=== PATIENT | female | born 1945 | race Caucasian/White ===

== ENCOUNTER 2016-10-04 12:16 | Inpatient (IN) | payer OTHER ==
[2016-10-04] MEDS ORDERED: methylPREDNISolone NA SUCC 125 MG/2 ML VIAL ONE (12:54)
[2016-10-04] MEDS ORDERED: MAGNESIUM SULF 50% (8.12 MEQ/2 ML-1 GM VIAL) IVPB ONE (12:54)
[2016-10-04] MEDS ORDERED: methylPREDNISolone NA SUCC 125 MG/2 ML VIAL IVPB ONE (12:54)
[2016-10-04] MEDS ORDERED: ALBUTEROL SO4 2.5/IPRATROPIUM 0.5 INH SOL 3 ML VIAL.NEB. NEB ONE ×2 (12:54→16:57)
[2016-10-04] MEDS ORDERED: MAGNESIUM SULF 50% (8.12 MEQ/2 ML-1 GM VIAL) ONE (12:54)
[2016-10-04 12:55] VITALS: BMI 19.3
--- NOTE | 2016-10-04 12:55 | PDOC ---
History of Present Illness - General Chief Complaint: Shortness of Breath Stated Complaint: Shortness of Breath Time Seen by Provider: 10/04/16 12:38 - History of Present Illness Initial Comments: 10/04/16 13:45 Patient is a 71 year old female with a history of HTN, DM, COPD who presents with worsening SOB. The patient reports gradual worsening of SOB that began yesterday evening and has progressively worsened throughout this morning. They measured her O2% at home which demonstrated a saturation of 78% prompting them to present to the ED for evaluation. She states that she does use 2L of O2 at home which was not helping with her SOB. She states that over the past few days she noted some increased dry cough without production and denies any fevers. She reports that this SOB feels similar to her previous COPD exacerbations last of which required admission 2 years ago. She denies any recent long travel or increased leg swelling. She denies fevers, chills, chest pain, abdominal pain, nausea, vomiting or changes with bowel movements or urination. Past History - Past Medical History Allergies/Adverse Reactions: Allergies Allergy/AdvReac Type Severity Reaction Status Date / Time No Known Allergies Allergy Verified 10/04/16 12:29 Home Medications: Ambulatory Orders Arformoterol Tartrate [Brovana] 15 mcg IH BID 10/04/16 Aspirin [ASA -] 81 mg PO DAILY 10/04/16 Atorvastatin Ca [Lipitor] 40 mg PO HS 10/04/16 Bimatoprost [Lumigan] 1 drop IO DAILY 10/04/16 Brimonidine Tartrate [Alphagan P 0.1% -] 1 drop OU BID 10/04/16 Brinzolamide [Azopt] 15 ml OP BID 10/04/16 Digoxin [Lanoxin -] 0.125 mg PO DAILY 10/04/16 Diltiazem HCl [Cartia Xt] 120 mg PO DAILY 10/04/16 Ergocalciferol (Vitamin D2) [Vitamin D2] 2,000 unit PO DAILY 10/04/16 Furosemide [Lasix] 40 mg PO ASDIR 10/04/16 Insulin (Levemir) [Levemir Flexpen -] 20 units SQ DAILY 10/04/16 Insulin Lispro [Humalog] 100 unit SQ ASDIR 10/04/16 Levalbuterol HCl [Xopenex] 0.45 mg IH BID 10/04/16 Levothyroxine [Synthroid -] 75 mcg PO ASDIR 10/04/16 Montelukast Na [Singulair -] 10 mg PO HS 10/04/16 Prednisone [Deltasone -] 12.5 mg PO ASDIR 10/04/16 Sitagliptin Phosphate [Januvia] 100 mg PO DAILY 10/04/16 Tiotropium [place] [Spiriva] 18 mcg IH DAILY 10/04/16 Triamcinolone 0.025% Cream [Aristocort] 0 gm TP BID 10/04/16 COPD: Yes Diabetes: Yes Other medical history: glacoma - Psycho/Social/Smoking Cessation Hx Anxiety: No Suicidal Ideation: No Smoking History: Former smoker Have you smoked in the past 12 months: No Information on smoking cessation initiated: No Hx Alcohol Use: No Drug/Substance Use Hx: No Substance Use Type: None Review of Systems - Review of Systems Constitutional: No: Chills, Fever Respiratory: Yes: Cough, Shortness of Breath. No: Productive cough, Hemoptysis Cardiac (ROS): No: Chest Pain, Lightheadedness, Palpitations ABD/GI: No: Constipated, Diarrhea, Nausea, Vomiting : No: Burning, Dysuria Integumentary: No: Rash Neurological: No: Headache, Numbness, Tingling, Weakness *Physical Exam - Vital Signs Last Vital Signs Temp Pulse Resp BP Pulse Ox 98.8 F 137 H 34 H 125/42 94 L 10/04/16 12:29 10/04/16 12:29 10/04/16 12:29 10/04/16 12:29 10/04/16 12:37 - Physical Exam Comments: 10/04/16 13:56 General Appearance: Nourished, Mild Distress HEENT: No Pharyngeal Erythema, Tonsillar Exudate, Tonsillar Erythema Respiratory/Chest: Lungs Clear, Distant breath sounds noted on ascultation. No Crackles, Rales, Rhonchi, Wheezing Cardiovascular: Regular Rhythm, Regular Rate. No Murmur, Gallop/S3, Gallop/S4 Gastrointestinal/Abdominal: Normal Bowel Sounds, Soft. No Guarding, Rebound, Tenderness Extremity: Normal Capillary Refill Integumentary: Normal Color, Dry, Warm Neurologic: Fully Oriented, Alert, Normal Mood/Affect, Normal Response ED Treatment Course - LABORATORY CBC & Chemistry Diagram: 10/04/16 13:10 10/04/16 13:10 - RADIOLOGY Radiology Studies Ordered: Category Date Time Status CHEST PA & LAT [RAD] Stat Radiology 10/04/16 12:54 Ordered Medical Decision Making - Critical Care Time Total Critical Care Time (minutes): 60 Critical Care Statement: The care of this patient involved high complexity decision making to prevent further life threatening deterioration of the patient 's condition and/or to evaluate & treat vital organ system(s) failure or risk of failure. - Medical Decision Making 10/04/16 13:57 Patient is a 71 year old female with a history of HTN, DM, COPD who presents with worsening SOB. Differential includes but is not limited to: COPD exacerbation, ACS, PE, Pneumonia, Metabolic Disturbance. Given the patient's gradual worsening of SOB over the past 24 hours similar to her previous COPD exacerbations, it is likely her symptoms are due to another COPD exacerbation. PE and ACS is less likely given her lack of pain. We will obtain a cbc, cmp, troponin to evaluate as well as a set of blood cultures, chest radiograph and abg. We will treat with a duoneb, solumedrol, and mg. 10/04/16 14:43 CBC demonstrates an elevated WBC to 17. CMP is unremarkable. Troponin elevated to .13 likley due to demand ischemia. ABG demonstrates CO2 retention with a pCO2 of 72. 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 She will likely require admission given her significant CO2 retention. 10/04/16 16:09 Discussed the case with Dr. Barillas the patient's making line worker who agreed with our treatment thus far and recommended Bi-pap for the patient. He stated that he will come in to evaluate the patient as well. 10/04/16 16:[address] Scott and discussed the case for admission of the patient to ICU. Dr. Scott appreciated the call and informed us that she now admits to Dr. Traci Mccarty. We will contact Dr. Mccarty. 10/04/16 16:16 Discussed the case with Dr. Mccarty who agreed to accept the admission. She asked us to consult Dr. Pedro with cardiology for the patient. We will get in contact with Dr. Pedro. 08/28/17 16:54 Discussed the case with Dr. Kiran with the ICU team who was made aware of the case. 10/04/16 17:08 Discussed the case with Dr. Esquivel who is covering for Dr. Pedro and she requested serial troponins be done on the patient. She is aware of the case. *DC/Admit/Observation/Transfer Diagnosis at time of Disposition: COPD with acute exacerbation - Discharge Dispostion Condition at time of disposition: Critical Admit: Yes - Referrals
[2016-10-04] MEDS ORDERED: SODIUM CHLORIDE 1,000 ML IV STA ×2 (13:03→15:53)
[2016-10-04 13:22] LABS: ARTERIAL BLD GAS O2 SATURATION 93.5 % (90-98.9); ARTERIAL BLOOD GAS BASE EXCESS 9.1 meq/l (-2-2); ARTERIAL BLOOD GAS HCO3 37.6 meq/L (22-26); ARTERIAL BLOOD GAS PO2 73.9 mmHg (70-100); ARTERIAL BLOOD GAS pH 7.33 (7.35-7.45)
[2016-10-04 13:23] LABS: METHEMOGLOBIN 0.7 % (0.4-1.5)
[2016-10-04 13:24] LABS: ALLENS TEST POSITIVE; ART PUNCT SITE RIGHT RADIAL; LPM/O2% 4L; PT. ON O2? YES; TYPE OF O2 NASAL
[2016-10-04 13:37] LABS: MCH 31.6 pg (25.7-33.7); MCHC 32.7 g/dl (32.0-36.0); MEAN CELL VOLUME 96.6 fl (80-96); PLATELET COUNT 232 K/MM3 (134-434); RDW 14.6 % (11.6-15.6)
[2016-10-04 13:56] LABS: INR 1.15 (0.82-1.09); PROTHROMBIN TIME (PATIENT) 12.7 SEC (9.98-11.88)
[2016-10-04 14:07] LABS: ALBUMIN 3.4 g/dl (3.4-5.0); ALK PHOS 98 U/L (45-117); ANION GAP 16 (8-16); BILIRUBIN,TOTAL 0.7 mg/dL (0.2-1.0); CALCIUM 9.5 mg/dL (8.5-10.1); CO2 30 mmol/L (21-32); CPK 106 IU/L (26-192); CREATININE 0.8 mg/dL (0.55-1.02); GLUCOSE,RANDOM 198 mg/dL (74-106); SGOT/AST 24 U/L (15-37); SGPT/ALT 27 U/L (12-78); TOT PROT 6.1 g/dl (6.4-8.2)
[2016-10-04 14:09] LABS: TROPONIN I 0.13 ng/ml (0.00-0.05)
[2016-10-04] MEDS ORDERED: CEFTRIAXONE 1 GM in DEXTROSE 5%-WATER - 100 ML IVPB ONE (14:35)
[2016-10-04] MEDS ORDERED: AZITHROMYCIN IVPB 500 MG in DEXTROSE 5%-WATER - 250 ML IVPB ONE (14:35)
[2016-10-04] MEDS ORDERED: CEFTRIAXONE 50 ML ONE (14:51)
[2016-10-04] MEDS ORDERED: AZITHROMYCIN IVPB 250 ML IVPB ONE (14:51)
[2016-10-04] MEDS ORDERED: ASPIRIN 81 MG CHEWABLE TABLETS PO ONE (15:53)
[2016-10-04] MEDS ORDERED: ASPIRIN 81 MG CHEWABLE TABLETS ONE (16:54)
--- NOTE | 2016-10-04 17:41 | CON.PULM ---
Consult Reason for Consultation:: Respiratory Failure - History of Present Illness Chief Complaint: Shortness of Breath History of Present Illness: Pt. evaluated in the ED 71 year old lady with severe O2 and steroid dependent COPD. Pt uses Bipap at home at night and PRN during the day. She was doing relatively well until last night when she developed severe shortness of breath. She had had a "scratchy throat" for several days but no fever, chills, sputum production, hemoptysis chest pain or palpitations. - History Source History Provided By: Patient, Family Member (), Medical Record Limitations to Obtaining History: No Limitations - Past Medical History Cardio/Vascular: Yes: AFIB (Paroxysmal A. FIB. a number of years ago) Pulmonary: Yes: COPD, O2 Dependent, Pneumonia (about 6 years ago), Previously Intubated Endocrine: Yes: Diabetes Mellitus - Alcohol/Substance Use Hx Alcohol Use: No - Smoking History Smoking history: Former smoker Have you smoked in the past 12 months: No Home Medications - Allergies Allergies/Adverse Reactions: Allergies Allergy/AdvReac Type Severity Reaction Status Date / Time No Known Allergies Allergy Verified 10/04/16 12:29 - Home Medications Home Medications: Ambulatory Orders Arformoterol Tartrate [Brovana] 15 mcg IH BID 10/04/16 Aspirin [ASA -] 81 mg PO DAILY 10/04/16 Atorvastatin Ca [Lipitor] 40 mg PO HS 10/04/16 Bimatoprost [Lumigan] 1 drop IO DAILY 10/04/16 Brimonidine Tartrate [Alphagan P 0.1% -] 1 drop OU BID 10/04/16 Brinzolamide [Azopt] 15 ml OP BID 10/04/16 Digoxin [Lanoxin -] 0.125 mg PO DAILY 10/04/16 Diltiazem HCl [Cartia Xt] 120 mg PO DAILY 10/04/16 Ergocalciferol (Vitamin D2) [Vitamin D2] 2,000 unit PO DAILY 10/04/16 Furosemide [Lasix] 40 mg PO ASDIR 10/04/16 Insulin (Levemir) [Levemir Flexpen -] 20 units SQ DAILY 10/04/16 Insulin Lispro [Humalog] 100 unit SQ ASDIR 10/04/16 Levalbuterol HCl [Xopenex] 0.45 mg IH BID 10/04/16 Levothyroxine [Synthroid -] 75 mcg PO ASDIR 10/04/16 Montelukast Na [Singulair -] 10 mg PO HS 10/04/16 Prednisone [Deltasone -] 12.5 mg PO ASDIR 10/04/16 Sitagliptin Phosphate [Januvia] 100 mg PO DAILY 10/04/16 Tiotropium [place] [Spiriva] 18 mcg IH DAILY 10/04/16 Triamcinolone 0.025% Cream [Aristocort] 0 gm TP BID 10/04/16 Review of Systems - Review of Systems Constitutional: denies: Chills, Fever Cardiovascular: reports: Shortness of Breath. denies: Chest Pain, Edema, Palpitations Respiratory: reports: Cough, SOB. denies: Hemoptysis, Wheezing Gastrointestinal: denies: Abdominal Pain, Rectal Bleeding, Vomiting Blood Physical Exam Vital Sings: Vital Signs Temperature 98.8 F 10/04/16 12:29 Pulse Rate 128 H 10/04/16 17:23 Respiratory Rate 28 H 10/04/16 17:23 Blood Pressure 112/57 10/04/16 17:23 O2 Sat by Pulse Oximetry (%) 94 L 10/04/16 17:23 Constitutional: Yes: Moderate Distress (able to speak in full sentences) Eyes: No: Sclera Icterus HENT: Yes: Atraumatic, Normocephalic Neck: Yes: Supple, Trachea Midline Cardiovascular: Yes: Regular Rate and Rhythm. No: JVD Respiratory: Yes: Diminished (decreased intensity breath sounds bilateral) ...Percussion: Yes: Hyperresonance. No: Dullnes ...Clubbing: No Extremities: No: Calf Tenderness, Cyanosis Edema: No Neurological: Yes: Alert, Oriented Labs: ABG Results ABG pH 7.33 (7.35-7.45) L 10/04/16 13:20 ABG pCO2 at Pt Temp 72.9 mmHg (35-45) H* D 10/04/16 13:20 ABG pO2 at Pt Temp 73.9 mmHg (70-100) D 10/04/16 13:20 ABG HCO3 37.6 meq/L (22-26) H 10/04/16 13:20 ABG O2 Sat (Measured) 93.5 % (90-98.9) 10/04/16 13:20 ABG O2 Content 17.9 % vol (15-22) 10/04/16 13:20 ABG Base Excess 9.1 meq/l (-2-2) H 10/04/16 13:20 Lactic acid 3.2 Trop 0.13 Imaging - Results Chest X-ray: Pending (MARKINGS RIGHT BASE, LEFT BASILAR OPACITIES SUGGESTIVE POSSIBLE INFILTRATE), Report Reviewed, Image Reviewed (Portable cxr) Problem List - Problems (1) Acute and chronic respiratory failure with hypercapnia Code(s): J96.22 - ACUTE AND CHRONIC RESPIRATORY FAILURE WITH HYPERCAPNIA (2) Acute and chronic respiratory failure with hypoxia Code(s): J96.21 - ACUTE AND CHRONIC RESPIRATORY FAILURE WITH HYPOXIA (3) COPD with acute exacerbation Code(s): J44.1 - CHRONIC OBSTRUCTIVE PULMONARY DISEASE W (ACUTE) EXACERBATION (4) Pneumonia Code(s): J18.9 - PNEUMONIA, UNSPECIFIED ORGANISM Assessment/Plan Acute on chronic respiratory failure probably due to respiratory infection. Severe COPD that is steroid and O2 dependent. Pt uses BIPAP at night and PRN during the day at home. Past history of DM and PAF. Pt is still ambulatory at baseline and does pulmonary rehab. Trop. increased. Suggest: Transfer to ICU NIPPV IV steroids Antibiotics Inhaled bronchodilators O2 to maintain SaO2>90 Fluids PRN Monitor cardiac status Thank you for referring this patient for consultation.
--- NOTE | 2016-10-04 18:20 | CONSULT ---
Consultation: REQUESTING PROVIDER: CONSULT REQUEST: We have been asked to medically evaluate this patient for (ICU) . HISTORY OF PRESENT ILLNESS: Patient is a 71 year old female with a history of HTN, DM, COPD who came to ED with complain of increase in SOB. The patient reports gradual worsening of SOB that began yesterday evening and has progressively worsened throughout this morning. She measured her O2% at home which demonstrated a saturation of 78% so she came to ED. She states that she does use 2L of O2 at home which was not helping with her SOB, she also uses BIPAP in night and PRN in day. She states that over the past few days she noted some increased dry cough without production and denies any fevers. She reports that this SOB feels similar to her previous COPD exacerbations last of which required admission 2 years ago. She denies chest pain, palpitations, diziness, nausea, vomiting. Denies blood in stool, loss of weight, diarrhoea, constipation. Denies burning micturation. She denies any recent long travel or increased leg swelling. She states that she takes 40mg lasix BID for leg swelling but has never been diagnosed with CHF. She states her thread spooler is Dr connor. REVIEW OF SYSTEMS: CONSTITUTIONAL: Absent: fever, chills, diaphoresis, generalized weakness, malaise, loss of appetite, weight change HEENT: Absent: rhinorrhea, nasal congestion, throat pain, throat swelling, CARDIOVASCULAR: Absent: chest pain, syncope, palpitations, irregular heart rate, lightheadedness , peripheral edema RESPIRATORY: Absent: cough, shortness of breath, dyspnea with exertion, orthopnea, wheezing, stridor, hemoptysis GASTROINTESTINAL: Absent: abdominal pain, abdominal distension, nausea, vomiting, diarrhea, constipation, melena, hematochezia GENITOURINARY: Absent: dysuria, frequency, urgency, hesitancy, hematuria, flank pain, genital pain SKIN: Absent: rash, itching, pallor ENDOCRINE: Absent: unexplained weight gain, NEUROLOGIC: Absent: headache, focal weakness or paresthesias, dizziness, PSYCHIATRIC: Absent: anxiety, depression, PHYSICAL EXAMINATION Vital Signs - 24 hr 10/04/16 17:23 Pulse Rate [ 128 H Apical] Respiratory 28 H Rate Blood Pressure 112/57 [Left Arm] O2 Sat by Pulse 94 L Oximetry (%) GENERAL: Awake, alert, and fully oriented, in no acute distress. HEAD: Normal with no signs of trauma. EYES: extraocular movements intact, EARS, NOSE, THROAT: Ears normal, nares patent, oropharynx clear without exudates. Moist mucous membranes. NECK: Normal range of motion, supple without lymphadenopathy, JVD, or masses. LUNGS: Breath sounds equal, clear to auscultation bilaterally. No wheezes, and no crackles. No accessory muscle use. Decrease breath sound at bases HEART: Regular rate and rhythm, normal S1 and S2, tachycardia ABDOMEN: Soft, nontender, not distended, normoactive bowel sounds, no guarding, no rebound, no masses. UPPER EXTREMITIES: 2+ pulses, warm, well-perfused. No cyanosis. LOWER EXTREMITIES: warm, well-perfused. No calf tenderness.peripheral edema 1+ PSYCHIATRIC: Cooperative. Good eye contact. Appropriate mood and affect. SKIN: Warm, dry, Home Medications Medication Instructions Recorded Arformoterol Tartrate [Brovana] 15 mcg IH BID 10/04/16 Aspirin [ASA -] 81 mg PO DAILY 10/04/16 Atorvastatin Ca [Lipitor] 40 mg PO HS 10/04/16 Bimatoprost [Lumigan] 1 drop IO DAILY 10/04/16 Brimonidine Tartrate [Alphagan P 1 drop OU BID 10/04/16 0.1% -] Brinzolamide [Azopt] 15 ml OP BID 10/04/16 Digoxin [Lanoxin -] 0.125 mg PO DAILY 10/04/16 Diltiazem HCl [Cartia Xt] 120 mg PO DAILY 10/04/16 Ergocalciferol (Vitamin D2) 2,000 unit PO DAILY 10/04/16 [Vitamin D2] Furosemide [Lasix] 40 mg PO ASDIR 10/04/16 Insulin (Levemir) [Levemir Flexpen 20 units SQ DAILY 10/04/16 -] Insulin Lispro [Humalog] 100 unit SQ ASDIR 10/04/16 Levalbuterol HCl [Xopenex] 0.45 mg IH BID 10/04/16 Levothyroxine [Synthroid -] 75 mcg PO ASDIR 10/04/16 Montelukast Na [Singulair -] 10 mg PO HS 10/04/16 Prednisone [Deltasone -] 12.5 mg PO ASDIR 10/04/16 Sitagliptin Phosphate [Januvia] 100 mg PO DAILY 10/04/16 Tiotropium [place] [Spiriva] 18 mcg IH DAILY 10/04/16 Triamcinolone 0.025% Cream 0 gm TP BID 10/04/16 [Aristocort] Current Medications Generic Name Dose Route Start Last Admin Trade Name Freq PRN Reason Stop Dose Admin Albuterol/Ipratropium 1 amp 10/04/16 18:45 Duoneb - NEB Q6H [facility] Albuterol/Ipratropium 1 amp 10/04/16 18:35 Duoneb - NEB Q4H PRN SHORTNESS OF BREATH Arformoterol Tartrate amp 10/04/16 22:00 Brovana (Restricted To Pulmonology/Resp) - NEB BID [facility] Aspirin 81 mg 10/05/16 10:00 Asa - PO DAILY [facility] Atorvastatin Calcium 40 mg 10/04/16 22:00 Lipitor - PO HS [facility] Brimonidine Tartrate 1 drop 10/04/16 22:00 Alphagan P 0.1% - OU BID [facility] Digoxin 0.125 mg 10/05/16 10:00 Lanoxin - PO DAILY [facility] Diltiazem HCl 120 mg 10/05/16 10:00 Cardizem Cd - PO DAILY [facility] Furosemide 40 mg 10/05/16 06:00 Lasix - PO BID@0600,1400 [facility] Heparin Sodium (Porcine) 5,000 unit 10/04/16 22:00 Heparin - SQ BID [facility] Azithromycin 500 mg/ Dextrose 250 mls @ 250 mls/hr 10/05/16 10:00 IVPB DAILY [facility] Ceftriaxone Sodium 1 gm/ 50 mls @ 100 mls/hr 10/05/16 10:00 Dextrose IVPB DAILY [facility] Levothyroxine Sodium 75 mcg 10/04/16 18:30 Synthroid - PO ASDIR [facility] Methylprednisolone Sodium Succinate 40 mg 10/04/16 21:00 Solu-Medrol - IVPB Q6H-IV [facility] Montelukast Sodium 10 mg 10/04/16 22:00 Singulair - PO HS [facility] Non-Formulary Medication 1 drop 10/05/16 10:00 Bimatoprost [Lumigan] IO DAILY [facility] Non-Formulary Medication 15 ml 10/04/16 22:00 Brinzolamide [Azopt] OP BID [facility] Non-Formulary Medication 2,000 unit 10/05/16 10:00 Ergocalciferol (Vitamin D2) [Vitamin D2] PO DAILY [facility] Non-Formulary Medication 20 units 10/05/16 10:00 Insulin (Levemir) [Levemir Flexpen -] SQ DAILY [facility] Non-Formulary Medication 0.45 mg 10/04/16 22:00 Levalbuterol Hcl [Xopenex] IH BID [facility] ASSESSMENT/PLAN: Acute on chronic hypercapnic respiratory failure Continue with BIPAP Repeat ABG oxygen to keep po2 between 88 to 92 Duoneb nebulizer q6h candis albuterol q4h prn IV steroid solu 40mg q6h Monitor vitals. on montelucast In ED patinet sod 125mg solu, azithro, mg and was started on BIPAP Leucocytosis: could be due to susupected pneumonia or stress induced Patient got azithromycin and ceftriaxone in ED continue with ceftriaxone and azithro get wbc in morning HLD continue with statin Lactic acidosis: could be due to hypoxia Trend lactic acid. elevated Trop I could be due to demand ischemia got 324mg aspirin in ED Continue with aspirin 81mg daily Trend Trop i HTN monitor vitals continue with home meds. on cardiazem on lasix DM monitor blood sugar diabetic diet Novalog sliding scale. continue with levemir. h/o glaucoma on bimatoprost, brinzolamide,brimonidine Hypothyroidism Continue with levothyroxine Fluid: Electrolyte: repeat in am Nutrition; diabetic diet GI pro: protonix DVT pro sq heparin BID Dispo: We will continue to follow the patient. Thank you for this consultative opportunity. Visit type - Emergency Visit Emergency Visit: Yes ED Registration Date: 10/04/16 Care time: The patient presented to the Emergency Department on the above date and was hospitalized for further evaluation of their emergent condition. - New Patient This patient is new to me today: Yes Date on this admission: 10/04/16 - Critical Care Critical Care patient: Yes Total Critical Care Time (in minutes): 45 Critical Care Statement: The care of this patient involved high complexity decision making to prevent further life threatening deterioration of the patient 's condition and/or to evaluate & treat vital organ system(s) failure or risk of failure.
[2016-10-04 18:29] LABS: TROPONIN I 0.1 ng/ml (0.00-0.05)
[2016-10-04] MEDS ORDERED: FUROSEMIDE 40 MG TABLET (FP) PO SCH (18:30)
[2016-10-04] MEDS ORDERED: ALBUTEROL SO4 6.7 GM HFA INHALER IH PRN (18:35)
--- NOTE | 2016-10-04 18:53 | EKG ---
Test Reason : Blood Pressure : / mmHG Vent. Rate : 137 BPM Atrial Rate : 137 BPM P-R Int : 130 ms QRS Dur : 076 ms QT Int : 284 ms P-R-T Axes : 087 065 -81 degrees QTc Int : 428 ms UNDETERMINED RHYTHM POSSIBLE ATRIAL FLUTTER VS. ATRIAL TACHYCARDIA VS. SINUS TACHYCARDIA WITH BASELINE ARTIFACT MARKED ST ABNORMALITY, POSSIBLE INFERIOR SUBENDOCARDIAL INJURY ABNORMAL ECG WHEN COMPARED WITH ECG OF 21-JUL-2009 10:44, PREMATURE ATRIAL COMPLEXES ARE NO LONGER PRESENT VENT. RATE HAS INCREASED BY [address] NOW DEPRESSED IN INFERIOR LEADS Confirmed by JAREN ROMERO MD ([id number]) on 10/04/2016 6:52:59 PM Referred By: Confirmed By:JAREN ROMERO MD
[2016-10-04] MEDS ORDERED: ALBUTEROL SO4 0.083% IH SOL 2.5 MG/3 ML VIAL.NEB. NEB PRN (19:10)
[2016-10-04] MEDS: ALBUTEROL SO4 2.5/IPRATROPIUM 0.5 INH SOL 3 ML VIAL.NEB. NEB SCH (19:15)
[2016-10-04] MEDS ORDERED: ADENOSINE 6 MG/2 ML VIAL IVPUSH ONE (19:20)
[2016-10-04 19:59] LABS: ARTERIAL BLOOD GAS pH 7.38 (7.35-7.45)
[2016-10-04] MEDS ORDERED: ADENOSINE 6 MG/2 ML VIAL IVPUSH STA (19:59)
[2016-10-04 20:00] LABS: ALLENS TEST POSITIVE; ART PUNCT SITE LEFT RADIAL; ARTERIAL BLD GAS O2 SATURATION 98.6 % (90-98.9); ARTERIAL BLOOD GAS BASE EXCESS 7.5 meq/l (-2-2); ARTERIAL BLOOD GAS HCO3 34.1 meq/L (22-26); LPM/O2% 40%; PT. ON O2? YES; TYPE OF O2 BIPAP; VENT RATE 16
--- NOTE | 2016-10-04 20:19 | CONSULT ---
Consult Consult Specialty:: Pulm/CCM Reason for Consultation:: acute on chronic hypercapneic resp failure - History of Present Illness Chief Complaint: Shortness of breath History of Present Illness: Ms Jaime is a 71 year old woman with a history of HTN, DM, COPD on home NIV who presented to ED today with worsening SOB. Pt relates gradual worsening of her chronic SOB starting yesterday evening and cont to get worse this morning prompting ED visit. She has home Spo2 monitor which read 78%, despite being on her home o2 of 2Lpm. She c/o dry non productive cough but no sputum, no fever, no other URI symptoms, sick contacts, or other sick prodome. Relates previous hospitalizations for COPD exacerbation which were similiar. In ED pt was afebrile, normotensive, tachypneic to 30s, tachycardic 130s. She was in moderate distress, abg with mild acute on chronic hypercapnea 7.33/72. She was placed on NIV with some relief, and repeat abd improved. Labs were notable for WBC 17, lactate 3, trop 0.13. CXR without infiltrate, EKG showing sinus tach with infero-lateral ST depression. Started on Ceftriaxone/azithromycin and solu-medorol for COPD exacerbation. Transferred to ICU for care. Repeat labs in ICU showed downtrending Trop and lactic acid., pt relates feeling improved. - History Source History Provided By: Patient, Medical Record Limitations to Obtaining History: No Limitations - Past Medical History Cardio/Vascular: Yes: HTN Pulmonary: Yes: COPD, O2 Dependent Endocrine: Yes: Diabetes Mellitus - Alcohol/Substance Use Hx Alcohol Use: No - Smoking History Smoking history: Former smoker Have you smoked in the past 12 months: No Home Medications - Allergies Allergies/Adverse Reactions: Allergies Allergy/AdvReac Type Severity Reaction Status Date / Time No Known Allergies Allergy Verified 10/04/16 12:29 - Home Medications Home Medications: Ambulatory Orders Arformoterol Tartrate [Brovana] 15 mcg IH BID 10/04/16 Aspirin [ASA -] 81 mg PO DAILY 10/04/16 Atorvastatin Ca [Lipitor] 40 mg PO HS 10/04/16 Bimatoprost [Lumigan] 1 drop IO DAILY 10/04/16 Brimonidine Tartrate [Alphagan P 0.1% -] 1 drop OU BID 10/04/16 Brinzolamide [Azopt] 15 ml OP BID 10/04/16 Digoxin [Lanoxin -] 0.125 mg PO DAILY 10/04/16 Diltiazem HCl [Cartia Xt] 120 mg PO DAILY 10/04/16 Ergocalciferol (Vitamin D2) [Vitamin D2] 2,000 unit PO DAILY 10/04/16 Furosemide [Lasix] 40 mg PO ASDIR 10/04/16 Insulin (Levemir) [Levemir Flexpen -] 20 units SQ DAILY 10/04/16 Insulin Lispro [Humalog] 100 unit SQ ASDIR 10/04/16 Levalbuterol HCl [Xopenex] 0.45 mg IH BID 10/04/16 Levothyroxine [Synthroid -] 75 mcg PO ASDIR 10/04/16 Montelukast Na [Singulair -] 10 mg PO HS 10/04/16 Prednisone [Deltasone -] 12.5 mg PO ASDIR 10/04/16 Sitagliptin Phosphate [Januvia] 100 mg PO DAILY 10/04/16 Tiotropium [place] [Spiriva] 18 mcg IH DAILY 10/04/16 Triamcinolone 0.025% Cream [Aristocort] 0 gm TP BID 10/04/16 Family Disease History - Family Disease History Family History: Unremarkable Review of Systems - Review of Systems Constitutional: reports: No Symptoms. denies: Night Sweats, Unintentional Wgt. Loss Eyes: reports: No Symptoms HENT: denies: Throat Pain Neck: reports: No Symptoms Cardiovascular: reports: Shortness of Breath. denies: Chest Pain Respiratory: reports: Cough, SOB on Exertion Gastrointestinal: reports: No Symptoms. denies: Abdominal Pain, Vomiting Genitourinary: reports: No Symptoms Breasts: reports: No Symptoms Reported Musculoskeletal: reports: No Symptoms Integumentary: reports: No Symptoms Neurological: reports: No Symptoms Endocrine: reports: No Symptoms Hematology/Lymphatic: reports: No Symptoms Physical Exam Vital Signs: Vital Signs Temperature 97.7 F 10/04/16 18:33 Pulse Rate 132 H 10/04/16 18:33 Respiratory Rate 26 H 10/04/16 18:33 Blood Pressure 111/49 10/04/16 18:33 O2 Sat by Pulse Oximetry (%) 100 10/04/16 20:09 Constitutional: Yes: Well Nourished, No Distress Eyes: Yes: Conjunctiva Clear, EOM Intact, PERRL HENT: Yes: Atraumatic, Normocephalic. No: Rhinnorhea, Thrush Neck: Yes: Trachea Midline. No: Lymphadenopathy Cardiovascular: Yes: Tachycardia, S1, S2 Respiratory: Yes: CTA Bilaterally, Diminished, On BiPap. No: Accessory Muscle Use Gastrointestinal: Yes: Normal Bowel Sounds, Soft. No: Tenderness ...Rectal Exam: Yes: WNL Renal/: Yes: WNL Breast(s): Yes: WNL Musculoskeletal: Yes: WNL Extremities: Yes: WNL Edema: Yes Edema: LLE: 1+, RLE: 1+ Peripheral Pulses WNL: Yes Integumentary: Yes: WNL Neurological: Yes: Alert, Oriented, Cran Nerves II-XII Intact ...Motor Strength: WNL Psychiatric: Yes: WNL Labs: CBC, BMP 10/04/16 13:10 10/04/16 13:10 ABG Results ABG pH 7.38 (7.35-7.45) 10/04/16 19:40 ABG pCO2 at Pt Temp 58.5 mmHg (35-45) H 10/04/16 19:40 ABG pO2 at Pt Temp 114.0 mmHg (70-100) H D 10/04/16 19:40 ABG HCO3 34.1 meq/L (22-26) H 10/04/16 19:40 ABG O2 Sat (Measured) 98.6 % (90-98.9) 10/04/16 19:40 ABG O2 Content 18.1 % vol (15-22) 10/04/16 19:40 ABG Base Excess 7.5 meq/l (-2-2) H 10/04/16 19:40 Troponin, BNP 10/04/16 10/04/16 13:10 17:40 Troponin I 0.13 H 0.10 H Imaging - Results Chest X-ray: Report Reviewed, Image Reviewed EKG: Report Reviewed, Image Reviewed Problem List - Problems (1) Acute and chronic respiratory failure with hypercapnia Code(s): J96.22 - ACUTE AND CHRONIC RESPIRATORY FAILURE WITH HYPERCAPNIA (2) Acute and chronic respiratory failure with hypoxia Code(s): J96.21 - ACUTE AND CHRONIC RESPIRATORY FAILURE WITH HYPOXIA (3) COPD with acute exacerbation Code(s): J44.1 - CHRONIC OBSTRUCTIVE PULMONARY DISEASE W (ACUTE) EXACERBATION (4) Pneumonia Code(s): J18.9 - PNEUMONIA, UNSPECIFIED ORGANISM Assessment/Plan PULM/CCM seen and examined in ICU A/ 71 y/o woman with DM, HTN, COPD on home o2 and NIV now with exacerbation on same, improving on BiPap. P -cont ceftriaxone/azith for exacerbation -taper to solu-medrol 60 in am - NIV overnight -duo nebs - even fluid balance - f/u third trop - asa given in ED, ok for daily 81. - cardiology to follow - can restart home meds in am - if cont to improve, ok for floor in am Marc Hendrix ACNP 1464 35min CCT
[2016-10-04] MEDS: methylPREDNISolone NA SUCC 40 MG/1 ML VIAL IVPB SCH (21:56)
[2016-10-04] MEDS: HEPARIN NA (PORCINE) 5,000 UNITS/ML 1ML VIAL SQ SCH (21:57)
[2016-10-04] MEDS: BRIMONIDINE TARTRATE 0.1% OPHTHALMIC 5 ML BOTTLE OU SCH (21:57)
[2016-10-04] MEDS: LATANOPROST 0.005% OPHTH SOLN 2.5ML BOTTLE OU SCH (21:57)
[2016-10-04] MEDS: MUPIROCIN 2% TOPICAL OINTMENT FOR DECOLONIZATION NS SCH (21:57)
[2016-10-04] MEDS: CHLORHEXIDINE GLUCONATE 4% CLEANSER FOR DECOLONIZATION TP SCH (21:58)
[2016-10-04] MEDS: ATORVASTATIN CA 40 MG TABLET (FP) PO SCH (21:58)
[2016-10-04] MEDS: MONTELUKAST NA 10 MG TABLET PO SCH (21:58)
[2016-10-04] MEDS ORDERED: PATIENT'S OWN MEDICATION (NON-FORMULARY) (Brinzolamide [Azopt] 15 ML) OU SCH (22:00)
[2016-10-04] MEDS ORDERED: LEVALBUTEROL IH SCH (22:00)
[2016-10-04] MEDS: ARFORMOTEROL TARTRATE 15 MCG/2 ML VIAL NEB SCH (22:00)
--- NOTE | 2016-10-04 22:35 | HP ---
Admitting History and Physical - Primary Care Physician PCP: Nitin Mccarty - Admission Chief Complaint: SOB History of Present Illness: Pt with significant h/o COPD on BIPAP at home in her [facility] untill yesterday when started to develop a dry cough associated with scratchy throat and later felt SOB; pt's SOB got worse today and pt came to ER. History Source: Patient - Past Medical History Cardiovascular: Yes: HTN Pulmonary: Yes: COPD (on BIPAP at home- every night and PRN), O2 Dependent Endocrine: Yes: Diabetes Mellitus (on Insulin) - Smoking History Smoking history: Former smoker Have you smoked in the past 12 months: No - Alcohol/Substance Use Hx Alcohol Use: No Home Medications - Allergies Allergies/Adverse Reactions: Allergies Allergy/AdvReac Type Severity Reaction Status Date / Time No Known Allergies Allergy Verified 10/04/16 12:29 - Home Medications Home Medications: Ambulatory Orders Arformoterol Tartrate [Brovana] 15 mcg IH BID 10/04/16 Aspirin [ASA -] 81 mg PO DAILY 10/04/16 Atorvastatin Ca [Lipitor] 40 mg PO HS 10/04/16 Bimatoprost [Lumigan] 1 drop IO DAILY 10/04/16 Brimonidine Tartrate [Alphagan P 0.1% -] 1 drop OU BID 10/04/16 Brinzolamide [Azopt] 15 ml OP BID 10/04/16 Digoxin [Lanoxin -] 0.125 mg PO DAILY 10/04/16 Diltiazem HCl [Cartia Xt] 120 mg PO DAILY 10/04/16 Ergocalciferol (Vitamin D2) [Vitamin D2] 2,000 unit PO DAILY 10/04/16 Furosemide [Lasix] 40 mg PO ASDIR 10/04/16 Insulin (Levemir) [Levemir Flexpen -] 20 units SQ DAILY 10/04/16 Insulin Lispro [Humalog] 100 unit SQ ASDIR 10/04/16 Levalbuterol HCl [Xopenex] 0.45 mg IH BID 10/04/16 Levothyroxine [Synthroid -] 75 mcg PO ASDIR 10/04/16 Montelukast Na [Singulair -] 10 mg PO HS 10/04/16 Prednisone [Deltasone -] 12.5 mg PO ASDIR 10/04/16 Sitagliptin Phosphate [Januvia] 100 mg PO DAILY 10/04/16 Tiotropium [place] [Spiriva] 18 mcg IH DAILY 10/04/16 Triamcinolone 0.025% Cream [Aristocort] 0 gm TP BID 10/04/16 Review of Systems - Review of Systems Constitutional: denies: Chills, Fever HENT: denies: Ear Discharge, Ear Pain, Nasal Congestion Neck: denies: Pain on Movement, Stiffness Cardiovascular: denies: Chest Pain, Edema, Palpitations Respiratory: reports: Cough. denies: Wheezing Gastrointestinal: denies: Abdominal Pain, Diarrhea, Nausea, Vomiting Genitourinary: reports: Discharge, Dysuria. denies: Burning, Flank Pain Musculoskeletal: denies: Back Pain, Extremity Pain Neurological: denies: Change in LOC, Change in Speech, Confusion Endocrine: denies: Excessive Sweating, Intolerance to Cold Hematology/Lymphatic: denies: Easily Bruised, Excessive Bleeding Psychiatric: denies: Anxiety, Depression Physical Examination Vital Signs: Vital Signs Temperature 97.8 F 10/04/16 21:00 Pulse Rate 83 10/04/16 22:00 Respiratory Rate 18 10/04/16 22:00 Blood Pressure 102/46 10/04/16 22:00 O2 Sat by Pulse Oximetry (%) 100 10/04/16 21:00 Constitutional: Yes: No Distress, Calm Eyes: Yes: Conjunctiva Clear, EOM Intact HENT: Yes: Normocephalic. No: Rhinnorhea Neck: No: Trachea Midline, Lymphadenopathy Cardiovascular: Yes: Regular Rate and Rhythm, S1, S2 Respiratory: Yes: Regular, Diminished, Other (coarse BS) Gastrointestinal: Yes: Normal Bowel Sounds, Soft. No: Tenderness ...Rectal Exam: Yes: Deferred Breast(s): Yes: Other (deferred) Edema: No Integumentary: No: Erythema, Rash Neurological: Yes: Alert, Oriented, Other (motor eval is symmetric in UE/ LE/ face) Psychiatric: Yes: Alert, Oriented Labs: reviewed Imaging - Results Chest X-ray: Report Reviewed Problem List - Problems (1) Acute and chronic respiratory failure with hypercapnia Code(s): J96.22 - ACUTE AND CHRONIC RESPIRATORY FAILURE WITH HYPERCAPNIA (2) COPD with acute exacerbation Code(s): J44.1 - CHRONIC OBSTRUCTIVE PULMONARY DISEASE W (ACUTE) EXACERBATION (3) Pneumonia Code(s): J18.9 - PNEUMONIA, UNSPECIFIED ORGANISM (4) Diabetes mellitus Code(s): E11.9 - TYPE 2 DIABETES MELLITUS WITHOUT COMPLICATIONS (5) Hypertension Code(s): I10 - ESSENTIAL (PRIMARY) HYPERTENSION Assessment/Plan Admit to monitor bed IV solu-medrol IV abtx Pulmonary consult BIPAP AM labs DVT prophylasis Case was d/w pt's nurse Time spent for managing pt's care: over 80 minutes
[2016-10-05] MEDS: ALBUTEROL SO4 2.5/IPRATROPIUM 0.5 INH SOL 3 ML VIAL.NEB. NEB SCH ×2 (00:01→06:03)
[2016-10-05] MEDS: methylPREDNISolone NA SUCC 40 MG/1 ML VIAL IVPB SCH ×4 (03:41→21:38)
[2016-10-05] MEDS: INSULIN SLIDING SCALE (NOVOLOG) 1 VIAL SQ SCH ×4 (06:17→21:51)
[2016-10-05] MEDS: LEVOTHYROXINE NA 75 MCG TABLET (FP) PO SCH (06:18)
[2016-10-05] MEDS: FUROSEMIDE 40 MG TABLET (FP) PO SCH ×2 (06:18→14:47)
[2016-10-05 06:48] LABS: MCH 31.8 pg (25.7-33.7); MCHC 32.8 g/dl (32.0-36.0); MEAN PLT VOLUME 9.7 fl (7.5-11.1); PLATELET COUNT 224 K/MM3 (134-434); RDW 14.2 % (11.6-15.6)
[2016-10-05 07:08] LABS: INR 1.15 (0.82-1.09); PROTHROMBIN TIME (PATIENT) 12.7 SEC (9.98-11.88)
[2016-10-05 07:14] LABS: MAGNESIUM 2.3 mg/dL (1.8-2.4); PHOSPHOROUS 2.7 mg/dL (2.5-4.9)
[2016-10-05 07:17] LABS: TROPONIN I 0.04 ng/ml (0.00-0.05)
[2016-10-05 07:36] LABS: ALBUMIN 2.8 g/dl (3.4-5.0); ALK PHOS 87 U/L (45-117); ANION GAP 10 (8-16); BILIRUBIN,TOTAL 0.7 mg/dL (0.2-1.0); CALCIUM 8.9 mg/dL (8.5-10.1); CO2 33 mmol/L (21-32); CREATININE 0.6 mg/dL (0.55-1.02); GLUCOSE,RANDOM 210 mg/dL (74-106); SGOT/AST 22 U/L (15-37); SGPT/ALT 23 U/L (12-78); THYROID STIMULATING HORMONE 0.16 uIU/ml (0.358-3.74); TOT PROT 5.7 g/dl (6.4-8.2)
--- NOTE | 2016-10-05 08:27 | PN ---
Physical Exam: SUBJECTIVE: Patient seen and examined by me this AM - Pt respiratory status improved on Bipap, medrol, nebs. F/u ABG 7.38/58.5/114/ 34. Endorses improving SOB, dyspnea. Still with dry cough. - Lactate, Troponin downtrending - Afebrile, WBC downtrending (17-> 14) - Episode of sustained SVT overnight to 130s. Received adenosine 6mg with conversion to sinus rhythm. NSR for remainder of AM. - Seen by cardiology and pulmonology - CXR notable for bibasilar opacities, with LLL consolidation suggestive of possible PNA. - Blood cultures pending OBJECTIVE: Intake & Output 10/02/16 10/03/16 10/04/16 10/05/16 23:59 23:59 23:59 23:59 Intake Total 170 Output Total 200 200 Balance -200 -30 Weight 50.5 kg 51.573 kg Vital Signs Period Temp Pulse Resp BP Sys/Anthony Pulse Ox Last 24 Hr 97.5 F-97.8 F 78-133 16-28 102-131/46-65 93-100 GENERAL: The patient is awake, alert, and fully oriented. Elderly woman lying comfortably in bed on BiPap. HEAD: Normal with no signs of trauma. EYES: PERRL, extraocular movements intact, sclera anicteric, conjunctiva clear. No ptosis. ENT: oropharynx clear without exudates, moist mucous membranes. NECK: Trachea midline, full range of motion, supple. LUNGS: Breath sounds diminished with scattered rhonchi, no wheezes, no crackles HEART: Regular rate and rhythm, S1, S2 without murmur, rub or gallop. ABDOMEN: Soft, nontender, nondistended, normoactive bowel sounds, no guarding, no rebound EXTREMITIES: 2+ pulses, warm, well-perfused. 2+ LE BL edema NEUROLOGICAL: Cranial nerves II through XII grossly intact. Normal speech, gait not observed. PSYCH: Normal mood, normal affect. SKIN: Warm, dry, normal turgor. Laboratory Results - last 24 hr 10/04/16 10/04/16 10/04/16 17:40 17:40 19:40 WBC RBC Hgb Hct MCV MCH MCHC RDW Plt Count MPV INR Anticoagulation Therapy Y Puncture Site Left radial ABG pH 7.38 ABG pCO2 at Pt Temp 58.5 H ABG pO2 at Pt Temp 114.0 H D ABG HCO3 34.1 H ABG O2 Sat (Measured) 98.6 ABG O2 Content 18.1 ABG Base Excess 7.5 H [place] Test Positive O2 Delivery Device Bipap Oxygen Flow Rate 40% Vent Mode S/t Vent Rate 16 Mechanical Rate Y PEEP 0.0 Pressure Support Vent 12/5 Sodium Potassium Chloride Carbon Dioxide Anion Gap BUN Creatinine Creat Clearance w eGFR POC Glucometer Random Glucose Lactic Acid 0.9 Calcium Phosphorus Magnesium Total Bilirubin AST ALT Alkaline Phosphatase Creatine Kinase 108 Troponin I 0.10 H Total Protein Albumin TSH 10/04/16 10/05/16 10/05/16 21:40 05:30 05:30 WBC 14.0 H RBC 4.14 Hgb 13.1 Hct 40.1 MCV 97.0 H MCH 31.8 MCHC 32.8 RDW 14.2 Plt Count 224 MPV 9.7 INR Anticoagulation Therapy Puncture Site ABG pH ABG pCO2 at Pt Temp ABG pO2 at Pt Temp ABG HCO3 ABG O2 Sat (Measured) ABG O2 Content ABG Base Excess [place] Test O2 Delivery Device Oxygen Flow Rate Vent Mode Vent Rate Mechanical Rate PEEP Pressure Support Vent Sodium 144 Potassium 4.4 Chloride 101 Carbon Dioxide 33 H Anion Gap 10 BUN 25 H Creatinine 0.6 D Creat Clearance w eGFR > 60 POC Glucometer [phone] Random Glucose 210 H Lactic Acid Calcium 8.9 Phosphorus Magnesium Total Bilirubin 0.7 AST 22 ALT 23 Alkaline Phosphatase 87 Creatine Kinase Troponin I Total Protein 5.7 L Albumin 2.8 L TSH 0.16 L 10/05/16 10/05/16 10/05/16 05:30 05:30 06:11 WBC RBC Hgb Hct MCV MCH MCHC RDW Plt Count MPV INR 1.15 H Anticoagulation Therapy Puncture Site ABG pH ABG pCO2 at Pt Temp ABG pO2 at Pt Temp ABG HCO3 ABG O2 Sat (Measured) ABG O2 Content ABG Base Excess [place] Test O2 Delivery Device Oxygen Flow Rate Vent Mode Vent Rate Mechanical Rate PEEP Pressure Support Vent Sodium Potassium Chloride Carbon Dioxide Anion Gap BUN Creatinine Creat Clearance w eGFR POC Glucometer [phone] Random Glucose Lactic Acid Calcium Phosphorus 2.7 Magnesium 2.3 Total Bilirubin AST ALT Alkaline Phosphatase Creatine Kinase Troponin I 0.04 Total Protein Albumin TSH Active Medications Generic Name Dose Route Start Last Admin Trade Name Freq PRN Reason Stop Dose Admin Albuterol Sulfate 1 amp 10/04/16 19:10 Ventolin 0.083% Nebulizer Soln - NEB Q4H PRN SHORT OF BREATH/WHEEZING Albuterol/Ipratropium 1 amp 10/04/16 18:45 10/05/16 06:03 Duoneb - NEB 1 amp Q6H CANDIS Administration Arformoterol Tartrate 1 amp 10/04/16 22:00 10/04/16 22:00 Brovana (Restricted To Pulmonology/Resp) - NEB Not Given BID CANDIS Aspirin 81 mg 10/05/16 10:00 Asa - PO DAILY CANDIS Atorvastatin Calcium 40 mg 10/04/16 22:00 10/04/16 21:58 Lipitor - PO 40 mg HS CANDIS Administration Brimonidine Tartrate 1 drop 10/04/16 22:00 10/04/16 21:57 Alphagan P 0.1% - OU 1 drop BID CANDIS Administration Chlorhexidine Gluconate 1 applic 10/04/16 22:00 10/04/16 21:58 Hibiclens For Decolonization - TP 1 applic HS CANDIS Administration Cholecalciferol 2,000 unit 10/05/16 10:00 Vitamin D3 - PO DAILY CANDIS Digoxin 0.125 mg 10/05/16 10:00 Lanoxin - PO DAILY CANDIS Diltiazem HCl 120 mg 10/05/16 10:00 Cardizem Cd - PO DAILY CANDIS Furosemide 40 mg 10/05/16 06:00 10/05/16 06:18 Lasix - PO 40 mg BIDLASIX CANDIS Administration Heparin Sodium (Porcine) 5,000 unit 10/04/16 22:00 10/04/16 21:57 Heparin - SQ 5,000 unit BID CANDIS Administration Azithromycin 250 mls @ 250 mls/hr 10/05/16 10:00 Zithromax 500mg Ivpb (Pre-Docked) IVPB DAILY [facility] Ceftriaxone Sodium 50 mls @ 100 mls/hr 10/05/16 10:00 Rocephin 1gm Ivpb (Pre-Docked) IVPB DAILY [facility] Insulin Aspart 1 vial 10/05/16 07:00 10/05/16 06:17 Novolog Vial Sliding Scale - SQ 4 units ACHS CANDIS Administration Protocol Insulin Detemir 20 units 10/05/16 10:00 Levemir Vial SQ DAILY CANDIS Latanoprost 1 drop 10/04/16 22:00 10/04/16 21:57 Xalatan 0.005% Eye Drops - OU 1 drop HS CANDIS Administration Levothyroxine Sodium 75 mcg 10/05/16 07:00 10/05/16 06:18 Synthroid - PO 75 mcg DAILY@0700 CANDIS Administration Methylprednisolone Sodium Succinate 40 mg 10/04/16 21:00 10/05/16 03:41 Solu-Medrol - IVPB 40 mg Q6H-IV CANDIS Administration Montelukast Sodium 10 mg 10/04/16 22:00 10/04/16 21:58 Singulair - PO 10 mg HS CANDIS Administration Mupirocin 1 applic 10/04/16 22:00 10/04/16 21:57 Bactroban Ointment (For Decolonization) - NS 10/09/16 21:59 1 applic BID CANDIS Administration Non-Formulary Medication 15 ml 10/04/16 22:00 Brinzolamide [Azopt] OU BID CANDIS Pantoprazole Sodium 40 mg 10/05/16 10:00 Protonix - PO DAILY CANDIS EKG (10/04) - SVT with rate in 130s. F/u EKG with conversion to NSR. CXR (10/04) - Prominent emphysema. Bibasilar opacities with focal consolidation in LLL. 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 Pt much improved on Bipap overnight with medrol and nebs, with f/u ABG of 7.38/58.5/144/34 (initial ABG 7.33/72.9/73.9/37.6). CXR notable for bibasilar opacities with possible focal consolidation in LLL, possibly suggestive of PNA, given elevated WBC and suspected COPD exacerbation. Overnight events notable for episode of SVT to 130s with conversion to NSR after receiving 6mg adenosine. Patient currently being treated for acute on chronic COPD exacerbation and hypercapneic respiratory failure with significant improvement in clinical status, with no further episodes of SVT. Will remain overnight for monitoring with transfer to med-surg floor tomorrow. Cardiology and pulmonology following. Problem List: Acute on Chronic Hypoxic and Hypercapneic Respiratory Failure Pneumonia Acute COPD Exacerbation New Onset Atrial Flutter with RVR Pulmonary HTN DM Hypothyroidism #Cardiac - Rate control for SVT - Digoxin 0.125mg PO - cardiazem 120 PO daily - continue statin #Pulm Bipap overnight and PRN during day. Titrate to O2 of 88-95% to avoid further V/ Q mismatch. Duoneb nebulizer q6h candis Albuterol q4h prn continue IV steroid solu 40mg q6h. Plan to taper in AM Started on Spiriva Repeat CXR tomorrow AM Continue Montelukast #ID Ceftriaxone/azithromycin for CAP coverage f/u blood cultures Trend WBC, fever curve #Heme Continue Aspirin 81mg Start on AC per cardiology SubQ hep for DVT PPX #Renal Daily Lytes Lasix 40 mg #Endo Insulin SS Continue levemir Continue levothyroxine for hypothyroidism F/u blood glucose #GI Protonix 40mg for GI PPX #FEN Fluids: Hold fluids Electrolytes: Daily lytes Nutrition: Diabetic diet #Dispo: Monitor respiratory status in ICU overnight. Plan for transfer to med- surg tomorrow AM if clinically improved. Ervin Callejas, PGY1 Plan discussed with attending, Dr. Kiran. Dispo: We will continue to follow the patient. Thank you for this consultative opportunity. Visit type - Emergency Visit Emergency Visit: No - New Patient This patient is new to me today: Yes Date on this admission: 10/05/16 - Critical Care Critical Care patient: Yes Total Critical Care Time (in minutes): 35 Critical Care Statement: The care of this patient involved high complexity decision making to prevent further life threatening deterioration of the patient 's condition and/or to evaluate & treat vital organ system(s) failure or risk of failure.
[2016-10-05] MEDS: MUPIROCIN 2% TOPICAL OINTMENT FOR DECOLONIZATION NS SCH ×2 (09:11→21:39)
[2016-10-05] MEDS: HEPARIN NA (PORCINE) 5,000 UNITS/ML 1ML VIAL SQ SCH ×2 (09:11→21:38)
[2016-10-05] MEDS: INSULIN DETEMIR 100 UNITS/ML MDV SQ SCH (09:11)
[2016-10-05] MEDS: DIGOXIN 0.125 MG TABLET (FP) PO SCH (09:11)
[2016-10-05] MEDS: CEFTRIAXONE 50 ML IVPB SCH (09:12)
[2016-10-05] MEDS ORDERED: PT OWN MED DRAWER 7, Y5N ONE (09:24)
[2016-10-05] MEDS: PANTOPRAZOLE 40 MG TABLET (FP) PO SCH (09:28)
[2016-10-05] MEDS: CHOLECALCIFEROL (VITAMIN D3) 1,000 UNIT TABLET (FP) PO SCH (09:28)
[2016-10-05] MEDS: BRIMONIDINE TARTRATE 0.1% OPHTHALMIC 5 ML BOTTLE OU SCH ×2 (09:36→21:41)
[2016-10-05] MEDS: AZITHROMYCIN IVPB 250 ML IVPB SCH (09:36)
[2016-10-05] MEDS: ARFORMOTEROL TARTRATE 15 MCG/2 ML VIAL NEB SCH ×2 (09:59→22:00)
[2016-10-05] MEDS ORDERED: ASPIRIN 81 MG CHEWABLE TABLETS PO SCH (10:00)
[2016-10-05] MEDS ORDERED: TIOTROPIUM BROMIDE 18 MCG/INH (DEVICE W/ 5 CAPSULES) IH SCH (10:00)
--- NOTE | 2016-10-05 11:05 | PN ---
Progress Note, Physician History of Present Illness: Pt w/o SOB, CP, palp, dizziness, wheezing. Pt w/o abd pain, N, V. Pt is off BIPAP now, had breakfast w/o being SOB Pt was seen and examined in ICU; pt's step dg at bedside - Current Medication List Current Medications: Active Medications Albuterol Sulfate (Ventolin 0.083% Nebulizer Soln -) 1 amp NEB Q4H PRN PRN Reason: SHORT OF BREATH/WHEEZING Albuterol/Ipratropium (Duoneb -) 1 amp NEB Q6H [facility] Last Admin: 10/05/16 06:03 Dose: 1 amp Arformoterol Tartrate (Brovana (Restricted To Pulmonology/Resp) -) 1 amp NEB BID [facility] Last Admin: 10/05/16 09:59 Dose: 1 amp Aspirin (Asa -) 81 mg PO DAILY [facility] Last Admin: 10/05/16 09:11 Dose: 81 mg Atorvastatin Calcium (Lipitor -) 40 mg PO HS [facility] Last Admin: 10/04/16 21:58 Dose: 40 mg Brimonidine Tartrate (Alphagan P 0.1% -) 1 drop OU BID [facility] Last Admin: 10/05/16 09:36 Dose: 1 drop Chlorhexidine Gluconate (Hibiclens For Decolonization -) 1 applic TP HS [facility] Last Admin: 10/04/16 21:58 Dose: 1 applic Cholecalciferol (Vitamin D3 -) 2,000 unit PO DAILY [facility] Last Admin: 10/05/16 09:28 Dose: 2,000 unit Digoxin (Lanoxin -) 0.125 mg PO DAILY [facility] Last Admin: 10/05/16 09:11 Dose: 0.125 mg Diltiazem HCl (Cardizem Cd -) 120 mg PO DAILY [facility] Last Admin: 10/05/16 09:11 Dose: 120 mg Furosemide (Lasix -) 40 mg PO BIDLASIX [facility] Last Admin: 10/05/16 06:18 Dose: 40 mg Heparin Sodium (Porcine) (Heparin -) 5,000 unit SQ BID [facility] Last Admin: 10/05/16 09:11 Dose: 5,000 unit Azithromycin (Zithromax 500mg Ivpb (Pre-Docked)) 250 mls @ 250 mls/hr IVPB DAILY [facility] Last Admin: 10/05/16 09:36 Dose: 250 mls/hr Ceftriaxone Sodium (Rocephin 1gm Ivpb (Pre-Docked)) 50 mls @ 100 mls/hr IVPB DAILY [facility] Last Admin: 10/05/16 09:12 Dose: 100 mls/hr Insulin Aspart (Novolog Vial Sliding Scale -) 1 vial SQ ACHS [facility] PRN Reason: Protocol Last Admin: 10/05/16 06:17 Dose: 4 units Insulin Detemir (Levemir Vial) 20 units SQ DAILY [facility] Last Admin: 10/05/16 09:11 Dose: 20 units Latanoprost (Xalatan 0.005% Eye Drops -) 1 drop OU HS [facility] Last Admin: 10/04/16 21:57 Dose: 1 drop Levothyroxine Sodium (Synthroid -) 75 mcg PO DAILY@0700 [facility] Last Admin: 10/05/16 06:18 Dose: 75 mcg Methylprednisolone Sodium Succinate (Solu-Medrol -) 40 mg IVPB Q6H-IV [facility] Last Admin: 10/05/16 09:10 Dose: 40 mg Montelukast Sodium (Singulair -) 10 mg PO HS [facility] Last Admin: 10/04/16 21:58 Dose: 10 mg Mupirocin (Bactroban Ointment (For Decolonization) -) 1 applic NS BID [facility] Stop: 10/09/16 21:59 Last Admin: 10/05/16 09:11 Dose: 1 applic Non-Formulary Medication (Brinzolamide [Azopt]) 15 ml OU BID [place] Pantoprazole Sodium (Protonix -) 40 mg PO DAILY [facility] Last Admin: 10/05/16 09:28 Dose: 40 mg - Objective Vital Signs: Vital Signs Temperature 98.3 F 10/05/16 10:32 Pulse Rate 100 H 10/05/16 09:44 Respiratory Rate 16 10/05/16 10:32 Blood Pressure 118/55 10/05/16 10:32 O2 Sat by Pulse Oximetry (%) 100 10/05/16 09:44 Constitutional: Yes: No Distress, Calm Cardiovascular: Yes: Regular Rate and Rhythm, Tachycardia, S1, S2 Respiratory: Yes: Regular, Diminished, Rhonchi Gastrointestinal: Yes: Normal Bowel Sounds, Soft. No: Palpable Mass, Tenderness Edema: No Neurological: Yes: Alert, Oriented Labs: CBC, BMP 10/05/16 05:30 10/05/16 05:30 INR, PTT INR 1.15 (0.82-1.09) H 10/05/16 05:30 Problem List - Problems (1) Acute and chronic respiratory failure with hypercapnia Code(s): J96.22 - ACUTE AND CHRONIC RESPIRATORY FAILURE WITH HYPERCAPNIA (2) COPD with acute exacerbation Code(s): J44.1 - CHRONIC OBSTRUCTIVE PULMONARY DISEASE W (ACUTE) EXACERBATION (3) Pneumonia Code(s): J18.9 - PNEUMONIA, UNSPECIFIED ORGANISM (4) Diabetes mellitus Code(s): E11.9 - TYPE 2 DIABETES MELLITUS WITHOUT COMPLICATIONS (5) Hypertension Code(s): I10 - ESSENTIAL (PRIMARY) HYPERTENSION Assessment/Plan Admitted to monitor bed IV solu-medrol IV abtx Leukocytosis is improving. Low TSH likely in the settings of acute disease, needs to be repeated in 4-8 weeks after recovery. Pulmonary consult appreciated. ICU team attended pt in AM BIPAP PRN and at night AM labs DVT prophylasis Time spent for managing pt's care: over 35 minutes
--- NOTE | 2016-10-05 12:04 | PN ---
Teaching Attending Note Name of Resident: Ervin Callejas ATTENDING PHYSICIAN STATEMENT I saw and evaluated the patient. I reviewed the resident's note and discussed the case with the resident. I agree with the resident's findings and plan as documented. SUBJECTIVE: Pt seen and examined in the ICU. Breathing improved today, no significant cough or wheezing. Used BiPAP overnight. Had episode of A-tach overnight, given adenosine IVP. OBJECTIVE: Last Vital Signs Temp Pulse Resp BP Pulse Ox 98.3 F 100 H 16 118/55 100 10/05/16 10:32 10/05/16 09:44 10/05/16 10:32 10/05/16 10:32 10/05/16 09:44 Intake & Output 10/02/16 10/03/16 10/04/16 10/05/16 23:59 23:59 23:59 23:59 Intake Total 170 Output Total 200 200 Balance -200 -30 Weight 111 lb 5.335 oz 113 lb 11.2 oz Gen: tachypneic at rest with pursed lip breathing Heart: tachycardic, regular Lung: distant breath sounds, scattered rhonchi, wheezes Abd: soft, nontender Ext: no edema CBC, BMP 10/05/16 05:30 10/05/16 05:30 ABG Results ABG pH 7.38 (7.35-7.45) 10/04/16 19:40 ABG pCO2 at Pt Temp 58.5 mmHg (35-45) H 10/04/16 19:40 ABG pO2 at Pt Temp 114.0 mmHg (70-100) H D 10/04/16 19:40 ABG HCO3 34.1 meq/L (22-26) H 10/04/16 19:40 ABG O2 Sat (Measured) 98.6 % (90-98.9) 10/04/16 19:40 ABG O2 Content 18.1 % vol (15-22) 10/04/16 19:40 ABG Base Excess 7.5 meq/l (-2-2) H 10/04/16 19:40 Active Medications Albuterol Sulfate (Ventolin 0.083% Nebulizer Soln -) 1 amp NEB Q4H PRN PRN Reason: SHORT OF BREATH/WHEEZING Albuterol/Ipratropium (Duoneb -) 1 amp NEB Q6H [facility] Last Admin: 08/29/17 06:03 Dose: 1 amp Arformoterol Tartrate (Brovana (Restricted To Pulmonology/Resp) -) 1 amp NEB BID [facility] Last Admin: 10/05/16 09:59 Dose: 1 amp Aspirin (Asa -) 81 mg PO DAILY [facility] Last Admin: 10/05/16 09:11 Dose: 81 mg Atorvastatin Calcium (Lipitor -) 40 mg PO HS [facility] Last Admin: 10/04/16 21:58 Dose: 40 mg Brimonidine Tartrate (Alphagan P 0.1% -) 1 drop OU BID [facility] Last Admin: 10/05/16 09:36 Dose: 1 drop Chlorhexidine Gluconate (Hibiclens For Decolonization -) 1 applic TP HS [facility] Last Admin: 10/04/16 21:58 Dose: 1 applic Cholecalciferol (Vitamin D3 -) 2,000 unit PO DAILY [facility] Last Admin: 10/05/16 09:28 Dose: 2,000 unit Digoxin (Lanoxin -) 0.125 mg PO DAILY [facility] Last Admin: 10/05/16 09:11 Dose: 0.125 mg Diltiazem HCl (Cardizem Cd -) 120 mg PO DAILY [facility] Last Admin: 10/05/16 09:11 Dose: 120 mg Furosemide (Lasix -) 40 mg PO BIDLASIX [facility] Last Admin: 10/05/16 06:18 Dose: 40 mg Heparin Sodium (Porcine) (Heparin -) 5,000 unit SQ BID [facility] Last Admin: 10/05/16 09:11 Dose: 5,000 unit Azithromycin (Zithromax 500mg Ivpb (Pre-Docked)) 250 mls @ 250 mls/hr IVPB DAILY [facility] Last Admin: 10/05/16 09:36 Dose: 250 mls/hr Ceftriaxone Sodium (Rocephin 1gm Ivpb (Pre-Docked)) 50 mls @ 100 mls/hr IVPB DAILY [facility] Last Admin: 10/05/16 09:12 Dose: 100 mls/hr Insulin Aspart (Novolog Vial Sliding Scale -) 1 vial SQ ACHS [facility] PRN Reason: Protocol Last Admin: 10/05/16 11:32 Dose: 10 units Insulin Detemir (Levemir Vial) 20 units SQ DAILY [facility] Last Admin: 10/05/16 09:11 Dose: 20 units Latanoprost (Xalatan 0.005% Eye Drops -) 1 drop OU HS [facility] Last Admin: 10/04/16 21:57 Dose: 1 drop Levothyroxine Sodium (Synthroid -) 75 mcg PO DAILY@0700 [facility] Last Admin: 10/05/16 06:18 Dose: 75 mcg Methylprednisolone Sodium Succinate (Solu-Medrol -) 40 mg IVPB Q6H-IV [facility] Last Admin: 10/05/16 09:10 Dose: 40 mg Montelukast Sodium (Singulair -) 10 mg PO HS [facility] Last Admin: 10/04/16 21:58 Dose: 10 mg Mupirocin (Bactroban Ointment (For Decolonization) -) 1 applic NS BID [facility] Stop: 10/09/16 21:59 Last Admin: 10/05/16 09:11 Dose: 1 applic Non-Formulary Medication (Brinzolamide [Azopt]) 15 ml OU BID [facility] Pantoprazole Sodium (Protonix -) 40 mg PO DAILY [facility] Last Admin: 10/05/16 09:28 Dose: 40 mg ASSESSMENT AND PLAN: Acute on Chronic Hypoxic and Hypercapneic Respiratory Failure Pneumonia Acute COPD Exacerbation New Onset Atrial Flutter with RVR Pulmonary HTN DM Hypothyroidism - continue medrol at current dose, can taper in AM if continues to improve - inhaled bronchodilators standing and PRN - O2 to keep SpO2 88-95% to avoid worsening V/Q mismatch - continue antibiotics - f/u cultures - BiPAP at night and PRN during day - rate control - start anticoagulation per cardiology - continue ICU monitoring for tenuous respiratory status critical care time spent in reviewing chart, evaluating patient and formulating plan 35 min
--- NOTE | 2016-10-05 14:01 | CON.CARD ---
Cardiology Consult (text) - Consultation Consultation Note: CC: SVT 71 yo with h/o severe copd (oxygen dependent, on long standing bipap qhs and prn and on chronic prednisone/theophylline), mod-severe phtn, diastolic CHF, prior h/o amarousis fugax on ASA, HL, IDDM, hypothyroid who presents with respiratory distress. patient states she developed severe worsening of sob over the course of a day or two. Denies palps, or prior uri symptoms. cough, congestion, h/a, f/c/s. denies recent poor po intake, n/v/d. states copd has recently been stable. no cp, palps, orthopnea, pnd, le edema, presyncope. Came to the ED in respiratory distress requiring bipap with HR in the 130's. In ICU concern for SVT and was given adenosine. Adenosine slowed ventricular conduction and revealed flutter waves. Subsequent conversion to SR. pmhx/pshx: per hpi family hx: mother with chf social hx: former smoker. ros: per hpi Ambulatory Orders Arformoterol Tartrate [Brovana] 15 mcg IH BID 10/04/16 Aspirin [ASA -] 81 mg PO DAILY 10/04/16 Atorvastatin Ca [Lipitor] 40 mg PO HS 10/04/16 Bimatoprost [Lumigan] 1 drop IO DAILY 10/04/16 Brimonidine Tartrate [Alphagan P 0.1% -] 1 drop OU BID 10/04/16 Brinzolamide [Azopt] 15 ml OP BID 10/04/16 Digoxin [Lanoxin -] 0.125 mg PO DAILY 10/04/16 Diltiazem HCl [Cartia Xt] 120 mg PO DAILY 10/04/16 Ergocalciferol (Vitamin D2) [Vitamin D2] 2,000 unit PO DAILY 10/04/16 Furosemide [Lasix] 40 mg PO ASDIR 10/04/16 Insulin (Levemir) [Levemir Flexpen -] 20 units SQ DAILY 10/04/16 Insulin Lispro [Humalog] 100 unit SQ ASDIR 10/04/16 Levalbuterol HCl [Xopenex] 0.45 mg IH BID 10/04/16 Levothyroxine [Synthroid -] 75 mcg PO ASDIR 10/04/16 Montelukast Na [Singulair -] 10 mg PO HS 10/04/16 Prednisone [Deltasone -] 12.5 mg PO ASDIR 10/04/16 Sitagliptin Phosphate [Januvia] 100 mg PO DAILY 10/04/16 Tiotropium [place] [Spiriva] 18 mcg IH DAILY 10/04/16 Triamcinolone 0.025% Cream [Aristocort] 0 gm TP BID 10/04/16 Current Medications Albuterol Sulfate (Ventolin 0.083% Nebulizer Soln -) 1 amp NEB Q4H PRN PRN Reason: SHORT OF BREATH/WHEEZING Arformoterol Tartrate (Brovana (Restricted To Pulmonology/Resp) -) 1 amp NEB BID [facility] Last Admin: 10/05/16 09:59 Dose: 1 amp Aspirin (Asa -) 81 mg PO DAILY [facility] Last Admin: 10/05/16 09:11 Dose: 81 mg Atorvastatin Calcium (Lipitor -) 40 mg PO HS [facility] Last Admin: 10/04/16 21:58 Dose: 40 mg Brimonidine Tartrate (Alphagan P 0.1% -) 1 drop OU BID [facility] Last Admin: 10/05/16 09:36 Dose: 1 drop Chlorhexidine Gluconate (Hibiclens For Decolonization -) 1 applic TP HS [facility] Last Admin: 10/04/16 21:58 Dose: 1 applic Cholecalciferol (Vitamin D3 -) 2,000 unit PO DAILY [facility] Last Admin: 10/05/16 09:28 Dose: 2,000 unit Digoxin (Lanoxin -) 0.125 mg PO DAILY [facility] Last Admin: 10/05/16 09:11 Dose: 0.125 mg Diltiazem HCl (Cardizem Cd -) 120 mg PO DAILY [facility] Last Admin: 10/05/16 09:11 Dose: 120 mg Furosemide (Lasix -) 40 mg PO BIDLASIX [facility] Last Admin: 10/05/16 06:18 Dose: 40 mg Heparin Sodium (Porcine) (Heparin -) 5,000 unit SQ BID [facility] Last Admin: 10/05/16 09:11 Dose: 5,000 unit Azithromycin (Zithromax 500mg Ivpb (Pre-Docked)) 250 mls @ 250 mls/hr IVPB DAILY [facility] Last Admin: 10/05/16 09:36 Dose: 250 mls/hr Ceftriaxone Sodium (Rocephin 1gm Ivpb (Pre-Docked)) 50 mls @ 100 mls/hr IVPB DAILY [facility] Last Admin: 10/05/16 09:12 Dose: 100 mls/hr Insulin Aspart (Novolog Vial Sliding Scale -) 1 vial SQ ACHS [facility] PRN Reason: Protocol Last Admin: 10/05/16 11:32 Dose: 10 units Insulin Detemir (Levemir Vial) 20 units SQ DAILY [facility] Last Admin: 10/05/16 09:11 Dose: 20 units Latanoprost (Xalatan 0.005% Eye Drops -) 1 drop OU HS [facility] Last Admin: 10/04/16 21:57 Dose: 1 drop Levothyroxine Sodium (Synthroid -) 75 mcg PO DAILY@0700 [facility] Last Admin: 10/05/16 06:18 Dose: 75 mcg Methylprednisolone Sodium Succinate (Solu-Medrol -) 40 mg IVPB Q6H-IV [facility] Last Admin: 10/05/16 09:10 Dose: 40 mg Montelukast Sodium (Singulair -) 10 mg PO HS [facility] Last Admin: 10/04/16 21:58 Dose: 10 mg Mupirocin (Bactroban Ointment (For Decolonization) -) 1 applic NS BID [facility] Stop: 10/09/16 21:59 Last Admin: 10/05/16 09:11 Dose: 1 applic Non-Formulary Medication (Brinzolamide [Azopt]) 15 ml OU BID [facility] Pantoprazole Sodium (Protonix -) 40 mg PO DAILY [facility] Last Admin: 10/05/16 09:28 Dose: 40 mg Tiotropium [place] (Spiriva -) 1 puff IH DAILY [facility] Vital Signs - 24 hr 10/04/16 10/04/16 10/04/16 14:25 17:23 17:50 Temperature Pulse Rate 133 H Pulse Rate [ 127 H 128 H Apical] Respiratory 33 H 28 H 25 H Rate Blood Pressure 121/65 Blood Pressure 109/52 112/57 [Left Arm] O2 Sat by Pulse 94 L 94 L Oximetry (%) 10/04/16 10/04/16 10/04/16 18:23 18:24 18:27 Temperature Pulse Rate 133 H Pulse Rate [ Apical] Respiratory Rate Blood Pressure Blood Pressure [Left Arm] O2 Sat by Pulse 97 97 97 Oximetry (%) 10/04/16 10/04/16 10/04/16 18:33 20:00 20:09 Temperature 97.7 F 97.5 F L Pulse Rate 132 H 81 Pulse Rate [ Apical] Respiratory 26 H 19 Rate Blood Pressure 111/49 117/52 Blood Pressure [Left Arm] O2 Sat by Pulse 100 Oximetry (%) 10/04/16 10/04/16 10/05/16 21:00 22:00 00:00 Temperature 97.8 F Pulse Rate 83 83 78 Pulse Rate [ Apical] Respiratory 16 18 20 Rate Blood Pressure 114/62 102/46 105/47 Blood Pressure [Left Arm] O2 Sat by Pulse 100 Oximetry (%) 10/05/16 10/05/16 10/05/16 02:00 03:20 03:21 Temperature 97.8 F Pulse Rate 79 78 Pulse Rate [ Apical] Respiratory 18 Rate Blood Pressure 125/48 Blood Pressure [Left Arm] O2 Sat by Pulse 97 97 Oximetry (%) 10/05/16 10/05/16 10/05/16 04:00 06:00 07:31 Temperature 97.5 F L Pulse Rate 80 89 86 Pulse Rate [ Apical] Respiratory 21 20 20 Rate Blood Pressure 112/53 131/54 126/47 Blood Pressure [Left Arm] O2 Sat by Pulse Oximetry (%) 10/05/16 10/05/16 10/05/16 07:32 09:00 09:11 Temperature Pulse Rate 99 H 92 H Pulse Rate [ Apical] Respiratory 20 Rate Blood Pressure 114/62 Blood Pressure [Left Arm] O2 Sat by Pulse 93 L 93 L Oximetry (%) 10/05/16 10/05/16 10/05/16 09:44 10:32 12:00 Temperature 98.3 F Pulse Rate 100 H 104 H Pulse Rate [ Apical] Respiratory 16 22 Rate Blood Pressure 118/55 126/48 Blood Pressure [Left Arm] O2 Sat by Pulse 100 Oximetry (%) 10/05/16 13:56 Temperature 98.3 F Pulse Rate 82 Pulse Rate [ Apical] Respiratory 20 Rate Blood Pressure 109/83 Blood Pressure [Left Arm] O2 Sat by Pulse Oximetry (%) Intake & Output 10/03/16 10/04/16 10/05/16 10/06/16 07:59 07:59 07:59 07:59 Intake Total 170 Output Total 400 Balance -230 Weight 113 lb 11.2 oz dyspneic, calm jvd flat, neck supple dimished bs, dullness at right base rrr nl s1, s2 no mrg + bs soft nt nd ext without e/c/c + dp/pt aaox3 no jaundice diaphoresis CBC, BMP 10/05/16 05:30 10/05/16 05:30 Laboratory Tests 10/04/16 10/04/16 10/04/16 13:10 14:21 17:40 Lactic Acid 3.2 H* Magnesium Creatine Kinase 106 108 Troponin I 0.13 H 0.10 H TSH 10/05/16 10/05/16 05:30 05:30 Lactic Acid Magnesium 2.3 Creatine Kinase Troponin I TSH 0.16 L tele: additionally SVT. during adenosine adminsitration --> visualization of atrial flutter waves. subsequent conversion to SR. EKG: SVT, [address] depressions. Echo 10/2015: Nl lv/rv. suboptimal views, but at least mild AR. Mod MAC. 1+ MR. No MS. trivial effusion. RVSP not measured. 71 yo with h/o severe copd (oxygen dependent, on long standing bipap qhs and prn and on chronic prednisone/theophylline), mod-severe phtn, diastolic CHF, prior h/o amarousis fugax on ASA, HL, IDDM, hypothyroid who presents with respiratory distress. SVT/atrial flutter - had been followed by Dr. Power since 2009 who did not endorse a history of afib/flutter and did not have patient on AC. Patient also denied prior history of atrial arrhythmia. Had stated that she had been on long-standing digoxin and diltiazem in the past because of long standing tachycardia on theophylline. (Digoxin continued by me in the office for RV support). However, per Dr. Ziegler's note has a history of paroxysmal AF so likely had prior episodes. - Here with flutter, would start AC with eliquis. - S/p conversion to SR, con't home diltiazem, digoxin. Would check digoxin level - mgm't of thyroid abnormalities and infection per pmd - CE's neg x 3 (intermediate range, nl ck) - repeat echo diastolic chf - does not appear significantly volume overloaded on exam. on lasix 20 mg/day as outpatient. currently on 40 bid. Would decrease to 40 daily for now, may be to decrease further to 20 mg/day. - daily weights, bmp COPD exacerbation/possible PNA/mod-severe phtn - currently respiratory status tennuous but stable, off bipap. - onging mgm't per pmd prior h/o amarousis fugax - con't statin. Would stop ASA while on AC.
[2016-10-05] MEDS: TIOTROPIUM BROMIDE 18 MCG/INH (DEVICE W/ 5 CAPSULES) IH SCH (16:05)
--- NOTE | 2016-10-05 18:51 | EKG ---
Test Reason : Blood Pressure : / mmHG Vent. Rate : 088 BPM Atrial Rate : 088 BPM P-R Int : 142 ms QRS Dur : 078 ms QT Int : 328 ms P-R-T Axes : 085 068 -57 degrees QTc Int : 396 ms SINUS RHYTHM WITH OCCASIONAL PREMATURE VENTRICULAR COMPLEXES ABNORMAL QRS-T ANGLE, CONSIDER PRIMARY T WAVE ABNORMALITY ABNORMAL ECG WHEN COMPARED WITH ECG OF 04-OCT-2016 19:19, SINUS RHYTHM HAS REPLACED ATRIAL FLUTTER VENT. RATE HAS INCREASED BY 29 BPM NON-SPECIFIC CHANGE IN ST SEGMENT IN INFERIOR LEADS NONSPECIFIC T WAVE ABNORMALITY, IMPROVED IN LATERAL LEADS QT HAS LENGTHENED Confirmed by KARI HUGGINS MD ([id number]) on 10/05/2016 6:50:33 PM Referred By: Confirmed By:KARI HUGGINS MD
--- NOTE | 2016-10-05 18:54 | EKG ---
Test Reason : Blood Pressure : / mmHG Vent. Rate : 059 BPM Atrial Rate : 288 BPM P-R Int : 000 ms QRS Dur : 076 ms QT Int : 316 ms P-R-T Axes : 105 074 008 degrees QTc Int : 312 ms ATRIAL FLUTTER WITH VARIABLE A-V BLOCK AND PAUSE OF APPROXIMATELY 2.[address] AND T WAVE ABNORMALITY ABNORMAL ECG WHEN COMPARED WITH ECG OF 04-OCT-2016 19:12, ATRIAL FLUTTER HAS REPLACED SINUS RHYTHM VENT. RATE HAS DECREASED BY [address] NO LONGER DEPRESSED IN INFERIOR LEADS NON-SPECIFIC CHANGE IN ST SEGMENT IN ANTERIOR LEADS NONSPECIFIC T WAVE ABNORMALITY HAS REPLACED INVERTED T WAVES IN INFERIOR LEADS T WAVE INVERSION NO LONGER EVIDENT IN ANTERIOR LEADS BASELINE ARTIFACTS REPEAT INDICATED Confirmed by KARI HUGGINS MD ([id number]) on 10/05/2016 6:54:05 PM Referred By: Confirmed By:KARI HUGGINS MD
--- NOTE | 2016-10-05 19:02 | EKG ---
Test Reason : Blood Pressure : / mmHG Vent. Rate : 132 BPM Atrial Rate : 131 BPM P-R Int : 000 ms QRS Dur : 074 ms QT Int : 276 ms P-R-T Axes : 000 071 -85 degrees QTc Int : 408 ms ATRIAL RHYTHM IS UNCERTAIN,CANNOT EXCLUDE ATRIAL FLUTTER ANTERIOR INFARCT , AGE UNDETERMINED CANNOT BE RULED OUT ABNORMAL ECG WHEN COMPARED WITH ECG OF 04-OCT-2016 12:28, PREVIOUS ECG HAS UNDETERMINED RHYTHM, NEEDS REVIEW ST LESS DEPRESSED IN INFERIOR LEADS T WAVE INVERSION NOW EVIDENT IN ANTERIOR LEADS BASELINE ARTIFACTS Confirmed by KARI HUGGINS MD ([id number]) on 10/05/2016 7:02:03 PM Referred By: Confirmed By:KARI HUGGINS MD
[2016-10-05] MEDS: MONTELUKAST NA 10 MG TABLET PO SCH (21:38)
[2016-10-05] MEDS: ATORVASTATIN CA 40 MG TABLET (FP) PO SCH (21:38)
[2016-10-05] MEDS: CHLORHEXIDINE GLUCONATE 4% CLEANSER FOR DECOLONIZATION TP SCH (21:39)
[2016-10-05] MEDS: LATANOPROST 0.005% OPHTH SOLN 2.5ML BOTTLE OU SCH (21:41)
[2016-10-05] MEDS ORDERED: INSULIN (NOVOLOG) ASPART 100 UNITS/ML 10ML VIAL ONE (21:50)
[2016-10-06] MEDS: methylPREDNISolone NA SUCC 40 MG/1 ML VIAL IVPB SCH ×3 (02:14→22:10)
[2016-10-06] MEDS: INSULIN SLIDING SCALE (NOVOLOG) 1 VIAL SQ SCH ×4 (06:28→22:10)
[2016-10-06] MEDS: FUROSEMIDE 40 MG TABLET (FP) PO SCH (06:28)
[2016-10-06] MEDS: LEVOTHYROXINE NA 75 MCG TABLET (FP) PO SCH (06:28)
[2016-10-06] MEDS ORDERED: INSULIN (NOVOLOG) ASPART 100 UNITS/ML 10ML VIAL ONE ×2 (06:32→11:31)
[2016-10-06 06:39] LABS: BASOPHIL 0.3 % (0-2.0); MCH 32.3 pg (25.7-33.7); MCHC 33.6 g/dl (32.0-36.0); MEAN CELL VOLUME 96.1 fl (80-96); MEAN PLT VOLUME 9.6 fl (7.5-11.1); NEUTROPHILS 90.6 % (42.8-82.8); PLATELET COUNT 245 K/MM3 (134-434); RDW 14.4 % (11.6-15.6); WHITE BLOOD COUNT 14.7 K/mm3 (4.0-10.0)
[2016-10-06 06:55] LABS: ALBUMIN 2.7 g/dl (3.4-5.0); ANION GAP 6 (8-16); CALCIUM 8.9 mg/dL (8.5-10.1); CO2 38 mmol/L (21-32); GLUCOSE,RANDOM 170 mg/dL (74-106); MAGNESIUM 2.4 mg/dL (1.8-2.4)
[2016-10-06 07:00] LABS: ALK PHOS 85 U/L (45-117); BILIRUBIN,TOTAL 0.5 mg/dL (0.2-1.0); CREATININE 0.5 mg/dL (0.55-1.02); SGOT/AST 29 U/L (15-37); SGPT/ALT 33 U/L (12-78); TOT PROT 5.5 g/dl (6.4-8.2)
--- NOTE | 2016-10-06 08:18 | PN ---
Physical Exam: SUBJECTIVE: Patient seen and examined by me - No major overnight events. Pt complaining about BiPap machine, stating it is too loud and difficult to sleep with. - WBC still elevated from 14.0 -> 14.7 - Afebrile. SOB and dyspnea improving. Mild dry cough w/ no interval change. - Blood cultures pending - Plan to transfer to telemetry today, given clinical improvement OBJECTIVE: Intake & Output 10/03/16 10/04/16 10/05/16 10/06/16 23:59 23:59 23:59 23:59 Intake Total 870 340 Output Total 200 900 200 Balance -200 -30 140 Weight 50.5 kg 51.573 kg 51.392 kg Vital Signs Period Temp Pulse Resp BP Sys/Anthony Pulse Ox Last 24 Hr 97.2 F-98.3 F 81-104 16-25 97-131/40-83 93-100 GENERAL: The patient is awake, alert, and fully oriented. Elderly woman lying comfortably in bed on NC. HEAD: Normal with no signs of trauma. EYES: PERRL, extraocular movements intact, sclera anicteric, conjunctiva clear. No ptosis. ENT: oropharynx clear without exudates, moist mucous membranes. NECK: Trachea midline, full range of motion, supple. LUNGS: Breath sounds diminished with scattered rhonchi, no wheezes, no crackles HEART: Regular rate and rhythm, S1, S2 without murmur, rub or gallop. ABDOMEN: Soft, nontender, nondistended, normoactive bowel sounds, no guarding, no rebound EXTREMITIES: 2+ pulses, warm, well-perfused. 2+ LE BL edema NEUROLOGICAL: Cranial nerves II through XII grossly intact. Normal speech, gait not observed. PSYCH: Normal mood, normal affect. SKIN: Warm, dry, normal turgor. Laboratory Results - last 24 hr 10/05/16 10/05/16 10/05/16 11:29 15:57 21:26 WBC RBC Hgb Hct MCV MCH MCHC RDW Plt Count MPV Neutrophils % Lymphocytes % Monocytes % Eosinophils % Basophils % Sodium Potassium Chloride Carbon Dioxide Anion Gap BUN Creatinine Creat Clearance w eGFR POC Glucometer > [phone] [phone] Random Glucose Calcium Phosphorus Magnesium Total Bilirubin AST ALT Alkaline Phosphatase Total Protein Albumin 10/06/16 10/06/16 10/06/16 05:20 05:20 05:59 WBC 14.7 H RBC 4.13 Hgb 13.3 Hct 39.7 MCV 96.1 H MCH 32.3 MCHC 33.6 RDW 14.4 Plt Count 245 MPV 9.6 Neutrophils % 90.6 H Lymphocytes % 3.7 L Monocytes % 5.4 Eosinophils % 0.0 Basophils % 0.3 Sodium 146 H Potassium 4.1 Chloride 102 Carbon Dioxide 38 H Anion Gap 6 L BUN 32 H D Creatinine 0.5 L Creat Clearance w eGFR > 60 POC Glucometer [phone] Random Glucose 170 H Calcium 8.9 Phosphorus 3.0 Magnesium 2.4 Total Bilirubin 0.5 D AST 29 D ALT 33 D Alkaline Phosphatase 85 Total Protein 5.5 L Albumin 2.7 L Active Medications Generic Name Dose Route Start Last Admin Trade Name Freq PRN Reason Stop Dose Admin Albuterol Sulfate 1 amp 10/04/16 19:10 Ventolin 0.083% Nebulizer Soln - NEB Q4H PRN SHORT OF BREATH/WHEEZING Apixaban 5 mg 10/06/16 10:00 Eliquis - PO BID [facility] Arformoterol Tartrate 1 amp 10/04/16 22:00 10/05/16 22:00 Brovana (Restricted To Pulmonology/Resp) - NEB 1 amp BID [facility] Administration Atorvastatin Calcium 40 mg 10/04/16 22:00 10/05/16 21:38 Lipitor - PO 40 mg HS [facility] Administration Brimonidine Tartrate 1 drop 10/04/16 22:00 10/05/16 21:41 Alphagan P 0.1% - OU 1 drop BID [facility] Administration Chlorhexidine Gluconate 1 applic 10/04/16 22:00 10/05/16 21:39 Hibiclens For Decolonization - TP 1 applic HS [facility] Administration Cholecalciferol 2,000 unit 10/05/16 10:00 10/05/16 09:28 Vitamin D3 - PO 2,000 unit DAILY [facility] Administration Digoxin 0.125 mg 10/05/16 10:00 10/05/16 09:11 Lanoxin - PO 0.125 mg DAILY [facility] Administration Diltiazem HCl 120 mg 10/05/16 10:00 10/05/16 09:11 Cardizem Cd - PO 120 mg DAILY [facility] Administration Furosemide 40 mg 10/07/16 10:00 Lasix - PO DAILY [facility] Azithromycin 250 mls @ 250 mls/hr 10/05/16 10:00 10/05/16 09:36 Zithromax 500mg Ivpb (Pre-Docked) IVPB 250 mls/hr DAILY [facility] Administration Ceftriaxone Sodium 50 mls @ 100 mls/hr 10/05/16 10:00 10/05/16 09:12 Rocephin 1gm Ivpb (Pre-Docked) IVPB 100 mls/hr DAILY [facility] Administration Insulin Aspart 1 vial 10/05/16 07:00 10/06/16 06:28 Novolog Vial Sliding Scale - SQ 2 units ACHS [facility] Administration Protocol Insulin Detemir 20 units 10/05/16 10:00 10/05/16 09:11 Levemir Vial SQ 20 units DAILY [facility] Administration Latanoprost 1 drop 10/04/16 22:00 10/05/16 21:41 Xalatan 0.005% Eye Drops - OU 1 drop HS [facility] Administration Levothyroxine Sodium 75 mcg 10/05/16 07:00 10/06/16 06:28 Synthroid - PO 75 mcg DAILY@0700 [facility] Administration Methylprednisolone Sodium Succinate 40 mg 10/04/16 21:00 10/06/16 02:14 Solu-Medrol - IVPB 40 mg Q6H-IV [facility] Administration Montelukast Sodium 10 mg 10/04/16 22:00 10/05/16 21:38 Singulair - PO 10 mg HS [facility] Administration Mupirocin 1 applic 10/04/16 22:00 10/05/16 21:39 Bactroban Ointment (For Decolonization) - NS 10/09/16 21:59 1 applic BID [facility] Administration Non-Formulary Medication 15 ml 10/04/16 22:00 Brinzolamide [Azopt] OU BID [facility] Pantoprazole Sodium 40 mg 10/05/16 10:00 10/05/16 09:28 Protonix - PO 40 mg DAILY [facility] Administration Tiotropium [place] 1 puff 10/05/16 12:15 10/05/16 16:05 Spiriva - IH Not Given DAILY [facility] EKG (10/04) - SVT with rate in 130s. F/u EKG with conversion to NSR. CXR (10/06) - No major interval change. Prominent emphysema. Possible consolidation in LLL. Increased aeration in bilateral lung bases. Tele (10/06) - Occasional PVCs. NSR ASSESSMENT/PLAN: Patient is a 71 year old female with a history of HTN, DM, end-stage COPD on home O2 and steroids who came to ED with complaint of increase in SOB and cough. Pt much improved on Bipap overnight with medrol and nebs, with f/u ABG of 7.38/58.5/144/34 (initial ABG 7.33/72.9/73.9/37.6). No major overnight events. Pt improving clinically, with decreased SOB/dyspnea, still w/ persistent cough. CXR w/ decreased bibasilar opacity and no apparent LLL consolidation. Will continue current respiratory regimen with medrol taper and finish abx course. Plan for transfer to tele. Pulmonology and cardiology following. Problem List: Acute on Chronic Hypoxic and Hypercapneic Respiratory Failure Pneumonia Acute COPD Exacerbation New Onset Atrial Flutter with RVR Pulmonary HTN DM Hypothyroidism #Cardiac - Rate control for SVT - Digoxin 0.125mg PO - cardiazem 120 PO daily - continue statin - Check digoxin level - Repeat Echo today. #Pulm Pt to bring home BiPap mask as she prefers this to hospital version. Bipap overnight and PRN during day. Titrate to O2 of 88-95% to avoid further V/ Q mismatch. Duoneb nebulizer q6h [facility] Albuterol q4h prn Medrol decreased to 40mg IV BID Started on Spiriva Repeat CXR tomorrow AM Continue Montelukast #ID Continue Ceftriaxone/azithromycin for CAP coverage f/u blood cultures Trend WBC, fever curve - WBC today 14.7 #Heme Stop ASA per cards rec Eliquis 5mg PO daily for AC per cardiology SubQ hep for DVT PPX #Renal Elevated BUN likely steroid-induced Daily Lytes, trend BUN/Cr. Decreas Lasix to 40 mg daily #Endo Insulin SS Continue levemir Continue levothyroxine for hypothyroidism F/u blood glucose #GI Protonix 40mg for GI PPX #FEN Fluids: Hold fluids Electrolytes: Daily lytes Nutrition: Diabetic diet #Dispo: Plan to transfer to Telemetry for further monitoring. Ervin Callejas, PGY1 Plan discussed with attending, Dr. Kiran. Dispo: We will continue to follow the patient. Thank you for this consultative opportunity. Visit type - Emergency Visit Emergency Visit: No - New Patient This patient is new to me today: No - Critical Care Critical Care patient: Yes Total Critical Care Time (in minutes): 35 Critical Care Statement: The care of this patient involved high complexity decision making to prevent further life threatening deterioration of the patient 's condition and/or to evaluate & treat vital organ system(s) failure or risk of failure.
[2016-10-06] MEDS: BRIMONIDINE TARTRATE 0.1% OPHTHALMIC 5 ML BOTTLE OU SCH ×2 (09:10→22:09)
[2016-10-06] MEDS: MUPIROCIN 2% TOPICAL OINTMENT FOR DECOLONIZATION NS SCH ×2 (09:11→22:12)
[2016-10-06] MEDS: DIGOXIN 0.125 MG TABLET (FP) PO SCH (09:11)
[2016-10-06] MEDS: INSULIN DETEMIR 100 UNITS/ML MDV SQ SCH (09:11)
[2016-10-06] MEDS: AZITHROMYCIN IVPB 250 ML IVPB SCH (09:12)
[2016-10-06] MEDS: CHOLECALCIFEROL (VITAMIN D3) 1,000 UNIT TABLET (FP) PO SCH (09:12)
[2016-10-06] MEDS: PANTOPRAZOLE 40 MG TABLET (FP) PO SCH (09:12)
[2016-10-06] MEDS: CEFTRIAXONE 50 ML IVPB SCH (09:13)
[2016-10-06] MEDS: ARFORMOTEROL TARTRATE 15 MCG/2 ML VIAL NEB SCH ×2 (09:39→22:05)
[2016-10-06] MEDS ORDERED: APIXABAN 5 MG TABLET PO SCH (10:00)
[2016-10-06] MEDS: TIOTROPIUM BROMIDE 18 MCG/INH (DEVICE W/ 5 CAPSULES) IH SCH (10:16)
[2016-10-06] MEDS ORDERED: ALBUTEROL SO4 0.083% IH SOL 2.5 MG/3 ML VIAL.NEB. NEB PRN (10:56)
--- NOTE | 2016-10-06 11:15 | PN ---
Teaching Attending Note Name of Resident: Ervin Callejas ATTENDING PHYSICIAN STATEMENT I saw and evaluated the patient. I reviewed the resident's note and discussed the case with the resident. I agree with the resident's findings and plan as documented. SUBJECTIVE: Pt seen and examined in the ICU. Breathing better today. Used BiPAP overnight. Less cough and wheezing. No arrhythmias noted. OBJECTIVE: Last Vital Signs Temp Pulse Resp BP Pulse Ox 97.2 F L 97 H 25 H 97/80 94 L 10/06/16 06:00 10/06/16 09:18 10/06/16 08:07 10/06/16 06:00 10/06/16 09:18 Intake & Output 10/03/16 10/04/16 10/05/16 10/06/16 23:59 23:59 23:59 23:59 Intake Total 870 340 Output Total 200 900 200 Balance -200 -30 140 Weight 111 lb 5.335 oz 113 lb 11.2 oz 113 lb 4.8 oz Gen: less tachypneic Heart: RRR Lung: distant breath sounds, less wheezes/rhonchi Abd: soft, nontender Ext: no edema CBC, BMP 10/06/16 05:20 10/06/16 05:20 Active Medications Albuterol Sulfate (Ventolin 0.083% Nebulizer Soln -) 1 amp NEB Q4H PRN PRN Reason: SHORT OF BREATH/WHEEZING Apixaban (Eliquis -) 5 mg PO BID [facility] Arformoterol Tartrate (Brovana (Restricted To Pulmonology/Resp) -) 1 amp NEB BID [facility] Atorvastatin Calcium (Lipitor -) 40 mg PO HS [facility] Brimonidine Tartrate (Alphagan P 0.1% -) 1 drop OU BID [facility] Chlorhexidine Gluconate (Hibiclens For Decolonization -) 1 applic TP HS [facility] Cholecalciferol (Vitamin D3 -) 2,000 unit PO DAILY [facility] Digoxin (Lanoxin -) 0.125 mg PO DAILY [facility] Diltiazem HCl (Cardizem Cd -) 120 mg PO DAILY [facility] Furosemide (Lasix -) 40 mg PO DAILY [facility] Azithromycin (Zithromax 500mg Ivpb (Pre-Docked)) 250 mls @ 250 mls/hr IVPB DAILY [facility] Ceftriaxone Sodium (Rocephin 1gm Ivpb (Pre-Docked)) 50 mls @ 100 mls/hr IVPB DAILY [facility] Insulin Aspart (Novolog Vial Sliding Scale -) 1 vial SQ ACHS [facility] PRN Reason: Protocol Insulin Detemir (Levemir Vial) 20 units SQ DAILY [facility] Latanoprost (Xalatan 0.005% Eye Drops -) 1 drop OU HS [facility] Levothyroxine Sodium (Synthroid -) 75 mcg PO DAILY@0700 [facility] Methylprednisolone Sodium Succinate (Solu-Medrol -) 40 mg IVPB Q6H-IV [facility] Montelukast Sodium (Singulair -) 10 mg PO HS [facility] Mupirocin (Bactroban Ointment (For Decolonization) -) 1 applic NS BID [facility] Stop: 10/09/16 21:59 Non-Formulary Medication (Brinzolamide [Azopt]) 15 ml OU BID [facility] Pantoprazole Sodium (Protonix -) 40 mg PO DAILY [facility] Tiotropium [place] (Spiriva -) 1 puff IH DAILY [facility] ASSESSMENT AND PLAN: Acute on Chronic Hypoxic and Hypercapneic Respiratory Failure improving Pneumonia Acute COPD Exacerbation New Onset Atrial Flutter with RVR Pulmonary HTN DM Hypothyroidism - decrease medrol to q12h - inhaled bronchodilators standing and PRN - O2 to keep SpO2 88-95% to avoid worsening V/Q mismatch - continue antibiotics - f/u cultures - instructed pt to bring in home BiPAP for night and PRN during day - rate control - continue anticoagulation - can monitor on telemetry critical care time spent in reviewing chart, evaluating patient and formulating plan 35 min
--- NOTE | 2016-10-06 12:15 | PN ---
Progress Note, Physician History of Present Illness: Pt w/o SOB, CP, palp, dizziness, wheezing. Pt w/o abd pain, N, V. Yesterday event were noticed, were reviewed with pt and ; all questions were answered. Pt was seen and examined in ICU; pt's at bedside - Current Medication List Current Medications: Active Medications Albuterol Sulfate (Ventolin 0.083% Nebulizer Soln -) 1 amp NEB Q4H PRN PRN Reason: SHORT OF BREATH/WHEEZING Apixaban (Eliquis -) 5 mg PO BID [facility] Arformoterol Tartrate (Brovana (Restricted To Pulmonology/Resp) -) 1 amp NEB BID [facility] Atorvastatin Calcium (Lipitor -) 40 mg PO HS [facility] Brimonidine Tartrate (Alphagan P 0.1% -) 1 drop OU BID [facility] Chlorhexidine Gluconate (Hibiclens For Decolonization -) 1 applic TP HS [facility] Cholecalciferol (Vitamin D3 -) 2,000 unit PO DAILY [facility] Digoxin (Lanoxin -) 0.125 mg PO DAILY [facility] Diltiazem HCl (Cardizem Cd -) 120 mg PO DAILY [facility] Furosemide (Lasix -) 40 mg PO DAILY [facility] Azithromycin (Zithromax 500mg Ivpb (Pre-Docked)) 250 mls @ 250 mls/hr IVPB DAILY [facility] Ceftriaxone Sodium (Rocephin 1gm Ivpb (Pre-Docked)) 50 mls @ 100 mls/hr IVPB DAILY [facility] Insulin Aspart (Novolog Vial Sliding Scale -) 1 vial SQ ACHS [facility] PRN Reason: Protocol Insulin Detemir (Levemir Vial) 20 units SQ DAILY [facility] Latanoprost (Xalatan 0.005% Eye Drops -) 1 drop OU HS [facility] Levothyroxine Sodium (Synthroid -) 75 mcg PO DAILY@0700 [facility] Methylprednisolone Sodium Succinate (Solu-Medrol -) 40 mg IVPB Q6H-IV [facility] Montelukast Sodium (Singulair -) 10 mg PO HS [facility] Mupirocin (Bactroban Ointment (For Decolonization) -) 1 applic NS BID [facility] Stop: 10/09/16 21:59 Non-Formulary Medication (Brinzolamide [Azopt]) 15 ml OU BID [facility] Pantoprazole Sodium (Protonix -) 40 mg PO DAILY [facility] Tiotropium [place] (Spiriva -) 1 puff IH DAILY [facility] - Objective Vital Signs: Vital Signs Temperature 97.2 F L 10/06/16 06:00 Pulse Rate 88 10/06/16 12:00 Respiratory Rate 20 10/06/16 12:00 Blood Pressure 119/50 10/06/16 12:00 O2 Sat by Pulse Oximetry (%) 94 L 10/06/16 09:18 Constitutional: Yes: No Distress, Calm Cardiovascular: Yes: Regular Rate and Rhythm, S1, S2 Respiratory: Yes: Regular, CTA Bilaterally, Other (coarse BS). No: Wheezes Gastrointestinal: Yes: Normal Bowel Sounds, Soft. No: Palpable Mass, Tenderness Edema: No Neurological: Yes: Alert, Oriented Labs: CBC, BMP 10/06/16 05:20 10/06/16 05:20 INR, PTT INR 1.15 (0.82-1.09) H 10/05/16 05:30 Problem List - Problems (1) Acute and chronic respiratory failure with hypercapnia Code(s): J96.22 - ACUTE AND CHRONIC RESPIRATORY FAILURE WITH HYPERCAPNIA (2) COPD with acute exacerbation Code(s): J44.1 - CHRONIC OBSTRUCTIVE PULMONARY DISEASE W (ACUTE) EXACERBATION (3) Pneumonia Code(s): J18.9 - PNEUMONIA, UNSPECIFIED ORGANISM (4) Diabetes mellitus Code(s): E11.9 - TYPE 2 DIABETES MELLITUS WITHOUT COMPLICATIONS (5) Hypertension Code(s): I10 - ESSENTIAL (PRIMARY) HYPERTENSION (6) Atrial flutter Code(s): I48.92 - UNSPECIFIED ATRIAL FLUTTER (7) Paroxysmal atrial fibrillation Code(s): I48.0 - PAROXYSMAL ATRIAL FIBRILLATION Assessment/Plan Admitted to monitor bed IV solu-medrol;to be winifred IV abtx Leukocytosis (improved) in the settings of IV steroids Low TSH likely in the settings of acute disease, needs to be repeated in 4-8 weeks after recovery. Pulmonary consult appreciated. CCM consult appreciated Cardio consult appreciated; to start Eliquis, to DC ASA BIPAP PRN and at night AM labs DVT prophylasis Time spent for managing pt's care: over 35 minutes
[2016-10-06] MEDS ORDERED: methylPREDNISolone NA SUCC 40 MG/1 ML VIAL IVPB SCH (15:00)
[2016-10-06 17:19] LABS: ANION GAP 3 (8-16); CALCIUM 9.5 mg/dL (8.5-10.1); CO2 39 mmol/L (21-32); CREATININE 0.6 mg/dL (0.55-1.02); GLUCOSE,RANDOM 229 mg/dL (74-106)
--- NOTE | 2016-10-06 18:17 | PN ---
Progress Note, Physician History of Present Illness: Pt much improved with decreased dyspnea. Using BiPAP only at night (her baseline ). - Current Medication List Current Medications: Active Medications Albuterol Sulfate (Ventolin 0.083% Nebulizer Soln -) 1 amp NEB Q4H PRN PRN Reason: SHORT OF BREATH/WHEEZING Apixaban (Eliquis -) 5 mg PO BID [facility] Arformoterol Tartrate (Brovana (Restricted To Pulmonology/Resp) -) 1 amp NEB BID [facility] Atorvastatin Calcium (Lipitor -) 40 mg PO HS [facility] Brimonidine Tartrate (Alphagan P 0.1% -) 1 drop OU BID [facility] Chlorhexidine Gluconate (Hibiclens For Decolonization -) 1 applic TP HS [facility] Cholecalciferol (Vitamin D3 -) 2,000 unit PO DAILY [facility] Digoxin (Lanoxin -) 0.125 mg PO DAILY [facility] Diltiazem HCl (Cardizem Cd -) 120 mg PO DAILY [facility] Furosemide (Lasix -) 40 mg PO DAILY [facility] Azithromycin (Zithromax 500mg Ivpb (Pre-Docked)) 250 mls @ 250 mls/hr IVPB DAILY [facility] Ceftriaxone Sodium (Rocephin 1gm Ivpb (Pre-Docked)) 50 mls @ 100 mls/hr IVPB DAILY [facility] Insulin Aspart (Novolog Vial Sliding Scale -) 1 vial SQ ACHS [facility] PRN Reason: Protocol Last Admin: 10/06/16 16:59 Dose: 4 units Insulin Detemir (Levemir Vial) 20 units SQ DAILY [facility] Latanoprost (Xalatan 0.005% Eye Drops -) 1 drop OU HS [facility] Levothyroxine Sodium (Synthroid -) 75 mcg PO DAILY@0700 [facility] Methylprednisolone Sodium Succinate (Solu-Medrol -) 40 mg IVPB BID [facility] Montelukast Sodium (Singulair -) 10 mg PO HS [facility] Mupirocin (Bactroban Ointment (For Decolonization) -) 1 applic NS BID [facility] Stop: 10/09/16 21:59 Non-Formulary Medication (Brinzolamide [Azopt]) 0 ml OU BID [facility] Pantoprazole Sodium (Protonix -) 40 mg PO DAILY [facility] Tiotropium [place] (Spiriva -) 1 puff IH DAILY [facility] - Objective Vital Signs: Vital Signs Temperature 98.4 F 10/06/16 14:00 Pulse Rate 74 10/06/16 16:00 Respiratory Rate 20 10/06/16 16:00 Blood Pressure 120/56 10/06/16 16:00 O2 Sat by Pulse Oximetry (%) 94 L 10/06/16 09:18 Constitutional: Yes: No Distress Eyes: No: Sclera Icterus HENT: Yes: Atraumatic, Normocephalic Neck: Yes: Supple, Trachea Midline Cardiovascular: Yes: Regular Rate and Rhythm. No: JVD Respiratory: Yes: Diminished (bilateral-no adventitious sounds), Hyperresonant Gastrointestinal: Yes: Soft. No: Tenderness Extremities: No: Calf Tenderness Edema: No Neurological: Yes: Alert, Oriented Labs: CBC, BMP 10/06/16 05:20 10/06/16 16:55 INR, PTT INR 1.15 (0.82-1.09) H 10/05/16 05:30 - ....Imaging Chest X-ray: Report Reviewed, Image Reviewed (improved with residual increased markings right base) Problem List - Problems (1) Acute and chronic respiratory failure with hypercapnia Code(s): J96.22 - ACUTE AND CHRONIC RESPIRATORY FAILURE WITH HYPERCAPNIA (2) Acute and chronic respiratory failure with hypoxia Code(s): J96.21 - ACUTE AND CHRONIC RESPIRATORY FAILURE WITH HYPOXIA (3) COPD with acute exacerbation Code(s): J44.1 - CHRONIC OBSTRUCTIVE PULMONARY DISEASE W (ACUTE) EXACERBATION (4) Pneumonia Code(s): J18.9 - PNEUMONIA, UNSPECIFIED ORGANISM Assessment/Plan Acute on chronic respiratory failure probably due to respiratory infection: improved. Respiratory status is back close to baseline. Recent A. Flutter Cardiology evaluation appreciated: diuretic dosage adjusted and Eliquis started. Suggest: NIPPV at night and PRN Steroid taper in progress Antibiotics Inhaled bronchodilators O2 to maintain SaO2>90 Anticoagulation
--- NOTE | 2016-10-06 18:57 | PN ---
Progress Note (short form) - Note Progress Note: CC: aflutter S: started on eliquis. decreased lasix dose to 40 mg daily yesterday. sob significantly improved. states she doesn't remember seeing me yesterday. no cp , palps, dizziness. Current Medications Albuterol Sulfate (Ventolin 0.083% Nebulizer Soln -) 1 amp NEB Q4H PRN PRN Reason: SHORT OF BREATH/WHEEZING Apixaban (Eliquis -) 5 mg PO BID [facility] Arformoterol Tartrate (Brovana (Restricted To Pulmonology/Resp) -) 1 amp NEB BID [facility] Atorvastatin Calcium (Lipitor -) 40 mg PO HS [facility] Brimonidine Tartrate (Alphagan P 0.1% -) 1 drop OU BID [facility] Chlorhexidine Gluconate (Hibiclens For Decolonization -) 1 applic TP HS [facility] Cholecalciferol (Vitamin D3 -) 2,000 unit PO DAILY [facility] Digoxin (Lanoxin -) 0.125 mg PO DAILY [facility] Diltiazem HCl (Cardizem Cd -) 120 mg PO DAILY [facility] Furosemide (Lasix -) 40 mg PO DAILY [facility] Azithromycin (Zithromax 500mg Ivpb (Pre-Docked)) 250 mls @ 250 mls/hr IVPB DAILY [facility] Ceftriaxone Sodium (Rocephin 1gm Ivpb (Pre-Docked)) 50 mls @ 100 mls/hr IVPB DAILY [facility] Insulin Aspart (Novolog Vial Sliding Scale -) 1 vial SQ ACHS [facility] PRN Reason: Protocol Last Admin: 10/06/16 16:59 Dose: 4 units Insulin Detemir (Levemir Vial) 20 units SQ DAILY [facility] Latanoprost (Xalatan 0.005% Eye Drops -) 1 drop OU HS [facility] Levothyroxine Sodium (Synthroid -) 75 mcg PO DAILY@0700 [facility] Methylprednisolone Sodium Succinate (Solu-Medrol -) 40 mg IVPB BID [facility] Montelukast Sodium (Singulair -) 10 mg PO HS [facility] Mupirocin (Bactroban Ointment (For Decolonization) -) 1 applic NS BID [facility] Stop: 10/09/16 21:59 Non-Formulary Medication (Brinzolamide [Azopt]) 0 ml OU BID [facility] Pantoprazole Sodium (Protonix -) 40 mg PO DAILY [facility] Tiotropium [place] (Spiriva -) 1 puff IH DAILY [facility] Vital Signs - 24 hr 10/05/16 10/05/16 10/05/16 19:43 19:44 20:00 Temperature 97.5 F L Pulse Rate 102 H 95 H Respiratory 22 Rate Blood Pressure 128/54 O2 Sat by Pulse 96 96 Oximetry (%) 10/05/16 10/05/16 10/06/16 21:00 22:00 00:00 Temperature 97.6 F Pulse Rate 99 H 98 H Respiratory 22 24 19 Rate Blood Pressure 128/61 117/56 O2 Sat by Pulse 100 98 Oximetry (%) 10/06/16 10/06/16 10/06/16 00:05 02:00 04:00 Temperature 97.5 F L Pulse Rate 87 81 Respiratory 20 20 Rate Blood Pressure 113/59 122/72 O2 Sat by Pulse 97 Oximetry (%) 10/06/16 10/06/16 10/06/16 06:00 08:07 09:00 Temperature 97.2 F L Pulse Rate 88 Respiratory 25 H 25 H 20 Rate Blood Pressure 97/80 O2 Sat by Pulse 94 L Oximetry (%) 10/06/16 10/06/16 10/06/16 09:11 09:18 10:00 Temperature Pulse Rate 95 H 97 H Respiratory Rate Blood Pressure 101/42 O2 Sat by Pulse 94 L Oximetry (%) 10/06/16 10/06/16 10/06/16 12:00 14:00 16:00 Temperature 98.4 F Pulse Rate 88 88 74 Respiratory 20 20 20 Rate Blood Pressure 119/50 105/87 120/56 O2 Sat by Pulse Oximetry (%) 10/06/16 10/06/16 18:00 18:46 Temperature 98.5 F Pulse Rate Respiratory Rate Blood Pressure 157/64 O2 Sat by Pulse Oximetry (%) Intake & Output 10/04/16 10/05/16 10/06/16 10/07/16 07:59 07:59 07:59 07:59 Intake Total 170 1040 500 Output Total 400 900 Balance -230 140 500 Weight 113 lb 11.2 oz 113 lb 4.8 oz nad, calm jvd flat, neck supple dimished bs, dullness at right base rrr nl s1, s2 no mrg + bs soft nt nd ext without e/c/c + dp/pt aaox3 no jaundice diaphoresis CBC, BMP 10/06/16 05:20 10/06/16 16:55 Laboratory Tests 10/05/16 05:30 TSH 0.16 L tele: intermittent short runs of SVT. freq pac's, pvc's. 5 beat run of nsvt followed by triplet and couplet EKG: SVT, [address] depressions. Echo 10/2015: Nl lv/rv. suboptimal views, but at least mild AR. Mod MAC. 1+ MR. No MS. trivial effusion. RVSP not measured. 71 yo with h/o severe copd (oxygen dependent, on long standing bipap qhs and prn and on chronic prednisone/theophylline), mod-severe phtn, diastolic CHF, prior h/o amarousis fugax on ASA, HL, IDDM, hypothyroid who presents with respiratory distress. SVT/atrial flutter - had been followed by Dr. Power since 2009 who did not endorse a history of afib/flutter and did not have patient on AC. Patient also denied prior history of atrial arrhythmia. Had stated that she had been on long-standing digoxin and diltiazem in the past because of long standing tachycardia on theophylline. (Digoxin continued by me in the office for RV support). However, per Dr. Ziegler's note has a history of paroxysmal AF so likely had prior episodes. - Here with flutter, started AC with eliquis. - S/p conversion to SR, con't home diltiazem, digoxin. Would check digoxin level - mgm't of thyroid abnormalities and infection per pmd - CE's neg x 3 (intermediate range, nl ck) - repeat echo - 10/06: continues to have intermittent runs of svt as well as one 5 beat episode of nsvt. Would ideally uptitrate av rehan blockade but patient's bp on lower end. Will transition to short acting diltiazem in the morning for better ability to adjust regimen. diastolic chf - does not appear significantly volume overloaded on exam. on lasix 20 mg/day as outpatient. on 40 bid on admit. decreased to 40 daily 10/05, may be to decrease further to 20 mg/day. - 10/06 bicarb continues to rise. will decrease lasix to outpatient regimen of 20 mg daily - daily weights, bmp COPD exacerbation/possible PNA/mod-severe phtn - respiratory status improving. - onging mgm't per pmd prior h/o amarousis fugax - con't statin. Would stop ASA while on AC.
[2016-10-06] MEDS: dilTIAZem HCL 30 MG TABLET (FP) PO SCH (20:33)
[2016-10-06] MEDS: APIXABAN 5 MG TABLET PO SCH (22:06)
[2016-10-06] MEDS: MONTELUKAST NA 10 MG TABLET PO SCH (22:06)
[2016-10-06] MEDS: ATORVASTATIN CA 40 MG TABLET (FP) PO SCH (22:06)
[2016-10-06] MEDS: BRINZOLAMIDE OU SCH (22:08)
[2016-10-06] MEDS: LATANOPROST 0.005% OPHTH SOLN 2.5ML BOTTLE OU SCH (22:10)
[2016-10-06] MEDS: CHLORHEXIDINE GLUCONATE 4% CLEANSER FOR DECOLONIZATION TP SCH (22:12)
[2016-10-07] MEDS: INSULIN SLIDING SCALE (NOVOLOG) 1 VIAL SQ SCH ×4 (06:48→23:40)
[2016-10-07] MEDS: LEVOTHYROXINE NA 75 MCG TABLET (FP) PO SCH (06:49)
[2016-10-07 07:06] LABS: MCH 31.8 pg (25.7-33.7); MCHC 33.3 g/dl (32.0-36.0); MEAN CELL VOLUME 95.4 fl (80-96); MEAN PLT VOLUME 9.1 fl (7.5-11.1); PLATELET COUNT 261 K/MM3 (134-434); RDW 14.1 % (11.6-15.6); WHITE BLOOD COUNT 16.2 K/mm3 (4.0-10.0)
[2016-10-07 07:27] LABS: ANION GAP 4 (8-16); CALCIUM 9.5 mg/dL (8.5-10.1); CO2 39 mmol/L (21-32); CREATININE 0.4 mg/dL (0.55-1.02); GLUCOSE,RANDOM 138 mg/dL (74-106); MAGNESIUM 2.3 mg/dL (1.8-2.4)
[2016-10-07 07:41] LABS: DIGOXIN LEVEL 0.8723 ng/ml (0.8-2.0)
--- NOTE | 2016-10-07 08:12 | PN ---
Physical Exam: SUBJECTIVE: Patient seen and examined by me this AM - Pt doing well overnight. No acute events. Endorses much improved breathing and SOB - Pt w/ home Bipap machine. Denies fever, chills, N/V, palpitations, productive cough, dysuria, abdominal pain - Elevated WBC (16.7) in setting of steroids. Currently on medrol taper. - Pending transfer to [facility] today - Started on Eliquis per cardiology recs for P-afib - Lasix decreased to home dose 40mg daily OBJECTIVE: Intake & Output 10/04/16 10/05/16 10/06/16 10/07/16 23:59 23:59 23:59 23:59 Intake Total 870 2270 150 Output Total 200 900 700 Balance -200 -30 1570 150 Weight 50.5 kg 51.573 kg 51.392 kg Vital Signs Period Temp Pulse Resp BP Sys/Anthony Pulse Ox Last 24 Hr 97.4 F-98.5 F 70-97 20-24 101-157/42-87 94-94 GENERAL: The patient is awake, alert, and fully oriented. Elderly woman lying comfortably in bed on OR. HEAD: Normal with no signs of trauma. EYES: PERRL, extraocular movements intact, sclera anicteric, conjunctiva clear. No ptosis. ENT: oropharynx clear without exudates, moist mucous membranes. NECK: Trachea midline, full range of motion, supple. LUNGS: Breath sounds diminished with scattered rhonchi, no wheezes, no crackles HEART: Regular rate and rhythm, S1, S2 without murmur, rub or gallop. ABDOMEN: Soft, nontender, nondistended, normoactive bowel sounds, no guarding, no rebound EXTREMITIES: 2+ pulses, warm, well-perfused. 2+ LE BL edema NEUROLOGICAL: Cranial nerves II through XII grossly intact. Normal speech, gait not observed. PSYCH: Normal mood, normal affect. SKIN: Warm, dry, normal turgor. Laboratory Results - last 24 hr CBC, BMP 10/07/16 06:00 10/07/16 05:20 10/06/16 10/06/16 10/06/16 11:22 16:55 16:58 WBC RBC Hgb Hct MCV MCH MCHC RDW Plt Count MPV Sodium 144 Potassium 4.0 Chloride 102 Carbon Dioxide 39 H Anion Gap 3 L BUN 37 H Creatinine 0.6 POC Glucometer [phone] Random Glucose 229 H D Calcium 9.5 Magnesium Digoxin 10/06/16 10/07/16 10/07/16 21:56 05:20 06:00 WBC 16.2 H RBC 4.27 Hgb 13.6 Hct 40.8 MCV 95.4 MCH 31.8 MCHC 33.3 RDW 14.1 Plt Count 261 MPV 9.1 Sodium 145 Potassium 4.1 Chloride 102 Carbon Dioxide 39 H Anion Gap 4 L BUN 41 H Creatinine 0.4 L D POC Glucometer 130.64193 Random Glucose 138 H D Calcium 9.5 Magnesium 2.3 Digoxin 0.8723 10/07/16 06:07 WBC RBC Hgb Hct MCV MCH MCHC RDW Plt Count MPV Sodium Potassium Chloride Carbon Dioxide Anion Gap BUN Creatinine POC Glucometer [phone] Random Glucose Calcium Magnesium Digoxin Active Medications Generic Name Dose Route Start Last Admin Trade Name Freq PRN Reason Stop Dose Admin Albuterol Sulfate 1 amp 10/06/16 10:56 Ventolin 0.083% Nebulizer Soln - NEB Q4H PRN SHORT OF BREATH/WHEEZING Apixaban 5 mg 10/06/16 22:00 10/06/16 22:06 Eliquis - PO 5 mg BID [facility] Administration Arformoterol Tartrate 1 amp 10/06/16 22:00 10/06/16 22:05 Brovana (Restricted To Pulmonology/Resp) - NEB 1 amp BID [facility] Administration Atorvastatin Calcium 40 mg 10/06/16 22:00 10/06/16 22:06 Lipitor - PO 40 mg HS [facility] Administration Brimonidine Tartrate 1 drop 10/06/16 22:00 10/06/16 22:09 Alphagan P 0.1% - OU 1 drop BID [facility] Administration Chlorhexidine Gluconate 1 applic 10/06/16 22:00 10/06/16 22:12 Hibiclens For Decolonization - TP Not Given HS [facility] Cholecalciferol 2,000 unit 10/07/16 10:00 Vitamin D3 - PO DAILY [facility] Digoxin 0.125 mg 10/07/16 10:00 Lanoxin - PO DAILY [facility] Diltiazem HCl 30 mg 10/06/16 19:15 10/06/16 20:33 Cardizem - PO 30 mg QID [facility] Administration Furosemide 20 mg 10/07/16 10:00 Lasix - PO DAILY [facility] Azithromycin 250 mls @ 250 mls/hr 10/07/16 10:00 Zithromax 500mg Ivpb (Pre-Docked) IVPB DAILY [facility] Ceftriaxone Sodium 50 mls @ 100 mls/hr 10/07/16 10:00 Rocephin 1gm Ivpb (Pre-Docked) IVPB DAILY [facility] Insulin Aspart 1 vial 10/06/16 11:00 10/07/16 06:48 Novolog Vial Sliding Scale - SQ Not Given ACHS [facility] Protocol Insulin Detemir 20 units 10/07/16 10:00 Levemir Vial SQ DAILY [facility] Latanoprost 1 drop 10/06/16 22:00 10/06/16 22:10 Xalatan 0.005% Eye Drops - OU 1 drop HS [facility] Administration Levothyroxine Sodium 75 mcg 10/07/16 07:00 10/07/16 06:49 Synthroid - PO 75 mcg DAILY@0700 [facility] Administration Methylprednisolone Sodium Succinate 40 mg 10/06/16 22:00 10/06/16 22:10 Solu-Medrol - IVPB 40 mg BID [facility] Administration Montelukast Sodium 10 mg 10/06/16 22:00 10/06/16 22:06 Singulair - PO 10 mg HS [facility] Administration Mupirocin 1 applic 10/06/16 22:00 10/06/16 22:12 Bactroban Ointment (For Decolonization) - NS 10/09/16 21:59 Not Given BID [facility] Non-Formulary Medication 0 ml 10/06/16 22:00 10/06/16 22:08 Brinzolamide [Azopt] OU 1 ml BID [facility] Administration Pantoprazole Sodium 40 mg 10/07/16 10:00 Protonix - PO DAILY [facility] Tiotropium [place] 1 puff 10/07/16 10:00 Spiriva - IH DAILY [facility] EKG (10/04) - SVT with rate in 130s. F/u EKG with conversion to NSR. CXR (10/06) - No major interval change. Prominent emphysema. Possible consolidation in LLL. Increased aeration in bilateral lung bases. Tele (10/06) - Occasional PVCs. NSR ECHO (10/06) - Normal LV size and function. Severe TR. Moderate MR. RA enlarged. Small pericardial effusion. Elevated RV pressures. 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 Pt continues to improve clinically with current respiratory regimen. Started on eliquis for AC given Hx of paroxysmal aFIB. Echo w/ severe TR and elevated RV pressures, likely surggesting of pulmonary HTN. Pt transferred to telemetry today. Problem List: Acute on Chronic Hypoxic and Hypercapneic Respiratory Failure Pneumonia Acute COPD Exacerbation New Onset Atrial Flutter with RVR Pulmonary HTN DM Hypothyroidism #Cardiac - Rate control for SVT - Digoxin 0.125mg PO - cardiazem 30 mg QID - continue statin - Dig level therapeutic 0.87 - F/u echo results. Suggestive of pulmonary HTN and severe TR, with trace pericardial effusion. - recommend f/u NATASHA #Pulm Pt brought BiPap mask as she prefers this to hospital version. Bipap overnight and PRN during day. Titrate to O2 of 88-95% to avoid further V/ Q mismatch. Duoneb nebulizer q6h candis Albuterol q4h prn Medrol 40mg IV BID. Consider taper tomorrow AM Continue Montelukast, spiriva #ID Continue Ceftriaxone/azithromycin for CAP coverage f/u blood cultures Trend WBC, fever curve - WBC today 16.2 w/ steroids #Heme Stop ASA per cards rec Eliquis 5mg PO daily for AC per cardiology SubQ hep for DVT PPX #Renal Elevated BUN likely steroid-induced Daily Lytes, trend BUN/Cr. Decrease Lasix to 20 mg daily #Endo Insulin SS Continue levemir Continue levothyroxine for hypothyroidism F/u blood glucose #GI Protonix 40mg for GI PPX #FEN Fluids: Hold fluids Electrolytes: Daily lytes Nutrition: Diabetic diet #Dispo: Patient for monitoring on telemetry today. Ervin Callejas, PGY1 Plan discussed with attending, Dr. Kiran. Dispo: We will continue to follow the patient. Thank you for this consultative opportunity. Visit type - Emergency Visit Emergency Visit: No - New Patient This patient is new to me today: No - Critical Care Critical Care patient: Yes Total Critical Care Time (in minutes): 35 Critical Care Statement: The care of this patient involved high complexity decision making to prevent further life threatening deterioration of the patient 's condition and/or to evaluate & treat vital organ system(s) failure or risk of failure.
[2016-10-07] MEDS ORDERED: FUROSEMIDE 40 MG TABLET (FP) PO SCH ×2 (10:00)
[2016-10-07] MEDS: AZITHROMYCIN IVPB 250 ML IVPB SCH (10:17)
[2016-10-07] MEDS: methylPREDNISolone NA SUCC 40 MG/1 ML VIAL IVPB SCH ×2 (10:17→21:52)
[2016-10-07] MEDS: CHOLECALCIFEROL (VITAMIN D3) 1,000 UNIT TABLET (FP) PO SCH (10:18)
[2016-10-07] MEDS: DIGOXIN 0.125 MG TABLET (FP) PO SCH (10:18)
[2016-10-07] MEDS: dilTIAZem HCL 30 MG TABLET (FP) PO SCH ×3 (10:18→18:11)
[2016-10-07] MEDS: FUROSEMIDE 20 MG TABLET (FP) PO SCH (10:18)
[2016-10-07] MEDS: PANTOPRAZOLE 40 MG TABLET (FP) PO SCH (10:18)
[2016-10-07] MEDS: CEFTRIAXONE 50 ML IVPB SCH (10:18)
[2016-10-07] MEDS: MUPIROCIN 2% TOPICAL OINTMENT FOR DECOLONIZATION NS SCH ×2 (10:19→21:49)
[2016-10-07] MEDS: BRIMONIDINE TARTRATE 0.1% OPHTHALMIC 5 ML BOTTLE OU SCH ×2 (10:19→21:48)
[2016-10-07] MEDS: BRINZOLAMIDE OU SCH ×2 (10:20→21:50)
[2016-10-07] MEDS: APIXABAN 5 MG TABLET PO SCH ×2 (10:21→21:51)
[2016-10-07] MEDS: INSULIN DETEMIR 100 UNITS/ML MDV SQ SCH (10:21)
[2016-10-07] MEDS: ARFORMOTEROL TARTRATE 15 MCG/2 ML VIAL NEB SCH ×2 (10:49→22:14)
--- NOTE | 2016-10-07 11:54 | PN ---
Teaching Attending Note Name of Resident: Ervin Callejas ATTENDING PHYSICIAN STATEMENT I saw and evaluated the patient. I reviewed the resident's note and discussed the case with the resident. I agree with the resident's findings and plan as documented. SUBJECTIVE: Pt seen and examined in the ICU. Breathing continues to improve. Denies cough or wheezing. No fevers or chills. OBJECTIVE: Last Vital Signs Temp Pulse Resp BP Pulse Ox 98.2 F 92 H 26 H 134/66 90 L 10/07/16 10:00 10/07/16 10:49 10/07/16 10:00 10/07/16 10:00 10/07/16 10:49 Intake & Output 10/04/16 10/05/16 10/06/16 10/07/16 23:59 23:59 23:59 23:59 Intake Total 870 2270 150 Output Total 200 900 700 Balance -200 -30 1570 150 Weight 111 lb 5.335 oz 113 lb 11.2 oz 113 lb 4.8 oz Gen: less tachypneic Heart: RRR Lung: distant breath sounds, no wheezes appreciated Abd: soft, nontender Ext: no edema CBC, BMP 10/07/16 06:00 10/07/16 05:20 Active Medications Albuterol Sulfate (Ventolin 0.083% Nebulizer Soln -) 1 amp NEB Q4H PRN PRN Reason: SHORT OF BREATH/WHEEZING Apixaban (Eliquis -) 5 mg PO BID [facility] Last Admin: 10/07/16 10:21 Dose: 5 mg Arformoterol Tartrate (Brovana (Restricted To Pulmonology/Resp) -) 1 amp NEB BID [facility] Last Admin: 10/07/16 10:49 Dose: 1 amp Atorvastatin Calcium (Lipitor -) 40 mg PO HS [facility] Last Admin: 10/06/16 22:06 Dose: 40 mg Brimonidine Tartrate (Alphagan P 0.1% -) 1 drop OU BID [facility] Last Admin: 10/07/16 10:19 Dose: 1 drop Chlorhexidine Gluconate (Hibiclens For Decolonization -) 1 applic TP [facility] Last Admin: 10/06/16 22:12 Dose: Not Given Cholecalciferol (Vitamin D3 -) 2,000 unit PO DAILY [facility] Last Admin: 10/07/16 10:18 Dose: 2,000 unit Digoxin (Lanoxin -) 0.125 mg PO DAILY [facility] Last Admin: 10/07/16 10:18 Dose: 0.125 mg Diltiazem HCl (Cardizem -) 30 mg PO QID [facility] Last Admin: 10/07/16 10:18 Dose: 30 mg Furosemide (Lasix -) 20 mg PO DAILY [facility] Last Admin: 10/07/16 10:18 Dose: 20 mg Azithromycin (Zithromax 500mg Ivpb (Pre-Docked)) 250 mls @ 250 mls/hr IVPB DAILY [facility] Last Admin: 10/07/16 10:17 Dose: 250 mls/hr Ceftriaxone Sodium (Rocephin 1gm Ivpb (Pre-Docked)) 50 mls @ 100 mls/hr IVPB DAILY [facility] Last Admin: 10/07/16 10:18 Dose: 100 mls/hr Insulin Aspart (Novolog Vial Sliding Scale -) [address] [facility] PRN Reason: Protocol Last Admin: 10/07/16 06:48 Dose: Not Given Insulin Detemir (Levemir Vial) 20 units SQ DAILY [facility] Last Admin: 10/07/16 10:21 Dose: 20 units Latanoprost (Xalatan 0.005% Eye Drops -) 1 drop OU [facility] Last Admin: 10/06/16 22:10 Dose: 1 drop Levothyroxine Sodium (Synthroid -) 75 mcg PO DAILY@0700 [facility] Last Admin: 10/07/16 06:49 Dose: 75 mcg Methylprednisolone Sodium Succinate (Solu-Medrol -) 40 mg IVPB BID [facility] Last Admin: 10/07/16 10:17 Dose: 40 mg Montelukast Sodium (Singulair -) 10 mg PO HS [facility] Last Admin: 10/06/16 22:06 Dose: 10 mg Mupirocin (Bactroban Ointment (For Decolonization) -) 1 applic NS BID [facility] Stop: 10/09/16 21:59 Last Admin: 10/07/16 10:19 Dose: Not Given Non-Formulary Medication (Brinzolamide [Azopt]) 0 ml OU BID [facility] Last Admin: 10/07/16 10:20 Dose: 1 ml Pantoprazole Sodium (Protonix -) 40 mg PO DAILY [facility] Last Admin: 10/07/16 10:18 Dose: 40 mg Tiotropium [place] (Spiriva -) 1 puff IH DAILY [facility] ASSESSMENT AND PLAN: Acute on Chronic Hypoxic and Hypercapneic Respiratory Failure improving Pneumonia Acute COPD Exacerbation New Onset Atrial Flutter with RVR Pulmonary HTN DM Hypothyroidism - continue medrol at q12h, can taper in AM if continues to improve - inhaled bronchodilators standing and PRN - O2 to keep SpO2 88-95% to avoid worsening V/Q mismatch - continue antibiotics - continue BiPAP for night and PRN during day - rate control - continue anticoagulation - can monitor on telemetry
[2016-10-07] MEDS: TIOTROPIUM BROMIDE 18 MCG/INH (DEVICE W/ 5 CAPSULES) IH SCH (12:22)
--- NOTE | 2016-10-07 17:15 | PN ---
Progress Note, Physician History of Present Illness: Pt improved with decreased dyspnea. OOB in chair - Current Medication List Current Medications: Active Medications Albuterol Sulfate (Ventolin 0.083% Nebulizer Soln -) 1 amp NEB Q4H PRN PRN Reason: SHORT OF BREATH/WHEEZING Apixaban (Eliquis -) 5 mg PO BID [facility] Last Admin: 10/07/16 10:21 Dose: 5 mg Arformoterol Tartrate (Brovana (Restricted To Pulmonology/Resp) -) 1 amp NEB BID [facility] Last Admin: 10/07/16 10:49 Dose: 1 amp Atorvastatin Calcium (Lipitor -) 40 mg PO HS [facility] Last Admin: 10/06/16 22:06 Dose: 40 mg Brimonidine Tartrate (Alphagan P 0.1% -) 1 drop OU BID [facility] Last Admin: 10/07/16 10:19 Dose: 1 drop Chlorhexidine Gluconate (Hibiclens For Decolonization -) 1 applic TP [facility] Last Admin: 10/06/16 22:12 Dose: Not Given Cholecalciferol (Vitamin D3 -) 2,000 unit PO DAILY [facility] Last Admin: 10/07/16 10:18 Dose: 2,000 unit Digoxin (Lanoxin -) 0.125 mg PO DAILY [facility] Last Admin: 10/07/16 10:18 Dose: 0.125 mg Diltiazem HCl (Cardizem -) 30 mg PO QID [facility] Last Admin: 10/07/16 14:30 Dose: 30 mg Furosemide (Lasix -) 20 mg PO DAILY [facility] Last Admin: 10/07/16 10:18 Dose: 20 mg Azithromycin (Zithromax 500mg Ivpb (Pre-Docked)) 250 mls @ 250 mls/hr IVPB DAILY [facility] Last Admin: 10/07/16 10:17 Dose: 250 mls/hr Ceftriaxone Sodium (Rocephin 1gm Ivpb (Pre-Docked)) 50 mls @ 100 mls/hr IVPB DAILY [facility] Last Admin: 10/07/16 10:18 Dose: 100 mls/hr Insulin Aspart (Novolog Vial Sliding Scale -) 1 vial SQ ACHS [facility] PRN Reason: Protocol Last Admin: 10/07/16 16:45 Dose: Not Given Insulin Detemir (Levemir Vial) 20 units SQ DAILY [facility] Last Admin: 10/07/16 10:21 Dose: 20 units Latanoprost (Xalatan 0.005% Eye Drops -) 1 drop OU HS [facility] Last Admin: 10/06/16 22:10 Dose: 1 drop Levothyroxine Sodium (Synthroid -) 75 mcg PO DAILY@0700 [facility] Last Admin: 10/07/16 06:49 Dose: 75 mcg Methylprednisolone Sodium Succinate (Solu-Medrol -) 40 mg IVPB BID [facility] Last Admin: 10/07/16 10:17 Dose: 40 mg Montelukast Sodium (Singulair -) 10 mg PO HS [facility] Last Admin: 10/06/16 22:06 Dose: 10 mg Mupirocin (Bactroban Ointment (For Decolonization) -) 1 applic NS BID [facility] Stop: 10/09/16 21:59 Last Admin: 10/07/16 10:19 Dose: Not Given Non-Formulary Medication (Brinzolamide [Azopt]) 0 ml OU BID [facility] Last Admin: 10/07/16 10:20 Dose: 1 ml Pantoprazole Sodium (Protonix -) 40 mg PO DAILY [facility] Last Admin: 10/07/16 10:18 Dose: 40 mg Tiotropium [place] (Spiriva -) 1 puff IH DAILY [facility] Last Admin: 10/07/16 12:22 Dose: 1 puff - Objective Vital Signs: Vital Signs Temperature 98.3 F 10/07/16 14:00 Pulse Rate 83 10/07/16 14:00 Respiratory Rate 20 10/07/16 14:00 Blood Pressure 128/45 10/07/16 14:00 O2 Sat by Pulse Oximetry (%) 90 L 10/07/16 10:49 Constitutional: Yes: No Distress Eyes: No: Sclera Icterus HENT: Yes: Atraumatic, Normocephalic Neck: Yes: Supple, Trachea Midline Cardiovascular: Yes: Regular Rate and Rhythm. No: JVD Respiratory: Yes: Diminished Gastrointestinal: Yes: Soft. No: Tenderness Extremities: No: Calf Tenderness Edema: No Neurological: Yes: Alert, Oriented Labs: CBC, BMP 10/07/16 06:00 10/07/16 05:20 INR, PTT INR 1.15 (0.82-1.09) H 10/05/16 05:30 Problem List - Problems (1) Acute and chronic respiratory failure with hypercapnia Code(s): J96.22 - ACUTE AND CHRONIC RESPIRATORY FAILURE WITH HYPERCAPNIA (2) Acute and chronic respiratory failure with hypoxia Code(s): J96.21 - ACUTE AND CHRONIC RESPIRATORY FAILURE WITH HYPOXIA (3) COPD with acute exacerbation Code(s): J44.1 - CHRONIC OBSTRUCTIVE PULMONARY DISEASE W (ACUTE) EXACERBATION (4) Pneumonia Code(s): J18.9 - PNEUMONIA, UNSPECIFIED ORGANISM Assessment/Plan Acute on chronic respiratory failure: improved. Respiratory status is back close to baseline. Recent: A. Flutter now on Eliquis. Suggest: NIPPV at night and PRN Steroid taper in progress Antibiotics Inhaled bronchodilators O2 to maintain SaO2>90 Anticoagulation
[2016-10-07] MEDS ORDERED: DOCUSATE SODIUM 100 MG CAPSULE (FP) PO ONE (18:00)
--- NOTE | 2016-10-07 18:00 | PN ---
Progress Note, Physician History of Present Illness: Pt w/o SOB, CP, palp, dizziness, wheezing. Pt w/o abd pain, N, V. Pt c/o constipation. Pt states that is feeling better. Pt is tolerating well [place] Pt was seen and examined in ICU; pt's at bedside - Current Medication List Current Medications: Active Medications Albuterol Sulfate (Ventolin 0.083% Nebulizer Soln -) 1 amp NEB Q4H PRN PRN Reason: SHORT OF BREATH/WHEEZING Last Admin: 10/07/16 17:52 Dose: 1 amp Apixaban (Eliquis -) 5 mg PO BID [facility] Last Admin: 10/07/16 10:21 Dose: 5 mg Arformoterol Tartrate (Brovana (Restricted To Pulmonology/Resp) -) 1 amp NEB BID [facility] Last Admin: 10/07/16 10:49 Dose: 1 amp Atorvastatin Calcium (Lipitor -) 40 mg PO HS [facility] Last Admin: 10/06/16 22:06 Dose: 40 mg Brimonidine Tartrate (Alphagan P 0.1% -) 1 drop OU BID [facility] Last Admin: 10/07/16 10:19 Dose: 1 drop Chlorhexidine Gluconate (Hibiclens For Decolonization -) 1 applic TP HS [facility] Last Admin: 10/06/16 22:12 Dose: Not Given Cholecalciferol (Vitamin D3 -) 2,000 unit PO DAILY [facility] Last Admin: 10/07/16 10:18 Dose: 2,000 unit Digoxin (Lanoxin -) 0.125 mg PO DAILY [facility] Last Admin: 10/07/16 10:18 Dose: 0.125 mg Diltiazem HCl (Cardizem -) 30 mg PO QID [facility] Last Admin: 10/07/16 14:30 Dose: 30 mg Furosemide (Lasix -) 20 mg PO DAILY [facility] Last Admin: 10/07/16 10:18 Dose: 20 mg Azithromycin (Zithromax 500mg Ivpb (Pre-Docked)) 250 mls @ 250 mls/hr IVPB DAILY [facility] Last Admin: 10/07/16 10:17 Dose: 250 mls/hr Ceftriaxone Sodium (Rocephin 1gm Ivpb (Pre-Docked)) 50 mls @ 100 mls/hr IVPB DAILY [facility] Last Admin: 10/07/16 10:18 Dose: 100 mls/hr Insulin Aspart (Novolog Vial Sliding Scale -) 1 vial SQ [facility] PRN Reason: Protocol Last Admin: 10/07/16 16:45 Dose: Not Given Insulin Detemir (Levemir Vial) 20 units SQ DAILY [facility] Last Admin: 10/07/16 10:21 Dose: 20 units Latanoprost (Xalatan 0.005% Eye Drops -) 1 drop OU HS [facility] Last Admin: 10/06/16 22:10 Dose: 1 drop Levothyroxine Sodium (Synthroid -) 75 mcg PO DAILY@0700 [facility] Last Admin: 10/07/16 06:49 Dose: 75 mcg Methylprednisolone Sodium Succinate (Solu-Medrol -) 40 mg IVPB BID [facility] Last Admin: 10/07/16 10:17 Dose: 40 mg Montelukast Sodium (Singulair -) 10 mg PO HS [facility] Last Admin: 10/06/16 22:06 Dose: 10 mg Mupirocin (Bactroban Ointment (For Decolonization) -) 1 applic NS BID [facility] Stop: 10/09/16 21:59 Last Admin: 10/07/16 10:19 Dose: Not Given Non-Formulary Medication (Brinzolamide [Azopt]) 0 ml OU BID [facility] Last Admin: 10/07/16 10:20 Dose: 1 ml Pantoprazole Sodium (Protonix -) 40 mg PO DAILY [facility] Last Admin: 10/07/16 10:18 Dose: 40 mg Tiotropium [place] (Spiriva -) 1 puff IH DAILY [facility] Last Admin: 10/07/16 12:22 Dose: 1 puff - Objective Vital Signs: Vital Signs Temperature 98.3 F 10/07/16 14:00 Pulse Rate 83 10/07/16 14:00 Respiratory Rate 20 10/07/16 14:00 Blood Pressure 128/45 10/07/16 14:00 O2 Sat by Pulse Oximetry (%) 90 L 10/07/16 10:49 Constitutional: Yes: No Distress, Calm Cardiovascular: Yes: Regular Rate and Rhythm, S1, S2 Respiratory: Yes: Regular, Diminished, Other (coarse) Gastrointestinal: Yes: Normal Bowel Sounds, Soft, Tenderness Edema: No Neurological: Yes: Alert, Oriented Labs: CBC, BMP 10/07/16 06:00 10/07/16 05:20 INR, PTT INR 1.15 (0.82-1.09) H 10/05/16 05:30 Problem List - Problems (1) Acute and chronic respiratory failure with hypercapnia Code(s): J96.22 - ACUTE AND CHRONIC RESPIRATORY FAILURE WITH HYPERCAPNIA (2) COPD with acute exacerbation Code(s): J44.1 - CHRONIC OBSTRUCTIVE PULMONARY DISEASE W (ACUTE) EXACERBATION (3) Pneumonia Code(s): J18.9 - PNEUMONIA, UNSPECIFIED ORGANISM (4) Diabetes mellitus Code(s): E11.9 - TYPE 2 DIABETES MELLITUS WITHOUT COMPLICATIONS (5) Hypertension Code(s): I10 - ESSENTIAL (PRIMARY) HYPERTENSION (6) Atrial flutter Code(s): I48.92 - UNSPECIFIED ATRIAL FLUTTER (7) Paroxysmal atrial fibrillation Code(s): I48.0 - PAROXYSMAL ATRIAL FIBRILLATION Assessment/Plan Admitted to monitor bed IV solu-medrol;to be winifred IV abtx Leukocytosis (improved) in the settings of IV steroids Low TSH likely in the settings of acute disease, needs to be repeated in 4-8 weeks after recovery. Pulmonary consult appreciated. CCM consult appreciated Started on Eliquis. BIPAP PRN and at night AM labs PT for OOBTC DVT prophylasis Time spent for managing pt's care: over 40 minutes
--- NOTE | 2016-10-07 19:13 | PN ---
Progress Note (short form) - Note Progress Note: CC: aflutter S: sob significantly improved. no cp, palps, dizziness. Current Medications Albuterol Sulfate (Ventolin 0.083% Nebulizer Soln -) 1 amp NEB Q4H PRN PRN Reason: SHORT OF BREATH/WHEEZING Last Admin: 10/07/16 17:52 Dose: 1 amp Apixaban (Eliquis -) 5 mg PO BID [facility] Last Admin: 10/07/16 10:21 Dose: 5 mg Arformoterol Tartrate (Brovana (Restricted To Pulmonology/Resp) -) 1 amp NEB BID [facility] Last Admin: 10/07/16 10:49 Dose: 1 amp Atorvastatin Calcium (Lipitor -) 40 mg PO HS [facility] Last Admin: 10/06/16 22:06 Dose: 40 mg Brimonidine Tartrate (Alphagan P 0.1% -) 1 drop OU BID [facility] Last Admin: 10/07/16 10:19 Dose: 1 drop Chlorhexidine Gluconate (Hibiclens For Decolonization -) 1 applic TP [facility] Last Admin: 10/06/16 22:12 Dose: Not Given Cholecalciferol (Vitamin D3 -) 2,000 unit PO DAILY [facility] Last Admin: 10/07/16 10:18 Dose: 2,000 unit Digoxin (Lanoxin -) 0.125 mg PO DAILY [facility] Last Admin: 10/07/16 10:18 Dose: 0.125 mg Diltiazem HCl (Cardizem -) 30 mg PO QID [facility] Last Admin: 10/07/16 18:11 Dose: 30 mg Furosemide (Lasix -) 20 mg PO DAILY [facility] Last Admin: 10/07/16 10:18 Dose: 20 mg Azithromycin (Zithromax 500mg Ivpb (Pre-Docked)) 250 mls @ 250 mls/hr IVPB DAILY [facility] Last Admin: 10/07/16 10:17 Dose: 250 mls/hr Ceftriaxone Sodium (Rocephin 1gm Ivpb (Pre-Docked)) 50 mls @ 100 mls/hr IVPB DAILY [facility] Last Admin: 10/07/16 10:18 Dose: 100 mls/hr Insulin Aspart (Novolog Vial Sliding Scale -) 1 vial SQ ACHS [facility] PRN Reason: Protocol Last Admin: 10/07/16 16:45 Dose: Not Given Insulin Detemir (Levemir Vial) 20 units SQ DAILY [facility] Last Admin: 10/07/16 10:21 Dose: 20 units Latanoprost (Xalatan 0.005% Eye Drops -) 1 drop OU HS [facility] Last Admin: 10/06/16 22:10 Dose: 1 drop Levothyroxine Sodium (Synthroid -) 75 mcg PO DAILY@0700 [facility] Last Admin: 10/07/16 06:49 Dose: 75 mcg Methylprednisolone Sodium Succinate (Solu-Medrol -) 40 mg IVPB BID [facility] Last Admin: 10/07/16 10:17 Dose: 40 mg Montelukast Sodium (Singulair -) 10 mg PO HS [facility] Last Admin: 10/06/16 22:06 Dose: 10 mg Mupirocin (Bactroban Ointment (For Decolonization) -) 1 applic NS BID [facility] Stop: 10/09/16 21:59 Last Admin: 10/07/16 10:19 Dose: Not Given Non-Formulary Medication (Brinzolamide [Azopt]) 0 ml OU BID [facility] Last Admin: 10/07/16 10:20 Dose: 1 ml Pantoprazole Sodium (Protonix -) 40 mg PO DAILY [facility] Last Admin: 10/07/16 10:18 Dose: 40 mg Tiotropium [place] (Spiriva -) 1 puff IH DAILY [facility] Last Admin: 10/07/16 12:22 Dose: 1 puff Vital Signs - 24 hr 10/06/16 10/06/16 10/07/16 21:00 22:00 00:00 Temperature 98.2 F Pulse Rate 78 73 Respiratory 24 24 24 Rate Blood Pressure 150/63 128/64 O2 Sat by Pulse 94 L 94 L Oximetry (%) 10/07/16 10/07/16 10/07/16 02:00 04:00 06:00 Temperature 97.4 F L 98.1 F Pulse Rate 77 80 70 Respiratory 21 21 20 Rate Blood Pressure 130/55 125/58 136/66 O2 Sat by Pulse Oximetry (%) 10/07/16 10/07/16 10/07/16 09:00 10:00 10:18 Temperature 98.2 F Pulse Rate 94 H 94 H Respiratory 26 H Rate Blood Pressure 134/66 O2 Sat by Pulse 92 L Oximetry (%) 10/07/16 10/07/16 10/07/16 10:49 12:00 14:00 Temperature 98.3 F Pulse Rate 92 H 62 83 Respiratory 20 20 Rate Blood Pressure 120/45 128/45 O2 Sat by Pulse 90 L Oximetry (%) 10/07/16 16:00 Temperature Pulse Rate 92 H Respiratory 24 Rate Blood Pressure 132/64 O2 Sat by Pulse Oximetry (%) Intake & Output 10/05/16 10/06/16 10/07/16 10/08/16 07:59 07:59 07:59 07:59 Intake Total 170 1040 2080 350 Output Total 400 900 500 Balance -199 673 1211 350 Weight 113 lb 11.2 oz 113 lb 4.8 oz nad, calm jvd flat, neck supple dimished bs, dullness at right base rrr nl s1, s2 no mrg + bs soft nt nd ext without e/c/c + dp/pt aaox3 no jaundice diaphoresis CBC, BMP 10/07/16 06:00 10/07/16 05:20 Laboratory Tests 10/07/16 05:20 Magnesium 2.3 Digoxin 0.8723 tele: rare episodes of SVT. freq pac's, pvc's. 10 beat run of nsvt EKG: SVT, [address] depressions. Echo 10/2015: Nl lv/rv. suboptimal views, but at least mild AR. Mod MAC. 1+ MR. No MS. trivial effusion. RVSP not measured. 71 yo with h/o severe copd (oxygen dependent, on long standing bipap qhs and prn and on chronic prednisone/theophylline), mod-severe phtn, diastolic CHF, prior h/o amarousis fugax on ASA, HL, IDDM, hypothyroid who presents with respiratory distress. SVT/atrial flutter - had been followed by Dr. Power since 2009 who did not endorse a history of afib/flutter and did not have patient on AC. Patient also denied prior history of atrial arrhythmia. Had stated that she had been on long-standing digoxin and diltiazem in the past because of long standing tachycardia on theophylline. (Digoxin continued by me in the office for RV support). However, per Dr. Ziegler's note has a history of paroxysmal AF so likely had prior episodes. - Here with flutter, started AC with eliquis. - S/p conversion to SR, con't home diltiazem, digoxin. Would check digoxin level - mgm't of thyroid abnormalities and infection per pmd - CE's neg x 3 (intermediate range, nl ck) - repeat echo - 10/06: continues to have intermittent runs of svt as well as one 5 beat episode of nsvt. Would ideally uptitrate av rehan blockade but patient's bp on lower end. Will transition to short acting diltiazem in the morning for better ability to adjust regimen. - 10/07: bp stable. still having runs of svt and nsvt. lytes repleted. slow uptitration of diltiazem to 60 tid. digoxin level wnl. diastolic chf - does not appear significantly volume overloaded on exam. on 40 bid on admit. decreased to 40 daily 10/05, may be to decrease further to 20 mg/day. - 10/06 bicarb continues to rise. will decrease lasix to outpatient regimen of 20 mg daily - 10/07, con't same - daily weights, bmp COPD exacerbation/possible PNA/mod-severe phtn - respiratory status improving. - onging mgm't per pmd prior h/o amarousis fugax - con't statin. off ASA while on AC.
[2016-10-07] MEDS ORDERED: MENTHOL/PHENOL 1 EACH UD MM PRN (21:05)
[2016-10-07] MEDS ORDERED: PT OWN MED DRAWER 7, Y5N ONE (21:36)
[2016-10-07] MEDS: dilTIAZem HCL 60 MG TABLET (FP) PO SCH (21:51)
[2016-10-07] MEDS: CHLORHEXIDINE GLUCONATE 4% CLEANSER FOR DECOLONIZATION TP SCH (21:51)
[2016-10-07] MEDS: ATORVASTATIN CA 40 MG TABLET (FP) PO SCH (21:52)
[2016-10-07] MEDS: MONTELUKAST NA 10 MG TABLET PO SCH (21:52)
[2016-10-07] MEDS: LATANOPROST 0.005% OPHTH SOLN 2.5ML BOTTLE OU SCH (21:52)
[2016-10-08] MEDS: INSULIN SLIDING SCALE (NOVOLOG) 1 VIAL SQ SCH ×4 (06:45→22:11)
[2016-10-08] MEDS: dilTIAZem HCL 60 MG TABLET (FP) PO SCH ×3 (06:45→21:11)
[2016-10-08] MEDS: LEVOTHYROXINE NA 75 MCG TABLET (FP) PO SCH (06:45)
[2016-10-08] MEDS ORDERED: PT OWN MED DRAWER 7, Y5N ONE ×2 (08:46→21:09)
[2016-10-08] MEDS: CEFTRIAXONE 50 ML IVPB SCH (09:00)
[2016-10-08] MEDS: DIGOXIN 0.125 MG TABLET (FP) PO SCH (09:00)
[2016-10-08] MEDS: INSULIN DETEMIR 100 UNITS/ML MDV SQ SCH (09:01)
[2016-10-08] MEDS: FUROSEMIDE 20 MG TABLET (FP) PO SCH (09:01)
[2016-10-08] MEDS: CHOLECALCIFEROL (VITAMIN D3) 1,000 UNIT TABLET (FP) PO SCH (09:01)
[2016-10-08] MEDS: methylPREDNISolone NA SUCC 40 MG/1 ML VIAL IVPB SCH ×2 (09:01→21:11)
[2016-10-08] MEDS: PANTOPRAZOLE 40 MG TABLET (FP) PO SCH (09:01)
[2016-10-08] MEDS: APIXABAN 5 MG TABLET PO SCH ×2 (09:01→21:12)
[2016-10-08] MEDS: BRINZOLAMIDE OU SCH ×2 (09:04→21:14)
[2016-10-08] MEDS: BRIMONIDINE TARTRATE 0.1% OPHTHALMIC 5 ML BOTTLE OU SCH ×2 (09:05→21:15)
[2016-10-08] MEDS: TIOTROPIUM BROMIDE 18 MCG/INH (DEVICE W/ 5 CAPSULES) IH SCH (09:10)
[2016-10-08] MEDS: MUPIROCIN 2% TOPICAL OINTMENT FOR DECOLONIZATION NS SCH ×2 (09:11→21:12)
[2016-10-08] MEDS: AZITHROMYCIN IVPB 250 ML IVPB SCH (10:09)
--- NOTE | 2016-10-08 10:15 | PN ---
Progress Note, Physician History of Present Illness: Pt w/o SOB, CP, palp, dizziness, wheezing. Pt w/o abd pain, N, V. Pt had BM Pt was OOBTC, states that needs assistance( at home is using walker) Pt states that is feeling better. - Current Medication List Current Medications: Active Medications Albuterol Sulfate (Ventolin 0.083% Nebulizer Soln -) 1 amp NEB Q4H PRN PRN Reason: SHORT OF BREATH/WHEEZING Last Admin: 10/07/16 17:52 Dose: 1 amp Apixaban (Eliquis -) 5 mg PO BID [facility] Last Admin: 10/08/16 09:01 Dose: 5 mg Arformoterol Tartrate (Brovana (Restricted To Pulmonology/Resp) -) 1 amp NEB BID [facility] Last Admin: 10/07/16 22:14 Dose: 1 amp Atorvastatin Calcium (Lipitor -) 40 mg PO HS [facility] Last Admin: 10/07/16 21:52 Dose: 40 mg Brimonidine Tartrate (Alphagan P 0.1% -) 1 drop OU BID [facility] Last Admin: 10/08/16 09:05 Dose: 1 drop Chlorhexidine Gluconate (Hibiclens For Decolonization -) 1 applic TP HS [facility] Last Admin: 10/07/16 21:51 Dose: 1 applic Cholecalciferol (Vitamin D3 -) 2,000 unit PO DAILY [facility] Last Admin: 10/08/16 09:01 Dose: 2,000 unit Digoxin (Lanoxin -) 0.125 mg PO DAILY [facility] Last Admin: 10/08/16 09:00 Dose: 0.125 mg Diltiazem HCl (Cardizem -) 60 mg PO TID [facility] Last Admin: 10/08/16 06:45 Dose: 60 mg Eucalyptus/Menthol/Phenol/Sorbitol (Cepastat Lozenge -) 1 each MM Q4H PRN PRN Reason: SORE THROAT Furosemide (Lasix -) 20 mg PO DAILY [facility] Last Admin: 10/08/16 09:01 Dose: 20 mg Azithromycin (Zithromax 500mg Ivpb (Pre-Docked)) 250 mls @ 250 mls/hr IVPB DAILY [facility] Last Admin: 10/08/16 10:09 Dose: 250 mls/hr Ceftriaxone Sodium (Rocephin 1gm Ivpb (Pre-Docked)) 50 mls @ 100 mls/hr IVPB DAILY [facility] Last Admin: 10/08/16 09:00 Dose: 100 mls/hr Insulin Aspart (Novolog Vial Sliding Scale -) 1 vial SQ ACHS [facility] PRN Reason: Protocol Last Admin: 10/08/16 06:45 Dose: 2 units Insulin Detemir (Levemir Vial) 20 units SQ DAILY [facility] Last Admin: 10/08/16 09:01 Dose: 20 units Latanoprost (Xalatan 0.005% Eye Drops -) 1 drop OU HS [facility] Last Admin: 10/07/16 21:52 Dose: 1 drop Levothyroxine Sodium (Synthroid -) 75 mcg PO DAILY@0700 [facility] Last Admin: 10/08/16 06:45 Dose: 75 mcg Methylprednisolone Sodium Succinate (Solu-Medrol -) 40 mg IVPB BID [facility] Last Admin: 10/08/16 09:01 Dose: 40 mg Montelukast Sodium (Singulair -) 10 mg PO [facility] Last Admin: 10/07/16 21:52 Dose: 10 mg Mupirocin (Bactroban Ointment (For Decolonization) -) 1 applic NS BID [facility] Stop: 10/09/16 21:59 Last Admin: 10/08/16 09:11 Dose: Not Given Non-Formulary Medication (Brinzolamide [Azopt]) 0 ml OU BID [facility] Last Admin: 10/08/16 09:04 Dose: 1 ml Pantoprazole Sodium (Protonix -) 40 mg PO DAILY [facility] Last Admin: 10/08/16 09:01 Dose: 40 mg Tiotropium [place] (Spiriva -) 1 puff IH DAILY [facility] Last Admin: 10/08/16 09:10 Dose: Not Given - Objective Vital Signs: Vital Signs Temperature 98.4 F 10/08/16 06:00 Pulse Rate 85 10/08/16 09:00 Respiratory Rate 20 10/08/16 06:00 Blood Pressure 138/62 10/08/16 06:00 O2 Sat by Pulse Oximetry (%) 98 10/08/16 06:35 Constitutional: Yes: No Distress, Calm Cardiovascular: Yes: Regular Rate and Rhythm, S1, S2 Respiratory: Yes: Regular, CTA Bilaterally Gastrointestinal: Yes: Normal Bowel Sounds, Soft. No: Tenderness Edema: No Neurological: Yes: Alert, Oriented Labs: CBC, BMP 10/07/16 06:00 10/07/16 22:30 INR, PTT INR 1.15 (0.82-1.09) H 10/05/16 05:30 Problem List - Problems (1) Acute and chronic respiratory failure with hypercapnia Code(s): J96.22 - ACUTE AND CHRONIC RESPIRATORY FAILURE WITH HYPERCAPNIA (2) COPD with acute exacerbation Code(s): J44.1 - CHRONIC OBSTRUCTIVE PULMONARY DISEASE W (ACUTE) EXACERBATION (3) Pneumonia Code(s): J18.9 - PNEUMONIA, UNSPECIFIED ORGANISM (4) Diabetes mellitus Code(s): E11.9 - TYPE 2 DIABETES MELLITUS WITHOUT COMPLICATIONS (5) Hypertension Code(s): I10 - ESSENTIAL (PRIMARY) HYPERTENSION (6) Atrial flutter Code(s): I48.92 - UNSPECIFIED ATRIAL FLUTTER (7) Paroxysmal atrial fibrillation Code(s): I48.0 - PAROXYSMAL ATRIAL FIBRILLATION Assessment/Plan Admitted to monitor bed IV solu-medrol;to be winifred IV abtx Leukocytosis (improved) in the settings of IV steroids Low TSH likely in the settings of acute disease, needs to be repeated in 4-8 weeks after recovery. Pulmonary consult appreciated. CCM consult appreciated Started on Eliquis. BIPAP PRN and at night AM labsToday labs are pending OOBTC with assistance only DVT prophylasis Case was d/w pt's nurse (Zac)
--- NOTE | 2016-10-08 10:18 | PN ---
Progress Note (short form) - Note Progress Note: CC: aflutter S: sob significantly improved. no cp, palps, dizziness. Current Medications Generic Name Dose Route Start Last Admin Trade Name Freq PRN Reason Stop Dose Admin Albuterol Sulfate 1 amp 10/06/16 10:56 10/07/16 17:52 Ventolin 0.083% Nebulizer Soln - NEB 1 amp Q4H PRN Administration SHORT OF BREATH/WHEEZING Apixaban 5 mg 10/06/16 22:00 10/08/16 09:01 Eliquis - PO 5 mg BID [facility] Administration Arformoterol Tartrate 1 amp 10/06/16 22:00 10/07/16 22:14 Brovana (Restricted To Pulmonology/Resp) - NEB 1 amp BID [facility] Administration Atorvastatin Calcium 40 mg 10/06/16 22:00 10/07/16 21:52 Lipitor - PO 40 mg HS [facility] Administration Brimonidine Tartrate 1 drop 10/06/16 22:00 10/08/16 09:05 Alphagan P 0.1% - OU 1 drop BID [facility] Administration Chlorhexidine Gluconate 1 applic 10/06/16 22:00 10/07/16 21:51 Hibiclens For Decolonization - TP 1 applic HS [facility] Administration Cholecalciferol 2,000 unit 10/07/16 10:00 10/08/16 09:01 Vitamin D3 - PO 2,000 unit DAILY [facility] Administration Digoxin 0.125 mg 10/07/16 10:00 10/08/16 09:00 Lanoxin - PO 0.125 mg DAILY [facility] Administration Diltiazem HCl 60 mg 10/07/16 22:00 10/08/16 06:45 Cardizem - PO 60 mg TID [facility] Administration Eucalyptus/Menthol/Phenol/Sorbitol 1 each 10/07/16 21:05 Cepastat Lozenge - MM Q4H PRN SORE THROAT Furosemide 20 mg 10/07/16 10:00 10/08/16 09:01 Lasix - PO 20 mg DAILY [facility] Administration Azithromycin 250 mls @ 250 mls/hr 10/07/16 10:00 10/08/16 10:09 Zithromax 500mg Ivpb (Pre-Docked) IVPB 250 mls/hr DAILY [facility] Administration Ceftriaxone Sodium 50 mls @ 100 mls/hr 10/07/16 10:00 10/08/16 09:00 Rocephin 1gm Ivpb (Pre-Docked) IVPB 100 mls/hr DAILY [facility] Administration Insulin Aspart 1 vial 10/06/16 11:00 10/08/16 06:45 Novolog Vial Sliding Scale - SQ 2 units ACHS [facility] Administration Protocol Insulin Detemir 20 units 10/07/16 10:00 10/08/16 09:01 Levemir Vial SQ 20 units DAILY [facility] Administration Latanoprost 1 drop 10/06/16 22:00 10/07/16 21:52 Xalatan 0.005% Eye Drops - OU 1 drop HS [facility] Administration Levothyroxine Sodium 75 mcg 10/07/16 07:00 10/08/16 06:45 Synthroid - PO 75 mcg DAILY@0700 [facility] Administration Methylprednisolone Sodium Succinate 40 mg 10/06/16 22:00 10/08/16 09:01 Solu-Medrol - IVPB 40 mg BID [facility] Administration Montelukast Sodium 10 mg 10/06/16 22:00 10/07/16 21:52 Singulair - PO 10 mg HS [facility] Administration Mupirocin 1 applic 10/06/16 22:00 10/08/16 09:11 Bactroban Ointment (For Decolonization) - NS 10/09/16 21:59 Not Given BID [facility] Non-Formulary Medication 0 ml 10/06/16 22:00 10/08/16 09:04 Brinzolamide [Azopt] OU 1 ml BID [facility] Administration Pantoprazole Sodium 40 mg 10/07/16 10:00 10/08/16 09:01 Protonix - PO 40 mg DAILY [facility] Administration Tiotropium [place] 1 puff 10/07/16 10:00 10/08/16 09:10 Spiriva - IH Not Given DAILY [facility] Vital Signs Period Temp Pulse Resp BP Sys/Anthony Pulse Ox Last 24 Hr 98 F-98.7 F 62-94 20-24 117-151/45-64 90-98 nad, calm jvd flat, neck supple cta bl nl eff rrr nl s1, s2 no mrg + bs soft nt nd ext without e/c/c aaox3 no jaundice diaphoresis CBC, BMP 10/07/16 06:00 10/07/16 22:30 tele: sr EKG: SVT, [address] depressions. Echo 10/2015: Nl lv/rv. suboptimal views, but at least mild AR. Mod MAC. 1+ MR. No MS. trivial effusion. RVSP not measured. a/p 71 yo with h/o severe copd (oxygen dependent, on long standing bipap qhs and prn and on chronic prednisone/theophylline), mod-severe phtn, diastolic CHF , prior h/o amarousis fugax on ASA, HL, IDDM, hypothyroid who presents with respiratory distress. SVT/atrial flutter - had been followed by Dr. Power since 2009 who did not endorse a history of afib/flutter and did not have patient on AC. Patient also denied prior history of atrial arrhythmia. Had stated that she had been on long-standing digoxin and diltiazem in the past because of long standing tachycardia on theophylline. (Digoxin continued by me in the office for RV support). However, per Dr. Ziegler's note has a history of paroxysmal AF so likely had prior episodes. - Here with flutter, started AC with eliquis. - S/p conversion to SR, con't home diltiazem, digoxin. Would check digoxin level - mgm't of thyroid abnormalities and infection per pmd - CE's neg x 3 (intermediate range, nl ck) - repeat echo - 10/06: continues to have intermittent runs of svt as well as one 5 beat episode of nsvt. Would ideally uptitrate av rehan blockade but patient's bp on lower end. Will transition to short acting diltiazem in the morning for better ability to adjust regimen. - 10/07: bp stable. still having runs of svt and nsvt. lytes repleted. slow uptitration of diltiazem to 60 tid. digoxin level wnl. -10/08: in sr. cont dig, dilt. diastolic chf - does not appear significantly volume overloaded on exam. on 40 bid on admit. decreased to 40 daily 10/05, may be to decrease further to 20 mg/day. - 10/06 bicarb continues to rise. will decrease lasix to outpatient regimen of 20 mg daily - 10/07-10/08: con't same COPD exacerbation/possible PNA/mod-severe phtn - respiratory status improving. - onging mgm't per pmd prior h/o amarousis fugax - con't statin. off ASA while on AC.
[2016-10-08] MEDS: ARFORMOTEROL TARTRATE 15 MCG/2 ML VIAL NEB SCH ×2 (10:22→22:44)
[2016-10-08 10:53] LABS: MCH 31.1 pg (25.7-33.7); MCHC 32.4 g/dl (32.0-36.0); MEAN CELL VOLUME 95.9 fl (80-96); MEAN PLT VOLUME 8.6 fl (7.5-11.1); PLATELET COUNT 274 K/MM3 (134-434); RDW 14.2 % (11.6-15.6); WHITE BLOOD COUNT 18.7 K/mm3 (4.0-10.0)
[2016-10-08 11:37] LABS: ALBUMIN 2.6 g/dl (3.4-5.0); ANION GAP 2 (8-16); BILIRUBIN,TOTAL 0.3 mg/dL (0.2-1.0); CALCIUM 9.7 mg/dL (8.5-10.1); CO2 44 mmol/L (21-32); CREATININE 0.6 mg/dL (0.55-1.02); GLUCOSE,RANDOM 170 mg/dL (74-106); SGOT/AST 27 U/L (15-37); SGPT/ALT 48 U/L (12-78); TOT PROT 5.3 g/dl (6.4-8.2)
[2016-10-08 11:38] LABS: ALK PHOS 104 U/L (45-117)
[2016-10-08] MEDS ORDERED: SODIUM POLYSTYRENE SULFONATE 15 GM/60 ML BOTTLE PO ONE (12:30)
[2016-10-08] MEDS: MONTELUKAST NA 10 MG TABLET PO SCH (21:11)
[2016-10-08] MEDS: ATORVASTATIN CA 40 MG TABLET (FP) PO SCH (21:11)
[2016-10-08] MEDS: CHLORHEXIDINE GLUCONATE 4% CLEANSER FOR DECOLONIZATION TP SCH (21:13)
[2016-10-08] MEDS: LATANOPROST 0.005% OPHTH SOLN 2.5ML BOTTLE OU SCH (21:16)
[2016-10-09] MEDS: LEVOTHYROXINE NA 75 MCG TABLET (FP) PO SCH (06:02)
[2016-10-09] MEDS: dilTIAZem HCL 60 MG TABLET (FP) PO SCH ×3 (06:03→22:43)
[2016-10-09] MEDS: INSULIN SLIDING SCALE (NOVOLOG) 1 VIAL SQ SCH ×4 (06:08→22:43)
[2016-10-09] MEDS ORDERED: PT OWN MED DRAWER 7, Y5N ONE ×4 (06:25→22:57)
[2016-10-09] MEDS ORDERED: HEMOQUE TEST 1 EACH EACH ONE (06:25)
[2016-10-09 06:51] LABS: MCH 31.5 pg (25.7-33.7); MEAN CELL VOLUME 95.6 fl (80-96); MEAN PLT VOLUME 9.4 fl (7.5-11.1); PLATELET COUNT 264 K/MM3 (134-434); RDW 14.3 % (11.6-15.6); WHITE BLOOD COUNT 19.3 K/mm3 (4.0-10.0)
[2016-10-09 07:11] LABS: ANION GAP 3 (8-16); CALCIUM 9.5 mg/dL (8.5-10.1); CO2 43 mmol/L (21-32); CREATININE 0.5 mg/dL (0.55-1.02); GLUCOSE,RANDOM 85 mg/dL (74-106)
--- NOTE | 2016-10-09 09:03 | PN ---
Progress Note (short form) - Note Progress Note: CC: aflutter S: sob improved. no cp, palps, dizziness. Current Medications Generic Name Dose Route Start Last Admin Trade Name Freq PRN Reason Stop Dose Admin Albuterol Sulfate 1 amp 10/06/16 10:56 10/07/16 17:52 Ventolin 0.083% Nebulizer Soln - NEB 1 amp Q4H PRN Administration SHORT OF BREATH/WHEEZING Apixaban 5 mg 10/06/16 22:00 10/08/16 21:12 Eliquis - PO 5 mg BID [facility] Administration Arformoterol Tartrate 1 amp 10/06/16 22:00 10/08/16 22:44 Brovana (Restricted To Pulmonology/Resp) - NEB 1 amp BID [facility] Administration Atorvastatin Calcium 40 mg 10/06/16 22:00 10/08/16 21:11 Lipitor - PO 40 mg HS [facility] Administration Brimonidine Tartrate 1 drop 10/06/16 22:00 10/08/16 21:15 Alphagan P 0.1% - OU 1 drop BID [facility] Administration Chlorhexidine Gluconate 1 applic 10/06/16 22:00 10/08/16 21:13 Hibiclens For Decolonization - TP 1 applic HS [facility] Administration Cholecalciferol 2,000 unit 10/07/16 10:00 10/08/16 09:01 Vitamin D3 - PO 2,000 unit DAILY [facility] Administration Digoxin 0.125 mg 10/07/16 10:00 10/08/16 09:00 Lanoxin - PO 0.125 mg DAILY [facility] Administration Diltiazem HCl 60 mg 10/07/16 22:00 10/09/16 06:03 Cardizem - PO 60 mg TID [facility] Administration Eucalyptus/Menthol/Phenol/Sorbitol 1 each 10/07/16 21:05 Cepastat Lozenge - MM Q4H PRN SORE THROAT Furosemide 20 mg 10/07/16 10:00 10/08/16 09:01 Lasix - PO 20 mg DAILY [facility] Administration Ceftriaxone Sodium 50 mls @ 100 mls/hr 10/07/16 10:00 10/08/16 09:00 Rocephin 1gm Ivpb (Pre-Docked) IVPB 100 mls/hr DAILY [facility] Administration Azithromycin 500 mg/ Sodium 250 mls @ 250 mls/hr 10/09/16 10:00 Chloride IVPB DAILY [facility] Insulin Aspart 1 vial 10/06/16 11:00 10/09/16 06:08 Novolog Vial Sliding Scale - SQ Not Given ACHS [facility] Protocol Insulin Detemir 20 units 10/07/16 10:00 10/08/16 09:01 Levemir Vial SQ 20 units DAILY [facility] Administration Latanoprost 1 drop 10/06/16 22:00 10/08/16 21:16 Xalatan 0.005% Eye Drops - OU 1 drop HS [facility] Administration Levothyroxine Sodium 75 mcg 10/07/16 07:00 10/09/16 06:02 Synthroid - PO 75 mcg DAILY@0700 [facility] Administration Methylprednisolone Sodium Succinate 40 mg 10/06/16 22:00 10/08/16 21:11 Solu-Medrol - IVPB 40 mg BID [facility] Administration Montelukast Sodium 10 mg 10/06/16 22:00 10/08/16 21:11 Singulair - PO 10 mg HS [facility] Administration Mupirocin 1 applic 10/06/16 22:00 10/08/16 21:12 Bactroban Ointment (For Decolonization) - NS 10/09/16 21:59 Not Given BID [facility] Non-Formulary Medication 0 ml 10/06/16 22:00 10/08/16 21:14 Brinzolamide [Azopt] OU Not Given BID [facility] Pantoprazole Sodium 40 mg 10/07/16 10:00 10/08/16 09:01 Protonix - PO 40 mg DAILY [facility] Administration Tiotropium [place] 1 puff 10/07/16 10:00 10/08/16 09:10 Spiriva - IH Not Given DAILY [facility] Vital Signs Period Temp Pulse Resp BP Sys/Anthony Pulse Ox Last 24 Hr 98.2 F-98.7 F 69-80 16-22 126-143/53-62 93-99 nad, calm jvd flat, neck supple cta bl nl eff rrr nl s1, s2 no mrg + bs soft nt nd ext without e/c/c aaox3 no jaundice diaphoresis CBC, BMP 10/09/16 05:38 10/09/16 05:38 tele: sr, brief atrial run EKG: SVT, [address] depressions. Echo 10/2015: Nl lv/rv. suboptimal views, but at least mild AR. Mod MAC. 1+ MR. No MS. trivial effusion. RVSP not measured. echo 09/2016: tds; nl lv/rv, mv calcified, mac, mild-mod mr, sev tr, small peric eff-->MV calcification is chronic finding for her and not indicative of vegetation a/p 71 yo with h/o severe copd (oxygen dependent, on long standing bipap qhs and prn and on chronic prednisone/theophylline), mod-severe phtn, diastolic CHF , prior h/o amarousis fugax on ASA, HL, IDDM, hypothyroid who presents with respiratory distress. SVT/atrial flutter - had been followed by Dr. Power since 2009 who did not endorse a history of afib/flutter and did not have patient on AC. Patient also denied prior history of atrial arrhythmia. Had stated that she had been on long-standing digoxin and diltiazem in the past because of long standing tachycardia on theophylline. (Digoxin continued by me in the office for RV support). However, per Dr. Ziegler's note has a history of paroxysmal AF so likely had prior episodes. - Here with flutter, started AC with eliquis. - S/p conversion to SR, con't home diltiazem, digoxin. Would check digoxin level - mgm't of thyroid abnormalities and infection per pmd - CE's neg x 3 (intermediate range, nl ck) - repeat echo - 10/06: continues to have intermittent runs of svt as well as one 5 beat episode of nsvt. Would ideally uptitrate av rehan blockade but patient's bp on lower end. Will transition to short acting diltiazem in the morning for better ability to adjust regimen. - 10/07: bp stable. still having runs of svt and nsvt. lytes repleted. slow uptitration of diltiazem to 60 tid. digoxin level wnl. -10/08-2: in sr. cont dig, dilt. diastolic chf - does not appear significantly volume overloaded on exam. on 40 bid on admit. decreased to 40 daily 10/05, may be to decrease further to 20 mg/day. - 10/06 bicarb continues to rise. will decrease lasix to outpatient regimen of 20 mg daily - 10/07-10/09: stabl, con't same lasix COPD exacerbation/possible PNA/mod-severe phtn - respiratory status improving. - onging mgm't per pmd/pulm prior h/o amarousis fugax - con't statin. off ASA while on AC. cardiac zheng remains stable
--- NOTE | 2016-10-09 09:38 | PN ---
Progress Note, Physician Chief Complaint: in bed awake alert NAD afebrile no new c/o - Current Medication List Current Medications: Active Medications Albuterol Sulfate (Ventolin 0.083% Nebulizer Soln -) 1 amp NEB Q4H PRN PRN Reason: SHORT OF BREATH/WHEEZING Last Admin: 10/07/16 17:52 Dose: 1 amp Apixaban (Eliquis -) 5 mg PO BID [facility] Last Admin: 10/08/16 21:12 Dose: 5 mg Arformoterol Tartrate (Brovana (Restricted To Pulmonology/Resp) -) 1 amp NEB BID [facility] Last Admin: 10/08/16 22:44 Dose: 1 amp Atorvastatin Calcium (Lipitor -) 40 mg PO HS [facility] Last Admin: 10/08/16 21:11 Dose: 40 mg Brimonidine Tartrate (Alphagan P 0.1% -) 1 drop OU BID [facility] Last Admin: 10/08/16 21:15 Dose: 1 drop Chlorhexidine Gluconate (Hibiclens For Decolonization -) 1 applic TP [facility] Last Admin: 10/08/16 21:13 Dose: 1 applic Cholecalciferol (Vitamin D3 -) 2,000 unit PO DAILY [facility] Last Admin: 10/08/16 09:01 Dose: 2,000 unit Digoxin (Lanoxin -) 0.125 mg PO DAILY [facility] Last Admin: 10/08/16 09:00 Dose: 0.125 mg Diltiazem HCl (Cardizem -) 60 mg PO TID [facility] Last Admin: 10/09/16 06:03 Dose: 60 mg Eucalyptus/Menthol/Phenol/Sorbitol (Cepastat Lozenge -) 1 each MM Q4H PRN PRN Reason: SORE THROAT Furosemide (Lasix -) 20 mg PO DAILY [facility] Last Admin: 10/08/16 09:01 Dose: 20 mg Ceftriaxone Sodium (Rocephin 1gm Ivpb (Pre-Docked)) 50 mls @ 100 mls/hr IVPB DAILY [facility] Last Admin: 10/08/16 09:00 Dose: 100 mls/hr Azithromycin 500 mg/ Sodium (Chloride) 250 mls @ 250 mls/hr IVPB DAILY [facility] Insulin Aspart (Novolog Vial Sliding Scale -) 1 vial SQ ACHS [facility] PRN Reason: Protocol Last Admin: 10/09/16 06:08 Dose: Not Given Insulin Detemir (Levemir Vial) 20 units SQ DAILY [facility] Last Admin: 10/08/16 09:01 Dose: 20 units Latanoprost (Xalatan 0.005% Eye Drops -) 1 drop OU HS [facility] Last Admin: 10/08/16 21:16 Dose: 1 drop Levothyroxine Sodium (Synthroid -) 75 mcg PO DAILY@0700 [facility] Last Admin: 10/09/16 06:02 Dose: 75 mcg Methylprednisolone Sodium Succinate (Solu-Medrol -) 40 mg IVPB BID [facility] Last Admin: 10/08/16 21:11 Dose: 40 mg Montelukast Sodium (Singulair -) 10 mg PO HS [facility] Last Admin: 10/08/16 21:11 Dose: 10 mg Mupirocin (Bactroban Ointment (For Decolonization) -) 1 applic NS BID [facility] Stop: 10/09/16 21:59 Last Admin: 10/08/16 21:12 Dose: Not Given Non-Formulary Medication (Brinzolamide [Azopt]) 0 ml OU BID [facility] Last Admin: 10/08/16 21:14 Dose: Not Given Pantoprazole Sodium (Protonix -) 40 mg PO DAILY [facility] Last Admin: 10/08/16 09:01 Dose: 40 mg Tiotropium [place] (Spiriva -) 1 puff IH DAILY [facility] Last Admin: 10/08/16 09:10 Dose: Not Given - Objective Vital Signs: Vital Signs Temperature 98.2 F 10/09/16 03:31 Pulse Rate 69 10/09/16 02:00 Respiratory Rate 16 10/09/16 02:00 Blood Pressure 131/59 10/09/16 02:00 O2 Sat by Pulse Oximetry (%) 95 10/09/16 03:23 Constitutional: Yes: No Distress Eyes: Yes: Conjunctiva Clear HENT: Yes: Atraumatic Neck: Yes: Supple Cardiovascular: No: Regular Rate and Rhythm Respiratory: Yes: Diminished Gastrointestinal: Yes: Soft. No: Tenderness Genitourinary: No: CVA Tenderness - Left, CVA Tenderness - Right Musculoskeletal: No: Joint Stiffness, Joint Swelling Extremities: No: Calf Tenderness, Cold, Cool Edema: No Integumentary: No: Rash, Venous Stasis Changes Neurological: Yes: WNL, Alert, Oriented ...Motor Strength: WNL Psychiatric: Yes: WNL, Alert, Oriented. No: Agitated, Suicidal Ideation Labs: CBC, BMP 10/09/16 05:38 10/09/16 05:38 INR, PTT INR 1.15 (0.82-1.09) H 10/05/16 05:30 - ....Imaging Other: Report Reviewed Assessment/Plan Acute on Chronic Hypoxic and Hypercapneic Respiratory Failure improving Pneumonia Acute COPD Exacerbation New Onset Atrial Flutter with RVR Pulmonary HTN DM Hypothyroidism - can change steroids to PO prednisone 40mg daily in AM per pulmonary - inhaled bronchodilators standing and PRN - O2 to keep SpO2 88-95%; incentive spirometry - continue antibiotics - continue BiPAP for night and PRN during day - rate control - continue anticoagulation
[2016-10-09] MEDS: ARFORMOTEROL TARTRATE 15 MCG/2 ML VIAL NEB SCH ×2 (10:03→22:50)
--- NOTE | 2016-10-09 10:26 | PN ---
Progress Note (short form) - Note Progress Note: PULMONARY States breathing is much improved. No cough or wheezing. No fevers or chills. Last Vital Signs Temp Pulse Resp BP Pulse Ox 98.2 F 69 16 131/59 95 10/09/16 03:31 10/09/16 02:00 10/09/16 02:00 10/09/16 02:00 10/09/16 03:23 Intake & Output 10/06/16 10/07/16 10/08/16 10/09/16 23:59 23:59 23:59 23:59 Intake Total 2270 1100 250 120 Output Total 700 Balance 1570 1100 250 120 Weight 113 lb 4.8 oz 114 lb 6.4 oz 115 lb 1.6 oz Gen: NAD at rest Heart: RRR Lung: distant breath sounds, no wheezes Abd: soft, nontender Ext: no edema CBC, BMP 10/09/16 05:38 10/09/16 05:38 Active Medications Albuterol Sulfate (Ventolin 0.083% Nebulizer Soln -) 1 amp NEB Q4H PRN PRN Reason: SHORT OF BREATH/WHEEZING Last Admin: 10/07/16 17:52 Dose: 1 amp Apixaban (Eliquis -) 5 mg PO BID [facility] Last Admin: 10/08/16 21:12 Dose: 5 mg Arformoterol Tartrate (Brovana (Restricted To Pulmonology/Resp) -) 1 amp NEB BID [facility] Last Admin: 10/09/16 10:03 Dose: 1 amp Atorvastatin Calcium (Lipitor -) [address] [facility] Last Admin: 10/08/16 21:11 Dose: 40 mg Brimonidine Tartrate (Alphagan P 0.1% -) 1 drop OU BID [facility] Last Admin: 10/08/16 21:15 Dose: 1 drop Chlorhexidine Gluconate (Hibiclens For Decolonization -) 1 applic TP HS [facility] Last Admin: 10/08/16 21:13 Dose: 1 applic Cholecalciferol (Vitamin D3 -) 2,000 unit PO DAILY [facility] Last Admin: 10/08/16 09:01 Dose: 2,000 unit Digoxin (Lanoxin -) 0.125 mg PO DAILY [facility] Last Admin: 10/08/16 09:00 Dose: 0.125 mg Diltiazem HCl (Cardizem -) 60 mg PO TID [facility] Last Admin: 10/09/16 06:03 Dose: 60 mg Eucalyptus/Menthol/Phenol/Sorbitol (Cepastat Lozenge -) 1 each MM Q4H PRN PRN Reason: SORE THROAT Furosemide (Lasix -) 20 mg PO DAILY [facility] Last Admin: 10/08/16 09:01 Dose: 20 mg Ceftriaxone Sodium (Rocephin 1gm Ivpb (Pre-Docked)) 50 mls @ 100 mls/hr IVPB DAILY [facility] Last Admin: 10/08/16 09:00 Dose: 100 mls/hr Azithromycin 500 mg/ Sodium (Chloride) 250 mls @ 250 mls/hr IVPB DAILY [facility] Insulin Aspart (Novolog Vial Sliding Scale -) 1 vial SQ ACHS [facility] PRN Reason: Protocol Last Admin: 10/09/16 06:08 Dose: Not Given Insulin Detemir (Levemir Vial) 20 units SQ DAILY [facility] Last Admin: 10/08/16 09:01 Dose: 20 units Latanoprost (Xalatan 0.005% Eye Drops -) 1 drop OU HS [facility] Last Admin: 10/08/16 21:16 Dose: 1 drop Levothyroxine Sodium (Synthroid -) 75 mcg PO DAILY@0700 [facility] Last Admin: 10/09/16 06:02 Dose: 75 mcg Methylprednisolone Sodium Succinate (Solu-Medrol -) 40 mg IVPB BID [facility] Last Admin: 10/08/16 21:11 Dose: 40 mg Montelukast Sodium (Singulair -) 10 mg PO HS [facility] Last Admin: 10/08/16 21:11 Dose: 10 mg Mupirocin (Bactroban Ointment (For Decolonization) -) 1 applic NS BID [facility] Stop: 10/09/16 21:59 Last Admin: 10/08/16 21:12 Dose: Not Given Non-Formulary Medication (Brinzolamide [Azopt]) 0 ml OU BID [facility] Last Admin: 10/08/16 21:14 Dose: Not Given Pantoprazole Sodium (Protonix -) 40 mg PO DAILY [facility] Last Admin: 10/08/16 09:01 Dose: 40 mg Tiotropium [place] (Spiriva -) 1 puff IH DAILY [facility] Last Admin: 10/08/16 09:10 Dose: Not Given A/P Acute on Chronic Hypoxic and Hypercapneic Respiratory Failure improving Pneumonia Acute COPD Exacerbation New Onset Atrial Flutter with RVR Pulmonary HTN DM Hypothyroidism - can change steroids to PO prednisone 40mg daily in AM - inhaled bronchodilators standing and PRN - O2 to keep SpO2 88-95% to avoid worsening V/Q mismatch - continue antibiotics - continue BiPAP for night and PRN during day - rate control - continue anticoagulation
[2016-10-09] MEDS: BRINZOLAMIDE OU SCH ×2 (10:37→22:43)
[2016-10-09] MEDS: BRIMONIDINE TARTRATE 0.1% OPHTHALMIC 5 ML BOTTLE OU SCH ×2 (10:38→22:43)
[2016-10-09] MEDS: MUPIROCIN 2% TOPICAL OINTMENT FOR DECOLONIZATION NS SCH (10:39)
[2016-10-09] MEDS: CHOLECALCIFEROL (VITAMIN D3) 1,000 UNIT TABLET (FP) PO SCH (10:40)
[2016-10-09] MEDS: FUROSEMIDE 20 MG TABLET (FP) PO SCH (10:41)
[2016-10-09] MEDS: APIXABAN 5 MG TABLET PO SCH ×2 (10:41→22:43)
[2016-10-09] MEDS: PANTOPRAZOLE 40 MG TABLET (FP) PO SCH (10:41)
[2016-10-09] MEDS: DIGOXIN 0.125 MG TABLET (FP) PO SCH (10:42)
[2016-10-09] MEDS: INSULIN DETEMIR 100 UNITS/ML MDV SQ SCH (10:43)
[2016-10-09] MEDS: methylPREDNISolone NA SUCC 40 MG/1 ML VIAL IVPB SCH ×2 (10:44→22:42)
[2016-10-09] MEDS: CEFTRIAXONE 50 ML IVPB SCH (10:44)
[2016-10-09] MEDS: AZITHROMYCIN IVPB 500 MG in SODIUM CHLORIDE 250 ML IVPB SCH (11:42)
[2016-10-09] MEDS: TIOTROPIUM BROMIDE 18 MCG/INH (DEVICE W/ 5 CAPSULES) IH SCH (14:07)
[2016-10-09] MEDS: CHLORHEXIDINE GLUCONATE 4% CLEANSER FOR DECOLONIZATION TP SCH (22:36)
[2016-10-09] MEDS: ATORVASTATIN CA 40 MG TABLET (FP) PO SCH (22:42)
[2016-10-09] MEDS: MONTELUKAST NA 10 MG TABLET PO SCH (22:43)
[2016-10-09] MEDS: LATANOPROST 0.005% OPHTH SOLN 2.5ML BOTTLE OU SCH ×2 (22:44→22:53)
[2016-10-10] MEDS: LEVOTHYROXINE NA 75 MCG TABLET (FP) PO SCH (06:09)
[2016-10-10] MEDS: dilTIAZem HCL 60 MG TABLET (FP) PO SCH ×3 (06:09→21:51)
[2016-10-10] MEDS: INSULIN SLIDING SCALE (NOVOLOG) 1 VIAL SQ SCH ×4 (06:10→22:02)
[2016-10-10 08:30] LABS: MCHC 32.8 g/dl (32.0-36.0); MEAN CELL VOLUME 94.6 fl (80-96); PLATELET COUNT 274 K/MM3 (134-434); RDW 14.2 % (11.6-15.6); WHITE BLOOD COUNT 23.7 K/mm3 (4.0-10.0)
[2016-10-10] MEDS: PANTOPRAZOLE 40 MG TABLET (FP) PO SCH ×2 (08:51→09:49)
[2016-10-10] MEDS: FUROSEMIDE 20 MG TABLET (FP) PO SCH ×2 (08:51→09:49)
[2016-10-10] MEDS: APIXABAN 5 MG TABLET PO SCH ×3 (08:51→21:51)
[2016-10-10] MEDS: CHOLECALCIFEROL (VITAMIN D3) 1,000 UNIT TABLET (FP) PO SCH ×2 (08:51→09:49)
[2016-10-10] MEDS: DIGOXIN 0.125 MG TABLET (FP) PO SCH ×2 (08:51→09:48)
[2016-10-10] MEDS: INSULIN DETEMIR 100 UNITS/ML MDV SQ SCH ×2 (08:52→09:49)
[2016-10-10] MEDS: methylPREDNISolone NA SUCC 40 MG/1 ML VIAL IVPB SCH ×3 (08:52→21:51)
[2016-10-10] MEDS: AZITHROMYCIN IVPB 500 MG in SODIUM CHLORIDE 250 ML IVPB SCH ×2 (08:52→09:50)
[2016-10-10 08:56] LABS: ANION GAP 6 (8-16); CALCIUM 9.4 mg/dL (8.5-10.1); CO2 40 mmol/L (21-32); CREATININE 0.4 mg/dL (0.55-1.02); GLUCOSE,RANDOM 158 mg/dL (74-106)
--- NOTE | 2016-10-10 09:19 | PN ---
Progress Note (short form) - Note Progress Note: CC: aflutter S: sob improved, back to baseline. no cp, palps, dizziness. Current Medications Generic Name Dose Route Start Last Admin Trade Name Freq PRN Reason Stop Dose Admin Albuterol Sulfate 1 amp 10/06/16 10:56 10/07/16 17:52 Ventolin 0.083% Nebulizer Soln - NEB 1 amp Q4H PRN Administration SHORT OF BREATH/WHEEZING Apixaban 5 mg 10/06/16 22:00 10/10/16 08:51 Eliquis - PO 5 mg BID CLAY Administration Arformoterol Tartrate 1 amp 10/06/16 22:00 10/09/16 22:50 Brovana (Restricted To Pulmonology/Resp) - NEB 1 amp BID CLAY Administration Atorvastatin Calcium 40 mg 10/06/16 22:00 10/09/16 22:42 Lipitor - PO 40 mg HS CLAY Administration Brimonidine Tartrate 1 drop 10/06/16 22:00 10/09/16 22:43 Alphagan P 0.1% - OU 1 drop BID CLAY Administration Chlorhexidine Gluconate 1 applic 10/06/16 22:00 10/09/16 22:36 Hibiclens For Decolonization - TP Not Given HS CLAY Cholecalciferol 2,000 unit 10/07/16 10:00 10/10/16 08:51 Vitamin D3 - PO 2,000 unit DAILY CLAY Administration Digoxin 0.125 mg 10/07/16 10:00 10/10/16 08:51 Lanoxin - PO 0.125 mg DAILY [facility] Administration Diltiazem HCl 60 mg 10/07/16 22:00 10/10/16 06:09 Cardizem - PO 60 mg TID CLAY Administration Eucalyptus/Menthol/Phenol/Sorbitol 1 each 10/07/16 21:05 Cepastat Lozenge - MM Q4H PRN SORE THROAT Furosemide 20 mg 10/07/16 10:00 10/10/16 08:51 Lasix - PO 20 mg DAILY [facility] Administration Ceftriaxone Sodium 50 mls @ 100 mls/hr 10/07/16 10:00 10/09/16 10:44 Rocephin 1gm Ivpb (Pre-Docked) IVPB 100 mls/hr DAILY [facility] Administration Azithromycin 500 mg/ Sodium 250 mls @ 250 mls/hr 10/09/16 10:00 10/10/16 08:52 Chloride IVPB 250 mls/hr DAILY [facility] Administration Insulin Aspart 1 vial 10/06/16 11:00 10/10/16 06:10 Novolog Vial Sliding Scale - SQ 2 units ACHS CLAY Administration Protocol Insulin Detemir 20 units 10/07/16 10:00 10/10/16 08:52 Levemir Vial SQ 20 units DAILY [facility] Administration Latanoprost 1 drop 10/06/16 22:00 10/09/16 22:53 Xalatan 0.005% Eye Drops - OU Not Given HS CLAY Levothyroxine Sodium 75 mcg 10/07/16 07:00 10/10/16 06:09 Synthroid - PO 75 mcg DAILY@0700 [facility] Administration Methylprednisolone Sodium Succinate 40 mg 10/06/16 22:00 10/10/16 08:52 Solu-Medrol - IVPB 40 mg BID [facility] Administration Montelukast Sodium 10 mg 10/06/16 22:00 10/09/16 22:43 Singulair - PO 10 mg HS CLAY Administration Non-Formulary Medication 0 ml 10/06/16 22:00 10/09/16 22:43 Brinzolamide [Azopt] OU 1 ml BID [facility] Administration Pantoprazole Sodium 40 mg 10/07/16 10:00 10/10/16 08:51 Protonix - PO 40 mg DAILY [facility] Administration Tiotropium [place] 1 puff 10/07/16 10:00 10/09/16 14:07 Spiriva - IH Not Given DAILY [facility] Vital Signs Period Temp Pulse Resp BP Sys/Anthony Pulse Ox Last 24 Hr 97.5 F-98.9 F 63-97 20-24 115-150/43-67 94-98 nad, calm jvd flat, neck supple cta bl nl eff rrr nl s1, s2 no mrg + bs soft nt nd ext without e/c/c aaox3 no jaundice diaphoresis CBC, BMP 10/10/16 05:40 10/10/16 05:40 tele: sr EKG: SVT, [address] depressions. Echo 10/2015: Nl lv/rv. suboptimal views, but at least mild AR. Mod MAC. 1+ MR. No MS. trivial effusion. RVSP not measured. echo 09/2016: tds; nl lv/rv, mv calcified, mac, mild-mod mr, sev tr, small peric eff-->MV calcification is chronic finding for her and not indicative of vegetation a/p 71 yo with h/o severe copd (oxygen dependent, on long standing bipap qhs and prn and on chronic prednisone/theophylline), mod-severe phtn, diastolic CHF , prior h/o amarousis fugax on ASA, HL, IDDM, hypothyroid who presents with respiratory distress. SVT/atrial flutter - had been followed by Dr. Power since 2009 who did not endorse a history of afib/flutter and did not have patient on AC. Patient also denied prior history of atrial arrhythmia. Had stated that she had been on long-standing digoxin and diltiazem in the past because of long standing tachycardia on theophylline. (Digoxin continued by me in the office for RV support). However, per Dr. Ziegler's note has a history of paroxysmal AF so likely had prior episodes. - Here with flutter, started AC with eliquis. - S/p conversion to SR, con't home diltiazem, digoxin. Would check digoxin level - mgm't of thyroid abnormalities and infection per pmd - CE's neg x 3 (intermediate range, nl ck) - repeat echo - 10/06: continues to have intermittent runs of svt as well as one 5 beat episode of nsvt. Would ideally uptitrate av rehan blockade but patient's bp on lower end. Will transition to short acting diltiazem in the morning for better ability to adjust regimen. - 10/07: bp stable. still having runs of svt and nsvt. lytes repleted. slow uptitration of diltiazem to 60 tid. digoxin level wnl. -10/08-3: in sr. cont dig, dilt. diastolic chf - does not appear significantly volume overloaded on exam. on 40 bid on admit. decreased to 40 daily 10/05, may be to decrease further to 20 mg/day. - 10/06 bicarb continues to rise. will decrease lasix to outpatient regimen of 20 mg daily - 10/07-10/10: stable, con't same lasix COPD exacerbation/possible PNA/mod-severe phtn - respiratory status improving. - onging mgm't per pmd/pulm prior h/o amarousis fugax - con't statin. off ASA while on AC. cardiac zheng remains stable
[2016-10-10] MEDS: ARFORMOTEROL TARTRATE 15 MCG/2 ML VIAL NEB SCH ×2 (10:00→22:21)
[2016-10-10 11:11] LABS: PLATELET COMMENT2 NO CLOTTING DETECTED; PLATELET ESTIMATE ADEQUATE (NORMAL)
[2016-10-10 11:12] LABS: METAMYELOCYTE 1 % (0-2); TOTAL CELLS COUNTED 100
--- NOTE | 2016-10-10 12:27 | PN ---
Progress Note (short form) - Note Progress Note: PULMONARY States breathing continues to improve, feels almost at baseline. No cough or wheezing. No fevers or chills. Last Vital Signs Temp Pulse Resp BP Pulse Ox 97.5 F L 80 20 141/67 93 L 10/10/16 06:00 10/10/16 11:42 10/10/16 06:00 10/10/16 06:00 10/10/16 11:42 Gen: NAD at rest Heart: RRR Lung: distant breath sounds, no wheezes Abd: soft, nontender Ext: no edema CBC, BMP 10/10/16 05:40 10/10/16 05:40 Active Medications Albuterol Sulfate (Ventolin 0.083% Nebulizer Soln -) 1 amp NEB Q4H PRN PRN Reason: SHORT OF BREATH/WHEEZING Last Admin: 10/07/16 17:52 Dose: 1 amp Apixaban (Eliquis -) 5 mg PO BID [facility] Last Admin: 10/10/16 09:48 Dose: Not Given Arformoterol Tartrate (Brovana (Restricted To Pulmonology/Resp) -) 1 amp NEB BID [facility] Last Admin: 10/10/16 10:00 Dose: 1 amp Atorvastatin Calcium (Lipitor -) 40 mg PO HS [facility] Last Admin: 10/09/16 22:42 Dose: 40 mg Brimonidine Tartrate (Alphagan P 0.1% -) 1 drop OU BID [facility] Last Admin: 10/09/16 22:43 Dose: 1 drop Chlorhexidine Gluconate (Hibiclens For Decolonization -) 1 applic TP HS [facility] Last Admin: 10/09/16 22:36 Dose: Not Given Cholecalciferol (Vitamin D3 -) 2,000 unit PO DAILY [facility] Last Admin: 10/10/16 09:49 Dose: Not Given Digoxin (Lanoxin -) 0.125 mg PO DAILY [facility] Last Admin: 10/10/16 09:48 Dose: Not Given Diltiazem HCl (Cardizem -) 60 mg PO TID [facility] Last Admin: 10/10/16 06:09 Dose: 60 mg Eucalyptus/Menthol/Phenol/Sorbitol (Cepastat Lozenge -) 1 each MM Q4H PRN PRN Reason: SORE THROAT Furosemide (Lasix -) 20 mg PO DAILY [facility] Last Admin: 10/10/16 09:49 Dose: Not Given Ceftriaxone Sodium (Rocephin 1gm Ivpb (Pre-Docked)) 50 mls @ 100 mls/hr IVPB DAILY [facility] Last Admin: 10/09/16 10:44 Dose: 100 mls/hr Azithromycin 500 mg/ Sodium (Chloride) 250 mls @ 250 mls/hr IVPB DAILY [facility] Last Admin: 10/10/16 09:50 Dose: Not Given Insulin Aspart (Novolog Vial Sliding Scale -) 1 vial SQ ACHS [facility] PRN Reason: Protocol Last Admin: 10/10/16 06:10 Dose: 2 units Insulin Detemir (Levemir Vial) 20 units SQ DAILY [facility] Last Admin: 10/10/16 09:49 Dose: Not Given Latanoprost (Xalatan 0.005% Eye Drops -) 1 drop OU HS [facility] Last Admin: 10/09/16 22:53 Dose: Not Given Levothyroxine Sodium (Synthroid -) 75 mcg PO DAILY@0700 [facility] Last Admin: 10/10/16 06:09 Dose: 75 mcg Methylprednisolone Sodium Succinate (Solu-Medrol -) 40 mg IVPB BID [facility] Last Admin: 10/10/16 09:49 Dose: Not Given Montelukast Sodium (Singulair -) 10 mg PO HS [facility] Last Admin: 10/09/16 22:43 Dose: 10 mg Non-Formulary Medication (Brinzolamide [Azopt]) 0 ml OU BID [facility] Last Admin: 10/09/16 22:43 Dose: 1 ml Pantoprazole Sodium (Protonix -) 40 mg PO DAILY [facility] Last Admin: 10/10/16 09:49 Dose: Not Given Tiotropium [place] (Spiriva -) 1 puff IH DAILY [facility] Last Admin: 10/09/16 14:07 Dose: Not Given A/P Acute on Chronic Hypoxic and Hypercapneic Respiratory Failure improving Pneumonia Acute COPD Exacerbation New Onset Atrial Flutter with RVR Pulmonary HTN DM Hypothyroidism - received medrol this AM, can change steroids to PO prednisone 40mg daily in AM and taper as outpt to her chronic dose of alternating 15mg with 12.5mg - inhaled bronchodilators standing and PRN - O2 to keep SpO2 88-95% to avoid worsening V/Q mismatch - continue antibiotics - continue BiPAP for night and PRN during day - rate control - continue anticoagulation
[2016-10-10] MEDS: CEFTRIAXONE 50 ML IVPB SCH (12:33)
--- NOTE | 2016-10-10 12:34 | PN ---
Progress Note, Physician History of Present Illness: Pt w/o SOB, CP, palp, dizziness, wheezing. Pt w/o abd pain, N, V. - Current Medication List Current Medications: Active Medications Albuterol Sulfate (Ventolin 0.083% Nebulizer Soln -) 1 amp NEB Q4H PRN PRN Reason: SHORT OF BREATH/WHEEZING Last Admin: 10/07/16 17:52 Dose: 1 amp Apixaban (Eliquis -) 5 mg PO BID [facility] Last Admin: 10/10/16 09:48 Dose: Not Given Arformoterol Tartrate (Brovana (Restricted To Pulmonology/Resp) -) 1 amp NEB BID [facility] Last Admin: 10/10/16 10:00 Dose: 1 amp Atorvastatin Calcium (Lipitor -) 40 mg PO HS [facility] Last Admin: 10/09/16 22:42 Dose: 40 mg Brimonidine Tartrate (Alphagan P 0.1% -) 1 drop OU BID [facility] Last Admin: 10/09/16 22:43 Dose: 1 drop Chlorhexidine Gluconate (Hibiclens For Decolonization -) 1 applic TP [facility] Last Admin: 10/09/16 22:36 Dose: Not Given Cholecalciferol (Vitamin D3 -) 2,000 unit PO DAILY [facility] Last Admin: 10/10/16 09:49 Dose: Not Given Digoxin (Lanoxin -) 0.125 mg PO DAILY [facility] Last Admin: 10/10/16 09:48 Dose: Not Given Diltiazem HCl (Cardizem -) 60 mg PO TID [facility] Last Admin: 10/10/16 06:09 Dose: 60 mg Eucalyptus/Menthol/Phenol/Sorbitol (Cepastat Lozenge -) 1 each MM Q4H PRN PRN Reason: SORE THROAT Furosemide (Lasix -) 20 mg PO DAILY [facility] Last Admin: 10/10/16 09:49 Dose: Not Given Ceftriaxone Sodium (Rocephin 1gm Ivpb (Pre-Docked)) 50 mls @ 100 mls/hr IVPB DAILY [facility] Last Admin: 10/09/16 10:44 Dose: 100 mls/hr Azithromycin 500 mg/ Sodium (Chloride) 250 mls @ 250 mls/hr IVPB DAILY [facility] Last Admin: 10/10/16 09:50 Dose: Not Given Insulin Aspart (Novolog Vial Sliding Scale -) [address] [facility] PRN Reason: Protocol Last Admin: 10/10/16 06:10 Dose: 2 units Insulin Detemir (Levemir Vial) 20 units SQ DAILY [facility] Last Admin: 10/10/16 09:49 Dose: Not Given Latanoprost (Xalatan 0.005% Eye Drops -) 1 drop OU HS [facility] Last Admin: 10/09/16 22:53 Dose: Not Given Levothyroxine Sodium (Synthroid -) 75 mcg PO DAILY@0700 [facility] Last Admin: 10/10/16 06:09 Dose: 75 mcg Methylprednisolone Sodium Succinate (Solu-Medrol -) 40 mg IVPB BID [facility] Last Admin: 10/10/16 09:49 Dose: Not Given Montelukast Sodium (Singulair -) 10 mg PO HS [facility] Last Admin: 10/09/16 22:43 Dose: 10 mg Non-Formulary Medication (Brinzolamide [Azopt]) 0 ml OU BID [facility] Last Admin: 10/09/16 22:43 Dose: 1 ml Pantoprazole Sodium (Protonix -) 40 mg PO DAILY [facility] Last Admin: 10/10/16 09:49 Dose: Not Given Tiotropium [place] (Spiriva -) 1 puff IH DAILY [facility] Last Admin: 10/09/16 14:07 Dose: Not Given - Objective Vital Signs: Vital Signs Temperature 97.5 F L 10/10/16 06:00 Pulse Rate 80 10/10/16 11:42 Respiratory Rate 20 10/10/16 06:00 Blood Pressure 141/67 10/10/16 06:00 O2 Sat by Pulse Oximetry (%) 93 L 10/10/16 11:42 Constitutional: Yes: No Distress, Calm Cardiovascular: Yes: Regular Rate and Rhythm, S1, S2 Respiratory: Yes: Regular, Wheezes (minimal with forced expiratory effort) Gastrointestinal: Yes: Normal Bowel Sounds, Soft. No: Tenderness Edema: No Neurological: Yes: Alert, Oriented Labs: CBC, BMP 10/10/16 05:40 10/10/16 05:40 INR, PTT INR 1.15 (0.82-1.09) H 10/05/16 05:30 Problem List - Problems (1) Acute and chronic respiratory failure with hypercapnia Code(s): J96.22 - ACUTE AND CHRONIC RESPIRATORY FAILURE WITH HYPERCAPNIA (2) COPD with acute exacerbation Code(s): J44.1 - CHRONIC OBSTRUCTIVE PULMONARY DISEASE W (ACUTE) EXACERBATION (3) Pneumonia Code(s): J18.9 - PNEUMONIA, UNSPECIFIED ORGANISM (4) Diabetes mellitus Code(s): E11.9 - TYPE 2 DIABETES MELLITUS WITHOUT COMPLICATIONS (5) Hypertension Code(s): I10 - ESSENTIAL (PRIMARY) HYPERTENSION (6) Atrial flutter Code(s): I48.92 - UNSPECIFIED ATRIAL FLUTTER (7) Paroxysmal atrial fibrillation Code(s): I48.0 - PAROXYSMAL ATRIAL FIBRILLATION Assessment/Plan Admit to monitor bed IV solu-medrol- was tappered; to be swiched to PO IV abtx; consider changing it to PO Pulmonary consult appreciated; case was d/w Dr. Kiran BIPAP PRN and at night AM labs DVT prophylasis Case was d/w pt's nurse Pt's at bed side; case was d/w pt and her ; DC planning
[2016-10-10] MEDS: TIOTROPIUM BROMIDE 18 MCG/INH (DEVICE W/ 5 CAPSULES) IH SCH (14:05)
[2016-10-10] MEDS: BRIMONIDINE TARTRATE 0.1% OPHTHALMIC 5 ML BOTTLE OU SCH ×2 (14:05→21:53)
[2016-10-10] MEDS: BRINZOLAMIDE OU SCH ×2 (14:05→21:58)
[2016-10-10] MEDS: AZITHROMYCIN 250 MG TABLET PO SCH (15:00)
[2016-10-10] MEDS: CEPHALEXIN MONOHYDRATE 500 MG CAPSULE (UD) PO SCH ×2 (15:00→21:51)
[2016-10-10] MEDS: ATORVASTATIN CA 40 MG TABLET (FP) PO SCH (21:51)
[2016-10-10] MEDS: MONTELUKAST NA 10 MG TABLET PO SCH (21:51)
[2016-10-10] MEDS: CHLORHEXIDINE GLUCONATE 4% CLEANSER FOR DECOLONIZATION TP SCH (22:02)
[2016-10-10] MEDS: LATANOPROST 0.005% OPHTH SOLN 2.5ML BOTTLE OU SCH (22:02)
[2016-10-11] MEDS: INSULIN SLIDING SCALE (NOVOLOG) 1 VIAL SQ SCH ×2 (06:37→11:26)
[2016-10-11] MEDS: dilTIAZem HCL 60 MG TABLET (FP) PO SCH (06:38)
[2016-10-11] MEDS: LEVOTHYROXINE NA 75 MCG TABLET (FP) PO SCH (06:38)
[2016-10-11] MEDS: CHOLECALCIFEROL (VITAMIN D3) 1,000 UNIT TABLET (FP) PO SCH (09:14)
[2016-10-11] MEDS: DIGOXIN 0.125 MG TABLET (FP) PO SCH (09:15)
[2016-10-11] MEDS: AZITHROMYCIN 250 MG TABLET PO SCH (09:15)
[2016-10-11] MEDS: PANTOPRAZOLE 40 MG TABLET (FP) PO SCH (09:16)
[2016-10-11] MEDS: APIXABAN 5 MG TABLET PO SCH (09:16)
[2016-10-11] MEDS: FUROSEMIDE 20 MG TABLET (FP) PO SCH (09:16)
[2016-10-11] MEDS: CEPHALEXIN MONOHYDRATE 500 MG CAPSULE (UD) PO SCH (09:16)
[2016-10-11] MEDS: BRIMONIDINE TARTRATE 0.1% OPHTHALMIC 5 ML BOTTLE OU SCH (09:17)
[2016-10-11] MEDS: BRINZOLAMIDE OU SCH (09:17)
[2016-10-11] MEDS: TIOTROPIUM BROMIDE 18 MCG/INH (DEVICE W/ 5 CAPSULES) IH SCH (09:18)
--- NOTE | 2016-10-11 09:19 | PN ---
Progress Note (short form) - Note Progress Note: CC: aflutter S: sob improved, back to baseline. no cp, palps, dizziness. Current Medications Generic Name Dose Route Start Last Admin Trade Name Freq PRN Reason Stop Dose Admin Albuterol Sulfate 1 amp 10/06/16 10:56 10/07/16 17:52 Ventolin 0.083% Nebulizer Soln - NEB 1 amp Q4H PRN Administration SHORT OF BREATH/WHEEZING Apixaban 5 mg 10/06/16 22:00 10/11/16 09:16 Eliquis - PO 5 mg BID [facility] Administration Arformoterol Tartrate 1 amp 10/06/16 22:00 10/10/16 22:21 Brovana (Restricted To Pulmonology/Resp) - NEB 1 amp BID [facility] Administration Atorvastatin Calcium 40 mg 10/06/16 22:00 10/10/16 21:51 Lipitor - PO 40 mg HS [facility] Administration Azithromycin 500 mg 10/10/16 12:45 10/11/16 09:15 Zithromax - PO 500 mg DAILY [facility] Administration Brimonidine Tartrate 1 drop 10/06/16 22:00 10/11/16 09:17 Alphagan P 0.1% - OU 1 drop BID [facility] Administration Cephalexin HCl 500 mg 10/10/16 12:45 10/11/16 09:16 Keflex - PO 500 mg BID [facility] Administration Chlorhexidine Gluconate 1 applic 10/06/16 22:00 10/10/16 22:02 Hibiclens For Decolonization - TP Not Given HS [facility] Cholecalciferol 2,000 unit 10/07/16 10:00 10/11/16 09:14 Vitamin D3 - PO 2,000 unit DAILY [facility] Administration Digoxin 0.125 mg 10/07/16 10:00 10/11/16 09:15 Lanoxin - PO 0.125 mg DAILY [facility] Administration Diltiazem HCl 60 mg 10/07/16 22:00 10/11/16 06:38 Cardizem - PO 60 mg TID [facility] Administration Eucalyptus/Menthol/Phenol/Sorbitol 1 each 10/07/16 21:05 Cepastat Lozenge - MM Q4H PRN SORE THROAT Furosemide 20 mg 10/07/16 10:00 10/11/16 09:16 Lasix - PO 20 mg DAILY [facility] Administration Insulin Aspart 1 vial 10/06/16 11:00 10/11/16 06:37 Novolog Vial Sliding Scale - SQ Not Given ACHS [facility] Protocol Insulin Detemir 20 units 10/07/16 10:00 10/10/16 09:49 Levemir Vial SQ Not Given DAILY [facility] Latanoprost 1 drop 10/06/16 22:00 10/10/16 22:02 Xalatan 0.005% Eye Drops - OU 1 drop HS [facility] Administration Levothyroxine Sodium 75 mcg 10/07/16 07:00 10/11/16 06:38 Synthroid - PO 75 mcg DAILY@0700 [facility] Administration Methylprednisolone Sodium Succinate 40 mg 10/06/16 22:00 10/10/16 21:51 Solu-Medrol - IVPB Not Given BID [facility] Montelukast Sodium 10 mg 10/06/16 22:00 10/10/16 21:51 Singulair - PO 10 mg HS [facility] Administration Non-Formulary Medication 0 ml 10/06/16 22:00 10/11/16 09:17 Brinzolamide [Azopt] OU 1 ml BID [facility] Administration Pantoprazole Sodium 40 mg 10/07/16 10:00 10/11/16 09:16 Protonix - PO 40 mg DAILY [facility] Administration Tiotropium [place] 1 puff 10/07/16 10:00 10/11/16 09:18 Spiriva - IH 1 puff DAILY [facility] Administration CBC, [facility] 10/10/16 05:40 10/10/16 05:40 nad, calm jvd flat, neck supple cta bl nl eff rrr nl s1, s2 no mrg + bs soft nt nd ext without e/c/c aaox3 no jaundice diaphoresis CBC, BMP 10/10/16 05:40 10/10/16 05:40 tele: sr EKG: SVT, [address] depressions. Echo 10/2015: Nl lv/rv. suboptimal views, but at least mild AR. Mod MAC. 1+ MR. No MS. trivial effusion. RVSP not measured. echo 09/2016: tds; nl lv/rv, mv calcified, mac, mild-mod mr, sev tr, small peric eff-->MV calcification is chronic finding for her and not indicative of vegetation a/p 71 yo with h/o severe copd (oxygen dependent, on long standing bipap qhs and prn and on chronic prednisone/theophylline), mod-severe phtn, diastolic CHF , prior h/o amarousis fugax on ASA, HL, IDDM, hypothyroid who presents with respiratory distress. SVT/atrial flutter - had been followed by Dr. Power since 2009 who did not endorse a history of afib/flutter and did not have patient on AC. Patient also denied prior history of atrial arrhythmia. Had stated that she had been on long-standing digoxin and diltiazem in the past because of long standing tachycardia on theophylline. (Digoxin continued by me in the office for RV support). However, per Dr. Ziegler's note has a history of paroxysmal AF so likely had prior episodes. - Here with flutter, started AC with eliquis. - S/p conversion to SR, con't home diltiazem, digoxin. Would check digoxin level - mgm't of thyroid abnormalities and infection per pmd - CE's neg x 3 (intermediate range, nl ck) - repeat echo - 10/06: continues to have intermittent runs of svt as well as one 5 beat episode of nsvt. Would ideally uptitrate av rehan blockade but patient's bp on lower end. Will transition to short acting diltiazem in the morning for better ability to adjust regimen. - 10/07: bp stable. still having runs of svt and nsvt. lytes repleted. slow uptitration of diltiazem to 60 tid. digoxin level wnl. -10/08-4: in sr. cont dig, dilt. diastolic chf - does not appear significantly volume overloaded on exam. on 40 bid on admit. decreased to 40 daily 10/05, may be to decrease further to 20 mg/day. - 10/06 bicarb continues to rise. will decrease lasix to outpatient regimen of 20 mg daily - 10/07-10/11: stable, con't same po lasix COPD exacerbation/possible PNA/mod-severe phtn - respiratory status improving. - onging mgm't per pmd/pulm prior h/o amarousis fugax - con't statin. off ASA while on AC. cardiac zheng remains stable, can dc tele
[2016-10-11] MEDS: methylPREDNISolone NA SUCC 40 MG/1 ML VIAL IVPB SCH (09:28)
[2016-10-11] MEDS: INSULIN DETEMIR 100 UNITS/ML MDV SQ SCH (09:28)
[2016-10-11] MEDS: ARFORMOTEROL TARTRATE 15 MCG/2 ML VIAL NEB SCH (10:13)
[2016-10-11 11:24] VITALS: PULSE 67
[2016-10-11] MEDS ORDERED: predniSONE 20 MG TABLET (UD) PO SCH ×2 (11:45→11:54)
--- NOTE | 2016-10-11 12:03 | DS ---
Physical Examination Vital Signs: Vital Signs Temperature 97.1 F L 10/11/16 02:00 Pulse Rate 67 10/11/16 10:13 Respiratory Rate 20 10/11/16 06:00 Blood Pressure 131/60 10/11/16 06:00 O2 Sat by Pulse Oximetry (%) 96 10/11/16 10:13 Findings/Remarks: Pt w/o SOB, CP, palp, abd pain , N, V. Pt walked with PT today (pt's condition was reviewed with PT). Pt's at bed side; pt wants to go home; DC planning was reviewed with both, all questions were answered. ( Pt's care and DC was reviewed with pt's nurse Time spent to manage pt's DC: over 45 minutes.) Constitutional: Yes: No Distress, Calm Cardiovascular: Yes: Regular Rate and Rhythm, S1, S2 Respiratory: Yes: Regular, Wheezes (minimal with forced expiratory effort), Other (coarse) Gastrointestinal: Yes: Normal Bowel Sounds, Soft Edema: No Neurological: Yes: Alert, Oriented Labs: CBC, BMP 10/10/16 05:40 10/10/16 05:40 Discharge Summary Reason For Visit: COPD WITH ACUTE EXACERBATION Current Active Problems Acute and chronic respiratory failure with hypercapnia (Acute) Acute and chronic respiratory failure with hypoxia (Acute) Atrial flutter (Acute) COPD with acute exacerbation (Acute) Diabetes mellitus (Acute) Hypertension (Acute) Paroxysmal atrial fibrillation (Acute) Pneumonia (Acute) Procedures: Principal: CXR. ECHO Hospital Course: Pt came to ER c/o dry cough, SOB,. She was found to be in Acute Hypercapnic Respiratory Failure, placed on BIPAP (she is using it at home at night) and started on IV steroids, admitted to ICU. Pt was considered to have PNA and strted on IV abtxs. Pt noticed to have SVT, slowed down with adenosine, noted to have A Flutter; pt was started on Eliquis. Pt's condition improved. She would be DC'ed home today with outpatient follow-up with PCP, Pulmonary, Cardio. Condition: Improved - Instructions Diet, Activity, Other Instructions: Diet: Diabetic, Low salt, Low Cholesterol. Referrals: Candelaria Scott MD [Primary Care Provider] - (this week) Jez Ziegler MD [Staff Physician] - (in 1-2 weeks) Ssuan Esquivel MD [Staff Physician] - (in 1-2 weeks) Disposition: HOME - Home Medications Comprehensive Discharge Medication List: Ambulatory Orders Arformoterol Tartrate [Brovana] 15 mcg IH BID 10/04/16 Aspirin [ASA -] 81 mg PO DAILY 10/04/16 Atorvastatin Ca [Lipitor] 40 mg PO HS 10/04/16 Bimatoprost [Lumigan] 1 drop IO DAILY 10/04/16 Brimonidine Tartrate [Alphagan P 0.1% -] 1 drop OU BID 10/04/16 Brinzolamide [Azopt] 15 ml OP BID 10/04/16 Digoxin [Lanoxin -] 0.125 mg PO DAILY 10/04/16 Diltiazem HCl [Cartia Xt] 120 mg PO DAILY 10/04/16 Ergocalciferol (Vitamin D2) [Vitamin D2] 2,000 unit PO DAILY 10/04/16 Furosemide [Lasix] 40 mg PO ASDIR 10/04/16 Insulin (Levemir) [Levemir Flexpen -] 20 units SQ DAILY 10/04/16 Insulin Lispro [Humalog] 100 unit SQ ASDIR 10/04/16 Levalbuterol HCl [Xopenex] 0.45 mg IH BID 10/04/16 Levothyroxine [Synthroid -] 75 mcg PO ASDIR 10/04/16 Montelukast Na [Singulair -] 10 mg PO HS 10/04/16 Prednisone [Deltasone -] 12.5 mg PO ASDIR 10/04/16 Sitagliptin Phosphate [Januvia] 100 mg PO DAILY 10/04/16 Tiotropium [place] [Spiriva] 18 mcg IH DAILY 10/04/16 Triamcinolone 0.025% Cream [Aristocort] 0 gm TP BID 10/04/16
[2016-10-11 12:13] VITALS: BP 136/62; TEMP 98.6
[2016-10-11] MEDS ORDERED: predniSONE 10 MG TABLET (UD) PO SCH (12:30)
[2016-10-14] MEDS ORDERED: predniSONE 10 MG TABLET (UD) PO SCH (10:00)
[2016-10-17] MEDS ORDERED: predniSONE 10 MG TABLET (UD) PO SCH (10:00)
[2016-10-20] MEDS ORDERED: predniSONE 10 MG TABLET (UD) PO ONE (10:00)
[2016-10-21] MEDS ORDERED: predniSONE 5 MG TABLET (UD) PO ONE (10:00)
== END 2016-10-11 12:49 | disposition home or self-care (01) | DRG 189 ==
LOC: JER 12:16 → SUPCPDRO 12:16 → JERBED 16:28 → JICU 18:10 → J2W 10-07 20:22 → J4W 10-09 20:26
PROVIDERS: ADMIT Internal Medicine; ATTEND Internal Medicine
PROC: 5A09557 Assistance with Respiratory Ventilation, Greater than 96 Consecutive Hours, Continuous Positive Airway Pressure (ICD-10-PCS; principal; 2016-10-04)
DX: J96.21 Acute and chronic respiratory failure with hypoxia (principal); J18.9 Pneumonia, unspecified organism; J44.1 Chronic obstructive pulmonary disease with (acute) exacerbation; E87.2 Acidosis; I47.1 Supraventricular tachycardia; I48.92 Unspecified atrial flutter; I50.30 Unspecified diastolic (congestive) heart failure; Z68.1 Body mass index [BMI] 19.9 or less, adult; E11.9 Type 2 diabetes mellitus without complications; H40.89 Other specified glaucoma; I48.0 Paroxysmal atrial fibrillation; J96.22 Acute and chronic respiratory failure with hypercapnia; I10 Essential (primary) hypertension; E03.9 Hypothyroidism, unspecified; I27.2 Other secondary pulmonary hypertension; I11.0 Hypertensive heart disease with heart failure; R74.8 Abnormal levels of other serum enzymes; E78.00 Pure hypercholesterolemia, unspecified; Z79.52 Long term (current) use of systemic steroids; Z99.81 Dependence on supplemental oxygen; Z87.891 Personal history of nicotine dependence; Z79.4 Long term (current) use of insulin
CPT/HCPCS: 36415; 36600; 71010-TC; 80048; 80053; 80162; 82375; 82803; 82947; 83050; 83605; 83735; 84100; 84443; 84484; 85025; 85027; 85610; 87040; 93005; 93010; 93306-TC; 94640; 94660; 97116-GP; 97162-GP; 99284-25; J1644

== ENCOUNTER 2017-12-12 14:10 | Inpatient (IN) | payer OTHER ==
--- NOTE | 2017-12-12 15:46 | PDOC ---
Attending Attestation - HPI HPI: 12/12/17 15:50 The patient is a 72 year old female with a past medical history of severe COPD ( o2 dependent) who presents to the emergency department for worsening shortness of breath. Patient was sent in by her PCP (Dr. Scott) for shortness of breath , dyspnea on exertion, and to rule out hypercapnic respiratory failure. - Medical Decision Making The patient is a 72 year old female with a past medical history of severe COPD ( o2 dependent) who presents to the emergency department for worsening shortness of breath. Plan: Chest PA and LAT EKG Labs <Ashok Dinh - Last Filed: 12/12/17 15:50> - Resident Resident Name: Elmer Alba - ED Attending Attestation I have performed the following: I have examined & evaluated the patient, The case was reviewed & discussed with the resident, I agree w/resident's findings & plan, Exceptions are as noted - Physicial Exam PE: 12/15/17 16:23 Agree with Residents PE - Medical Decision Making 72 years old with past medical history significant for severe COPD on 3 L home O2 presents with several weeks to month history of worsening shortness of breath and dyspnea on exertion sent to ED to rule out hypercapnic respiratory failure Patient given DuoNeb steroids 3 unsuccessful attempts at ABG by respiratory and ICU in the emergency department We'll check chest x-ray labs reassess respiratory status and dispel Dr. Hoskins to follow up results and dispo <Vasyl Trevino - Last Filed: 12/15/17 16:23> Heart Score/ECG Review - ECG Impressions Comment:: 12/12/17 16:31 EKG performed at 1549 demonstrates normal sinus rhythm [address] depressions unchanged from previous EKG Interpreted by me. <Vasyl Trevino - Last Filed: 12/15/17 16:23> Attestations - Attestations Documentation prepared by Ashok Dinh, acting as clinical medical assistant for Vasyl Trevino MD. <Ashok Dinh - Last Filed: 12/12/17 15:50>
[2017-12-12 15:48] LABS: HEMATOCRIT 44.9 % (32.4-45.2); HEMOGLOBIN 15.2 GM/dL (10.7-15.3); MCH 32.6 pg (25.7-33.7); MCHC 33.9 g/dl (32.0-36.0); MEAN CELL VOLUME 96.2 fl (80-96); MEAN PLT VOLUME 8.9 fl (7.5-11.1); PLATELET COUNT 241 K/MM3 (134-434); RBC 4.66 M/mm3 (3.60-5.2); RDW 14.2 % (11.6-15.6); WHITE BLOOD COUNT 18.1 K/mm3 (4.0-10.0)
[2017-12-12 15:49] LABS: VENOUS PC02 89.6 mmHg (38-52); VENOUS PH 7.29 (7.32-7.42); VENOUS PO2 14.7 mmHg (28-48)
[2017-12-12] MEDS ORDERED: methylPREDNISolone NA SUCC 125 MG/2 ML VIAL IVPB ONE (15:56)
[2017-12-12] MEDS ORDERED: ALBUTEROL SO4 2.5/IPRATROPIUM 0.5 INH SOL 3 ML VIAL.NEB. NEB ONE ×2 (15:56→16:07)
[2017-12-12] MEDS ORDERED: methylPREDNISolone NA SUCC 125 MG/2 ML VIAL ONE (16:07)
[2017-12-12 16:32] LABS: ALBUMIN 3.6 g/dl (3.4-5.0); ALK PHOS 92 U/L (45-117); ANION GAP 6 MMOL/L (8-16); BILIRUBIN,TOTAL 0.4 mg/dL (0.2-1); BLOOD UREA NITROGEN 29 mg/dL (7-18); CALCIUM 10.3 mg/dL (8.5-10.1); CHLORIDE 97 mmol/L (98-107); CO2 42 mmol/L (21-32); CREATININE 1.1 mg/dL (0.55-1.3); PHOSPHOROUS 3.2 mg/dL (2.5-4.9); POTASSIUM 3.9 mmol/L (3.5-5.1); SGOT/AST 47 U/L (15-37); SGPT/ALT 56 U/L (13-61); SODIUM 144 mmol/L (136-145); TOT PROT 6.5 g/dl (6.4-8.2)
[2017-12-12 16:44] LABS: GLUCOSE,RANDOM 26 mg/dL (74-106)
[2017-12-12] MEDS ORDERED: ASPIRIN 81 MG CHEWABLE TABLETS PO ONE (16:50)
[2017-12-12] MEDS ORDERED: DEXTROSE 50%-WATER - 25 GM/50 ML VIAL IVPUSH ONE (16:52)
[2017-12-12] MEDS ORDERED: DEXTROSE 50%-WATER 25 GM/50 ML DISP.SYRIN ONE (17:04)
[2017-12-12] MEDS ORDERED: ASPIRIN 81 MG CHEWABLE TABLETS ONE (17:04)
--- NOTE | 2017-12-12 17:10 | PDOC ---
History of Present Illness - General Chief Complaint: Respiratory Stated Complaint: RESPIRATORY Time Seen by Provider: 12/12/17 14:41 History Source: Patient Exam Limitations: No Limitations - History of Present Illness Initial Comments: 12/12/17 16:57 Ms. Jaime is a 72 yo F with a hx of COPD, pulmonary HTN, diastolic CHF, IDDM, and hypothyroidism presents to the ED after referral from her PMD (Dr. Scott ) to assess possible respiratory failure. Per the patient, she states she has had unchanged work of breathing. Per the sister who has been living with the patient, she states she has been having increased SOB. At baseline, the patient states she uses 3 L of [place] O2 and uses BIPAP at night. She becomes SOB with exertion. Patient denies recent sick contacts and denies URI symptoms. Denies the following: fever, chills, nausea, vomiting, visual changes, chest pain, abdominal pain, dysuria, hematuria, diarrhea, hematochezia, and melena. Pmhx: Refer to above Shx: None Meds: Prednisone, januvia, furosemide, digoxin, diltiazem, levothyroxine, eliquis, montelukast, atorvastatin, spirvia, brovana, azopt, lumigan, alphagan, levemir, humalog Allergies: NKDA Social hx: Denies current tobacco use (hx of tobacco use), alcohol use, and substance abuse. 12/12/17 17:24 Past History - Past Medical History Allergies/Adverse Reactions: Allergies Allergy/AdvReac Type Severity Reaction Status Date / Time No Known Allergies Allergy Verified 12/12/17 14:32 Home Medications: Ambulatory Orders Arformoterol Tartrate [Brovana] 15 mcg IH BID 10/04/16 Atorvastatin Ca [Lipitor] 40 mg PO HS 10/04/16 Bimatoprost [Lumigan] 1 drop OU DAILY 10/04/16 Brimonidine Tartrate [Alphagan P 0.1% -] 1 drop OU BID 10/04/16 Brinzolamide [Azopt] 1 drop OU BID 10/04/16 Digoxin [Lanoxin -] 0.125 mg PO DAILY 10/04/16 Ergocalciferol (Vitamin D2) [Vitamin D2] 2,000 unit PO DAILY 10/04/16 Insulin (Levemir) [Levemir Flexpen -] 30 units SQ DAILY 10/04/16 Insulin Lispro [Humalog] 6 unit SQ ASDIR 10/04/16 Levalbuterol HCl [Xopenex] 0.45 mg IH BID 10/04/16 Levothyroxine [Synthroid -] 75 mcg PO ASDIR 10/04/16 Montelukast Na [Singulair -] 10 mg PO HS 10/04/16 Sitagliptin Phosphate [Januvia] 100 mg PO DAILY 10/04/16 Tiotropium [place] [Spiriva] 18 mcg IH DAILY 10/04/16 Albuterol 0.083% Nebulizer Page [Ventolin 0.083% Nebulizer Soln -] 1 amp NEB Q4H PRN #0 amp 10/11/16 Apixaban [Eliquis -] 5 mg PO BID #60 tablet 10/11/16 Diltiazem [Cardizem -] 120 mg PO ASDIR 12/12/17 Furosemide [Lasix -] 40 mg PO DAILY 12/12/17 predniSONE [Deltasone -] 10 mg PO ASDIR 12/12/17 COPD: Yes (oxygen dependent) Diabetes: Yes - Suicide/Smoking/Psychosocial Hx Smoking History: Former smoker Have you smoked in the past 12 months: No Information on smoking cessation initiated: No Hx Alcohol Use: No Drug/Substance Use Hx: No Substance Use Type: None Review of Systems - Review of Systems Able to Perform ROS?: Yes Is the patient limited Algerian proficient: No Constitutional: No: Chills, Diaphoresis, Fever HEENTM: No: Recent change in vision, Nose Pain, Throat Pain Respiratory: Yes: Shortness of Breath, SOB with Exertion. No: Cough, SOB at Rest, Wheezing, Hemoptysis Cardiac (ROS): No: Chest Pain, Palpitations, Syncope ABD/GI: No: Constipated, Diarrhea, Nausea, Rectal Bleeding, Vomiting, Tarry Stools : No: Burning, Dysuria, Hematuria Musculoskeletal: No: Back Pain Integumentary: No: Rash Neurological: No: Headache, Numbness Psychiatric: No: Stressors Endocrine: No: Unexplained Weight Gain Hematologic/Lymphatic: No: Anemia *Physical Exam - Vital Signs Last Vital Signs Temp Pulse Resp BP Pulse Ox 98.3 F 95 H 30 H 110/30 L 95 12/12/17 14:20 12/12/17 14:20 12/12/17 14:20 12/12/17 14:20 12/12/17 14:20 - Physical Exam General Appearance: Yes: Nourished, Appropriately Dressed, Thin HEENT: positive: EOMI, GELY Neck: negative: Tender, Lymphadenopathy (R), Lymphadenopathy (L) Respiratory/Chest: positive: Lungs Clear, Decreased Breath Sounds, Other (on 3 L of nasal cannula ). negative: Chest Tender, Respiratory Distress, Accessory Muscle Use, Rhonchi, Stridor, Wheezing Cardiovascular: positive: Regular Rhythm, Regular Rate, S1, S2. negative: Systolic Murmur Gastrointestinal/Abdominal: positive: Normal Bowel Sounds, Flat, Soft. negative : Tender, Pulsatile Mass Lymphatic: negative: Adenopathy Musculoskeletal: positive: Normal Inspection. negative: CVA Tenderness Extremity: positive: Normal Capillary Refill, Normal Inspection, Normal Range of Motion. negative: Tender Integumentary: positive: Normal Color, Dry, Warm Neurologic: positive: Fully Oriented, Alert, Normal Mood/Affect Heart Score/ECG Review - ECG Intrepretation Comment:: ventricular rate 69 bpm, TN 152 ms, QRS 82 ms, QTC is [address] depressions in II, III, and aVF that were there 1 year prior. No acute changes noted. ED Treatment Course - LABORATORY CBC & Chemistry Diagram: 12/13/17 06:35 12/13/17 06:35 - ADDITIONAL ORDERS Additional order review: Laboratory Results 12/12/17 12/12/17 15:37 15:37 VBG pH 7.29 L POC VBG pCO2 89.6 H* POC VBG pO2 14.7 L* Mixed VBG HCO3 42.3 H* Sodium 144 Potassium 3.9 Chloride 97 L Carbon Dioxide 42 H Anion Gap 6 L BUN 29 H Creatinine 1.1 Creat Clearance w eGFR 48.96 Random Glucose 26 L* Calcium 10.3 H Phosphorus 3.2 Magnesium 3.0 H Total Bilirubin 0.4 AST 47 H ALT 56 Alkaline Phosphatase 92 Creatine Kinase 129 Troponin I 0.07 H Total Protein 6.5 Albumin 3.6 12/12/17 15:37 RBC 4.66 MCV 96.2 H MCHC 33.9 RDW 14.2 MPV 8.9 - RADIOLOGY Radiology Studies Ordered: Category Date Time Status CHEST PA & LAT [RAD] Stat Radiology 12/12/17 15:08 Ordered - Medications Given in the ED: ED Medications Discontinued Medications Generic Name Dose Route Start Last Admin Trade Name Erik PRN Reason Stop Dose Admin Albuterol/Ipratropium 3 amp 12/12/17 15:56 12/12/17 16:28 Duoneb - NEB 12/12/17 15:57 3 amp ONCE ONE Administration Methylprednisolone Sodium Succinate 125 mg 12/12/17 15:56 12/12/17 16:29 Solu-Medrol - IVPB 12/12/17 15:57 125 mg ONCE ONE Administration Medical Decision Making - Medical Decision Making Ms. Jaime is a 72 yo F with a hx of COPD, pulmonary HTN, diastolic CHF, IDDM, and hypothyroidism presents to the ED after referral from her PMD (Dr. Scott ) to assess possible respiratory failure. Initial vitals: Initial Vital Signs Temp Pulse Resp BP Pulse Ox 98.3 F 95 H 30 H 110/30 L 95 12/12/17 14:20 12/12/17 14:20 12/12/17 14:20 12/12/17 14:20 12/12/17 14:20 Work up: Laboratory Results - last 24 hr 12/12/17 12/12/17 12/12/17 15:37 15:37 15:37 WBC 18.1 H RBC 4.66 Hgb 15.2 Hct 44.9 MCV 96.2 H MCH 32.6 MCHC 33.9 RDW 14.2 Plt Count 241 MPV 8.9 VBG pH 7.29 L POC VBG pCO2 89.6 H* POC VBG pO2 14.7 L* Mixed VBG HCO3 42.3 H* Sodium 144 Potassium 3.9 Chloride 97 L Carbon Dioxide 42 H Anion Gap 6 L BUN 29 H Creatinine 1.1 Creat Clearance w eGFR 48.96 POC Glucometer Random Glucose 26 L* Calcium 10.3 H Phosphorus 3.2 Magnesium 3.0 H Total Bilirubin 0.4 AST 47 H ALT 56 Alkaline Phosphatase 92 Creatine Kinase 129 Troponin I 0.07 H Total Protein 6.5 Albumin 3.6 12/12/17 12/12/17 22:00 22:00 WBC RBC Hgb Hct MCV MCH MCHC RDW Plt Count MPV VBG pH POC VBG pCO2 POC VBG pO2 Mixed VBG HCO3 Sodium Potassium Chloride Carbon Dioxide Anion Gap BUN Creatinine Creat Clearance w eGFR POC Glucometer [phone] Random Glucose Calcium Phosphorus Magnesium Total Bilirubin AST ALT Alkaline Phosphatase Creatine Kinase 116 Troponin I 0.06 H Total Protein Albumin Her labs show leukocytosis of 18.1 which is consistent with previous values as to elucidating if this is setting of infection vs prednisone use. Her troponin was elevated at 0.07 which prompted giving her aspirin 325 mg in setting of without chest pain but increased work of breathing. Her CXR did not show acute pathologies. She was given 3 amps of duoneb along with 125 mg of steroids. In addition, her glucose was found to be 26 and she was given 1 amp of D50 and food in the department. Unfortunately, we attempted ABG 3x along with respiratory therapy and were unable to acquire it. Given her increased troponin in setting of increased work of breathing, she will be admitted. At time of admission, she was reassessed and stated she had no pain and was comfortable at rest on 3 L of nasal cannula. Dispo: Admitted. *DC/Admit/Observation/Transfer Diagnosis at time of Disposition: COPD with acute exacerbation, Elevated troponin I level - Discharge Dispostion Decision to Admit order: Yes Decision to Admit order Date/Time: Decision to Admit Order Category Date Time Status Decision to Admit to Hospital Routine Admission 12/12/17 16:55 Ordered - Referrals - Patient Instructions - Post Discharge Activity
--- NOTE | 2017-12-12 18:13 | HP ---
Admitting History and Physical - Primary Care Physician PCP: Nitin Mccarty - Admission Chief Complaint: SOB History of Present Illness: Patient with significant Hx/o of advanced COPD, on home O2 and chronic Prednisone, c/o progressive SOB for a week, got worse since yesterday, today patient came to ER; in ER pt was found to be in in respiratory failure. History Source: Patient Limitations to Obtaining History: No Limitations - Past Medical History Cardiovascular: Yes: CHF, HTN, Pulmonary Hypertension Pulmonary: Yes: COPD (on BIPAP at home- every night and PRN), O2 Dependent Endocrine: Yes: Diabetes Mellitus (on Insulin), Hypothyroidism - Smoking History Smoking history: Former smoker Have you smoked in the past 12 months: No - Alcohol/Substance Use Hx Alcohol Use: No Home Medications - Allergies Allergies/Adverse Reactions: Allergies Allergy/AdvReac Type Severity Reaction Status Date / Time No Known Allergies Allergy Verified 12/12/17 14:32 - Home Medications Home Medications: Ambulatory Orders Arformoterol Tartrate [Brovana] 15 mcg IH BID 10/04/16 Atorvastatin Ca [Lipitor] 40 mg PO HS 10/04/16 Bimatoprost [Lumigan] 1 drop OU DAILY 10/04/16 Brimonidine Tartrate [Alphagan P 0.1% -] 1 drop OU BID 10/04/16 Brinzolamide [Azopt] 1 drop OU BID 10/04/16 Digoxin [Lanoxin -] 0.125 mg PO DAILY 10/04/16 Ergocalciferol (Vitamin D2) [Vitamin D2] 2,000 unit PO DAILY 10/04/16 Insulin (Levemir) [Levemir Flexpen -] 30 units SQ DAILY 10/04/16 Insulin Lispro [Humalog] 6 unit SQ ASDIR 10/04/16 Levalbuterol HCl [Xopenex] 0.45 mg IH BID 10/04/16 Levothyroxine [Synthroid -] 75 mcg PO ASDIR 10/04/16 Montelukast Na [Singulair -] 10 mg PO HS 10/04/16 Sitagliptin Phosphate [Januvia] 100 mg PO DAILY 10/04/16 Tiotropium [place] [Spiriva] 18 mcg IH DAILY 10/04/16 Albuterol 0.083% Nebulizer Page [Ventolin 0.083% Nebulizer Soln -] 1 amp NEB Q4H PRN #0 amp 10/11/16 Apixaban [Eliquis -] 5 mg PO BID #60 tablet 10/11/16 Diltiazem [Cardizem -] 120 mg PO ASDIR 12/12/17 Furosemide [Lasix -] 40 mg PO DAILY 12/12/17 predniSONE [Deltasone -] 10 mg PO ASDIR 12/12/17 Review of Systems - Review of Systems Constitutional: denies: Chills, Fever, Night Sweats Eyes: denies: Blurred Vision, Double Vision HENT: denies: Difficult Swallowing, Ear Discharge, Ear Pain, Nasal Congestion, Throat Pain Neck: denies: Pain on Movement, Stiffness Cardiovascular: denies: Chest Pain, Edema, Palpitations Respiratory: reports: SOB. denies: Cough, Wheezing Gastrointestinal: denies: Abdominal Pain, Diarrhea, Nausea, Vomiting Genitourinary: denies: Burning, Discharge, Dysuria Musculoskeletal: denies: Back Pain, Joint Swelling, Muscle Pain Integumentary: denies: Bruising, Erythema Neurological: denies: Change in LOC, Change in Speech, Dizziness, Numbness Endocrine: denies: Excessive Sweating, Intolerance to Cold Hematology/Lymphatic: denies: Easily Bruised, Excessive Bleeding Psychiatric: denies: Anxiety, Depression Physical Examination Vital Signs: Vital Signs Temperature 98.3 F 12/12/17 14:20 Pulse Rate 95 H 12/12/17 14:20 Respiratory Rate 30 H 12/12/17 14:20 Blood Pressure 110/30 L 12/12/17 14:20 O2 Sat by Pulse Oximetry (%) 95 12/12/17 14:20 Constitutional: Yes: No Distress, Calm Eyes: Yes: Conjunctiva Clear, EOM Intact, PERRL HENT: Yes: Normocephalic. No: Rhinnorhea, Thrush Neck: Yes: Trachea Midline. No: Lymphadenopathy Cardiovascular: Yes: Regular Rate and Rhythm, S1, S2 Respiratory: Yes: Regular, Accessory Muscle Use, Rhonchi, Wheezes Gastrointestinal: Yes: Normal Bowel Sounds, Soft. No: Tenderness ...Rectal Exam: Yes: Deferred Renal/: Yes: Other (deferred). No: CVA Tenderness - Left, CVA Tenderness - Right Musculoskeletal: No: Back Pain, Joint Swelling Edema: Yes Edema: LLE: Trace, RLE: Trace Neurological: Yes: Alert, Oriented, Other (symmetric motro and sensory examination in UE/ LE/ face) Labs: CBC, BMP 12/12/17 15:37 12/12/17 15:37 Imaging - Results Chest X-ray: Image Reviewed Problem List - Problems (1) Acute and chronic respiratory failure with hypercapnia Code(s): J96.22 - ACUTE AND CHRONIC RESPIRATORY FAILURE WITH HYPERCAPNIA (2) COPD with acute exacerbation Code(s): J44.1 - CHRONIC OBSTRUCTIVE PULMONARY DISEASE W (ACUTE) EXACERBATION (3) Diabetes mellitus Code(s): E11.9 - TYPE 2 DIABETES MELLITUS WITHOUT COMPLICATIONS (4) Hypertension Code(s): I10 - ESSENTIAL (PRIMARY) HYPERTENSION (5) Paroxysmal atrial fibrillation Code(s): I48.0 - PAROXYSMAL ATRIAL FIBRILLATION (6) Elevated troponin I level Code(s): R74.8 - ABNORMAL LEVELS OF OTHER SERUM ENZYMES Assessment/Plan IV Solu-Medrol Admit to monitor bed Pulmonary consult Cardio consult Serial CE to trend Trop I; pt is on AC AM labs
[2017-12-12] MEDS ORDERED: PATIENT'S OWN MEDICATION (NON-FORMULARY) (Brinzolamide [Azopt] 1 DROP) OU SCH (22:00)
[2017-12-12] MEDS ORDERED: LEVALBUTEROL HCL 0.31 MG/3 ML VIAL.NEB IH SCH (22:00)
[2017-12-12] MEDS ORDERED: MONTELUKAST NA 10 MG TABLET ONE (22:52)
[2017-12-12] MEDS ORDERED: INSULIN (NOVOLOG) ASPART 100 UNITS/ML 10ML VIAL ONE (22:53)
[2017-12-12] MEDS: INSULIN SLIDING SCALE (NOVOLOG) 1 VIAL SQ SCH (23:11)
[2017-12-12] MEDS: BRIMONIDINE TARTRATE 0.1% OPHTHALMIC 5 ML BOTTLE OU SCH (23:11)
[2017-12-12] MEDS: ARFORMOTEROL TARTRATE 15 MCG/2 ML VIAL NEB SCH (23:11)
[2017-12-12] MEDS: APIXABAN 5 MG TABLET PO SCH (23:11)
[2017-12-12] MEDS: ATORVASTATIN CA 40 MG TABLET (FP) PO SCH (23:11)
[2017-12-12] MEDS: MONTELUKAST NA 10 MG TABLET PO SCH (23:12)
[2017-12-13] MEDS ORDERED: methylPREDNISolone NA SUCC 40 MG/1 ML VIAL ONE (00:34)
[2017-12-13] MEDS: methylPREDNISolone NA SUCC 40 MG/1 ML VIAL IVPB SCH ×4 (00:35→21:31)
[2017-12-13 03:26] VITALS: BMI 21.9
[2017-12-13] MEDS: LEVOTHYROXINE NA 75 MCG TABLET (FP) PO SCH (06:08)
[2017-12-13] MEDS: sitaGLIPtin PHOSPHATE 100 MG TABLET (FP) PO SCH (06:08)
[2017-12-13] MEDS: INSULIN SLIDING SCALE (NOVOLOG) 1 VIAL SQ SCH ×4 (06:11→21:46)
[2017-12-13] MEDS ORDERED: INSULIN (LEVEMIR) 100 UNITS/ML UNITS SQ SCH (07:00)
[2017-12-13 07:34] LABS: HEMATOCRIT 38.6 % (32.4-45.2); HEMOGLOBIN 12.6 GM/dL (10.7-15.3); MCH 31.5 pg (25.7-33.7); MCHC 32.7 g/dl (32.0-36.0); MEAN CELL VOLUME 96.4 fl (80-96); MEAN PLT VOLUME 9.3 fl (7.5-11.1); PLATELET COUNT 176 K/MM3 (134-434); RDW 13.9 % (11.6-15.6)
[2017-12-13] MEDS: ARFORMOTEROL TARTRATE 15 MCG/2 ML VIAL NEB SCH ×2 (07:50→21:19)
[2017-12-13 08:50] LABS: ALBUMIN 2.9 g/dl (3.4-5.0); ALK PHOS 88 U/L (45-117); ANION GAP 8 MMOL/L (8-16); BILIRUBIN,TOTAL 0.4 mg/dL (0.2-1); BLOOD UREA NITROGEN 34 mg/dL (7-18); CALCIUM 9.4 mg/dL (8.5-10.1); CHLORIDE 96 mmol/L (98-107); CO2 37 mmol/L (21-32); CREATININE 0.9 mg/dL (0.55-1.3); POTASSIUM 3.6 mmol/L (3.5-5.1); SGOT/AST 24 U/L (15-37); SGPT/ALT 43 U/L (13-61); SODIUM 140 mmol/L (136-145); TOT PROT 5.3 g/dl (6.4-8.2)
--- NOTE | 2017-12-13 09:38 | CON.CARD ---
Consult Consult Specialty:: Cardiology Referred by:: Bibiana Reason for Consultation:: elevated troponin - History of Present Illness Chief Complaint: shortness of breath History of Present Illness: 72F h/o advanced COPD on home O2 and chronic prednisone, chronic diastolic CHF, HTN, pulm HTN, DM p/w dyspnea for one week. Has chronic dyspnea but felt acutely worse. No chest pain, palps, dizzy, lightheadedness, edema. - Past Medical History Cardio/Vascular: Yes: CHF, HTN, Pulmonary Hypertension Pulmonary: Yes: COPD (on BIPAP at home- every night and PRN), O2 Dependent Endocrine: Yes: Diabetes Mellitus (on Insulin), Hypothyroidism - Alcohol/Substance Use Hx Alcohol Use: No - Smoking History Smoking history: Former smoker Have you smoked in the past 12 months: No Aproximately how many cigarettes per day: 0 Home Medications - Allergies Allergies/Adverse Reactions: Allergies Allergy/AdvReac Type Severity Reaction Status Date / Time No Known Allergies Allergy Verified 12/12/17 14:32 - Home Medications Home Medications: Ambulatory Orders Arformoterol Tartrate [Brovana] 15 mcg IH BID 10/04/16 Atorvastatin Ca [Lipitor] 40 mg PO HS 10/04/16 Bimatoprost [Lumigan] 1 drop OU DAILY 10/04/16 Brimonidine Tartrate [Alphagan P 0.1% -] 1 drop OU BID 10/04/16 Brinzolamide [Azopt] 1 drop OU BID 10/04/16 Digoxin [Lanoxin -] 0.125 mg PO DAILY 10/04/16 Ergocalciferol (Vitamin D2) [Vitamin D2] 2,000 unit PO DAILY 10/04/16 Insulin (Levemir) [Levemir Flexpen -] 30 units SQ DAILY 10/04/16 Insulin Lispro [Humalog] 6 unit SQ ASDIR 10/04/16 Levalbuterol HCl [Xopenex] 0.45 mg IH BID 10/04/16 Levothyroxine [Synthroid -] 75 mcg PO ASDIR 10/04/16 Montelukast Na [Singulair -] 10 mg PO HS 10/04/16 Sitagliptin Phosphate [Januvia] 100 mg PO DAILY 10/04/16 Tiotropium [place] [Spiriva] 18 mcg IH DAILY 10/04/16 Albuterol 0.083% Nebulizer Page [Ventolin 0.083% Nebulizer Soln -] 1 amp NEB Q4H PRN #0 amp 10/11/16 Apixaban [Eliquis -] 5 mg PO BID #60 tablet 10/11/16 Diltiazem [Cardizem -] 120 mg PO ASDIR 12/12/17 Furosemide [Lasix -] 40 mg PO DAILY 12/12/17 predniSONE [Deltasone -] 10 mg PO ASDIR 12/12/17 Family Disease History - Family Disease History Family History: Unremarkable Review of Systems - Review of Systems Constitutional: reports: No Symptoms Eyes: reports: No Symptoms HENT: reports: No Symptoms Neck: reports: No Symptoms Cardiovascular: reports: Shortness of Breath Respiratory: reports: No Symptoms Gastrointestinal: reports: No Symptoms Genitourinary: reports: No Symptoms Musculoskeletal: reports: No Symptoms Integumentary: reports: No Symptoms Neurological: reports: No Symptoms Endocrine: reports: No Symptoms Hematology/Lymphatic: reports: No Symptoms Psychiatric: reports: No Symptoms Vital Signs: Vital Signs Temperature 97.4 F L 12/13/17 01:27 Pulse Rate 80 12/13/17 01:27 Respiratory Rate 20 12/13/17 01:27 Blood Pressure 114/55 L 12/13/17 01:27 O2 Sat by Pulse Oximetry (%) 97 12/13/17 02:00 Constitutional: Yes: No Distress, Calm Eyes: Yes: Conjunctiva Clear, EOM Intact HENT: Yes: Atraumatic, Normocephalic Neck: Yes: Supple, Trachea Midline Respiratory: Yes: Regular, CTA Bilaterally (rales bases bilaterally, mild expiratory wheezes), On Nasal O2 Gastrointestinal: Yes: Normal Bowel Sounds, Soft Renal/: Yes: WNL Cardiovascular: Yes: Regular Rate and Rhythm JVD: No Carotid Bruit: No PMI: Non-Displaced Heart Sounds: Yes: S1, S2 Musculoskeletal: No: Back Pain Extremities: No: Cyanosis Edema: No Edema: LLE: 2+, RLE: 2+ Peripheral Pulses WNL: No Peripheral Pulses: 2+ Left Doralis Pedis, 2+ Right Dorsalis Pedis Integumentary: Yes: WNL Neurological: Yes: Alert, Oriented Psychiatric: Yes: Alert, Oriented - Other Data Labs, Other Data: CBC, BMP 11/06/18 06:35 12/13/17 06:35 Troponin, BNP 12/12/17 12/12/17 15:37 22:00 Troponin I 0.07 H 0.06 H Troponin, BNP 12/12/17 12/12/17 15:37 22:00 Troponin I 0.07 H 0.06 H Assessment/Plan Echo 10/2015: Nl lv/rv. suboptimal views, but at least mild AR. Mod MAC. 1+ MR. No MS. trivial effusion. RVSP not measured. echo 09/2016: tds; nl lv/rv, mv calcified, mac, mild-mod mr, sev tr, small peric eff-->MV calcification is chronic finding for her and not indicative of vegetation CXR: hyperaerated lung, no effusion EKG: sinus, nonspecific ST segment changes tele:sinus, PVCs Elevated trop - 0.07->0.06 - mild elevation with flat trend, EKG stable with history less consistent with ACS - management of COPD exacerbation as below Shortness of breath, COPD - O2 dependent, on BiPap, chronic prednisone - IV solumedrol, symptoms improving, on nasal canula - manage per pulm, PMD Chronic diastolic CHF - continue lasix PO pAFib - sinus - continue eliquis, digoxin, diltiazem HLD - continue statin
[2017-12-13 09:41] LABS: GLUCOSE,RANDOM 367 mg/dL (74-106)
[2017-12-13] MEDS ORDERED: LEVALBUTEROL HCL 0.31 MG/3 ML VIAL.NEB IH SCH ×2 (10:00)
--- NOTE | 2017-12-13 10:03 | PN ---
Progress Note, Physician History of Present Illness: Pt's breathing is better. Pt w/o CP, palpitations, SOB, abd pain - Current Medication List Current Medications: Active Medications Albuterol Sulfate (Ventolin 0.083% Nebulizer Soln -) 1 amp NEB Q6H PRN PRN Reason: SHORT OF BREATH/WHEEZING Apixaban (Eliquis -) 5 mg PO BID [facility] Last Admin: 12/12/17 23:11 Dose: 5 mg Arformoterol Tartrate (Brovana (Restricted To Pulmonology/Resp) -) 1 amp NEB BID [facility] Last Admin: 12/13/17 07:50 Dose: 1 amp Atorvastatin Calcium (Lipitor -) 40 mg PO HS [facility] Last Admin: 12/12/17 23:11 Dose: 40 mg Brimonidine Tartrate (Alphagan P 0.1% -) 1 drop OU BID [facility] Last Admin: 12/12/17 23:11 Dose: 1 drop Digoxin (Lanoxin -) 0.125 mg PO DAILY [facility] Diltiazem HCl (Cardizem Cd -) 120 mg PO DAILY [facility] Furosemide (Lasix -) 40 mg PO DAILY [facility] Insulin Aspart (Novolog Vial Sliding Scale -) 1 vial SQ ACHS [facility]; Protocol Last Admin: 12/13/17 06:11 Dose: 6 units Insulin Detemir (Levemir Vial) 30 units SQ AM [facility] Last Admin: 12/13/17 06:10 Dose: 30 units Latanoprost (Xalatan 0.005% Eye Drops -) 1 drop OU DAILY [facility] Levalbuterol HCl (Xopenex) 0.45 mg IH BID [facility] Levothyroxine Sodium (Synthroid -) 75 mcg PO AM [facility] Last Admin: 12/13/17 06:08 Dose: 75 mcg Methylprednisolone Sodium Succinate (Solu-Medrol -) 40 mg IVPB Q6H-IV [facility] Last Admin: 12/13/17 00:35 Dose: 40 mg Montelukast Sodium (Singulair -) 10 mg PO HS [facility] Last Admin: 12/12/17 23:12 Dose: 10 mg Non-Formulary Medication (Brinzolamide [Azopt]) 1 drop OU BID [facility] Sitagliptin Phosphate (Januvia -) 100 mg PO AM [facility] Last Admin: 12/13/17 06:08 Dose: 100 mg Tiotropium [place] (Spiriva Respimat) 2 puff IH DAILY [facility] - Objective Vital Signs: Vital Signs Temperature 97.4 F L 12/13/17 01:27 Pulse Rate 80 12/13/17 01:27 Respiratory Rate 20 12/13/17 01:27 Blood Pressure 114/55 L 12/13/17 01:27 O2 Sat by Pulse Oximetry (%) 98 12/13/17 07:55 Constitutional: Yes: No Distress, Calm Cardiovascular: Yes: Regular Rate and Rhythm, S1, S2 Respiratory: Yes: Regular, CTA Bilaterally, Poor Air Entry Gastrointestinal: Yes: Normal Bowel Sounds, Soft. No: Tenderness Edema: No Neurological: Yes: Alert, Oriented Labs: CBC, BMP 12/13/17 06:35 12/13/17 06:35 Problem List - Problems (1) Acute and chronic respiratory failure with hypercapnia Code(s): J96.22 - ACUTE AND CHRONIC RESPIRATORY FAILURE WITH HYPERCAPNIA (2) COPD with acute exacerbation Code(s): J44.1 - CHRONIC OBSTRUCTIVE PULMONARY DISEASE W (ACUTE) EXACERBATION (3) Diabetes mellitus Code(s): E11.9 - TYPE 2 DIABETES MELLITUS WITHOUT COMPLICATIONS (4) Hypertension Code(s): I10 - ESSENTIAL (PRIMARY) HYPERTENSION (5) Paroxysmal atrial fibrillation Code(s): I48.0 - PAROXYSMAL ATRIAL FIBRILLATION (6) Elevated troponin I level Code(s): R74.8 - ABNORMAL LEVELS OF OTHER SERUM ENZYMES (7) Leukocytosis Assessment/Plan: improving Code(s): D72.829 - ELEVATED WHITE BLOOD CELL COUNT, UNSPECIFIED Assessment/Plan IV Solu-Medrol Admitted to Telemetry Pulmonary consult appreciated Cardio consult Trop I is trending down; pt is on AC AM labs case was d/w pt's nurse.
[2017-12-13] MEDS ORDERED: PT OWN MED DRAWER 7, Y5N ONE ×6 (10:17→22:45)
[2017-12-13] MEDS: FUROSEMIDE 40 MG TABLET (FP) PO SCH (10:19)
[2017-12-13] MEDS: APIXABAN 5 MG TABLET PO SCH ×2 (10:19→21:31)
[2017-12-13] MEDS: DIGOXIN 0.125 MG TABLET (FP) PO SCH (10:19)
[2017-12-13] MEDS: BRIMONIDINE TARTRATE 0.1% OPHTHALMIC 5 ML BOTTLE OU SCH ×2 (10:20→21:49)
[2017-12-13] MEDS: LATANOPROST 0.005% OPHTH SOLN 2.5ML BOTTLE OU SCH (10:21)
--- NOTE | 2017-12-13 12:09 | EKG ---
Test Reason : Blood Pressure : / mmHG Vent. Rate : 069 BPM Atrial Rate : 069 BPM P-R Int : 152 ms QRS Dur : 082 ms QT Int : 330 ms P-R-T Axes : 092 076 -74 degrees QTc Int : 353 ms NORMAL SINUS RHYTHM ABNORMAL ECG Confirmed by MD RAMON, EMILY ([id number]) on 12/13/2017 12:09:03 PM Referred By: Confirmed By:EMILY NAVARRO MD
--- NOTE | 2017-12-13 12:29 | PN ---
Progress Note (short form) - Note Progress Note: PULMONARY CONSULTATION DICTATED 12/13/17 IMP ACUTE ON CHRONIC HYPOXEMIC/HYPERCAPNEIC RESPIRATORY FAILURE COPD EXACERBATION PULMONARY HTN PAF IDDM DIASTOLIC HF HYPOTHYROIDISM PLAN IV STEROIDS INHALED BRONCHODILATORS O2 BIPAP AT NIGHT AND PRN DALIRESP ABG PULMONARY REHAB POST DISCHARGE DR SOLOMON Problem List - Problems (1) Acute on chronic respiratory failure with hypoxia and hypercapnia Code(s): J96.21 - ACUTE AND CHRONIC RESPIRATORY FAILURE WITH HYPOXIA; J96.22 - ACUTE AND CHRONIC RESPIRATORY FAILURE WITH HYPERCAPNIA (2) COPD with acute exacerbation Code(s): J44.1 - CHRONIC OBSTRUCTIVE PULMONARY DISEASE W (ACUTE) EXACERBATION (3) Diabetes mellitus Code(s): E11.9 - TYPE 2 DIABETES MELLITUS WITHOUT COMPLICATIONS (4) Paroxysmal atrial fibrillation Code(s): I48.0 - PAROXYSMAL ATRIAL FIBRILLATION (5) Pulmonary HTN Code(s): I27.20 - PULMONARY HYPERTENSION, UNSPECIFIED (6) Diastolic HF (heart failure) Code(s): I50.30 - UNSPECIFIED DIASTOLIC (CONGESTIVE) HEART FAILURE (7) Hypothyroid Code(s): E03.9 - HYPOTHYROIDISM, UNSPECIFIED
--- NOTE | 2017-12-13 13:20 | CONS ---
DATE OF CONSULTATION: 12/13/2017 REFERRING PHYSICIAN: Nitin Mccarty MD The patient is a 72-year-old white female with a past medical history of advanced COPD on home O2 at 3 L, steroid dependent; pulmonary hypertension; diastolic congestive heart failure; insulin-dependent diabetes mellitus; hypothyroidism; admitted to [facility] with increasing respiratory distress and dyspnea on exertion. For the past 1-1/2 weeks or so, the patient had been developing significant worsening of shortness of breath. She said she only ambulated a couple of feet when she developed severe dyspnea. She called her PMD, Dr. Scott. At which time, she was advised to go to the emergency room. In the ER, she had a venous blood gas which revealed evidence of worsening hypercapnia with a pCO2 of 89. She was transferred to the telemetry unit for therapy and placed on BiPAP. Patient denies any fevers, chills, nausea, vomiting, or diaphoresis. Denies any chest pains or palpitations. Denies any cough or hemoptysis. She has a history of smoking , quit 10-15 years ago. She denies any history of occupational exposure to chemicals or fumes. There is no history of DVT or PE in the past. There is no history of recent travel. PAST MEDICAL HISTORY: Again includes end-stage COPD, O2 dependent, on chronic steroids; pulmonary hypertension; hypothyroidism; diastolic heart failure; insulin-dependent diabetes mellitus. REVIEW OF SYSTEMS: Positive for orthopnea. Positive dyspnea. No cough. No chest pain. No palpitations. No wheezing. No abdominal pain. No lower extremity edema. CURRENT MEDICATIONS: Include Solu-Medrol 40 q.6, brinzolamide, Alphagan eye drops, Eliquis, Spiriva, albuterol, Brovana, Xopenex, Cardizem, Lanoxin, Januvia, Lipitor, NovoLog, Singulair, Lasix, and Synthroid. PHYSICAL EXAMINATION: General: The patient is a well-developed, well-nourished white female, awake, alert, currently in no acute distress. Vital Signs: She is afebrile. Blood pressure is 112/70, respiratory rate is 20 , O2 saturation is 98% on 3 L. HEENT: Normocephalic, atraumatic. Neck: Supple. Heart: Regular. S1, S2. Chest: Diminished breath sounds bilaterally. Abdomen: Soft. Bowel sounds positive. Extremities: No cyanosis or edema. LABORATORY DATA: Venous blood gas 7.29, pCO2 of 89, a pO2 of 14, and bicarbonate of 42. WBC 12, hemoglobin 12.6, hematocrit 38.6 with a platelet count of 176,000. BUN is 34, creatinine 0.8. Troponin 0.06. Chest x-ray: Hyperinflation but no infiltrates. No effusions. IMPRESSION: 1. [id number], hypoxemic, hypercapnic respiratory failure secondary to decompensated chronic obstructive pulmonary disease. 2. Pulmonary hypertension. 3. Diastolic heart failure. 4. Paroxysmal atrial fibrillation. 5. Insulin-dependent diabetes mellitus. 6. Hypothyroidism. PLAN: IV steroids, inhaled bronchodilators, supplemental O2, BiPAP at night as well as p.r.n. Check arterial blood gas. Consider starting Daliresp. Consider pulmonary rehab post discharge. Elvis NAVARRO/[id number] MTDD
[2017-12-13 13:23] LABS: ARTERIAL BLD GAS O2 SATURATION 98.5 % (90-98.9); ARTERIAL BLOOD GAS BASE EXCESS 12.4 meq/l (-2-2); ARTERIAL BLOOD GAS PCO2 54.4 mmHg (35-45); ARTERIAL BLOOD GAS pH 7.46 (7.35-7.45)
[2017-12-13 13:29] LABS: ALLENS TEST POSITIVE
[2017-12-13] MEDS: ROFLUMILAST 500 MCG TABLET PO SCH (14:11)
[2017-12-13] MEDS: TIOTROPIUM BROMIDE 2.5 MCG (SPIRIVA) RESPIMAT INHALER IH SCH (14:11)
[2017-12-13] MEDS ORDERED: BISACODYL 10 MG SUPP.RECT RC ONE (18:30)
[2017-12-13] MEDS: LEVALBUTEROL HCL 0.63 MG/3 ML VIAL.NEB. IH SCH (20:19)
[2017-12-13] MEDS: ATORVASTATIN CA 40 MG TABLET (FP) PO SCH (21:31)
[2017-12-13] MEDS: MONTELUKAST NA 10 MG TABLET PO SCH (21:31)
[2017-12-14] MEDS: methylPREDNISolone NA SUCC 40 MG/1 ML VIAL IVPB SCH ×2 (03:30→11:07)
[2017-12-14 06:27] LABS: HEMATOCRIT 38.9 % (32.4-45.2); HEMOGLOBIN 13.6 GM/dL (10.7-15.3); MCH 33.5 pg (25.7-33.7); MCHC 35.1 g/dl (32.0-36.0); MEAN CELL VOLUME 95.3 fl (80-96); MEAN PLT VOLUME 9.3 fl (7.5-11.1); PLATELET COUNT 212 K/MM3 (134-434); RBC 4.08 M/mm3 (3.60-5.2); WHITE BLOOD COUNT 17.3 K/mm3 (4.0-10.0)
[2017-12-14] MEDS: INSULIN SLIDING SCALE (NOVOLOG) 1 VIAL SQ SCH ×4 (06:44→21:38)
[2017-12-14] MEDS: sitaGLIPtin PHOSPHATE 100 MG TABLET (FP) PO SCH (06:44)
[2017-12-14] MEDS: LEVOTHYROXINE NA 75 MCG TABLET (FP) PO SCH (06:44)
[2017-12-14] MEDS: INSULIN (LEVEMIR) 100 UNITS/ML UNITS SQ SCH ×3 (06:44→21:37)
[2017-12-14 07:13] LABS: ANION GAP 6 MMOL/L (8-16); BLOOD UREA NITROGEN 45 mg/dL (7-18); CALCIUM 9.4 mg/dL (8.5-10.1); CHLORIDE 98 mmol/L (98-107); CO2 39 mmol/L (21-32); CREATININE 0.9 mg/dL (0.55-1.3); GLUCOSE,RANDOM 180 mg/dL (74-106); MAGNESIUM 2.7 mg/dL (1.8-2.4); POTASSIUM 3.4 mmol/L (3.5-5.1); SODIUM 143 mmol/L (136-145)
[2017-12-14] MEDS: LEVALBUTEROL HCL 0.63 MG/3 ML VIAL.NEB. IH SCH ×2 (08:30→21:31)
[2017-12-14] MEDS: ARFORMOTEROL TARTRATE 15 MCG/2 ML VIAL NEB SCH (09:11)
--- NOTE | 2017-12-14 09:48 | PN ---
Progress Note (short form) - Note Progress Note: Chief Complaint: shortness of breath s: Current Medications Albuterol Sulfate (Ventolin 0.083% Nebulizer Soln -) 1 amp NEB Q6H PRN PRN Reason: SHORT OF BREATH/WHEEZING Apixaban (Eliquis -) 5 mg PO BID [facility] Last Admin: 12/13/17 21:31 Dose: 5 mg Arformoterol Tartrate (Brovana (Restricted To Pulmonology/Resp) -) 1 amp NEB BID [facility] Last Admin: 12/14/17 09:11 Dose: 1 amp Atorvastatin Calcium (Lipitor -) 40 mg PO HS [facility] Last Admin: 12/13/17 21:31 Dose: 40 mg Brimonidine Tartrate (Alphagan P 0.1% -) 1 drop OU BID [facility] Last Admin: 12/13/17 21:49 Dose: 1 drop Digoxin (Lanoxin -) 0.125 mg PO DAILY [facility] Last Admin: 12/13/17 10:19 Dose: 0.125 mg Diltiazem HCl (Cardizem Cd -) 120 mg PO DAILY [facility] Last Admin: 12/13/17 10:19 Dose: 120 mg Furosemide (Lasix -) 40 mg PO DAILY [facility] Last Admin: 12/13/17 10:19 Dose: 40 mg Insulin Aspart (Novolog Vial Sliding Scale -) 1 vial SQ ACHS [facility]; Protocol Last Admin: 12/14/17 06:44 Dose: Not Given Insulin Detemir (Levemir Vial) 34 units SQ AM [facility] Last Admin: 12/14/17 06:44 Dose: Not Given Latanoprost (Xalatan 0.005% Eye Drops -) 1 drop OU DAILY [facility] Last Admin: 12/13/17 10:21 Dose: 1 drop Levalbuterol HCl (Xopenex) 0.63 mg IH RBID [facility] Last Admin: 12/13/17 20:19 Dose: 0.63 mg Levothyroxine Sodium (Synthroid -) 75 mcg PO AM [facility] Last Admin: 12/14/17 06:44 Dose: 75 mcg Methylprednisolone Sodium Succinate (Solu-Medrol -) 40 mg IVPB Q6H-IV [facility] Last Admin: 12/14/17 03:30 Dose: 40 mg Montelukast Sodium (Singulair -) 10 mg PO HS [facility] Last Admin: 12/13/17 21:31 Dose: 10 mg Non-Formulary Medication (Brinzolamide [Azopt]) 1 drop OU BID [facility] Roflumilast (Daliresp -) 500 mcg PO DAILY [facility] Last Admin: 12/13/17 14:11 Dose: 500 mcg Sitagliptin Phosphate (Januvia -) 100 mg PO AM [facility] Last Admin: 12/14/17 06:44 Dose: 100 mg Tiotropium [place] (Spiriva Respimat) 2 puff IH DAILY [facility] Last Admin: 12/13/17 14:11 Dose: 2 puff Vital Signs Period Temp Pulse Resp BP Sys/Anthony Pulse Ox Last 24 Hr 98 F-98.5 F 74-91 20-20 112-137/47-73 95-97 Constitutional: Yes: No Distress, Calm Eyes: Yes: Conjunctiva Clear, EOM Intact HENT: Yes: Atraumatic, Normocephalic Neck: Yes: Supple, Trachea Midline Respiratory: Yes: Regular, CTA Bilaterally (rales bases bilaterally, mild expiratory wheezes), On Nasal O2 Gastrointestinal: Yes: Normal Bowel Sounds, Soft Renal/: Yes: WNL Cardiovascular: Yes: Regular Rate and Rhythm JVD: No Carotid Bruit: No PMI: Non-Displaced Heart Sounds: Yes: S1, S2 Musculoskeletal: No: Back Pain Extremities: No: Cyanosis Edema: No Edema: LLE: 2+, RLE: 2+ Peripheral Pulses WNL: No Peripheral Pulses: 2+ Left Doralis Pedis, 2+ Right Dorsalis Pedis Integumentary: Yes: WNL Neurological: Yes: Alert, Oriented Psychiatric: Yes: Alert, Oriented Assessment/Plan Echo 10/2015: Nl lv/rv. suboptimal views, but at least mild AR. Mod MAC. 1+ MR. No MS. trivial effusion. RVSP not measured. echo 09/2016: tds; nl lv/rv, mv calcified, mac, mild-mod mr, sev tr, small peric eff-->MV calcification is chronic finding for her and not indicative of vegetation CXR: hyperaerated lung, no effusion EKG: sinus, nonspecific ST segment changes tele:sinus, PVCs Elevated trop - 0.07->0.06 - mild elevation with flat trend, EKG stable with history less consistent with ACS - management of COPD exacerbation as below Shortness of breath, COPD - O2 dependent, on BiPap, chronic prednisone - IV solumedrol, less dyspnea, on nasal canula - manage per pulm, PMD Chronic diastolic CHF - continue lasix PO - stable volume status pAFib - sinus - continue eliquis, digoxin, diltiazem HLD - continue statin
[2017-12-14] MEDS ORDERED: PT OWN MED DRAWER 7, Y5N ONE (11:04)
[2017-12-14] MEDS: APIXABAN 5 MG TABLET PO SCH ×2 (11:06→21:31)
[2017-12-14] MEDS: FUROSEMIDE 40 MG TABLET (FP) PO SCH (11:06)
[2017-12-14] MEDS: DIGOXIN 0.125 MG TABLET (FP) PO SCH (11:06)
[2017-12-14] MEDS: BRIMONIDINE TARTRATE 0.1% OPHTHALMIC 5 ML BOTTLE OU SCH ×2 (11:07→21:37)
[2017-12-14] MEDS: ROFLUMILAST 500 MCG TABLET PO SCH (11:07)
[2017-12-14] MEDS: TIOTROPIUM BROMIDE 2.5 MCG (SPIRIVA) RESPIMAT INHALER IH SCH (11:08)
[2017-12-14] MEDS: LATANOPROST 0.005% OPHTH SOLN 2.5ML BOTTLE OU SCH (11:08)
--- NOTE | 2017-12-14 11:14 | PN ---
Progress Note, Physician History of Present Illness: PULMONARY ALERT,LESS DYSPNEIC,SLEPT WELL ON BIPAP - Current Medication List Current Medications: Active Medications Albuterol Sulfate (Ventolin 0.083% Nebulizer Soln -) 1 amp NEB Q6H PRN PRN Reason: SHORT OF BREATH/WHEEZING Apixaban (Eliquis -) 5 mg PO BID [facility] Last Admin: 12/14/17 11:06 Dose: 5 mg Arformoterol Tartrate (Brovana (Restricted To Pulmonology/Resp) -) 1 amp NEB BID [facility] Last Admin: 12/14/17 09:11 Dose: 1 amp Atorvastatin Calcium (Lipitor -) 40 mg PO HS [facility] Last Admin: 12/13/17 21:31 Dose: 40 mg Brimonidine Tartrate (Alphagan P 0.1% -) 1 drop OU BID [facility] Last Admin: 12/14/17 11:07 Dose: 1 drop Digoxin (Lanoxin -) 0.125 mg PO DAILY [facility] Last Admin: 12/14/17 11:06 Dose: 0.125 mg Diltiazem HCl (Cardizem Cd -) 120 mg PO DAILY [facility] Last Admin: 12/14/17 11:05 Dose: 120 mg Furosemide (Lasix -) 40 mg PO DAILY [facility] Last Admin: 12/14/17 11:06 Dose: 40 mg Insulin Aspart (Novolog Vial Sliding Scale -) 1 vial SQ ACHS [facility]; Protocol Last Admin: 12/14/17 06:44 Dose: Not Given Insulin Detemir (Levemir Vial) 34 units SQ AM [facility] Last Admin: 12/14/17 06:44 Dose: Not Given Latanoprost (Xalatan 0.005% Eye Drops -) 1 drop OU DAILY [facility] Last Admin: 12/14/17 11:08 Dose: 1 drop Levalbuterol HCl (Xopenex) 0.63 mg IH RBID [facility] Last Admin: 12/13/17 20:19 Dose: 0.63 mg Levothyroxine Sodium (Synthroid -) 75 mcg PO AM [facility] Last Admin: 12/14/17 06:44 Dose: 75 mcg Methylprednisolone Sodium Succinate (Solu-Medrol -) 40 mg IVPB Q6H-IV [facility] Last Admin: 12/14/17 11:07 Dose: 40 mg Montelukast Sodium (Singulair -) 10 mg PO HS [facility] Last Admin: 12/13/17 21:31 Dose: 10 mg Non-Formulary Medication (Brinzolamide [Azopt]) 1 drop OU BID [facility] Roflumilast (Daliresp -) 500 mcg PO DAILY [facility] Last Admin: 12/14/17 11:07 Dose: 500 mcg Sitagliptin Phosphate (Januvia -) 100 mg PO AM [facility] Last Admin: 12/14/17 06:44 Dose: 100 mg Tiotropium [place] (Spiriva Respimat) 2 puff IH DAILY [facility] Last Admin: 12/14/17 11:08 Dose: 2 puff - Objective Vital Signs: Vital Signs Temperature 98 F 12/14/17 10:00 Pulse Rate 90 12/14/17 11:06 Respiratory Rate 20 12/14/17 10:00 Blood Pressure 135/60 12/14/17 10:00 O2 Sat by Pulse Oximetry (%) 95 12/14/17 08:33 Constitutional: Yes: Calm, Thin Eyes: Yes: WNL HENT: Yes: WNL Neck: Yes: WNL Cardiovascular: Yes: Regular Rate and Rhythm, S1, S2 Respiratory: Yes: Diminished Gastrointestinal: Yes: Normal Bowel Sounds, Soft Extremities: Yes: WNL Edema: No Labs: CBC, BMP 12/14/17 05:30 12/14/17 05:30 Laboratory Tests 12/13/17 13:12 ABG pH 7.46 H ABG pCO2 at Pt Temp 54.4 H ABG pO2 at Pt Temp 107.0 H ABG HCO3 38.2 H ABG O2 Sat (Measured) 98.5 Problem List - Problems (1) Acute on chronic respiratory failure with hypoxia and hypercapnia Code(s): J96.21 - ACUTE AND CHRONIC RESPIRATORY FAILURE WITH HYPOXIA; J96.22 - ACUTE AND CHRONIC RESPIRATORY FAILURE WITH HYPERCAPNIA (2) COPD with acute exacerbation Code(s): J44.1 - CHRONIC OBSTRUCTIVE PULMONARY DISEASE W (ACUTE) EXACERBATION (3) Diabetes mellitus Code(s): E11.9 - TYPE 2 DIABETES MELLITUS WITHOUT COMPLICATIONS (4) Paroxysmal atrial fibrillation Code(s): I48.0 - PAROXYSMAL ATRIAL FIBRILLATION (5) Pulmonary HTN Code(s): I27.20 - PULMONARY HYPERTENSION, UNSPECIFIED (6) Diastolic HF (heart failure) Code(s): I50.30 - UNSPECIFIED DIASTOLIC (CONGESTIVE) HEART FAILURE (7) Hypothyroid Code(s): E03.9 - HYPOTHYROIDISM, UNSPECIFIED Assessment/Plan IMP ACUTE ON CHRONIC HYPOXEMIC/HYPERCAPNEIC RESPIRATORY FAILURE COPD EXACERBATION IMPROVING PULMONARY HTN PAF IDDM DIASTOLIC HF HYPOTHYROIDISM PLAN STEROID TAPER INHALED BRONCHODILATORS O2 BIPAP AT NIGHT AND PRN DALIRESP PULMONARY REHAB POST DISCHARGE DR SOLOMON Problem List - Problems (1) Acute on chronic respiratory failure with hypoxia and hypercapnia Code(s): J96.21 - ACUTE AND CHRONIC RESPIRATORY FAILURE WITH HYPOXIA; J96.22 - ACUTE AND CHRONIC RESPIRATORY FAILURE WITH HYPERCAPNIA (2) COPD with acute exacerbation Code(s): J44.1 - CHRONIC OBSTRUCTIVE PULMONARY DISEASE W (ACUTE) EXACERBATION (3) Diabetes mellitus Code(s): E11.9 - TYPE 2 DIABETES MELLITUS WITHOUT COMPLICATIONS (4) Paroxysmal atrial fibrillation Code(s): I48.0 - PAROXYSMAL ATRIAL FIBRILLATION (5) Pulmonary HTN Code(s): I27.20 - PULMONARY HYPERTENSION, UNSPECIFIED (6) Diastolic HF (heart failure) Code(s): I50.30 - UNSPECIFIED DIASTOLIC (CONGESTIVE) HEART FAILURE (7) Hypothyroid Code(s): E03.9 - HYPOTHYROIDISM, UNSPECIFIED
--- NOTE | 2017-12-14 12:08 | PN ---
Progress Note, Physician Chief Complaint: in bed SOB with minimal exertion does not want to get OOB meds consults tests noted and d/w pt - Current Medication List Current Medications: Active Medications Albuterol Sulfate (Ventolin 0.083% Nebulizer Soln -) 1 amp NEB Q6H PRN PRN Reason: SHORT OF BREATH/WHEEZING Apixaban (Eliquis -) 5 mg PO BID [facility] Last Admin: 12/14/17 11:06 Dose: 5 mg Arformoterol Tartrate (Brovana (Restricted To Pulmonology/Resp) -) 1 amp NEB BID [facility] Last Admin: 12/14/17 09:11 Dose: 1 amp Atorvastatin Calcium (Lipitor -) 40 mg PO HS [facility] Last Admin: 12/13/17 21:31 Dose: 40 mg Brimonidine Tartrate (Alphagan P 0.1% -) 1 drop OU BID [facility] Last Admin: 12/14/17 11:07 Dose: 1 drop Digoxin (Lanoxin -) 0.125 mg PO DAILY [facility] Last Admin: 12/14/17 11:06 Dose: 0.125 mg Diltiazem HCl (Cardizem Cd -) 120 mg PO DAILY [facility] Last Admin: 12/14/17 11:05 Dose: 120 mg Furosemide (Lasix -) 40 mg PO DAILY [facility] Last Admin: 12/14/17 11:06 Dose: 40 mg Insulin Aspart (Novolog Vial Sliding Scale -) 1 vial SQ ACHS [facility]; Protocol Last Admin: 12/14/17 06:44 Dose: Not Given Insulin Detemir (Levemir Vial) 34 units SQ AM [facility] Last Admin: 12/14/17 06:44 Dose: Not Given Latanoprost (Xalatan 0.005% Eye Drops -) 1 drop OU DAILY [facility] Last Admin: 12/14/17 11:08 Dose: 1 drop Levalbuterol HCl (Xopenex) 0.63 mg IH RBID [facility] Last Admin: 12/13/17 20:19 Dose: 0.63 mg Levothyroxine Sodium (Synthroid -) 75 mcg PO AM [facility] Last Admin: 12/14/17 06:44 Dose: 75 mcg Methylprednisolone Sodium Succinate (Solu-Medrol -) 40 mg IVPB Q8H [facility] Montelukast Sodium (Singulair -) 10 mg PO HS [facility] Last Admin: 12/13/17 21:31 Dose: 10 mg Non-Formulary Medication (Brinzolamide [Azopt]) 1 drop OU BID [facility] Potassium Chloride (K-Dur -) 10 meq PO DAILY [facility] Roflumilast (Daliresp -) 500 mcg PO DAILY [facility] Last Admin: 12/14/17 11:07 Dose: 500 mcg Sitagliptin Phosphate (Januvia -) 100 mg PO AM [facility] Last Admin: 12/14/17 06:44 Dose: 100 mg Tiotropium [place] (Spiriva Respimat) 2 puff IH DAILY [facility] Last Admin: 12/14/17 11:08 Dose: 2 puff - Objective Vital Signs: Vital Signs Temperature 98 F 12/14/17 10:00 Pulse Rate 90 12/14/17 11:06 Respiratory Rate 20 12/14/17 10:00 Blood Pressure 135/60 12/14/17 10:00 O2 Sat by Pulse Oximetry (%) 98 12/14/17 09:00 Constitutional: Yes: No Distress, Calm Eyes: Yes: Conjunctiva Clear HENT: Yes: Atraumatic Neck: Yes: Supple Cardiovascular: Yes: Regular Rate and Rhythm Respiratory: Yes: Rales Gastrointestinal: Yes: Soft. No: Distention Genitourinary: No: CVA Tenderness - Left, CVA Tenderness - Right Musculoskeletal: No: Joint Stiffness, Joint Swelling Extremities: No: Cold, Cool, Cyanosis Edema: No Integumentary: No: Rash Neurological: Yes: WNL, Alert ...Motor Strength: WNL Psychiatric: Yes: WNL, Alert. No: Agitated Labs: CBC, BMP 12/14/17 05:30 12/14/17 05:30 - ....Imaging Other: Report Reviewed Assessment/Plan Ms. Jaime is a 72 yo F with a hx of COPD, pulmonary HTN, diastolic CHF, IDDM, and hypothyroidism admitted with respiratory failure COPD exac acute COPD on chronic COPD iv steroids; O2 NCX, nebs pulmonary f/u gastric PFX / on steroids BGM control sq insulin f/u labs falls DVT decubs PFX d/w pt and staff
[2017-12-14] MEDS: methylPREDNISolone NA SUCC 40 MG/1 ML VIAL IVPUSH SCH ×2 (12:35→18:14)
[2017-12-14] MEDS: POTASSIUM CHLORIDE TABS 10 MEQ TABLET.ER (FP) PO SCH (12:47)
[2017-12-14] MEDS: ATORVASTATIN CA 40 MG TABLET (FP) PO SCH (21:31)
[2017-12-14] MEDS: MONTELUKAST NA 10 MG TABLET PO SCH (21:31)
[2017-12-14] MEDS: ALBUTEROL SO4 0.083% IH SOL 2.5 MG/3 ML VIAL.NEB. NEB PRN (21:31)
[2017-12-14] MEDS ORDERED: INSULIN (LEVEMIR) 100 UNITS/ML UNITS SQ ONE (21:34)
[2017-12-15] MEDS: methylPREDNISolone NA SUCC 40 MG/1 ML VIAL IVPUSH SCH ×3 (01:15→17:11)
[2017-12-15] MEDS: sitaGLIPtin PHOSPHATE 100 MG TABLET (FP) PO SCH (06:28)
[2017-12-15] MEDS: LEVOTHYROXINE NA 75 MCG TABLET (FP) PO SCH (06:28)
[2017-12-15] MEDS: INSULIN SLIDING SCALE (NOVOLOG) 1 VIAL SQ SCH ×4 (06:28→21:24)
[2017-12-15 06:35] LABS: BASO % 0.1 % (0-2.0); HEMATOCRIT 38.6 % (32.4-45.2); HEMOGLOBIN 12.8 GM/dL (10.7-15.3); MCH 31.7 pg (25.7-33.7); MCHC 33.1 g/dl (32.0-36.0); MEAN CELL VOLUME 95.7 fl (80-96); MEAN PLT VOLUME 9.1 fl (7.5-11.1); NEUT % 92.9 % (42.8-82.8); PLATELET COUNT 197 K/MM3 (134-434); RBC 4.03 M/mm3 (3.60-5.2); WHITE BLOOD COUNT 16.4 K/mm3 (4.0-10.0)
[2017-12-15 06:54] LABS: ALK PHOS 85 U/L (45-117); ANION GAP 6 MMOL/L (8-16); BILIRUBIN,TOTAL 0.4 mg/dL (0.2-1); BLOOD UREA NITROGEN 55 mg/dL (7-18); CALCIUM 9.4 mg/dL (8.5-10.1); CHLORIDE 98 mmol/L (98-107); CO2 40 mmol/L (21-32); CREATININE 0.9 mg/dL (0.55-1.3); GLUCOSE,RANDOM 152 mg/dL (74-106); POTASSIUM 3.8 mmol/L (3.5-5.1); SGOT/AST 30 U/L (15-37); SGPT/ALT 45 U/L (13-61); SODIUM 144 mmol/L (136-145); TOT PROT 5.5 g/dl (6.4-8.2)
[2017-12-15] MEDS: LEVALBUTEROL HCL 0.63 MG/3 ML VIAL.NEB. IH SCH ×2 (08:09→20:22)
[2017-12-15] MEDS: INSULIN (LEVEMIR) 100 UNITS/ML UNITS SQ SCH ×2 (08:37→21:23)
--- NOTE | 2017-12-15 09:41 | PN ---
Progress Note, Physician Chief Complaint: in bed awake NAD no new c/o - Current Medication List Current Medications: Active Medications Albuterol Sulfate (Ventolin 0.083% Nebulizer Soln -) 1 amp NEB Q6H PRN PRN Reason: SHORT OF BREATH/WHEEZING Last Admin: 12/14/17 21:31 Dose: 1 amp Apixaban (Eliquis -) 5 mg PO BID [facility] Last Admin: 12/14/17 21:31 Dose: 5 mg Atorvastatin Calcium (Lipitor -) 40 mg PO HS [facility] Last Admin: 12/14/17 21:31 Dose: 40 mg Brimonidine Tartrate (Alphagan P 0.1% -) 1 drop OU BID [facility] Last Admin: 12/14/17 21:37 Dose: 1 drop Digoxin (Lanoxin -) 0.125 mg PO DAILY [facility] Last Admin: 12/14/17 11:06 Dose: 0.125 mg Diltiazem HCl (Cardizem Cd -) 120 mg PO DAILY [facility] Last Admin: 12/14/17 11:05 Dose: 120 mg Furosemide (Lasix -) 40 mg PO DAILY [facility] Last Admin: 12/14/17 11:06 Dose: 40 mg Insulin Aspart (Novolog Vial Sliding Scale -) 1 vial SQ [facility]; Protocol Last Admin: 12/15/17 06:28 Dose: Not Given Insulin Detemir (Levemir Vial) 34 units SQ AM [facility] Last Admin: 12/15/17 08:37 Dose: 34 units Insulin Detemir (Levemir Vial) 12 units SQ HS [facility] Last Admin: 12/14/17 21:37 Dose: 12 units Latanoprost (Xalatan 0.005% Eye Drops -) 1 drop OU DAILY [facility] Last Admin: 12/14/17 11:08 Dose: 1 drop Levalbuterol HCl (Xopenex) 0.63 mg IH RBID [facility] Last Admin: 12/15/17 08:09 Dose: 0.63 mg Levothyroxine Sodium (Synthroid -) 75 mcg PO AM [facility] Last Admin: 12/15/17 06:28 Dose: 75 mcg Methylprednisolone Sodium Succinate (Solu-Medrol -) 40 mg IVPUSH Q8H-IV [facility] Last Admin: 12/15/17 01:15 Dose: 40 mg Montelukast Sodium (Singulair -) 10 mg PO HS [facility] Last Admin: 12/14/17 21:31 Dose: 10 mg Non-Formulary Medication (Brinzolamide [Azopt]) 1 drop OU BID [facility] Potassium Chloride (K-Dur -) 10 meq PO DAILY [facility] Last Admin: 12/14/17 12:47 Dose: 10 meq Roflumilast (Daliresp -) 500 mcg PO DAILY [facility] Last Admin: 12/14/17 11:07 Dose: 500 mcg Sitagliptin Phosphate (Januvia -) 100 mg PO AM [facility] Last Admin: 12/15/17 06:28 Dose: 100 mg Tiotropium [place] (Spiriva Respimat) 2 puff IH DAILY [facility] Last Admin: 12/14/17 11:08 Dose: 2 puff - Objective Vital Signs: Vital Signs Temperature 98.2 F 12/15/17 02:15 Pulse Rate 68 12/15/17 02:15 Respiratory Rate 20 12/15/17 02:15 Blood Pressure 115/76 12/15/17 02:15 O2 Sat by Pulse Oximetry (%) 98 12/15/17 08:08 Constitutional: Yes: No Distress, Calm Eyes: Yes: Conjunctiva Clear HENT: Yes: Atraumatic Neck: Yes: Supple Cardiovascular: Yes: Regular Rate and Rhythm Respiratory: Yes: Rales Gastrointestinal: Yes: Soft. No: Distention Genitourinary: No: Hematuria Musculoskeletal: No: Joint Stiffness, Joint Swelling Extremities: No: Cold, Cool, Cyanosis Edema: No Integumentary: No: Rash Neurological: Yes: WNL, Alert, Oriented ...Motor Strength: WNL Psychiatric: Yes: WNL, Alert, Oriented. No: Agitated Labs: CBC, BMP 12/15/17 05:30 12/15/17 05:30 - ....Imaging Other: Report Reviewed Assessment/Plan Ms. Jaime is a 72 yo F with a hx of COPD, pulmonary HTN, diastolic CHF, IDDM, and hypothyroidism admitted with respiratory failure COPD exac acute COPD on chronic COPD iv steroids; O2 NCX, nebs pulmonary f/u gastric PFX / on steroids BGM control sq insulin f/u labs falls DVT decubs PFX d/w pt and staff
[2017-12-15] MEDS ORDERED: PT OWN MED DRAWER 7, Y5N ONE ×3 (10:00→17:19)
[2017-12-15] MEDS: ROFLUMILAST 500 MCG TABLET PO SCH (10:06)
[2017-12-15] MEDS: DIGOXIN 0.125 MG TABLET (FP) PO SCH (10:06)
[2017-12-15] MEDS: APIXABAN 5 MG TABLET PO SCH ×2 (10:06→21:19)
[2017-12-15] MEDS: FUROSEMIDE 40 MG TABLET (FP) PO SCH (10:06)
[2017-12-15] MEDS: POTASSIUM CHLORIDE TABS 10 MEQ TABLET.ER (FP) PO SCH (10:07)
[2017-12-15] MEDS: BRIMONIDINE TARTRATE 0.1% OPHTHALMIC 5 ML BOTTLE OU SCH ×2 (10:07→21:20)
[2017-12-15] MEDS: TIOTROPIUM BROMIDE 2.5 MCG (SPIRIVA) RESPIMAT INHALER IH SCH (10:10)
--- NOTE | 2017-12-15 10:25 | PN ---
Progress Note (short form) - Note Progress Note: Chief Complaint: shortness of breath s: sob improving, no cp palps dizzy Current Medications Generic Name Dose Route Start Last Admin Trade Name Erik PRN Reason Stop Dose Admin Albuterol Sulfate 1 amp 12/12/17 19:28 12/14/17 21:31 Ventolin 0.083% Nebulizer Soln - NEB 1 amp Q6H PRN Administration SHORT OF BREATH/WHEEZING Apixaban 5 mg 12/12/17 22:00 12/15/17 10:06 Eliquis - PO 5 mg BID [facility] Administration Atorvastatin Calcium 40 mg 12/12/17 22:00 12/14/17 21:31 Lipitor - PO 40 mg HS [facility] Administration Brimonidine Tartrate 1 drop 12/12/17 22:00 12/15/17 10:07 Alphagan P 0.1% - OU 1 drop BID [facility] Administration Digoxin 0.125 mg 12/13/17 10:00 12/15/17 10:06 Lanoxin - PO 0.125 mg DAILY [facility] Administration Diltiazem HCl 120 mg 12/13/17 10:00 12/15/17 10:06 Cardizem Cd - PO 120 mg DAILY [facility] Administration Furosemide 40 mg 12/13/17 10:00 12/15/17 10:06 Lasix - PO 40 mg DAILY [facility] Administration Insulin Aspart 1 vial 12/12/17 22:00 12/15/17 06:28 Novolog Vial Sliding Scale - SQ Not Given ACHS [facility] Protocol Insulin Detemir 34 units 12/14/17 07:00 12/15/17 08:37 Levemir Vial SQ 34 units AM [facility] Administration Insulin Detemir 12 units 12/14/17 22:00 12/14/17 21:37 Levemir Vial SQ 12 units HS [facility] Administration Latanoprost 1 drop 12/13/17 10:00 12/14/17 11:08 Xalatan 0.005% Eye Drops - OU 1 drop DAILY [facility] Administration Levalbuterol HCl 0.63 mg 12/13/17 20:00 12/15/17 08:09 Xopenex IH 0.63 mg RBID [facility] Administration Levothyroxine Sodium 75 mcg 12/13/17 07:00 12/15/17 06:28 Synthroid - PO 75 mcg AM [facility] Administration Methylprednisolone Sodium Succinate 40 mg 12/14/17 12:15 12/15/17 10:06 Solu-Medrol - IVPUSH 40 mg Q8H-IV [facility] Administration Montelukast Sodium 10 mg 12/12/17 22:00 12/14/17 21:31 Singulair - PO 10 mg HS [facility] Administration Non-Formulary Medication 1 drop 12/12/17 22:00 Brinzolamide [Azopt] OU BID [facility] Potassium Chloride 10 meq 12/14/17 12:15 12/15/17 10:07 K-Dur - PO 10 meq DAILY [facility] Administration Roflumilast 500 mcg 12/13/17 12:45 12/15/17 10:06 Daliresp - PO 500 mcg DAILY [facility] Administration Sitagliptin Phosphate 100 mg 12/13/17 07:00 12/15/17 06:28 Januvia - PO 100 mg AM [facility] Administration Tiotropium [place] 2 puff 12/13/17 10:00 12/15/17 10:10 Spiriva Respimat IH 2 puff DAILY [facility] Administration Vital Signs Period Temp Pulse Resp BP Sys/Anthony Pulse Ox Last 24 Hr 97.7 F-98.2 F 68-90 20-21 115-139/54-76 98-98 Constitutional: Yes: No Distress, Calm Eyes: Yes: Conjunctiva Clear Respiratory: Yes: Regular, mild expiratory wheezes, nl eff, On Nasal O2 Gastrointestinal: Yes: Normal Bowel Sounds, Soft Cardiovascular: Yes: Regular Rate and Rhythm JVD: No Heart Sounds: Yes: S1, S2 Edema: No Peripheral Pulses: 2+ Left Doralis Pedis, 2+ Right Dorsalis Pedis Integumentary: Yes: no jaunidce diaphoresis Neurological: Yes: Alert, Oriented Echo 10/2015: Nl lv/rv. suboptimal views, but at least mild AR. Mod MAC. 1+ MR. No MS. trivial effusion. RVSP not measured. echo 09/2016: tds; nl lv/rv, mv calcified, mac, mild-mod mr, sev tr, small peric eff-->MV calcification is chronic finding for her and not indicative of vegetation CXR: hyperaerated lung, no effusion EKG: sinus, nonspecific ST segment changes tele:sinus Assessment/Plan Elevated trop - 0.07->0.06 - mild elevation with flat trend, EKG stable, not consistent with ACS - management of COPD exacerbation as below Shortness of breath, COPD - O2 dependent, on BiPap, chronic prednisone - IV solumedrol, less dyspnea, on nasal canula - manage per pulm, PMD Chronic diastolic CHF - continue lasix PO - stable volume status pAFib - in sinus now - continue eliquis, digoxin, diltiazem HLD - continue statin dc tele
[2017-12-15 10:53] LABS: ANISOCYTOSIS 1+; MACROCYTOSIS 1+
--- NOTE | 2017-12-15 13:15 | PN ---
Progress Note (short form) - Note Progress Note: PULMONARY Still with shortness of breath, cough and chest tightness. Vital Signs Period Temp Pulse Resp BP Sys/Anthony Pulse Ox Last 24 Hr 97.7 F-98.4 F 68-88 20-21 115-139/54-76 98-98 Gen: mildly tachypneic at rest Heart: RRR Lung: distant breath sounds Abd: soft, nontender Ext: no edema CBC, BMP 12/15/17 05:30 12/15/17 05:30 Active Medications Albuterol Sulfate (Ventolin 0.083% Nebulizer Soln -) 1 amp NEB Q6H PRN PRN Reason: SHORT OF BREATH/WHEEZING Last Admin: 12/14/17 21:31 Dose: 1 amp Apixaban (Eliquis -) 5 mg PO BID [facility] Last Admin: 12/15/17 10:06 Dose: 5 mg Atorvastatin Calcium (Lipitor -) 40 mg PO HS [facility] Last Admin: 12/14/17 21:31 Dose: 40 mg Brimonidine Tartrate (Alphagan P 0.1% -) 1 drop OU BID [facility] Last Admin: 12/15/17 10:07 Dose: 1 drop Digoxin (Lanoxin -) 0.125 mg PO DAILY [facility] Last Admin: 12/15/17 10:06 Dose: 0.125 mg Diltiazem HCl (Cardizem Cd -) 120 mg PO DAILY [facility] Last Admin: 12/15/17 10:06 Dose: 120 mg Furosemide (Lasix -) 40 mg PO DAILY [facility] Last Admin: 12/15/17 10:06 Dose: 40 mg Insulin Aspart (Novolog Vial Sliding Scale -) 1 vial SQ ACHS [facility]; Protocol Last Admin: 12/15/17 12:19 Dose: 6 units Insulin Detemir (Levemir Vial) 34 units SQ AM [facility] Last Admin: 12/15/17 08:37 Dose: 34 units Insulin Detemir (Levemir Vial) 12 units SQ HS [facility] Last Admin: 12/14/17 21:37 Dose: 12 units Latanoprost (Xalatan 0.005% Eye Drops -) 1 drop OU DAILY [facility] Last Admin: 12/14/17 11:08 Dose: 1 drop Levalbuterol HCl (Xopenex) 0.63 mg IH RBID [facility] Last Admin: 12/15/17 08:09 Dose: 0.63 mg Levothyroxine Sodium (Synthroid -) 75 mcg PO AM [facility] Last Admin: 12/15/17 06:28 Dose: 75 mcg Methylprednisolone Sodium Succinate (Solu-Medrol -) 40 mg IVPUSH Q8H-IV [facility] Last Admin: 12/15/17 10:06 Dose: 40 mg Montelukast Sodium (Singulair -) 10 mg PO HS [facility] Last Admin: 12/14/17 21:31 Dose: 10 mg Non-Formulary Medication (Brinzolamide [Azopt]) 1 drop OU BID [facility] Potassium Chloride (K-Dur -) 10 meq PO DAILY [facility] Last Admin: 12/15/17 10:07 Dose: 10 meq Roflumilast (Daliresp -) 500 mcg PO DAILY [facility] Last Admin: 12/15/17 10:06 Dose: 500 mcg Sitagliptin Phosphate (Januvia -) 100 mg PO AM [facility] Last Admin: 12/15/17 06:28 Dose: 100 mg Tiotropium [place] (Spiriva Respimat) 2 puff IH DAILY [facility] Last Admin: 12/15/17 10:10 Dose: 2 puff A/P Acute on Chronic Hypoxic and Hypercapneic Respiratory Failure Acute COPD Exacerbation Pulmonary HTN LV Diastolic Dysfunction Paroxysmal Atrial Fibrillation DM Hypothyroidism - continue medrol at current dose - inhaled bronchodilators - O2 to keep Spo2 >90% - BiPAP as needed to assist in work of breathing - daliresp - rate control - continue anticoagulation
[2017-12-15] MEDS: LATANOPROST 0.005% OPHTH SOLN 2.5ML BOTTLE OU SCH (17:11)
[2017-12-15] MEDS: ATORVASTATIN CA 40 MG TABLET (FP) PO SCH (21:19)
[2017-12-15] MEDS: MONTELUKAST NA 10 MG TABLET PO SCH (21:19)
[2017-12-16] MEDS: methylPREDNISolone NA SUCC 40 MG/1 ML VIAL IVPUSH SCH ×3 (01:07→17:51)
[2017-12-16] MEDS: LEVOTHYROXINE NA 75 MCG TABLET (FP) PO SCH (06:26)
[2017-12-16] MEDS: INSULIN SLIDING SCALE (NOVOLOG) 1 VIAL SQ SCH ×5 (06:27→23:07)
[2017-12-16 07:30] LABS: BASO % 0.1 % (0-2.0); HEMATOCRIT 37.4 % (32.4-45.2); HEMOGLOBIN 12.5 GM/dL (10.7-15.3); LYMPH % 3.8 % (8-40); MCH 32.4 pg (25.7-33.7); MCHC 33.5 g/dl (32.0-36.0); MEAN CELL VOLUME 96.6 fl (80-96); MEAN PLT VOLUME 9.1 fl (7.5-11.1); MONO % 4.3 % (3.8-10.2); NEUT % 91.8 % (42.8-82.8); PLATELET COUNT 184 K/MM3 (134-434); RBC 3.87 M/mm3 (3.60-5.2); RDW 13.9 % (11.6-15.6); WHITE BLOOD COUNT 16.1 K/mm3 (4.0-10.0)
[2017-12-16] MEDS: LEVALBUTEROL HCL 0.63 MG/3 ML VIAL.NEB. IH SCH ×2 (07:42→20:18)
[2017-12-16 08:12] LABS: ALBUMIN 2.9 g/dl (3.4-5.0); ALK PHOS 75 U/L (45-117); ANION GAP 6 MMOL/L (8-16); BILIRUBIN,TOTAL 0.4 mg/dL (0.2-1); BLOOD UREA NITROGEN 57 mg/dL (7-18); CALCIUM 9.4 mg/dL (8.5-10.1); CHLORIDE 99 mmol/L (98-107); CO2 39 mmol/L (21-32); CREATININE 0.7 mg/dL (0.55-1.3); GLUCOSE,RANDOM 63 mg/dL (74-106); POTASSIUM 3.7 mmol/L (3.5-5.1); SGOT/AST 31 U/L (15-37); SGPT/ALT 46 U/L (13-61); SODIUM 144 mmol/L (136-145); TOT PROT 5.4 g/dl (6.4-8.2)
--- NOTE | 2017-12-16 10:29 | PN ---
Progress Note (short form) - Note Progress Note: Chief Complaint: shortness of breath s: sob improving, no cp palps dizzy Current Medications Generic Name Dose Route Start Last Admin Trade Name Erik PRN Reason Stop Dose Admin Albuterol Sulfate 1 amp 12/12/17 19:28 12/14/17 21:31 Ventolin 0.083% Nebulizer Soln - NEB 1 amp Q6H PRN Administration SHORT OF BREATH/WHEEZING Apixaban 5 mg 12/12/17 22:00 12/15/17 21:19 Eliquis - PO 5 mg BID [facility] Administration Atorvastatin Calcium 40 mg 12/12/17 22:00 12/15/17 21:19 Lipitor - PO 40 mg HS [facility] Administration Brimonidine Tartrate 1 drop 12/12/17 22:00 12/15/17 21:20 Alphagan P 0.1% - OU 1 drop BID [facility] Administration Digoxin 0.125 mg 12/13/17 10:00 12/15/17 10:06 Lanoxin - PO 0.125 mg DAILY [facility] Administration Diltiazem HCl 120 mg 12/13/17 10:00 12/15/17 10:06 Cardizem Cd - PO 120 mg DAILY [facility] Administration Furosemide 40 mg 12/13/17 10:00 12/15/17 10:06 Lasix - PO 40 mg DAILY [facility] Administration Insulin Aspart 1 vial 12/12/17 22:00 12/16/17 06:27 Novolog Vial Sliding Scale - SQ Not Given ACHS [facility] Protocol Insulin Detemir 34 units 12/14/17 07:00 12/15/17 08:37 Levemir Vial SQ 34 units AM [facility] Administration Insulin Detemir 12 units 12/14/17 22:00 12/15/17 21:23 Levemir Vial SQ Not Given HS [facility] Latanoprost 1 drop 12/13/17 10:00 12/15/17 17:11 Xalatan 0.005% Eye Drops - OU 1 drop DAILY [facility] Administration Levalbuterol HCl 0.63 mg 12/13/17 20:00 12/16/17 07:42 Xopenex IH 0.63 mg RBID [facility] Administration Levothyroxine Sodium 75 mcg 12/13/17 07:00 12/16/17 06:26 Synthroid - PO 75 mcg AM [facility] Administration Methylprednisolone Sodium Succinate 40 mg 12/14/17 12:15 12/16/17 01:07 Solu-Medrol - IVPUSH 40 mg Q8H-IV [facility] Administration Montelukast Sodium 10 mg 12/12/17 22:00 12/15/17 21:19 Singulair - PO 10 mg HS [facility] Administration Non-Formulary Medication 1 drop 12/12/17 22:00 Brinzolamide [Azopt] OU BID [facility] Potassium Chloride 10 meq 12/14/17 12:15 12/15/17 10:07 K-Dur - PO 10 meq DAILY [facility] Administration Roflumilast 500 mcg 12/13/17 12:45 12/15/17 10:06 Daliresp - PO 500 mcg DAILY [facility] Administration Sitagliptin Phosphate 100 mg 12/13/17 07:00 12/15/17 06:28 Januvia - PO 100 mg AM [facility] Administration Tiotropium [place] 2 puff 12/13/17 10:00 12/15/17 10:10 Spiriva Respimat IH 2 puff DAILY [facility] Administration Vital Signs Period Temp Pulse Resp BP Sys/Anthony Pulse Ox Last 24 Hr 97.4 F-97.9 F 67-81 18-20 127-151/48-66 94-98 Constitutional: Yes: No Distress, Calm Eyes: Yes: Conjunctiva Clear Respiratory: Yes: Regular, mild expiratory wheezes, nl eff, On Nasal O2 Gastrointestinal: Yes: Normal Bowel Sounds, Soft Cardiovascular: Yes: Regular Rate and Rhythm JVD: No Heart Sounds: Yes: S1, S2 Edema: No Peripheral Pulses: 2+ Left Doralis Pedis, 2+ Right Dorsalis Pedis Integumentary: Yes: no jaunidce diaphoresis Neurological: Yes: Alert, Oriented Echo 10/2015: Nl lv/rv. suboptimal views, but at least mild AR. Mod MAC. 1+ MR. No MS. trivial effusion. RVSP not measured. echo 09/2016: tds; nl lv/rv, mv calcified, mac, mild-mod mr, sev tr, small peric eff-->MV calcification is chronic finding for her and not indicative of vegetation CXR: hyperaerated lung, no effusion EKG: sinus, nonspecific ST segment changes tele:sinus Assessment/Plan Elevated trop - 0.07->0.06 - mild elevation with flat trend, EKG stable, not consistent with ACS - management of COPD exacerbation as below Shortness of breath, COPD - O2 dependent, on BiPap, chronic prednisone - IV solumedrol, less dyspnea, on nasal canula - manage per pulm, PMD Chronic diastolic CHF - continue lasix PO - stable volume status pAFib - in sinus now - continue eliquis, digoxin, diltiazem HLD - continue statin dc tele
--- NOTE | 2017-12-16 10:44 | PN ---
Progress Note, Physician History of Present Illness: Pt is BIPAP this AM, breathing better. Pt w/o CP, palpitations, abd pain, N, V, costipation, diarrhea. - Current Medication List Current Medications: Active Medications Albuterol Sulfate (Ventolin 0.083% Nebulizer Soln -) 1 amp NEB Q6H PRN PRN Reason: SHORT OF BREATH/WHEEZING Last Admin: 12/14/17 21:31 Dose: 1 amp Apixaban (Eliquis -) 5 mg PO BID [facility] Last Admin: 12/15/17 21:19 Dose: 5 mg Atorvastatin Calcium (Lipitor -) 40 mg PO HS [facility] Last Admin: 12/15/17 21:19 Dose: 40 mg Brimonidine Tartrate (Alphagan P 0.1% -) 1 drop OU BID [facility] Last Admin: 12/15/17 21:20 Dose: 1 drop Digoxin (Lanoxin -) 0.125 mg PO DAILY [facility] Last Admin: 12/15/17 10:06 Dose: 0.125 mg Diltiazem HCl (Cardizem Cd -) 120 mg PO DAILY [facility] Last Admin: 12/15/17 10:06 Dose: 120 mg Furosemide (Lasix -) 40 mg PO DAILY [facility] Last Admin: 12/15/17 10:06 Dose: 40 mg Insulin Aspart (Novolog Vial Sliding Scale -) [facility]; Protocol Last Admin: 12/16/17 06:27 Dose: Not Given Insulin Detemir (Levemir Vial) 34 units SQ AM [facility] Last Admin: 12/15/17 08:37 Dose: 34 units Insulin Detemir (Levemir Vial) 12 units SQ HS [facility] Last Admin: 12/15/17 21:23 Dose: Not Given Latanoprost (Xalatan 0.005% Eye Drops -) 1 drop OU DAILY [facility] Last Admin: 12/15/17 17:11 Dose: 1 drop Levalbuterol HCl (Xopenex) 0.63 mg IH RBID [facility] Last Admin: 12/16/17 07:42 Dose: 0.63 mg Levothyroxine Sodium (Synthroid -) 75 mcg PO AM [facility] Last Admin: 12/16/17 06:26 Dose: 75 mcg Methylprednisolone Sodium Succinate (Solu-Medrol -) 40 mg IVPUSH Q8H-IV [facility] Last Admin: 12/16/17 01:07 Dose: 40 mg Montelukast Sodium (Singulair -) 10 mg PO HS [facility] Last Admin: 12/15/17 21:19 Dose: 10 mg Non-Formulary Medication (Brinzolamide [Azopt]) 1 drop OU BID [facility] Potassium Chloride (K-Dur -) 10 meq PO DAILY [facility] Last Admin: 12/15/17 10:07 Dose: 10 meq Roflumilast (Daliresp -) 500 mcg PO DAILY [facility] Last Admin: 12/15/17 10:06 Dose: 500 mcg Sitagliptin Phosphate (Januvia -) 100 mg PO AM [facility] Last Admin: 12/15/17 06:28 Dose: 100 mg Tiotropium [place] (Spiriva Respimat) 2 puff IH DAILY [facility] Last Admin: 12/15/17 10:10 Dose: 2 puff - Objective Vital Signs: Vital Signs Temperature 97.6 F 12/16/17 05:51 Pulse Rate 69 12/16/17 08:21 Respiratory Rate 18 12/16/17 08:21 Blood Pressure 127/48 L 12/16/17 08:21 O2 Sat by Pulse Oximetry (%) 95 12/16/17 10:16 Constitutional: Yes: No Distress, Calm Cardiovascular: Yes: Regular Rate and Rhythm, S1, S2 Respiratory: Yes: Regular, Diminished, Other (coarse at bases) Gastrointestinal: Yes: Normal Bowel Sounds, Soft. No: Tenderness Edema: No Neurological: Yes: Alert, Oriented Labs: CBC, BMP 12/16/17 06:15 12/16/17 06:15 Problem List - Problems (1) Acute and chronic respiratory failure with hypercapnia Code(s): J96.22 - ACUTE AND CHRONIC RESPIRATORY FAILURE WITH HYPERCAPNIA (2) COPD with acute exacerbation Code(s): J44.1 - CHRONIC OBSTRUCTIVE PULMONARY DISEASE W (ACUTE) EXACERBATION (3) Diabetes mellitus Code(s): E11.9 - TYPE 2 DIABETES MELLITUS WITHOUT COMPLICATIONS (4) Hypertension Code(s): I10 - ESSENTIAL (PRIMARY) HYPERTENSION (5) Paroxysmal atrial fibrillation Code(s): I48.0 - PAROXYSMAL ATRIAL FIBRILLATION (6) Elevated troponin I level Code(s): R74.8 - ABNORMAL LEVELS OF OTHER SERUM ENZYMES (7) Leukocytosis Code(s): D72.829 - ELEVATED WHITE BLOOD CELL COUNT, UNSPECIFIED Assessment/Plan IV Solu-Medrol Admitted to Telemetry Pulmonary and Cardio consults and f/u are appreciated Case was d/w Dr. Reid. AM labs case was d/w pt's nurse.
--- NOTE | 2017-12-16 11:39 | PN ---
Progress Note, Physician History of Present Illness: PULMONARY C/O SOB PLACED ON BIPAP ,FEELING BETTER LESS DYSPNEIC - Current Medication List Current Medications: Active Medications Albuterol Sulfate (Ventolin 0.083% Nebulizer Soln -) 1 amp NEB Q6H PRN PRN Reason: SHORT OF BREATH/WHEEZING Last Admin: 12/14/17 21:31 Dose: 1 amp Apixaban (Eliquis -) 5 mg PO BID [facility] Last Admin: 12/15/17 21:19 Dose: 5 mg Atorvastatin Calcium (Lipitor -) 40 mg PO HS [facility] Last Admin: 12/15/17 21:19 Dose: 40 mg Brimonidine Tartrate (Alphagan P 0.1% -) 1 drop OU BID [facility] Last Admin: 12/15/17 21:20 Dose: 1 drop Digoxin (Lanoxin -) 0.125 mg PO DAILY [facility] Last Admin: 12/15/17 10:06 Dose: 0.125 mg Diltiazem HCl (Cardizem Cd -) 120 mg PO DAILY [facility] Last Admin: 12/15/17 10:06 Dose: 120 mg Furosemide (Lasix -) 40 mg PO DAILY [facility] Last Admin: 12/15/17 10:06 Dose: 40 mg Insulin Aspart (Novolog Vial Sliding Scale -) 1 vial SQ ACHS [facility]; Protocol Last Admin: 12/16/17 06:27 Dose: Not Given Insulin Detemir (Levemir Vial) 34 units SQ AM [facility] Last Admin: 12/15/17 08:37 Dose: 34 units Insulin Detemir (Levemir Vial) 12 units SQ HS [facility] Last Admin: 12/15/17 21:23 Dose: Not Given Latanoprost (Xalatan 0.005% Eye Drops -) 1 drop OU DAILY [facility] Last Admin: 12/15/17 17:11 Dose: 1 drop Levalbuterol HCl (Xopenex) 0.63 mg IH RBID [facility] Last Admin: 12/16/17 07:42 Dose: 0.63 mg Levothyroxine Sodium (Synthroid -) 75 mcg PO AM [facility] Last Admin: 12/16/17 06:26 Dose: 75 mcg Methylprednisolone Sodium Succinate (Solu-Medrol -) 40 mg IVPUSH Q8H-IV [facility] Last Admin: 12/16/17 01:07 Dose: 40 mg Montelukast Sodium (Singulair -) 10 mg PO HS [facility] Last Admin: 12/15/17 21:19 Dose: 10 mg Non-Formulary Medication (Brinzolamide [Azopt]) 1 drop OU BID [facility] Potassium Chloride (K-Dur -) 10 meq PO DAILY [facility] Last Admin: 12/15/17 10:07 Dose: 10 meq Roflumilast (Daliresp -) 500 mcg PO DAILY [facility] Last Admin: 12/15/17 10:06 Dose: 500 mcg Sitagliptin Phosphate (Januvia -) 100 mg PO AM [facility] Last Admin: 12/15/17 06:28 Dose: 100 mg Tiotropium [place] (Spiriva Respimat) 2 puff IH DAILY [facility] Last Admin: 12/15/17 10:10 Dose: 2 puff - Objective Vital Signs: Vital Signs Temperature 97.6 F 12/16/17 05:51 Pulse Rate 69 12/16/17 08:21 Respiratory Rate 18 12/16/17 08:21 Blood Pressure 127/48 L 12/16/17 08:21 O2 Sat by Pulse Oximetry (%) 95 12/16/17 10:16 Constitutional: Yes: Calm, Thin Eyes: Yes: WNL HENT: Yes: WNL Neck: Yes: WNL Cardiovascular: Yes: Regular Rate and Rhythm, S1, S2 Respiratory: Yes: Diminished Gastrointestinal: Yes: Normal Bowel Sounds, Soft Extremities: Yes: WNL Edema: No Labs: CBC, BMP 12/16/17 06:15 12/16/17 06:15 Problem List - Problems (1) Acute on chronic respiratory failure with hypoxia and hypercapnia Code(s): J96.21 - ACUTE AND CHRONIC RESPIRATORY FAILURE WITH HYPOXIA; J96.22 - ACUTE AND CHRONIC RESPIRATORY FAILURE WITH HYPERCAPNIA (2) COPD with acute exacerbation Code(s): J44.1 - CHRONIC OBSTRUCTIVE PULMONARY DISEASE W (ACUTE) EXACERBATION (3) Diabetes mellitus Code(s): E11.9 - TYPE 2 DIABETES MELLITUS WITHOUT COMPLICATIONS (4) Paroxysmal atrial fibrillation Code(s): I48.0 - PAROXYSMAL ATRIAL FIBRILLATION (5) Pulmonary HTN Code(s): I27.20 - PULMONARY HYPERTENSION, UNSPECIFIED (6) Diastolic HF (heart failure) Code(s): I50.30 - UNSPECIFIED DIASTOLIC (CONGESTIVE) HEART FAILURE (7) Hypothyroid Code(s): E03.9 - HYPOTHYROIDISM, UNSPECIFIED Assessment/Plan IMP ACUTE ON CHRONIC HYPOXEMIC/HYPERCAPNEIC RESPIRATORY FAILURE COPD EXACERBATION IMPROVING PULMONARY HTN PAF IDDM DIASTOLIC HF HYPOTHYROIDISM PLAN STEROIDS INHALED BRONCHODILATORS O2 BIPAP AT NIGHT AND PRN DALIRESP PULMONARY REHAB POST DISCHARGE DR SOLOMON Problem List - Problems (1) Acute on chronic respiratory failure with hypoxia and hypercapnia Code(s): J96.21 - ACUTE AND CHRONIC RESPIRATORY FAILURE WITH HYPOXIA; J96.22 - ACUTE AND CHRONIC RESPIRATORY FAILURE WITH HYPERCAPNIA (2) COPD with acute exacerbation Code(s): J44.1 - CHRONIC OBSTRUCTIVE PULMONARY DISEASE W (ACUTE) EXACERBATION (3) Diabetes mellitus Code(s): E11.9 - TYPE 2 DIABETES MELLITUS WITHOUT COMPLICATIONS (4) Paroxysmal atrial fibrillation Code(s): I48.0 - PAROXYSMAL ATRIAL FIBRILLATION (5) Pulmonary HTN Code(s): I27.20 - PULMONARY HYPERTENSION, UNSPECIFIED (6) Diastolic HF (heart failure) Code(s): I50.30 - UNSPECIFIED DIASTOLIC (CONGESTIVE) HEART FAILURE (7) Hypothyroid Code(s): E03.9 - HYPOTHYROIDISM, UNSPECIFIED
[2017-12-16] MEDS: sitaGLIPtin PHOSPHATE 100 MG TABLET (FP) PO SCH ×2 (11:46→11:47)
[2017-12-16] MEDS: INSULIN (LEVEMIR) 100 UNITS/ML UNITS SQ SCH ×2 (11:46→23:07)
[2017-12-16] MEDS: FUROSEMIDE 40 MG TABLET (FP) PO SCH (11:47)
[2017-12-16] MEDS: BRIMONIDINE TARTRATE 0.1% OPHTHALMIC 5 ML BOTTLE OU SCH ×3 (11:47→21:41)
[2017-12-16] MEDS: DIGOXIN 0.125 MG TABLET (FP) PO SCH (11:47)
[2017-12-16] MEDS: APIXABAN 5 MG TABLET PO SCH ×2 (11:48→21:41)
[2017-12-16] MEDS: POTASSIUM CHLORIDE TABS 10 MEQ TABLET.ER (FP) PO SCH (11:48)
[2017-12-16] MEDS ORDERED: PT OWN MED DRAWER 7, Y5N ONE ×3 (11:50→22:21)
[2017-12-16 11:54] LABS: ACANTHOCYTES 0; ANISOCYTOSIS 0; HELMET CELLS 0; HOWELL-JOLLY BODIES 0; MACROCYTOSIS 0; OVALOCYTE 0; PLATELET ESTIMATE NORMAL; ROULEAU 0; SICKELED CELLS 0; TARGET CELLS 0; TEAR DROP CELLS 0; TOXIC GRANULATION 0
[2017-12-16] MEDS: ROFLUMILAST 500 MCG TABLET PO SCH (12:03)
[2017-12-16] MEDS: LATANOPROST 0.005% OPHTH SOLN 2.5ML BOTTLE OU SCH (12:17)
[2017-12-16] MEDS: TIOTROPIUM BROMIDE 2.5 MCG (SPIRIVA) RESPIMAT INHALER IH SCH (12:18)
[2017-12-16] MEDS: MONTELUKAST NA 10 MG TABLET PO SCH (21:41)
[2017-12-16] MEDS: ATORVASTATIN CA 40 MG TABLET (FP) PO SCH (21:41)
[2017-12-17] MEDS: methylPREDNISolone NA SUCC 40 MG/1 ML VIAL IVPUSH SCH ×3 (01:53→17:43)
[2017-12-17] MEDS: LEVOTHYROXINE NA 75 MCG TABLET (FP) PO SCH (06:43)
[2017-12-17] MEDS: INSULIN SLIDING SCALE (NOVOLOG) 1 VIAL SQ SCH ×4 (06:43→22:40)
[2017-12-17] MEDS: INSULIN (LEVEMIR) 100 UNITS/ML UNITS SQ SCH ×2 (06:44→22:41)
[2017-12-17] MEDS: sitaGLIPtin PHOSPHATE 100 MG TABLET (FP) PO SCH (06:49)
[2017-12-17] MEDS ORDERED: PT OWN MED DRAWER 7, Y5N ONE ×2 (07:22→10:34)
[2017-12-17] MEDS: LEVALBUTEROL HCL 0.63 MG/3 ML VIAL.NEB. IH SCH ×2 (07:36→20:30)
[2017-12-17 07:43] LABS: HEMATOCRIT 38.5 % (32.4-45.2); HEMOGLOBIN 12.7 GM/dL (10.7-15.3); MCH 31.2 pg (25.7-33.7); MCHC 32.9 g/dl (32.0-36.0); MEAN PLT VOLUME 9.3 fl (7.5-11.1); PLATELET COUNT 185 K/MM3 (134-434); RBC 4.06 M/mm3 (3.60-5.2); RDW 14.3 % (11.6-15.6); WHITE BLOOD COUNT 19.3 K/mm3 (4.0-10.0)
[2017-12-17 08:43] LABS: ANION GAP 9 MMOL/L (8-16); BLOOD UREA NITROGEN 62 mg/dL (7-18); CALCIUM 9.3 mg/dL (8.5-10.1); CHLORIDE 98 mmol/L (98-107); CO2 37 mmol/L (21-32); CREATININE 0.7 mg/dL (0.55-1.3); GLUCOSE,RANDOM 114 mg/dL (74-106); SODIUM 143 mmol/L (136-145)
[2017-12-17] MEDS: BRIMONIDINE TARTRATE 0.1% OPHTHALMIC 5 ML BOTTLE OU SCH ×2 (11:08→22:41)
[2017-12-17] MEDS: APIXABAN 5 MG TABLET PO SCH ×2 (11:09→22:40)
[2017-12-17] MEDS: DIGOXIN 0.125 MG TABLET (FP) PO SCH (11:09)
[2017-12-17] MEDS: FUROSEMIDE 40 MG TABLET (FP) PO SCH (11:09)
[2017-12-17] MEDS: LATANOPROST 0.005% OPHTH SOLN 2.5ML BOTTLE OU SCH (11:10)
[2017-12-17] MEDS: TIOTROPIUM BROMIDE 2.5 MCG (SPIRIVA) RESPIMAT INHALER IH SCH (11:10)
[2017-12-17] MEDS: POTASSIUM CHLORIDE TABS 10 MEQ TABLET.ER (FP) PO SCH (11:10)
--- NOTE | 2017-12-17 11:32 | CON.PSY ---
Psychiatry Consult Chief Complaint: 72 year old female with a history of severe COPD seen for capacity to make medical decisions . No history of Psych illness. Staff report that she becomes a bit confused in the after noon. She is also on BI Pap. Symptoms: reports: Irritability - Previous Psychiatric Treatment Outpatient: None Inpatient: None - Previous Substance Abuse Treatment Outpatient: None Inpatient: None - Current Medications Current Medications: Active Medications Albuterol Sulfate (Ventolin 0.083% Nebulizer Soln -) 1 amp NEB Q6H PRN PRN Reason: SHORT OF BREATH/WHEEZING Last Admin: 12/14/17 21:31 Dose: 1 amp Apixaban (Eliquis -) 5 mg PO BID [facility] Last Admin: 12/17/17 11:09 Dose: 5 mg Atorvastatin Calcium (Lipitor -) 40 mg PO HS [facility] Last Admin: 12/16/17 21:41 Dose: 40 mg Brimonidine Tartrate (Alphagan P 0.1% -) 1 drop OU BID [facility] Last Admin: 12/17/17 11:08 Dose: 1 drop Digoxin (Lanoxin -) 0.125 mg PO DAILY [facility] Last Admin: 12/17/17 11:09 Dose: 0.125 mg Diltiazem HCl (Cardizem Cd -) 120 mg PO DAILY [facility] Last Admin: 12/17/17 11:10 Dose: 120 mg Furosemide (Lasix -) 40 mg PO DAILY [facility] Last Admin: 12/17/17 11:09 Dose: 40 mg Insulin Aspart (Novolog Vial Sliding Scale -) 1 vial SQ ACHS [facility]; Protocol Last Admin: 12/17/17 11:10 Dose: 4 units Insulin Detemir (Levemir Vial) 34 units SQ AM [facility] Last Admin: 12/17/17 06:44 Dose: 34 units Insulin Detemir (Levemir Vial) 12 units SQ HS [facility] Last Admin: 12/16/17 23:07 Dose: 12 units Latanoprost (Xalatan 0.005% Eye Drops -) 1 drop OU DAILY [facility] Last Admin: 12/17/17 11:10 Dose: 1 drop Levalbuterol HCl (Xopenex) 0.63 mg IH RBID [facility] Last Admin: 12/17/17 07:36 Dose: 0.63 mg Levothyroxine Sodium (Synthroid -) 75 mcg PO AM [facility] Last Admin: 12/17/17 06:43 Dose: 75 mcg Methylprednisolone Sodium Succinate (Solu-Medrol -) 40 mg IVPUSH Q8H-IV [facility] Last Admin: 12/17/17 11:09 Dose: 40 mg Montelukast Sodium (Singulair -) 10 mg PO HS [facility] Last Admin: 12/16/17 21:41 Dose: 10 mg Non-Formulary Medication (Brinzolamide [Azopt]) 1 drop OU BID [facility] Potassium Chloride (K-Dur -) 10 meq PO DAILY [facility] Last Admin: 12/17/17 11:10 Dose: 10 meq Roflumilast (Daliresp -) 500 mcg PO DAILY [facility] Last Admin: 12/16/17 12:03 Dose: 500 mcg Sitagliptin Phosphate (Januvia -) 100 mg PO AM [facility] Last Admin: 12/17/17 06:49 Dose: 100 mg Tiotropium [place] (Spiriva Respimat) 2 puff IH DAILY [facility] Last Admin: 12/17/17 11:10 Dose: 2 puff - Allergies Allergies: Allergies Allergy/AdvReac Type Severity Reaction Status Date / Time No Known Allergies Allergy Verified 12/12/17 14:32 - Current Living Status Usual Living Arrangement: With Spouse - Current Mental Status Evaluation Appearance: Disheveled Attitude: Cooperative - Affect Affect: Constrictive Appropriateness: Appropriate to Content - Mood Mood: Irritable - Speech/Language Expressive: Coherent Receptive: Age Appropriate Comprehension of Spoken Words - Psychomotor Activity Psychomotor Activity: Slowed - Thought Process Thought Process: Intact - Thought Content Hallucinations: Absent Delusions: Absent - Self Perception Self Perception: No Impairment - Cognition Attention: Alert Orientation: Time Memory, Immediate Recall: Intact Memory, Short Term: 2/3 Memory, Remote with Promptin/3 - Concentration Serial Sevens Intact: No Simple Calculations Intact: Yes - Abstraction Proverb Interpretation: Intact Judgement: Intact - Insight Insight: Intact - Impulse Control Impulse Control: Good Control - Suicidal Ideation Suicidal Ideation: No - Homicidal Ideation Homicidal Ideation: No Assessment/Plan 1) Patient is more alert and engaging in the morning and able to comprehened and able to coperatr in making medical decisions at this time. 2) patient has the functional capacity to make decisions at this time.
--- NOTE | 2017-12-17 11:42 | PN ---
Progress Note (short form) - Note Progress Note: Chief Complaint: shortness of breath s: sob improving, no cp palps dizzy Current Medications Generic Name Dose Route Start Last Admin Trade Name Erik PRN Reason Stop Dose Admin Albuterol Sulfate 1 amp 12/12/17 19:28 12/14/17 21:31 Ventolin 0.083% Nebulizer Soln - NEB 1 amp Q6H PRN Administration SHORT OF BREATH/WHEEZING Apixaban 5 mg 12/12/17 22:00 12/17/17 11:09 Eliquis - PO 5 mg BID [facility] Administration Atorvastatin Calcium 40 mg 12/12/17 22:00 12/16/17 21:41 Lipitor - PO 40 mg HS [facility] Administration Brimonidine Tartrate 1 drop 12/12/17 22:00 12/17/17 11:08 Alphagan P 0.1% - OU 1 drop BID [facility] Administration Digoxin 0.125 mg 12/13/17 10:00 12/17/17 11:09 Lanoxin - PO 0.125 mg DAILY [facility] Administration Diltiazem HCl 120 mg 12/13/17 10:00 12/17/17 11:10 Cardizem Cd - PO 120 mg DAILY [facility] Administration Furosemide 40 mg 12/13/17 10:00 12/17/17 11:09 Lasix - PO 40 mg DAILY [facility] Administration Insulin Aspart 1 vial 12/12/17 22:00 12/17/17 11:10 Novolog Vial Sliding Scale - SQ 4 units ACHS [facility] Administration Protocol Insulin Detemir 34 units 12/14/17 07:00 12/17/17 06:44 Levemir Vial SQ 34 units AM [facility] Administration Insulin Detemir 12 units 12/14/17 22:00 12/16/17 23:07 Levemir Vial SQ 12 units HS [facility] Administration Latanoprost 1 drop 12/13/17 10:00 12/17/17 11:10 Xalatan 0.005% Eye Drops - OU 1 drop DAILY [facility] Administration Levalbuterol HCl 0.63 mg 12/13/17 20:00 12/17/17 07:36 Xopenex IH 0.63 mg RBID [facility] Administration Levothyroxine Sodium 75 mcg 12/13/17 07:00 12/17/17 06:43 Synthroid - PO 75 mcg AM [facility] Administration Methylprednisolone Sodium Succinate 40 mg 12/14/17 12:15 12/17/17 11:09 Solu-Medrol - IVPUSH 40 mg Q8H-IV [facility] Administration Montelukast Sodium 10 mg 12/12/17 22:00 12/16/17 21:41 Singulair - PO 10 mg HS [facility] Administration Non-Formulary Medication 1 drop 12/12/17 22:00 Brinzolamide [Azopt] OU BID [facility] Potassium Chloride 10 meq 12/14/17 12:15 12/17/17 11:10 K-Dur - PO 10 meq DAILY [facility] Administration Roflumilast 500 mcg 12/13/17 12:45 12/16/17 12:03 Daliresp - PO 500 mcg DAILY [facility] Administration Sitagliptin Phosphate 100 mg 12/13/17 07:00 12/17/17 06:49 Januvia - PO 100 mg AM [facility] Administration Tiotropium [place] 2 puff 12/13/17 10:00 12/17/17 11:10 Spiriva Respimat IH 2 puff DAILY [facility] Administration CBC, BMP 12/17/17 05:30 12/17/17 05:30 Constitutional: Yes: No Distress, Calm Eyes: Yes: Conjunctiva Clear Respiratory: Yes: Regular, no wheeze, dec bs, nl eff, On Nasal O2 Gastrointestinal: Yes: Normal Bowel Sounds, Soft Cardiovascular: Yes: Regular Rate and Rhythm JVD: No Heart Sounds: Yes: S1, S2 Edema: No Peripheral Pulses: 2+ Left Doralis Pedis, 2+ Right Dorsalis Pedis Integumentary: Yes: no jaunidce diaphoresis Neurological: Yes: Alert, Oriented Echo 10/2015: Nl lv/rv. suboptimal views, but at least mild AR. Mod MAC. 1+ MR. No MS. trivial effusion. RVSP not measured. echo 09/2016: tds; nl lv/rv, mv calcified, mac, mild-mod mr, sev tr, small peric eff-->MV calcification is chronic finding for her and not indicative of vegetation CXR: hyperaerated lung, no effusion EKG: sinus, nonspecific ST segment changes tele:sinus, occ pvcs Assessment/Plan Elevated trop - 0.07->0.06 - mild elevation with flat trend, EKG stable, not consistent with ACS - management of COPD exacerbation as below Shortness of breath, COPD - O2 dependent, on BiPap, chronic prednisone - IV solumedrol, less dyspnea, on nasal canula - manage per pulm, PMD Chronic diastolic CHF - continue lasix PO - stable volume status pAFib - in sinus now - continue eliquis, digoxin, diltiazem HLD - continue statin dc tele
--- NOTE | 2017-12-17 14:53 | PN ---
Progress Note (short form) - Note Progress Note: OOB to chair. Mild to moderate tachypnea at rest on NC O2. NIPPV overnight. No CP. Intake & Output 12/14/17 12/15/1718 12/17/17 23:59 23:59 23:59 23:59 Intake Total 180 330 180 340 Output Total 200 250 Balance -20 330 -70 340 Last Vital Signs Temp Pulse Resp BP Pulse Ox 97.5 F L 84 22 H 119/55 L 96 12/17/17 06:00 12/17/17 11:09 12/17/17 08:49 12/17/17 08:49 12/17/17 08:50 Active Medications Albuterol Sulfate (Ventolin 0.083% Nebulizer Soln -) 1 amp NEB Q6H PRN PRN Reason: SHORT OF BREATH/WHEEZING Last Admin: 12/14/17 21:31 Dose: 1 amp Apixaban (Eliquis -) 5 mg PO BID [facility] Last Admin: 12/17/17 11:09 Dose: 5 mg Atorvastatin Calcium (Lipitor -) 40 mg PO HS [facility] Last Admin: 12/16/17 21:41 Dose: 40 mg Brimonidine Tartrate (Alphagan P 0.1% -) 1 drop OU BID [facility] Last Admin: 12/17/17 11:08 Dose: 1 drop Digoxin (Lanoxin -) 0.125 mg PO DAILY [facility] Last Admin: 12/17/17 11:09 Dose: 0.125 mg Diltiazem HCl (Cardizem Cd -) 120 mg PO DAILY [facility] Last Admin: 12/17/17 11:10 Dose: 120 mg Furosemide (Lasix -) 40 mg PO DAILY [facility] Last Admin: 12/17/17 11:09 Dose: 40 mg Insulin Aspart (Novolog Vial Sliding Scale -) 1 vial SQ ACHS [facility]; Protocol Last Admin: 12/17/17 11:10 Dose: 4 units Insulin Detemir (Levemir Vial) 34 units SQ AM [facility] Last Admin: 12/17/17 06:44 Dose: 34 units Insulin Detemir (Levemir Vial) 12 units SQ HS [facility] Last Admin: 12/16/17 23:07 Dose: 12 units Latanoprost (Xalatan 0.005% Eye Drops -) 1 drop OU DAILY [facility] Last Admin: 12/17/17 11:10 Dose: 1 drop Levalbuterol HCl (Xopenex) 0.63 mg IH RBID [facility] Last Admin: 12/17/17 07:36 Dose: 0.63 mg Levothyroxine Sodium (Synthroid -) 75 mcg PO AM [facility] Last Admin: 12/17/17 06:43 Dose: 75 mcg Methylprednisolone Sodium Succinate (Solu-Medrol -) 40 mg IVPUSH Q8H-IV [facility] Last Admin: 12/17/17 11:09 Dose: 40 mg Montelukast Sodium (Singulair -) 10 mg PO HS [facility] Last Admin: 12/16/17 21:41 Dose: 10 mg Non-Formulary Medication (Brinzolamide [Azopt]) 1 drop OU BID [facility] Potassium Chloride (K-Dur -) 10 meq PO DAILY [facility] Last Admin: 12/17/17 11:10 Dose: 10 meq Roflumilast (Daliresp -) 500 mcg PO DAILY [facility] Last Admin: 12/16/17 12:03 Dose: 500 mcg Sitagliptin Phosphate (Januvia -) 100 mg PO AM [facility] Last Admin: 12/17/17 06:49 Dose: 100 mg Tiotropium [place] (Spiriva Respimat) 2 puff IH DAILY [facility] Last Admin: 12/17/17 11:10 Dose: 2 puff Constitutional: Yes: Mild to moderate tachypnea, NAD Eyes: Yes: WNL HENT: Yes: WNL Neck: Yes: WNL Cardiovascular: Yes: Regular Rate and Rhythm, S1, S2 Respiratory: Yes: Diminished Gastrointestinal: Yes: Normal Bowel Sounds, Soft Extremities: Yes: WNL Edema: No Labs: Laboratory Results - last 24 hr 12/16/17 12/16/17 12/16/17 17:45 18:10 19:13 WBC RBC Hgb Hct MCV MCH MCHC RDW Plt Count MPV Sodium Potassium Chloride Carbon Dioxide Anion Gap BUN Creatinine Creat Clearance w eGFR POC Glucometer 567 565 Random Glucose 561 H* Calcium 12/16/17 12/17/17 12/17/17 22:00 04:59 05:30 WBC 19.3 H RBC 4.06 Hgb 12.7 Hct 38.5 MCV 95.0 MCH 31.2 MCHC 32.9 RDW 14.3 Plt Count 185 MPV 9.3 Sodium Potassium Chloride Carbon Dioxide Anion Gap BUN Creatinine Creat Clearance w eGFR POC Glucometer 131 Random Glucose 364 H* Calcium 12/17/17 12/17/17 12/17/17 05:30 06:42 11:06 WBC RBC Hgb Hct MCV MCH MCHC RDW Plt Count MPV Sodium 143 Potassium 4.0 Chloride 98 Carbon Dioxide 37 H Anion Gap 9 BUN 62 H Creatinine 0.7 Creat Clearance w eGFR > 60 POC Glucometer 126 272 Random Glucose 114 H Calcium 9.3 Problem List - Problems (1) Acute on chronic respiratory failure with hypoxia and hypercapnia Code(s): J96.21 - ACUTE AND CHRONIC RESPIRATORY FAILURE WITH HYPOXIA; J96.22 - ACUTE AND CHRONIC RESPIRATORY FAILURE WITH HYPERCAPNIA (2) COPD with acute exacerbation Code(s): J44.1 - CHRONIC OBSTRUCTIVE PULMONARY DISEASE W (ACUTE) EXACERBATION (3) Diabetes mellitus Code(s): E11.9 - TYPE 2 DIABETES MELLITUS WITHOUT COMPLICATIONS (4) Paroxysmal atrial fibrillation Code(s): I48.0 - PAROXYSMAL ATRIAL FIBRILLATION (5) Pulmonary HTN Code(s): I27.20 - PULMONARY HYPERTENSION, UNSPECIFIED (6) Diastolic HF (heart failure) Code(s): I50.30 - UNSPECIFIED DIASTOLIC (CONGESTIVE) HEART FAILURE (7) Hypothyroid Code(s): E03.9 - HYPOTHYROIDISM, UNSPECIFIED Assessment/Plan IMP ACUTE ON CHRONIC HYPOXEMIC/HYPERCAPNEIC RESPIRATORY FAILURE COPD EXACERBATION IMPROVING PULMONARY HTN PAF IDDM DIASTOLIC HF HYPOTHYROIDISM PLAN STEROIDS SAME DOSE INHALED BRONCHODILATORS O2 NIPPV AT NIGHT AND PRN DALIRESP PULMONARY REHAB POST DISCHARGE BD TX DR FRYE
--- NOTE | 2017-12-17 15:16 | PN ---
Progress Note, Physician History of Present Illness: Pt is breathing is up and down, needs BIPAP PRN during the day. Pt w/o CP, palpitations, abd pain, N, V, constipation, diarrhea. - Current Medication List Current Medications: Active Medications Albuterol Sulfate (Ventolin 0.083% Nebulizer Soln -) 1 amp NEB Q6H PRN PRN Reason: SHORT OF BREATH/WHEEZING Last Admin: 12/14/17 21:31 Dose: 1 amp Apixaban (Eliquis -) 5 mg PO BID [facility] Last Admin: 12/17/17 11:09 Dose: 5 mg Atorvastatin Calcium (Lipitor -) 40 mg PO HS [facility] Last Admin: 12/16/17 21:41 Dose: 40 mg Brimonidine Tartrate (Alphagan P 0.1% -) 1 drop OU BID [facility] Last Admin: 12/17/17 11:08 Dose: 1 drop Digoxin (Lanoxin -) 0.125 mg PO DAILY [facility] Last Admin: 12/17/17 11:09 Dose: 0.125 mg Diltiazem HCl (Cardizem Cd -) 120 mg PO DAILY [facility] Last Admin: 12/17/17 11:10 Dose: 120 mg Furosemide (Lasix -) 40 mg PO DAILY [facility] Last Admin: 12/17/17 11:09 Dose: 40 mg Insulin Aspart (Novolog Vial Sliding Scale -) 1 vial SQ ACHS [facility]; Protocol Last Admin: 12/17/17 11:10 Dose: 4 units Insulin Detemir (Levemir Vial) 34 units SQ AM [facility] Last Admin: 12/17/17 06:44 Dose: 34 units Insulin Detemir (Levemir Vial) 12 units SQ HS [facility] Last Admin: 12/16/17 23:07 Dose: 12 units Latanoprost (Xalatan 0.005% Eye Drops -) 1 drop OU DAILY [facility] Last Admin: 12/17/17 11:10 Dose: 1 drop Levalbuterol HCl (Xopenex) 0.63 mg IH RBID [facility] Last Admin: 12/17/17 07:36 Dose: 0.63 mg Levothyroxine Sodium (Synthroid -) 75 mcg PO AM [facility] Last Admin: 12/17/17 06:43 Dose: 75 mcg Methylprednisolone Sodium Succinate (Solu-Medrol -) 40 mg IVPUSH Q8H-IV [facility] Last Admin: 12/17/17 11:09 Dose: 40 mg Montelukast Sodium (Singulair -) 10 mg PO HS [facility] Last Admin: 12/16/17 21:41 Dose: 10 mg Non-Formulary Medication (Brinzolamide [Azopt]) 1 drop OU BID [facility] Potassium Chloride (K-Dur -) 10 meq PO DAILY [facility] Last Admin: 12/17/17 11:10 Dose: 10 meq Roflumilast (Daliresp -) 500 mcg PO DAILY [facility] Last Admin: 12/16/17 12:03 Dose: 500 mcg Sitagliptin Phosphate (Januvia -) 100 mg PO AM [facility] Last Admin: 12/17/17 06:49 Dose: 100 mg Tiotropium [place] (Spiriva Respimat) 2 puff IH DAILY [facility] Last Admin: 12/17/17 11:10 Dose: 2 puff - Objective Vital Signs: Vital Signs Temperature 97.5 F L 12/17/17 06:00 Pulse Rate 84 12/17/17 11:09 Respiratory Rate 22 H 12/17/17 08:49 Blood Pressure 119/55 L 12/17/17 08:49 O2 Sat by Pulse Oximetry (%) 96 12/17/17 08:50 Constitutional: Yes: No Distress, Calm Cardiovascular: Yes: Regular Rate and Rhythm, S1, S2 Respiratory: Yes: Regular, Diminished, Rales Gastrointestinal: Yes: Normal Bowel Sounds, Soft. No: Tenderness Edema: No Neurological: Yes: Alert, Oriented Labs: CBC, BMP 12/17/17 05:30 12/17/17 05:30 Problem List - Problems (1) Acute and chronic respiratory failure with hypercapnia Code(s): J96.22 - ACUTE AND CHRONIC RESPIRATORY FAILURE WITH HYPERCAPNIA (2) COPD with acute exacerbation Code(s): J44.1 - CHRONIC OBSTRUCTIVE PULMONARY DISEASE W (ACUTE) EXACERBATION (3) Diabetes mellitus Code(s): E11.9 - TYPE 2 DIABETES MELLITUS WITHOUT COMPLICATIONS (4) Hypertension Code(s): I10 - ESSENTIAL (PRIMARY) HYPERTENSION (5) Paroxysmal atrial fibrillation Code(s): I48.0 - PAROXYSMAL ATRIAL FIBRILLATION (6) Elevated troponin I level Code(s): R74.8 - ABNORMAL LEVELS OF OTHER SERUM ENZYMES Assessment/Plan IV Solu-Medrol; cont same dose per Pulmonary Admit to monitor bed Pulmonary, Cardio consults and f/u are appreciated. Pt refused Levemir yesterday and BGM were high; today she agreed with Levemir. Phychiatry consult is appreciated; pt was found to have full capacity to make decisions. AM labs
[2017-12-17] MEDS: ROFLUMILAST 500 MCG TABLET PO SCH (17:43)
[2017-12-17] MEDS: ATORVASTATIN CA 40 MG TABLET (FP) PO SCH (22:40)
[2017-12-17] MEDS: MONTELUKAST NA 10 MG TABLET PO SCH (22:40)
[2017-12-18] MEDS: methylPREDNISolone NA SUCC 40 MG/1 ML VIAL IVPUSH SCH ×3 (03:00→17:07)
[2017-12-18] MEDS: INSULIN SLIDING SCALE (NOVOLOG) 1 VIAL SQ SCH ×4 (06:41→22:30)
[2017-12-18] MEDS: LEVOTHYROXINE NA 75 MCG TABLET (FP) PO SCH (06:42)
[2017-12-18 06:48] LABS: HEMATOCRIT 38.8 % (32.4-45.2); HEMOGLOBIN 12.9 GM/dL (10.7-15.3); MCH 31.6 pg (25.7-33.7); MCHC 33.3 g/dl (32.0-36.0); MEAN CELL VOLUME 94.9 fl (80-96); MEAN PLT VOLUME 9.6 fl (7.5-11.1); PLATELET COUNT 152 K/MM3 (134-434); RBC 4.09 M/mm3 (3.60-5.2); RDW 13.8 % (11.6-15.6); WHITE BLOOD COUNT 15.2 K/mm3 (4.0-10.0)
[2017-12-18 07:43] LABS: ANION GAP 8 MMOL/L (8-16); BLOOD UREA NITROGEN 63 mg/dL (7-18); CALCIUM 9.3 mg/dL (8.5-10.1); CHLORIDE 98 mmol/L (98-107); CO2 36 mmol/L (21-32); CREATININE 0.6 mg/dL (0.55-1.3); GLUCOSE,RANDOM 99 mg/dL (74-106); POTASSIUM 3.8 mmol/L (3.5-5.1); SODIUM 142 mmol/L (136-145)
[2017-12-18] MEDS: LEVALBUTEROL HCL 0.63 MG/3 ML VIAL.NEB. IH SCH ×2 (08:03→20:25)
[2017-12-18] MEDS ORDERED: PT OWN MED DRAWER 7, Y5N ONE (09:49)
[2017-12-18] MEDS: BRIMONIDINE TARTRATE 0.1% OPHTHALMIC 5 ML BOTTLE OU SCH ×2 (10:00→22:32)
[2017-12-18] MEDS: TIOTROPIUM BROMIDE 2.5 MCG (SPIRIVA) RESPIMAT INHALER IH SCH (10:00)
[2017-12-18] MEDS: LATANOPROST 0.005% OPHTH SOLN 2.5ML BOTTLE OU SCH (10:52)
[2017-12-18] MEDS: DIGOXIN 0.125 MG TABLET (FP) PO SCH (10:52)
[2017-12-18] MEDS: APIXABAN 5 MG TABLET PO SCH ×2 (10:52→22:30)
[2017-12-18] MEDS: FUROSEMIDE 40 MG TABLET (FP) PO SCH (10:52)
[2017-12-18] MEDS: ROFLUMILAST 500 MCG TABLET PO SCH (10:52)
[2017-12-18] MEDS: sitaGLIPtin PHOSPHATE 100 MG TABLET (FP) PO SCH (10:53)
[2017-12-18] MEDS: POTASSIUM CHLORIDE TABS 10 MEQ TABLET.ER (FP) PO SCH (10:53)
[2017-12-18] MEDS: INSULIN (LEVEMIR) 100 UNITS/ML UNITS SQ SCH ×2 (10:53→22:32)
--- NOTE | 2017-12-18 11:02 | PN ---
Progress Note, Physician History of Present Illness: Pt w/o SOB, CP, palpitations, abd pain. - Current Medication List Current Medications: Active Medications Albuterol Sulfate (Ventolin 0.083% Nebulizer Soln -) 1 amp NEB Q6H PRN PRN Reason: SHORT OF BREATH/WHEEZING Last Admin: 12/14/17 21:31 Dose: 1 amp Apixaban (Eliquis -) 5 mg PO BID [facility] Last Admin: 12/18/17 10:52 Dose: 5 mg Atorvastatin Calcium (Lipitor -) 40 mg PO HS [facility] Last Admin: 12/17/17 22:40 Dose: 40 mg Brimonidine Tartrate (Alphagan P 0.1% -) 1 drop OU BID [facility] Last Admin: 12/17/17 22:41 Dose: 1 drop Digoxin (Lanoxin -) 0.125 mg PO DAILY [facility] Last Admin: 12/18/17 10:52 Dose: 0.125 mg Diltiazem HCl (Cardizem Cd -) 120 mg PO DAILY [facility] Last Admin: 12/18/17 10:52 Dose: 120 mg Furosemide (Lasix -) 40 mg PO DAILY [facility] Last Admin: 12/18/17 10:52 Dose: 40 mg Insulin Aspart (Novolog Vial Sliding Scale -) 1 vial SQ ACHS [facility]; Protocol Last Admin: 12/18/17 06:41 Dose: Not Given Insulin Detemir (Levemir Vial) 34 units SQ AM [facility] Last Admin: 12/18/17 10:53 Dose: Not Given Insulin Detemir (Levemir Vial) 12 units SQ HS [facility] Last Admin: 12/17/17 22:41 Dose: 12 units Latanoprost (Xalatan 0.005% Eye Drops -) 1 drop OU DAILY [facility] Last Admin: 12/18/17 10:52 Dose: 1 drop Levalbuterol HCl (Xopenex) 0.63 mg IH RBID [facility] Last Admin: 12/18/17 08:03 Dose: 0.63 mg Levothyroxine Sodium (Synthroid -) 75 mcg PO AM [facility] Last Admin: 12/18/17 06:42 Dose: 75 mcg Methylprednisolone Sodium Succinate (Solu-Medrol -) 40 mg IVPUSH Q8H-IV [facility] Last Admin: 12/18/17 10:52 Dose: 40 mg Montelukast Sodium (Singulair -) 10 mg PO HS [facility] Last Admin: 12/17/17 22:40 Dose: 10 mg Potassium Chloride (K-Dur -) 10 meq PO DAILY [facility] Last Admin: 12/18/17 10:53 Dose: 10 meq Roflumilast (Daliresp -) 500 mcg PO DAILY [facility] Last Admin: 12/18/17 10:52 Dose: 500 mcg Sitagliptin Phosphate (Januvia -) 100 mg PO AM [facility] Last Admin: 12/18/17 10:53 Dose: Not Given Tiotropium [place] (Spiriva Respimat) 2 puff IH DAILY [facility] Last Admin: 12/17/17 11:10 Dose: 2 puff - Objective Vital Signs: Vital Signs Temperature 97.2 F L 12/18/17 02:00 Pulse Rate 88 12/18/17 10:52 Respiratory Rate 20 12/18/17 02:00 Blood Pressure 143/68 12/18/17 02:00 O2 Sat by Pulse Oximetry (%) 96 12/18/17 04:00 Constitutional: Yes: No Distress, Calm Cardiovascular: Yes: Regular Rate and Rhythm, S1, S2 Respiratory: Yes: Regular, CTA Bilaterally, Diminished Gastrointestinal: Yes: Normal Bowel Sounds, Soft. No: Tenderness Edema: No Neurological: Yes: Alert, Oriented Labs: CBC, BMP 12/18/17 05:20 12/18/17 05:20 Problem List - Problems (1) Acute and chronic respiratory failure with hypercapnia Code(s): J96.22 - ACUTE AND CHRONIC RESPIRATORY FAILURE WITH HYPERCAPNIA (2) COPD with acute exacerbation Code(s): J44.1 - CHRONIC OBSTRUCTIVE PULMONARY DISEASE W (ACUTE) EXACERBATION (3) Diabetes mellitus Code(s): E11.9 - TYPE 2 DIABETES MELLITUS WITHOUT COMPLICATIONS (4) Hypertension Code(s): I10 - ESSENTIAL (PRIMARY) HYPERTENSION (5) Paroxysmal atrial fibrillation Code(s): I48.0 - PAROXYSMAL ATRIAL FIBRILLATION (6) Elevated troponin I level Code(s): R74.8 - ABNORMAL LEVELS OF OTHER SERUM ENZYMES Assessment/Plan IV Solu-Medrol; to be adjusted per Pulmonary Admitted to monitor bed. Pulmonary, Cardio consults and f/u are appreciated. Phychiatry consult is appreciated; pt was found to have full capacity to make decisions. AM labs. Case was d/w pt's nurse.
--- NOTE | 2017-12-18 12:16 | PN ---
Progress Note (short form) - Note Progress Note: Chief Complaint: shortness of breath s: sob improving, no cp palps dizzy Current Medications Generic Name Dose Route Start Last Admin Trade Name Erik PRN Reason Stop Dose Admin Albuterol Sulfate 1 amp 12/12/17 19:28 12/14/17 21:31 Ventolin 0.083% Nebulizer Soln - NEB 1 amp Q6H PRN Administration SHORT OF BREATH/WHEEZING Apixaban 5 mg 12/12/17 22:00 12/18/17 10:52 Eliquis - PO 5 mg BID [facility] Administration Atorvastatin Calcium 40 mg 12/12/17 22:00 12/17/17 22:40 Lipitor - PO 40 mg HS [facility] Administration Brimonidine Tartrate 1 drop 12/12/17 22:00 12/17/17 22:41 Alphagan P 0.1% - OU 1 drop BID [facility] Administration Digoxin 0.125 mg 12/13/17 10:00 12/18/17 10:52 Lanoxin - PO 0.125 mg DAILY [facility] Administration Diltiazem HCl 120 mg 12/13/17 10:00 12/18/17 10:52 Cardizem Cd - PO 120 mg DAILY [facility] Administration Furosemide 40 mg 12/13/17 10:00 12/18/17 10:52 Lasix - PO 40 mg DAILY [facility] Administration Insulin Aspart 1 vial 12/12/17 22:00 12/18/17 06:41 Novolog Vial Sliding Scale - SQ Not Given ACHS [facility] Protocol Insulin Detemir 34 units 12/14/17 07:00 12/18/17 10:53 Levemir Vial SQ Not Given AM [facility] Insulin Detemir 12 units 12/14/17 22:00 12/17/17 22:41 Levemir Vial SQ 12 units HS [facility] Administration Latanoprost 1 drop 12/13/17 10:00 12/18/17 10:52 Xalatan 0.005% Eye Drops - OU 1 drop DAILY [facility] Administration Levalbuterol HCl 0.63 mg 12/13/17 20:00 12/18/17 08:03 Xopenex IH 0.63 mg RBID [facility] Administration Levothyroxine Sodium 75 mcg 12/13/17 07:00 12/18/17 06:42 Synthroid - PO 75 mcg AM [facility] Administration Methylprednisolone Sodium Succinate 40 mg 12/14/17 12:15 12/18/17 10:52 Solu-Medrol - IVPUSH 40 mg Q8H-IV [facility] Administration Montelukast Sodium 10 mg 12/12/17 22:00 12/17/17 22:40 Singulair - PO 10 mg HS [facility] Administration Potassium Chloride 10 meq 12/14/17 12:15 12/18/17 10:53 K-Dur - PO 10 meq DAILY [facility] Administration Roflumilast 500 mcg 12/13/17 12:45 12/18/17 10:52 Daliresp - PO 500 mcg DAILY [facility] Administration Sitagliptin Phosphate 100 mg 12/13/17 07:00 12/18/17 10:53 Januvia - PO Not Given AM [facility] Tiotropium [place] 2 puff 12/13/17 10:00 12/17/17 11:10 Spiriva Respimat IH 2 puff DAILY [facility] Administration CBC, BMP 12/18/17 05:20 12/18/17 05:20 Constitutional: Yes: No Distress, Calm Eyes: Yes: Conjunctiva Clear Respiratory: Yes: Regular, no wheeze, dec bs, nl eff, On Nasal O2 Gastrointestinal: Yes: Normal Bowel Sounds, Soft Cardiovascular: Yes: Regular Rate and Rhythm JVD: No Heart Sounds: Yes: S1, S2 Edema: No Peripheral Pulses: 2+ Left Doralis Pedis, 2+ Right Dorsalis Pedis Integumentary: Yes: no jaunidce diaphoresis Neurological: Yes: Alert, Oriented Echo 10/2015: Nl lv/rv. suboptimal views, but at least mild AR. Mod MAC. 1+ MR. No MS. trivial effusion. RVSP not measured. echo 09/2016: tds; nl lv/rv, mv calcified, mac, mild-mod mr, sev tr, small peric eff-->MV calcification is chronic finding for her and not indicative of vegetation CXR: hyperaerated lung, no effusion EKG: sinus, nonspecific ST segment changes tele:sinus, occ pvcs, artifact Assessment/Plan Elevated trop - 0.07->0.06 - mild elevation with flat trend, EKG stable, not consistent with ACS - management of COPD exacerbation as below Shortness of breath, COPD - O2 dependent, on BiPap, chronic prednisone - IV solumedrol, less dyspnea, on nasal canula - manage per pulm, PMD Chronic diastolic CHF - continue lasix PO - stable volume status pAFib - in sinus now - continue eliquis, digoxin, diltiazem HLD - continue statin dc tele
--- NOTE | 2017-12-18 13:39 | PN ---
Progress Note (short form) - Note Progress Note: OOB to chair. Mild tachypnea at rest on NC O2. NIPPV overnight. No CP. Intake & Output 12/15/17 12/16/17 12/17/17 12/18/17 23:59 23:59 23:59 23:59 Intake Total 330 180 740 240 Output Total 250 600 Balance 330 -70 140 240 Last Vital Signs Temp Pulse Resp BP Pulse Ox 97.2 F L 88 22 H 144/68 96 12/18/17 02:00 12/18/17 10:52 12/18/17 10:00 12/18/17 10:00 12/18/17 09:00 Active Medications Albuterol Sulfate (Ventolin 0.083% Nebulizer Soln -) 1 amp NEB Q6H PRN PRN Reason: SHORT OF BREATH/WHEEZING Last Admin: 12/14/17 21:31 Dose: 1 amp Apixaban (Eliquis -) 5 mg PO BID [facility] Last Admin: 12/18/17 10:52 Dose: 5 mg Atorvastatin Calcium (Lipitor -) 40 mg PO HS [facility] Last Admin: 12/17/17 22:40 Dose: 40 mg Brimonidine Tartrate (Alphagan P 0.1% -) 1 drop OU BID [facility] Last Admin: 12/17/17 22:41 Dose: 1 drop Digoxin (Lanoxin -) 0.125 mg PO DAILY [facility] Last Admin: 12/18/17 10:52 Dose: 0.125 mg Diltiazem HCl (Cardizem Cd -) 120 mg PO DAILY [facility] Last Admin: 12/18/17 10:52 Dose: 120 mg Furosemide (Lasix -) 40 mg PO DAILY [facility] Last Admin: 12/18/17 10:52 Dose: 40 mg Insulin Aspart (Novolog Vial Sliding Scale -) 1 vial SQ ACHS [facility]; Protocol Last Admin: 12/18/17 06:41 Dose: Not Given Insulin Detemir (Levemir Vial) 34 units SQ AM [facility] Last Admin: 12/18/17 10:53 Dose: Not Given Insulin Detemir (Levemir Vial) 12 units SQ HS [facility] Last Admin: 12/17/17 22:41 Dose: 12 units Latanoprost (Xalatan 0.005% Eye Drops -) 1 drop OU DAILY [facility] Last Admin: 12/18/17 10:52 Dose: 1 drop Levalbuterol HCl (Xopenex) 0.63 mg IH RBID [facility] Last Admin: 12/18/17 08:03 Dose: 0.63 mg Levothyroxine Sodium (Synthroid -) 75 mcg PO AM [facility] Last Admin: 12/18/17 06:42 Dose: 75 mcg Methylprednisolone Sodium Succinate (Solu-Medrol -) 40 mg IVPUSH Q8H-IV [facility] Last Admin: 12/18/17 10:52 Dose: 40 mg Montelukast Sodium (Singulair -) 10 mg PO HS [facility] Last Admin: 12/17/17 22:40 Dose: 10 mg Potassium Chloride (K-Dur -) 10 meq PO DAILY [facility] Last Admin: 12/18/17 10:53 Dose: 10 meq Roflumilast (Daliresp -) 500 mcg PO DAILY [facility] Last Admin: 12/18/17 10:52 Dose: 500 mcg Sitagliptin Phosphate (Januvia -) 100 mg PO AM [facility] Last Admin: 12/18/17 10:53 Dose: Not Given Tiotropium [place] (Spiriva Respimat) 2 puff IH DAILY [facility] Last Admin: 12/17/17 11:10 Dose: 2 puff Constitutional: Yes: Mild to moderate tachypnea, NAD Eyes: Yes: WNL HENT: Yes: WNL Neck: Yes: WNL Cardiovascular: Yes: Regular Rate and Rhythm, S1, S2 Respiratory: Yes: Diminished Gastrointestinal: Yes: Normal Bowel Sounds, Soft Extremities: Yes: WNL Edema: No Labs: Laboratory Results - last 24 hr 12/17/17 12/17/17 12/18/17 17:41 22:38 05:20 WBC 15.2 H RBC 4.09 Hgb 12.9 Hct 38.8 MCV 94.9 MCH 31.6 MCHC 33.3 RDW 13.8 Plt Count 152 MPV 9.6 Sodium Potassium Chloride Carbon Dioxide Anion Gap BUN Creatinine Creat Clearance w eGFR POC Glucometer 182 313 Random Glucose Calcium 12/18/17 12/18/17 12/18/17 05:20 06:40 10:51 WBC RBC Hgb Hct MCV MCH MCHC RDW Plt Count MPV Sodium 142 Potassium 3.8 Chloride 98 Carbon Dioxide 36 H Anion Gap 8 BUN 63 H Creatinine 0.6 Creat Clearance w eGFR > 60 POC Glucometer 83 163 Random Glucose 99 Calcium 9.3 Problem List - Problems (1) Acute on chronic respiratory failure with hypoxia and hypercapnia Code(s): J96.21 - ACUTE AND CHRONIC RESPIRATORY FAILURE WITH HYPOXIA; J96.22 - ACUTE AND CHRONIC RESPIRATORY FAILURE WITH HYPERCAPNIA (2) COPD with acute exacerbation Code(s): J44.1 - CHRONIC OBSTRUCTIVE PULMONARY DISEASE W (ACUTE) EXACERBATION (3) Diabetes mellitus Code(s): E11.9 - TYPE 2 DIABETES MELLITUS WITHOUT COMPLICATIONS (4) Paroxysmal atrial fibrillation Code(s): I48.0 - PAROXYSMAL ATRIAL FIBRILLATION (5) Pulmonary HTN Code(s): I27.20 - PULMONARY HYPERTENSION, UNSPECIFIED (6) Diastolic HF (heart failure) Code(s): I50.30 - UNSPECIFIED DIASTOLIC (CONGESTIVE) HEART FAILURE (7) Hypothyroid Code(s): E03.9 - HYPOTHYROIDISM, UNSPECIFIED Assessment/Plan IMP ACUTE ON CHRONIC HYPOXEMIC/HYPERCAPNEIC RESPIRATORY FAILURE COPD EXACERBATION IMPROVING PULMONARY HTN PAF IDDM DIASTOLIC HF HYPOTHYROIDISM PLAN WEAN STEROIDS INHALED BRONCHODILATORS O2 NIPPV AT NIGHT AND PRN DALIRESP PULMONARY REHAB POST DISCHARGE BD TX DR FRYE
[2017-12-18] MEDS: ALBUTEROL SO4 0.083% IH SOL 2.5 MG/3 ML VIAL.NEB. NEB PRN (16:15)
[2017-12-18] MEDS: ATORVASTATIN CA 40 MG TABLET (FP) PO SCH (22:30)
[2017-12-18] MEDS: MONTELUKAST NA 10 MG TABLET PO SCH (22:30)
[2017-12-19] MEDS: methylPREDNISolone NA SUCC 40 MG/1 ML VIAL IVPUSH SCH ×3 (03:14→17:28)
[2017-12-19] MEDS: INSULIN (LEVEMIR) 100 UNITS/ML UNITS SQ SCH ×2 (06:49→21:31)
[2017-12-19] MEDS: sitaGLIPtin PHOSPHATE 100 MG TABLET (FP) PO SCH (06:49)
[2017-12-19] MEDS: LEVOTHYROXINE NA 75 MCG TABLET (FP) PO SCH (06:50)
[2017-12-19] MEDS: INSULIN SLIDING SCALE (NOVOLOG) 1 VIAL SQ SCH ×4 (06:50→21:32)
[2017-12-19 06:52] LABS: HEMATOCRIT 39.9 % (32.4-45.2); HEMOGLOBIN 13.2 GM/dL (10.7-15.3); MCHC 32.9 g/dl (32.0-36.0); MEAN PLT VOLUME 9.8 fl (7.5-11.1); PLATELET COUNT 169 K/MM3 (134-434); RBC 4.11 M/mm3 (3.60-5.2); RDW 13.8 % (11.6-15.6); WHITE BLOOD COUNT 16.2 K/mm3 (4.0-10.0)
[2017-12-19 06:55] LABS: ANION GAP 6 MMOL/L (8-16); BLOOD UREA NITROGEN 65 mg/dL (7-18); CALCIUM 9.5 mg/dL (8.5-10.1); CHLORIDE 95 mmol/L (98-107); CO2 40 mmol/L (21-32); CREATININE 0.8 mg/dL (0.55-1.3); GLUCOSE,RANDOM 214 mg/dL (74-106); POTASSIUM 4.1 mmol/L (3.5-5.1); SODIUM 141 mmol/L (136-145)
[2017-12-19] MEDS: LEVALBUTEROL HCL 0.63 MG/3 ML VIAL.NEB. IH SCH ×2 (07:30→20:18)
[2017-12-19] MEDS ORDERED: PT OWN MED DRAWER 7, Y5N ONE ×3 (08:08→21:11)
--- NOTE | 2017-12-19 09:36 | PN ---
Progress Note, Physician Chief Complaint: sob History of Present Illness: still sob, no improvement since DOA no wheezing/cough no cp no leg swelling feels like prior copd episodes to her - Current Medication List Current Medications: Active Medications Albuterol Sulfate (Ventolin 0.083% Nebulizer Soln -) 1 amp NEB Q6H PRN PRN Reason: SHORT OF BREATH/WHEEZING Last Admin: 12/18/17 16:15 Dose: 1 amp Apixaban (Eliquis -) 5 mg PO BID [facility] Last Admin: 12/18/17 22:30 Dose: 5 mg Atorvastatin Calcium (Lipitor -) 40 mg PO HS [facility] Last Admin: 12/18/17 22:30 Dose: 40 mg Brimonidine Tartrate (Alphagan P 0.1% -) 1 drop OU BID [facility] Last Admin: 12/18/17 22:32 Dose: 1 drop Digoxin (Lanoxin -) 0.125 mg PO DAILY [facility] Last Admin: 12/18/17 10:52 Dose: 0.125 mg Diltiazem HCl (Cardizem Cd -) 120 mg PO DAILY [facility] Last Admin: 12/18/17 10:52 Dose: 120 mg Furosemide (Lasix -) 40 mg PO DAILY [facility] Last Admin: 12/18/17 10:52 Dose: 40 mg Insulin Aspart (Novolog Vial Sliding Scale -) 1 vial SQ [facility]; Protocol Last Admin: 12/19/17 06:50 Dose: Not Given Insulin Detemir (Levemir Vial) 34 units SQ AM [facility] Last Admin: 12/19/17 06:49 Dose: 34 units Insulin Detemir (Levemir Vial) 12 units SQ HS [facility] Last Admin: 12/18/17 22:32 Dose: 12 units Latanoprost (Xalatan 0.005% Eye Drops -) 1 drop OU DAILY [facility] Last Admin: 12/18/17 10:52 Dose: 1 drop Levalbuterol HCl (Xopenex) 0.63 mg IH RBID [facility] Last Admin: 12/19/17 07:30 Dose: 0.63 mg Levothyroxine Sodium (Synthroid -) 75 mcg PO AM [facility] Last Admin: 12/19/17 06:50 Dose: 75 mcg Methylprednisolone Sodium Succinate (Solu-Medrol -) 30 mg IVPUSH Q8H-IV [facility] Last Admin: 12/19/17 03:14 Dose: 30 mg Montelukast Sodium (Singulair -) 10 mg PO HS [facility] Last Admin: 12/18/17 22:30 Dose: 10 mg Potassium Chloride (K-Dur -) 10 meq PO DAILY [facility] Last Admin: 12/18/17 10:53 Dose: 10 meq Roflumilast (Daliresp -) 500 mcg PO DAILY [facility] Last Admin: 12/18/17 10:52 Dose: 500 mcg Sitagliptin Phosphate (Januvia -) 100 mg PO AM [facility] Last Admin: 12/19/17 06:49 Dose: 100 mg Tiotropium [place] (Spiriva Respimat) 2 puff IH DAILY [facility] Last Admin: 12/18/17 10:00 Dose: 2 puff - Objective Vital Signs: Vital Signs Temperature 98.5 F 12/19/17 08:58 Pulse Rate 81 12/19/17 08:58 Respiratory Rate 20 12/19/17 08:58 Blood Pressure 124/62 12/19/17 08:58 O2 Sat by Pulse Oximetry (%) 100 12/18/17 20:38 Constitutional: Yes: Well Nourished, No Distress, Calm Cardiovascular: Yes: Regular Rate and Rhythm, S1, S2. No: JVD, Gallop, Murmur Respiratory: Yes: Regular, CTA Bilaterally (diffusely decr lung sounds intensity ). No: Rales, Wheezes Extremities: No: Cold Edema: No Neurological: Yes: Alert, Oriented Psychiatric: No: Agitated Labs: CBC, BMP 12/19/17 05:30 12/19/17 05:30 Assessment/Plan Echo 10/2015: Nl lv/rv. suboptimal views, but at least mild AR. Mod MAC. 1+ MR. No MS. trivial effusion. RVSP not measured. echo 09/2016: tds; nl lv/rv, mv calcified, mac, mild-mod mr, sev tr, small peric eff-->MV calcification is chronic finding for her and not indicative of vegetation CXR: hyperaerated lung, no effusion EKG: sinus, nonspecific ST segment changes tele: NSR Assessment/Plan Elevated trop - 0.07->0.06 - mild elevation with flat trend, EKG stable, not consistent with ACS - management of COPD exacerbation as below Shortness of breath, COPD - O2 dependent, on BiPap, chronic prednisone - IV solumedrol, less dyspnea, on nasal canula - manage per pulm, PMD Chronic diastolic CHF - continue lasix PO - stable volume status, appears euvolemic pAFib - in sinus now - continue eliquis, digoxin, diltiazem - check dig level HLD - continue statin NO INDICATION FOR TELE MONITORING AT PRESENT--D/C
--- NOTE | 2017-12-19 09:37 | PN ---
Progress Note, Physician History of Present Illness: Ptg's breathing is not as good as yesterday. Pt w/o cough, CP, palpitations, abd pain. - Current Medication List Current Medications: Active Medications Albuterol Sulfate (Ventolin 0.083% Nebulizer Soln -) 1 amp NEB Q6H PRN PRN Reason: SHORT OF BREATH/WHEEZING Last Admin: 12/18/17 16:15 Dose: 1 amp Apixaban (Eliquis -) [address] [facility] Last Admin: 12/18/17 22:30 Dose: 5 mg Atorvastatin Calcium (Lipitor -) [address] [facility] Last Admin: 12/18/17 22:30 Dose: 40 mg Brimonidine Tartrate (Alphagan P 0.1% -) [address] [facility] Last Admin: 12/18/17 22:32 Dose: 1 drop Digoxin (Lanoxin -) 0.[address] [facility] Last Admin: 12/18/17 10:52 Dose: 0.125 mg Diltiazem HCl (Cardizem Cd -) [address] [facility] Last Admin: 12/18/17 10:52 Dose: 120 mg Furosemide (Lasix -) [address] [facility] Last Admin: 12/18/17 10:52 Dose: 40 mg Insulin Aspart (Novolog Vial Sliding Scale -) 1 vial SQ [facility]; Protocol Last Admin: 12/19/17 06:50 Dose: Not Given Insulin Detemir (Levemir Vial) [address] [facility] Last Admin: 12/19/17 06:49 Dose: 34 units Insulin Detemir (Levemir Vial) [address] [facility] Last Admin: 12/18/17 22:32 Dose: 12 units Latanoprost (Xalatan 0.005% Eye Drops -) [address] [facility] Last Admin: 12/18/17 10:52 Dose: 1 drop Levalbuterol HCl (Xopenex) 0.[address] [facility] Last Admin: 12/19/17 07:30 Dose: 0.63 mg Levothyroxine Sodium (Synthroid -) [address] [facility] Last Admin: 12/19/17 06:50 Dose: 75 mcg Methylprednisolone Sodium Succinate (Solu-Medrol -) [address] Q8H-IV [facility] Last Admin: 12/19/17 03:14 Dose: 30 mg Montelukast Sodium (Singulair -) [address] [facility] Last Admin: 12/18/17 22:30 Dose: 10 mg Potassium Chloride (K-Dur -) [address] [facility] Last Admin: 12/18/17 10:53 Dose: 10 meq Roflumilast (Daliresp -) [address] [facility] Last Admin: 12/18/17 10:52 Dose: 500 mcg Sitagliptin Phosphate (Januvia -) [address] [facility] Last Admin: 12/19/17 06:49 Dose: 100 mg Tiotropium [place] (Spiriva Respimat) [address] [facility] Last Admin: 12/18/17 10:00 Dose: 2 puff - Objective Vital Signs: Vital Signs Temperature 98.5 F 12/19/17 08:58 Pulse Rate 81 12/19/17 08:58 Respiratory Rate 20 12/19/17 08:58 Blood Pressure 124/62 12/19/17 08:58 O2 Sat by Pulse Oximetry (%) 100 12/18/17 20:38 Constitutional: Yes: No Distress, Calm Cardiovascular: Yes: Regular Rate and Rhythm, S1, S2 Respiratory: Yes: Regular, CTA Bilaterally, Diminished Gastrointestinal: Yes: Normal Bowel Sounds, Soft. No: Tenderness Neurological: Yes: Alert, Oriented Labs: CBC, BMP 12/19/17 05:30 12/19/17 05:30 Problem List - Problems (1) Acute and chronic respiratory failure with hypercapnia Code(s): J96.22 - ACUTE AND CHRONIC RESPIRATORY FAILURE WITH HYPERCAPNIA (2) COPD with acute exacerbation Code(s): J44.1 - CHRONIC OBSTRUCTIVE PULMONARY DISEASE W (ACUTE) EXACERBATION (3) Diabetes mellitus Code(s): E11.9 - TYPE 2 DIABETES MELLITUS WITHOUT COMPLICATIONS (4) Hypertension Code(s): I10 - ESSENTIAL (PRIMARY) HYPERTENSION (5) Paroxysmal atrial fibrillation Code(s): I48.0 - PAROXYSMAL ATRIAL FIBRILLATION (6) Elevated troponin I level Code(s): R74.8 - ABNORMAL LEVELS OF OTHER SERUM ENZYMES Assessment/Plan IV Solu-Medrol; it was djusted by Pulmonary Admitted to monitor bed. Pulmonary, Cardio consults and f/u are appreciated. Phychiatry consult is appreciated; pt was found to have full capacity to make decisions. AM labs. Case was d/w pt's nurse.
[2017-12-19] MEDS: DIGOXIN 0.125 MG TABLET (FP) PO SCH (10:19)
[2017-12-19] MEDS: ROFLUMILAST 500 MCG TABLET PO SCH (10:20)
[2017-12-19] MEDS: APIXABAN 5 MG TABLET PO SCH ×2 (10:20→22:07)
[2017-12-19] MEDS: FUROSEMIDE 40 MG TABLET (FP) PO SCH (10:20)
[2017-12-19] MEDS: BRIMONIDINE TARTRATE 0.1% OPHTHALMIC 5 ML BOTTLE OU SCH ×2 (10:24→21:29)
[2017-12-19] MEDS: TIOTROPIUM BROMIDE 2.5 MCG (SPIRIVA) RESPIMAT INHALER IH SCH (10:32)
[2017-12-19] MEDS: LATANOPROST 0.005% OPHTH SOLN 2.5ML BOTTLE OU SCH (10:33)
--- NOTE | 2017-12-19 10:57 | PN ---
Progress Note, Physician History of Present Illness: pulmonary alert,feeling better on nasal cannula - Current Medication List Current Medications: Active Medications Albuterol Sulfate (Ventolin 0.083% Nebulizer Soln -) 1 amp NEB Q6H PRN PRN Reason: SHORT OF BREATH/WHEEZING Last Admin: 12/18/17 16:15 Dose: 1 amp Apixaban (Eliquis -) 5 mg PO BID [facility] Last Admin: 12/19/17 10:20 Dose: 5 mg Atorvastatin Calcium (Lipitor -) 40 mg PO HS [facility] Last Admin: 12/18/17 22:30 Dose: 40 mg Brimonidine Tartrate (Alphagan P 0.1% -) 1 drop OU BID [facility] Last Admin: 12/19/17 10:24 Dose: 1 drop Digoxin (Lanoxin -) 0.125 mg PO DAILY [facility] Last Admin: 12/19/17 10:19 Dose: 0.125 mg Diltiazem HCl (Cardizem Cd -) 120 mg PO DAILY [facility] Last Admin: 12/19/17 10:19 Dose: 120 mg Furosemide (Lasix -) 40 mg PO DAILY [facility] Last Admin: 12/19/17 10:20 Dose: 40 mg Insulin Aspart (Novolog Vial Sliding Scale -) 1 vial SQ [facility]; Protocol Last Admin: 12/19/17 06:50 Dose: Not Given Insulin Detemir (Levemir Vial) 34 units SQ AM [facility] Last Admin: 12/19/17 06:49 Dose: 34 units Insulin Detemir (Levemir Vial) 12 units SQ HS [facility] Last Admin: 12/18/17 22:32 Dose: 12 units Latanoprost (Xalatan 0.005% Eye Drops -) 1 drop OU DAILY [facility] Last Admin: 12/19/17 10:33 Dose: 1 drop Levalbuterol HCl (Xopenex) 0.63 mg IH RBID [facility] Last Admin: 12/19/17 07:30 Dose: 0.63 mg Levothyroxine Sodium (Synthroid -) 75 mcg PO AM [facility] Last Admin: 12/19/17 06:50 Dose: 75 mcg Methylprednisolone Sodium Succinate (Solu-Medrol -) 30 mg IVPUSH Q8H-IV [facility] Last Admin: 12/19/17 10:17 Dose: 30 mg Montelukast Sodium (Singulair -) 10 mg PO HS [facility] Last Admin: 12/18/17 22:30 Dose: 10 mg Potassium Chloride (K-Dur -) 10 meq PO DAILY [facility] Last Admin: 12/18/17 10:53 Dose: 10 meq Roflumilast (Daliresp -) 500 mcg PO DAILY [facility] Last Admin: 12/19/17 10:20 Dose: 500 mcg Sitagliptin Phosphate (Januvia -) 100 mg PO AM [facility] Last Admin: 12/19/17 06:49 Dose: 100 mg Tiotropium [place] (Spiriva Respimat) 2 puff IH DAILY [facility] Last Admin: 12/19/17 10:32 Dose: 2 puff - Objective Vital Signs: Vital Signs Temperature 98.5 F 12/19/17 08:58 Pulse Rate 80 12/19/17 10:19 Respiratory Rate 20 12/19/17 08:58 Blood Pressure 124/62 12/19/17 08:58 O2 Sat by Pulse Oximetry (%) 100 12/18/17 20:38 Constitutional: Yes: Calm, Thin Eyes: Yes: WNL HENT: Yes: WNL Neck: Yes: WNL Cardiovascular: Yes: Regular Rate and Rhythm, S1, S2 Respiratory: Yes: Diminished Gastrointestinal: Yes: Normal Bowel Sounds, Soft Extremities: Yes: WNL Edema: No Labs: CBC, BMP 12/19/17 05:30 12/19/17 05:30 Problem List - Problems (1) Acute on chronic respiratory failure with hypoxia and hypercapnia Code(s): J96.21 - ACUTE AND CHRONIC RESPIRATORY FAILURE WITH HYPOXIA; J96.22 - ACUTE AND CHRONIC RESPIRATORY FAILURE WITH HYPERCAPNIA (2) COPD with acute exacerbation Code(s): J44.1 - CHRONIC OBSTRUCTIVE PULMONARY DISEASE W (ACUTE) EXACERBATION (3) Diabetes mellitus Code(s): E11.9 - TYPE 2 DIABETES MELLITUS WITHOUT COMPLICATIONS (4) Paroxysmal atrial fibrillation Code(s): I48.0 - PAROXYSMAL ATRIAL FIBRILLATION (5) Pulmonary HTN Code(s): I27.20 - PULMONARY HYPERTENSION, UNSPECIFIED (6) Diastolic HF (heart failure) Code(s): I50.30 - UNSPECIFIED DIASTOLIC (CONGESTIVE) HEART FAILURE (7) Hypothyroid Code(s): E03.9 - HYPOTHYROIDISM, UNSPECIFIED Assessment/Plan IMP ACUTE ON CHRONIC HYPOXEMIC/HYPERCAPNEIC RESPIRATORY FAILURE COPD EXACERBATION IMPROVING PULMONARY HTN PAF IDDM DIASTOLIC HF HYPOTHYROIDISM PLAN STEROIDS SAME DOSE INHALED BRONCHODILATORS O2 BIPAP AT NIGHT AND PRN DALIRESP PULMONARY REHAB POST DISCHARGE DR SOLOMON Problem List - Problems (1) Acute on chronic respiratory failure with hypoxia and hypercapnia Code(s): J96.21 - ACUTE AND CHRONIC RESPIRATORY FAILURE WITH HYPOXIA; J96.22 - ACUTE AND CHRONIC RESPIRATORY FAILURE WITH HYPERCAPNIA (2) COPD with acute exacerbation Code(s): J44.1 - CHRONIC OBSTRUCTIVE PULMONARY DISEASE W (ACUTE) EXACERBATION (3) Diabetes mellitus Code(s): E11.9 - TYPE 2 DIABETES MELLITUS WITHOUT COMPLICATIONS (4) Paroxysmal atrial fibrillation Code(s): I48.0 - PAROXYSMAL ATRIAL FIBRILLATION (5) Pulmonary HTN Code(s): I27.20 - PULMONARY HYPERTENSION, UNSPECIFIED (6) Diastolic HF (heart failure) Code(s): I50.30 - UNSPECIFIED DIASTOLIC (CONGESTIVE) HEART FAILURE (7) Hypothyroid Code(s): E03.9 - HYPOTHYROIDISM, UNSPECIFIED
[2017-12-19] MEDS: POTASSIUM CHLORIDE TABS 10 MEQ TABLET.ER (FP) PO SCH (11:02)
[2017-12-19] MEDS: ATORVASTATIN CA 40 MG TABLET (FP) PO SCH (21:31)
[2017-12-19] MEDS: MONTELUKAST NA 10 MG TABLET PO SCH (21:33)
[2017-12-20] MEDS: methylPREDNISolone NA SUCC 40 MG/1 ML VIAL IVPUSH SCH ×3 (02:00→16:59)
[2017-12-20] MEDS: sitaGLIPtin PHOSPHATE 100 MG TABLET (FP) PO SCH (06:39)
[2017-12-20] MEDS: INSULIN SLIDING SCALE (NOVOLOG) 1 VIAL SQ SCH ×4 (06:39→21:56)
[2017-12-20] MEDS: INSULIN (LEVEMIR) 100 UNITS/ML UNITS SQ SCH ×2 (06:39→21:56)
[2017-12-20] MEDS: LEVOTHYROXINE NA 75 MCG TABLET (FP) PO SCH (06:40)
[2017-12-20 06:48] LABS: HEMATOCRIT 41.6 % (32.4-45.2); HEMOGLOBIN 13.6 GM/dL (10.7-15.3); MCH 31.1 pg (25.7-33.7); MCHC 32.7 g/dl (32.0-36.0); MEAN CELL VOLUME 95.1 fl (80-96); MEAN PLT VOLUME 9.6 fl (7.5-11.1); PLATELET COUNT 174 K/MM3 (134-434); RBC 4.38 M/mm3 (3.60-5.2); RDW 14.1 % (11.6-15.6); WHITE BLOOD COUNT 21.6 K/mm3 (4.0-10.0)
[2017-12-20 07:10] LABS: ANION GAP 4 MMOL/L (8-16); BLOOD UREA NITROGEN 62 mg/dL (7-18); CALCIUM 9.6 mg/dL (8.5-10.1); CHLORIDE 97 mmol/L (98-107); CO2 42 mmol/L (21-32); CREATININE 0.7 mg/dL (0.55-1.3); GLUCOSE,RANDOM 100 mg/dL (74-106); POTASSIUM 4.3 mmol/L (3.5-5.1); SODIUM 142 mmol/L (136-145)
[2017-12-20] MEDS ORDERED: PT OWN MED DRAWER 7, Y5N ONE ×3 (08:53→19:47)
[2017-12-20] MEDS: LEVALBUTEROL HCL 0.63 MG/3 ML VIAL.NEB. IH SCH ×2 (08:55→19:50)
[2017-12-20] MEDS: APIXABAN 5 MG TABLET PO SCH ×2 (09:01→22:00)
[2017-12-20] MEDS: POTASSIUM CHLORIDE TABS 10 MEQ TABLET.ER (FP) PO SCH (09:01)
[2017-12-20] MEDS: ROFLUMILAST 500 MCG TABLET PO SCH (09:01)
[2017-12-20] MEDS: FUROSEMIDE 40 MG TABLET (FP) PO SCH (09:02)
[2017-12-20] MEDS: DIGOXIN 0.125 MG TABLET (FP) PO SCH (09:02)
[2017-12-20] MEDS: BRIMONIDINE TARTRATE 0.1% OPHTHALMIC 5 ML BOTTLE OU SCH ×2 (09:48→21:57)
[2017-12-20] MEDS: LATANOPROST 0.005% OPHTH SOLN 2.5ML BOTTLE OU SCH (09:48)
[2017-12-20] MEDS: TIOTROPIUM BROMIDE 2.5 MCG (SPIRIVA) RESPIMAT INHALER IH SCH (09:49)
--- NOTE | 2017-12-20 11:14 | PN ---
Progress Note, Physician History of Present Illness: Pt's breathing is so and so today, feels that needs to use BIPAP. Pt w/o cough, CP, palpitations, abd pain. - Current Medication List Current Medications: Active Medications Albuterol Sulfate (Ventolin 0.083% Nebulizer Soln -) 1 amp NEB Q6H PRN PRN Reason: SHORT OF BREATH/WHEEZING Last Admin: 12/18/17 16:15 Dose: 1 amp Apixaban (Eliquis -) 5 mg PO BID [facility] Last Admin: 12/20/17 09:01 Dose: 5 mg Atorvastatin Calcium (Lipitor -) 40 mg PO HS [facility] Last Admin: 12/19/17 21:31 Dose: 40 mg Brimonidine Tartrate (Alphagan P 0.1% -) 1 drop OU BID [facility] Last Admin: 12/20/17 09:48 Dose: 1 drop Digoxin (Lanoxin -) 0.125 mg PO DAILY [facility] Last Admin: 12/20/17 09:02 Dose: 0.125 mg Diltiazem HCl (Cardizem Cd -) 120 mg PO DAILY [facility] Last Admin: 12/20/17 09:01 Dose: 120 mg Furosemide (Lasix -) 40 mg PO DAILY [facility] Last Admin: 12/20/17 09:02 Dose: 40 mg Insulin Aspart (Novolog Vial Sliding Scale -) [address] [facility]; Protocol Last Admin: 12/20/17 11:12 Dose: Not Given Insulin Detemir (Levemir Vial) 34 units SQ AM [facility] Last Admin: 12/20/17 06:39 Dose: 34 units Insulin Detemir (Levemir Vial) 12 units SQ HS [facility] Last Admin: 12/19/17 21:31 Dose: 12 units Latanoprost (Xalatan 0.005% Eye Drops -) 1 drop OU DAILY [facility] Last Admin: 12/20/17 09:48 Dose: 1 drop Levalbuterol HCl (Xopenex) 0.63 mg IH RBID [facility] Last Admin: 12/19/17 20:18 Dose: 0.63 mg Levothyroxine Sodium (Synthroid -) 75 mcg PO AM [facility] Last Admin: 12/20/17 06:40 Dose: 75 mcg Methylprednisolone Sodium Succinate (Solu-Medrol -) 30 mg IVPUSH Q8H-IV [facility] Last Admin: 12/20/17 09:02 Dose: 30 mg Montelukast Sodium (Singulair -) 10 mg PO HS [facility] Last Admin: 12/19/17 21:33 Dose: 10 mg Potassium Chloride (K-Dur -) 10 meq PO DAILY [facility] Last Admin: 12/20/17 09:01 Dose: 10 meq Roflumilast (Daliresp -) 500 mcg PO DAILY [facility] Last Admin: 12/20/17 09:01 Dose: 500 mcg Sitagliptin Phosphate (Januvia -) 100 mg PO AM [facility] Last Admin: 12/20/17 06:39 Dose: 100 mg Tiotropium [place] (Spiriva Respimat) 2 puff IH DAILY [facility] Last Admin: 12/20/17 09:49 Dose: 2 puff - Objective Vital Signs: Vital Signs Temperature 98 F 12/20/17 09:00 Pulse Rate 77 12/20/17 09:02 Respiratory Rate 20 12/20/17 09:00 Blood Pressure 117/60 12/20/17 09:00 O2 Sat by Pulse Oximetry (%) 100 12/18/17 20:38 Constitutional: Yes: No Distress, Calm Cardiovascular: Yes: Regular Rate and Rhythm, S1, S2 Respiratory: Yes: Regular, CTA Bilaterally, Diminished. No: Rales Gastrointestinal: Yes: Normal Bowel Sounds, Soft. No: Tenderness Edema: No Neurological: Yes: Alert, Oriented Labs: CBC, BMP 12/20/17 06:00 12/20/17 06:00 Problem List - Problems (1) Acute and chronic respiratory failure with hypercapnia Code(s): J96.22 - ACUTE AND CHRONIC RESPIRATORY FAILURE WITH HYPERCAPNIA (2) COPD with acute exacerbation Code(s): J44.1 - CHRONIC OBSTRUCTIVE PULMONARY DISEASE W (ACUTE) EXACERBATION (3) Diabetes mellitus Code(s): E11.9 - TYPE 2 DIABETES MELLITUS WITHOUT COMPLICATIONS (4) Hypertension Code(s): I10 - ESSENTIAL (PRIMARY) HYPERTENSION (5) Paroxysmal atrial fibrillation Code(s): I48.0 - PAROXYSMAL ATRIAL FIBRILLATION (6) Elevated troponin I level Code(s): R74.8 - ABNORMAL LEVELS OF OTHER SERUM ENZYMES Assessment/Plan IV Solu-Medrol; cont same dose. Pulmonary, Cardio consults and f/u are appreciated. Phychiatry consult is appreciated; pt was found to have full capacity to make decisions. AM labs. Case was d/w pt's nurse.
--- NOTE | 2017-12-20 12:09 | PN ---
Progress Note (short form) - Note Progress Note: Chief Complaint: shortness of breath s: no cp palps dizzy;sob same as yesterday Current Medications Generic Name Dose Route Start Last Admin Trade Name Freq PRN Reason Stop Dose Admin Albuterol Sulfate 1 amp 12/12/17 19:28 12/18/17 16:15 Ventolin 0.083% Nebulizer Soln - NEB 1 amp Q6H PRN Administration SHORT OF BREATH/WHEEZING Apixaban 5 mg 12/12/17 22:00 12/20/17 09:01 Eliquis - PO 5 mg BID CLAY Administration Atorvastatin Calcium 40 mg 12/12/17 22:00 12/19/17 21:31 Lipitor - PO 40 mg HS CLAY Administration Brimonidine Tartrate 1 drop 12/12/17 22:00 12/20/17 09:48 Alphagan P 0.1% - OU 1 drop BID CLAY Administration Digoxin 0.125 mg 12/13/17 10:00 12/20/17 09:02 Lanoxin - PO 0.125 mg DAILY CLAY Administration Diltiazem HCl 120 mg 12/13/17 10:00 12/20/17 09:01 Cardizem Cd - PO 120 mg DAILY [facility]LAY Administration Furosemide 40 mg 12/13/17 10:00 12/20/17 09:02 Lasix - PO 40 mg DAILY [facility] Administration Insulin Aspart 1 vial 12/12/17 22:00 12/20/17 11:12 Novolog Vial Sliding Scale - SQ Not Given ACHS [facility] Protocol Insulin Detemir 34 units 12/14/17 07:00 12/20/17 06:39 Levemir Vial SQ 34 units AM CLAY Administration Insulin Detemir 12 units 12/14/17 22:00 12/19/17 21:31 Levemir Vial SQ 12 units HS CLAY Administration Latanoprost 1 drop 12/13/17 10:00 12/20/17 09:48 Xalatan 0.005% Eye Drops - OU 1 drop DAILY [facility] Administration Levalbuterol HCl 0.63 mg 12/13/17 20:00 12/19/17 20:18 Xopenex IH 0.63 mg RBID CLAY Administration Levothyroxine Sodium 75 mcg 12/13/17 07:00 12/20/17 06:40 Synthroid - PO 75 mcg AM CLAY Administration Methylprednisolone Sodium Succinate 30 mg 12/18/17 13:39 12/20/17 09:02 Solu-Medrol - IVPUSH 30 mg Q8H-IV CLAY Administration Montelukast Sodium 10 mg 12/12/17 22:00 12/19/17 21:33 Singulair - PO 10 mg HS CLAY Administration Potassium Chloride 10 meq 12/14/17 12:15 12/20/17 09:01 K-Dur - PO 10 meq DAILY [facility] Administration Roflumilast 500 mcg 12/13/17 12:45 12/20/17 09:01 Daliresp - PO 500 mcg DAILY [facility] Administration Sitagliptin Phosphate 100 mg 12/13/17 07:00 12/20/17 06:39 Januvia - PO 100 mg AM CLAY Administration Tiotropium [place] 2 puff 12/13/17 10:00 12/20/17 09:49 Spiriva Respimat IH 2 puff DAILY CLAY Administration Vital Signs Period Temp Pulse Resp BP Sys/Anthony Pulse Ox Last 24 Hr 97.4 F-98 F 65-77 20-20 117-134/53-60 Constitutional: Yes: No Distress, Calm Eyes: Yes: Conjunctiva Clear Respiratory: Yes: Regular, no wheeze, dec bs, nl eff, On Nasal O2 Gastrointestinal: Yes: Normal Bowel Sounds, Soft Cardiovascular: Yes: Regular Rate and Rhythm JVD: No Heart Sounds: Yes: S1, S2 Edema: No Peripheral Pulses: 2+ Left Doralis Pedis, 2+ Right Dorsalis Pedis Integumentary: Yes: no jaunidce diaphoresis Neurological: Yes: Alert, Oriented Echo 10/2015: Nl lv/rv. suboptimal views, but at least mild AR. Mod MAC. 1+ MR. No MS. trivial effusion. RVSP not measured. echo 09/2016: tds; nl lv/rv, mv calcified, mac, mild-mod mr, sev tr, small peric eff-->MV calcification is chronic finding for her and not indicative of vegetation CXR: hyperaerated lung, no effusion EKG: sinus, nonspecific ST segment changes Assessment/Plan Elevated trop - 0.07->0.06 - mild elevation with flat trend, EKG stable, not consistent with ACS - management of COPD exacerbation as below Shortness of breath, COPD - O2 dependent, on BiPap, chronic prednisone - IV solumedrol, less dyspnea, on nasal canula - manage per pulm Chronic diastolic CHF - continue lasix PO - stable volume status pAFib - in sinus now - continue eliquis, digoxin, diltiazem HLD - continue statin
[2017-12-20] MEDS: ATORVASTATIN CA 40 MG TABLET (FP) PO SCH (21:55)
[2017-12-20] MEDS: MONTELUKAST NA 10 MG TABLET PO SCH (21:55)
[2017-12-21] MEDS: methylPREDNISolone NA SUCC 40 MG/1 ML VIAL IVPUSH SCH ×3 (01:30→17:18)
[2017-12-21] MEDS ORDERED: INSULIN (NOVOLOG) ASPART 100 UNITS/ML 10ML VIAL ONE (05:55)
[2017-12-21] MEDS: INSULIN (LEVEMIR) 100 UNITS/ML UNITS SQ SCH ×2 (06:11→21:15)
[2017-12-21] MEDS: INSULIN SLIDING SCALE (NOVOLOG) 1 VIAL SQ SCH ×4 (06:12→21:20)
[2017-12-21] MEDS ORDERED: DEXTROSE 50%-WATER - 25 GM/50 ML VIAL ONE (06:35)
[2017-12-21] MEDS ORDERED: DEXTROSE 50%-WATER - 25 GM/50 ML VIAL IVPUSH ONE (06:45)
[2017-12-21] MEDS: LEVOTHYROXINE NA 75 MCG TABLET (FP) PO SCH (06:52)
[2017-12-21 07:21] LABS: HEMATOCRIT 41.8 % (32.4-45.2); HEMOGLOBIN 13.9 GM/dL (10.7-15.3); MCH 31.4 pg (25.7-33.7); MCHC 33.2 g/dl (32.0-36.0); MEAN CELL VOLUME 94.6 fl (80-96); MEAN PLT VOLUME 9.9 fl (7.5-11.1); PLATELET COUNT 189 K/MM3 (134-434); RBC 4.42 M/mm3 (3.60-5.2); RDW 13.8 % (11.6-15.6); WHITE BLOOD COUNT 20.2 K/mm3 (4.0-10.0)
[2017-12-21] MEDS: sitaGLIPtin PHOSPHATE 100 MG TABLET (FP) PO SCH (07:59)
[2017-12-21] MEDS: LEVALBUTEROL HCL 0.63 MG/3 ML VIAL.NEB. IH SCH ×2 (08:40→21:03)
[2017-12-21 09:01] LABS: ANION GAP 7 MMOL/L (8-16); BLOOD UREA NITROGEN 62 mg/dL (7-18); CALCIUM 9.5 mg/dL (8.5-10.1); CHLORIDE 98 mmol/L (98-107); CO2 37 mmol/L (21-32); CREATININE 0.5 mg/dL (0.55-1.3); POTASSIUM 4.1 mmol/L (3.5-5.1); SODIUM 143 mmol/L (136-145)
[2017-12-21 09:03] LABS: GLUCOSE,RANDOM 33 mg/dL (74-106)
[2017-12-21] MEDS: FUROSEMIDE 40 MG TABLET (FP) PO SCH (09:11)
[2017-12-21] MEDS: APIXABAN 5 MG TABLET PO SCH ×2 (09:12→21:14)
[2017-12-21] MEDS: POTASSIUM CHLORIDE TABS 10 MEQ TABLET.ER (FP) PO SCH (09:12)
[2017-12-21] MEDS: ROFLUMILAST 500 MCG TABLET PO SCH (09:12)
[2017-12-21] MEDS: DIGOXIN 0.125 MG TABLET (FP) PO SCH (09:12)
[2017-12-21] MEDS: TIOTROPIUM BROMIDE 2.5 MCG (SPIRIVA) RESPIMAT INHALER IH SCH (09:14)
[2017-12-21] MEDS: BRIMONIDINE TARTRATE 0.1% OPHTHALMIC 5 ML BOTTLE OU SCH ×2 (09:14→21:17)
[2017-12-21] MEDS: LATANOPROST 0.005% OPHTH SOLN 2.5ML BOTTLE OU SCH (09:14)
--- NOTE | 2017-12-21 12:04 | PN ---
Progress Note, Physician History of Present Illness: Pt's breathing is "not good " today. Pt w/o cough, CP, palpitations, abd pain. Pt's sister is at bedside; pt with anxiety, on and off. - Current Medication List Current Medications: Active Medications Albuterol Sulfate (Ventolin 0.083% Nebulizer Soln -) 1 amp NEB Q6H PRN PRN Reason: SHORT OF BREATH/WHEEZING Last Admin: 12/18/17 16:15 Dose: 1 amp Apixaban (Eliquis -) 5 mg PO BID [facility] Last Admin: 12/21/17 09:12 Dose: 5 mg Atorvastatin Calcium (Lipitor -) 40 mg PO HS [facility] Last Admin: 12/20/17 21:55 Dose: 40 mg Brimonidine Tartrate (Alphagan P 0.1% -) 1 drop OU BID [facility] Last Admin: 12/21/17 09:14 Dose: Not Given Digoxin (Lanoxin -) 0.125 mg PO DAILY [facility] Last Admin: 12/21/17 09:12 Dose: 0.125 mg Diltiazem HCl (Cardizem Cd -) 120 mg PO DAILY [facility] Last Admin: 12/21/17 09:11 Dose: 120 mg Furosemide (Lasix -) 40 mg PO DAILY [facility] Last Admin: 12/21/17 09:11 Dose: 40 mg Insulin Aspart (Novolog Vial Sliding Scale -) 1 vial SQ [facility]; Protocol Last Admin: 12/21/17 11:11 Dose: Not Given Insulin Detemir (Levemir Vial) 30 units SQ AM CLAY Insulin Detemir (Levemir Vial) 8 units SQ HS [facility] Latanoprost (Xalatan 0.005% Eye Drops -) 1 drop OU DAILY [facility] Last Admin: 12/21/17 09:14 Dose: Not Given Levalbuterol HCl (Xopenex) 0.63 mg IH RBID [facility] Last Admin: 12/20/17 19:50 Dose: 0.63 mg Levothyroxine Sodium (Synthroid -) 75 mcg PO AM [facility] Last Admin: 12/21/17 06:52 Dose: 75 mcg Methylprednisolone Sodium Succinate (Solu-Medrol -) 30 mg IVPUSH Q8H-IV [facility] Last Admin: 12/21/17 09:11 Dose: 30 mg Montelukast Sodium (Singulair -) 10 mg PO HS [facility] Last Admin: 12/20/17 21:55 Dose: 10 mg Potassium Chloride (K-Dur -) 10 meq PO DAILY [facility] Last Admin: 12/21/17 09:12 Dose: 10 meq Roflumilast (Daliresp -) 500 mcg PO DAILY [facility] Last Admin: 12/21/17 09:12 Dose: 500 mcg Sitagliptin Phosphate (Januvia -) 100 mg PO AM [facility] Last Admin: 12/21/17 07:59 Dose: 100 mg Tiotropium [place] (Spiriva Respimat) 2 puff IH DAILY [facility] Last Admin: 12/21/17 09:14 Dose: Not Given - Objective Vital Signs: Vital Signs Temperature 97.7 F 12/21/17 05:39 Pulse Rate 94 H 12/21/17 10:00 Respiratory Rate 20 12/21/17 09:00 Blood Pressure 135/58 L 12/21/17 05:39 O2 Sat by Pulse Oximetry (%) 98 12/21/17 00:10 Constitutional: Yes: No Distress, Calm Cardiovascular: Yes: Regular Rate and Rhythm, S1, S2 Respiratory: Yes: Regular, Diminished, Other (coarse BS bilat). No: Rales Gastrointestinal: Yes: Normal Bowel Sounds, Soft. No: Tenderness Edema: No Neurological: Yes: Alert, Oriented Labs: CBC, BMP 12/21/17 06:00 12/21/17 06:00 Problem List - Problems (1) Acute and chronic respiratory failure with hypercapnia Code(s): J96.22 - ACUTE AND CHRONIC RESPIRATORY FAILURE WITH HYPERCAPNIA (2) COPD with acute exacerbation Code(s): J44.1 - CHRONIC OBSTRUCTIVE PULMONARY DISEASE W (ACUTE) EXACERBATION (3) Diabetes mellitus Code(s): E11.9 - TYPE 2 DIABETES MELLITUS WITHOUT COMPLICATIONS (4) Hypertension Code(s): I10 - ESSENTIAL (PRIMARY) HYPERTENSION (5) Paroxysmal atrial fibrillation Code(s): I48.0 - PAROXYSMAL ATRIAL FIBRILLATION (6) Elevated troponin I level Code(s): R74.8 - ABNORMAL LEVELS OF OTHER SERUM ENZYMES Assessment/Plan IV Solu-Medrol; cont same dose for now; to f/u with Pulmonary; case was d/w Dr. Reid. I encouraged pt to stay on BIPAP for few hours (per her nurse she is trying to remove it every 10 to 15 minutes); I explained to pt the benefits on continue BIPAP use; I asked her sister to encourage pt to stay on BIPAP. CXR, today, to r/o infiltrates vs vascular congestion Pulmonary, Cardio consults and f/u are appreciated. Phychiatry consult is appreciated; pt was found to have full capacity to make decisions. AM labs. Case was d/w pt's nurse, finds pt more anxious than her baseline. Pt's condition was discussed in details with her sister (she is the alternate agent on HCP document), all questions were answered; pt and family wants pt to be transferred to rehab [facility], close to dg-in-law residency. Pt is not medically stable, opinion also shared by Dr. Reid. Time spent for managing pt's condition: over 35 minutes.
[2017-12-21] MEDS: ALPRAZolam 0.25 MG TABLET PO SCH ×2 (13:08→21:17)
--- NOTE | 2017-12-21 14:46 | PN ---
Progress Note, Physician History of Present Illness: PULMONARY ALERT,C/O INCREASING SOB EARLIER,PLACED ON BIPAP,CURRENTLY BACK ON NASAL CANNULA ,MILDLY DYSPNEC - Current Medication List Current Medications: Active Medications Albuterol Sulfate (Ventolin 0.083% Nebulizer Soln -) 1 amp NEB Q6H PRN PRN Reason: SHORT OF BREATH/WHEEZING Last Admin: 12/18/17 16:15 Dose: 1 amp Alprazolam (Xanax -) 0.25 mg PO BID [facility] Last Admin: 12/21/17 13:08 Dose: 0.25 mg Apixaban (Eliquis -) 5 mg PO BID [facility] Last Admin: 12/21/17 09:12 Dose: 5 mg Atorvastatin Calcium (Lipitor -) 40 mg PO HS [facility] Last Admin: 12/20/17 21:55 Dose: 40 mg Brimonidine Tartrate (Alphagan P 0.1% -) 1 drop OU BID [facility] Last Admin: 12/21/17 09:14 Dose: Not Given Digoxin (Lanoxin -) 0.125 mg PO DAILY [facility] Last Admin: 12/21/17 09:12 Dose: 0.125 mg Diltiazem HCl (Cardizem Cd -) 120 mg PO DAILY [facility] Last Admin: 12/21/17 09:11 Dose: 120 mg Furosemide (Lasix -) 40 mg PO DAILY [facility] Last Admin: 12/21/17 09:11 Dose: 40 mg Insulin Aspart (Novolog Vial Sliding Scale -) 1 vial SQ [facility]; Protocol Last Admin: 12/21/17 11:11 Dose: Not Given Insulin Detemir (Levemir Vial) 30 units SQ AM [facility] Insulin Detemir (Levemir Vial) 8 units SQ HS [facility] Latanoprost (Xalatan 0.005% Eye Drops -) 1 drop OU DAILY [facility] Last Admin: 12/21/17 09:14 Dose: Not Given Levalbuterol HCl (Xopenex) 0.63 mg IH RBID [facility] Last Admin: 12/21/17 08:40 Dose: 0.63 mg Levothyroxine Sodium (Synthroid -) 75 mcg PO AM [facility] Last Admin: 12/21/17 06:52 Dose: 75 mcg Methylprednisolone Sodium Succinate (Solu-Medrol -) 30 mg IVPUSH Q8H-IV [facility] Last Admin: 12/21/17 09:11 Dose: 30 mg Montelukast Sodium (Singulair -) 10 mg PO HS [facility] Last Admin: 12/20/17 21:55 Dose: 10 mg Potassium Chloride (K-Dur -) 10 meq PO DAILY [facility] Last Admin: 12/21/17 09:12 Dose: 10 meq Roflumilast (Daliresp -) 500 mcg PO DAILY [facility] Last Admin: 12/21/17 09:12 Dose: 500 mcg Sitagliptin Phosphate (Januvia -) 100 mg PO AM [facility] Last Admin: 12/21/17 07:59 Dose: 100 mg Tiotropium [place] (Spiriva Respimat) 2 puff IH DAILY [facility] Last Admin: 12/21/17 09:14 Dose: Not Given - Objective Vital Signs: Vital Signs Temperature 97.3 F L 12/21/17 13:59 Pulse Rate 83 12/21/17 13:59 Respiratory Rate 20 12/21/17 13:59 Blood Pressure 118/72 12/21/17 13:59 O2 Sat by Pulse Oximetry (%) 96 12/21/17 08:40 Constitutional: Yes: Calm, Thin Eyes: Yes: WNL HENT: Yes: WNL Neck: Yes: WNL Cardiovascular: Yes: Pulse Irregular, S1, S2 Respiratory: Yes: Diminished Gastrointestinal: Yes: Normal Bowel Sounds, Soft Extremities: Yes: WNL Edema: No Labs: CBC, BMP 12/21/17 06:00 12/21/17 06:00 Problem List - Problems (1) Acute on chronic respiratory failure with hypoxia and hypercapnia Code(s): J96.21 - ACUTE AND CHRONIC RESPIRATORY FAILURE WITH HYPOXIA; J96.22 - ACUTE AND CHRONIC RESPIRATORY FAILURE WITH HYPERCAPNIA (2) COPD with acute exacerbation Code(s): J44.1 - CHRONIC OBSTRUCTIVE PULMONARY DISEASE W (ACUTE) EXACERBATION (3) Diabetes mellitus Code(s): E11.9 - TYPE 2 DIABETES MELLITUS WITHOUT COMPLICATIONS (4) Paroxysmal atrial fibrillation Code(s): I48.0 - PAROXYSMAL ATRIAL FIBRILLATION (5) Pulmonary HTN Code(s): I27.20 - PULMONARY HYPERTENSION, UNSPECIFIED (6) Diastolic HF (heart failure) Code(s): I50.30 - UNSPECIFIED DIASTOLIC (CONGESTIVE) HEART FAILURE (7) Hypothyroid Code(s): E03.9 - HYPOTHYROIDISM, UNSPECIFIED Assessment/Plan IMP ACUTE ON CHRONIC HYPOXEMIC/HYPERCAPNEIC RESPIRATORY FAILURE COPD EXACERBATION IMPROVING PULMONARY HTN PAF IDDM DIASTOLIC HF HYPOTHYROIDISM PLAN STEROIDS 40 Q8 INHALED BRONCHODILATORS O2 BIPAP AT NIGHT AND PRN DALIRESP PULMONARY REHAB POST DISCHARGE DR SOLOMON Problem List - Problems (1) Acute on chronic respiratory failure with hypoxia and hypercapnia Code(s): J96.21 - ACUTE AND CHRONIC RESPIRATORY FAILURE WITH HYPOXIA; J96.22 - ACUTE AND CHRONIC RESPIRATORY FAILURE WITH HYPERCAPNIA (2) COPD with acute exacerbation Code(s): J44.1 - CHRONIC OBSTRUCTIVE PULMONARY DISEASE W (ACUTE) EXACERBATION (3) Diabetes mellitus Code(s): E11.9 - TYPE 2 DIABETES MELLITUS WITHOUT COMPLICATIONS (4) Paroxysmal atrial fibrillation Code(s): I48.0 - PAROXYSMAL ATRIAL FIBRILLATION (5) Pulmonary HTN Code(s): I27.20 - PULMONARY HYPERTENSION, UNSPECIFIED (6) Diastolic HF (heart failure) Code(s): I50.30 - UNSPECIFIED DIASTOLIC (CONGESTIVE) HEART FAILURE (7) Hypothyroid Code(s): E03.9 - HYPOTHYROIDISM, UNSPECIFIED
[2017-12-21] MEDS ORDERED: INSULIN (NOVOLOG) ASPART 100 UNITS/ML 10ML VIAL SQ ONE (17:00)
--- NOTE | 2017-12-21 17:14 | PN ---
Progress Note (short form) - Note Progress Note: Chief Complaint: shortness of breath s: no cp palps dizzy;sob better today Current Medications Generic Name Dose Route Start Last Admin Trade Name Erik PRN Reason Stop Dose Admin Albuterol Sulfate 1 amp 12/12/17 19:28 12/18/17 16:15 Ventolin 0.083% Nebulizer Soln - NEB 1 amp Q6H PRN Administration SHORT OF BREATH/WHEEZING Alprazolam 0.25 mg 12/21/17 12:15 12/21/17 13:08 Xanax - PO 0.25 mg BID [facility] Administration Apixaban 5 mg 12/12/17 22:00 12/21/17 09:12 Eliquis - PO 5 mg BID [facility] Administration Atorvastatin Calcium 40 mg 12/12/17 22:00 12/20/17 21:55 Lipitor - PO 40 mg HS [facility] Administration Brimonidine Tartrate 1 drop 12/12/17 22:00 12/21/17 09:14 Alphagan P 0.1% - OU Not Given BID [facility] Digoxin 0.125 mg 12/13/17 10:00 12/21/17 09:12 Lanoxin - PO 0.125 mg DAILY [facility] Administration Diltiazem HCl 120 mg 12/13/17 10:00 12/21/17 09:11 Cardizem Cd - PO 120 mg DAILY [facility] Administration Furosemide 40 mg 12/13/17 10:00 12/21/17 09:11 Lasix - PO 40 mg DAILY [facility] Administration Insulin Aspart 1 vial 12/12/17 22:00 12/21/17 16:52 Novolog Vial Sliding Scale - SQ Not Given ACHS [facility] Protocol Insulin Detemir 30 units 12/21/17 11:59 Levemir Vial SQ AM [facility] Insulin Detemir 8 units 12/21/17 22:00 Levemir Vial SQ HS [facility] Latanoprost 1 drop 12/13/17 10:00 12/21/17 09:14 Xalatan 0.005% Eye Drops - OU Not Given DAILY [facility] Levalbuterol HCl 0.63 mg 12/13/17 20:00 12/21/17 08:40 Xopenex IH 0.63 mg RBID [facility] Administration Levothyroxine Sodium 75 mcg 12/13/17 07:00 12/21/17 06:52 Synthroid - PO 75 mcg AM [facility] Administration Methylprednisolone Sodium Succinate 40 mg 12/21/17 18:00 Solu-Medrol - IVPUSH Q8H-IV [facility] Montelukast Sodium 10 mg 12/12/17 22:00 12/20/17 21:55 Singulair - PO 10 mg HS [facility] Administration Potassium Chloride 10 meq 12/14/17 12:15 12/21/17 09:12 K-Dur - PO 10 meq DAILY [facility] Administration Roflumilast 500 mcg 12/13/17 12:45 12/21/17 09:12 Daliresp - PO 500 mcg DAILY [facility] Administration Sitagliptin Phosphate 100 mg 12/13/17 07:00 12/21/17 07:59 Januvia - PO 100 mg AM [facility] Administration Tiotropium [place] 2 puff 12/13/17 10:00 12/21/17 09:14 Spiriva Respimat IH Not Given DAILY [facility] Vital Signs Period Temp Pulse Resp BP Sys/Anthony Pulse Ox Last 24 Hr 97.3 F-98.0 F 77-94 20-22 118-141/52-72 96-98 Constitutional: Yes: No Distress, Calm Eyes: Yes: Conjunctiva Clear Respiratory: Yes: Regular, no wheeze, dec bs, nl eff, On Nasal O2 Gastrointestinal: Yes: Normal Bowel Sounds, Soft Cardiovascular: Yes: Regular Rate and Rhythm JVD: No Heart Sounds: Yes: S1, S2 Edema: No Peripheral Pulses: 2+ Left Doralis Pedis, 2+ Right Dorsalis Pedis Integumentary: Yes: no jaunidce diaphoresis Neurological: Yes: Alert, Oriented Echo 10/2015: Nl lv/rv. suboptimal views, but at least mild AR. Mod MAC. 1+ MR. No MS. trivial effusion. RVSP not measured. echo 09/2016: tds; nl lv/rv, mv calcified, mac, mild-mod mr, sev tr, small peric eff-->MV calcification is chronic finding for her and not indicative of vegetation CXR: hyperaerated lung, no effusion EKG: sinus, nonspecific ST segment changes Assessment/Plan Elevated trop - 0.07->0.06 - mild elevation with flat trend, EKG stable, not consistent with ACS - management of COPD exacerbation as below Shortness of breath, COPD - O2 dependent, on BiPap, chronic prednisone - on IV solumedrol, less dyspnea today - manage per pulm Chronic diastolic CHF - continue lasix PO - stable volume status pAFib - in sinus now - continue eliquis, digoxin, diltiazem HLD - continue statin
[2017-12-21] MEDS ORDERED: PT OWN MED DRAWER 7, Y5N ONE (20:56)
[2017-12-21] MEDS: MONTELUKAST NA 10 MG TABLET PO SCH (21:16)
[2017-12-21] MEDS: ATORVASTATIN CA 40 MG TABLET (FP) PO SCH (21:16)
[2017-12-22] MEDS: methylPREDNISolone NA SUCC 40 MG/1 ML VIAL IVPUSH SCH ×3 (01:36→17:11)
[2017-12-22] MEDS: LEVOTHYROXINE NA 75 MCG TABLET (FP) PO SCH (06:13)
[2017-12-22] MEDS: sitaGLIPtin PHOSPHATE 100 MG TABLET (FP) PO SCH (06:13)
[2017-12-22] MEDS: INSULIN SLIDING SCALE (NOVOLOG) 1 VIAL SQ SCH ×4 (06:13→21:13)
[2017-12-22] MEDS: INSULIN (LEVEMIR) 100 UNITS/ML UNITS SQ SCH ×2 (06:33→21:05)
[2017-12-22 07:11] LABS: HEMATOCRIT 40.2 % (32.4-45.2); HEMOGLOBIN 13.1 GM/dL (10.7-15.3); MCH 32.4 pg (25.7-33.7); MCHC 32.7 g/dl (32.0-36.0); MEAN CELL VOLUME 98.9 fl (80-96); MEAN PLT VOLUME 9.6 fl (7.5-11.1); PLATELET COUNT 162 K/MM3 (134-434); RBC 4.06 M/mm3 (3.60-5.2); WHITE BLOOD COUNT 20.4 K/mm3 (4.0-10.0)
[2017-12-22 07:36] LABS: ALBUMIN 2.8 g/dl (3.4-5.0); ALK PHOS 103 U/L (45-117); ANION GAP 6 MMOL/L (8-16); BILIRUBIN,TOTAL 0.4 mg/dL (0.2-1); BLOOD UREA NITROGEN 60 mg/dL (7-18); CALCIUM 9.2 mg/dL (8.5-10.1); CHLORIDE 101 mmol/L (98-107); CO2 35 mmol/L (21-32); CREATININE 0.6 mg/dL (0.55-1.3); GLUCOSE,RANDOM 160 mg/dL (74-106); POTASSIUM 4.7 mmol/L (3.5-5.1); SGOT/AST 52 U/L (15-37); SGPT/ALT 158 U/L (13-61); SODIUM 142 mmol/L (136-145); TOT PROT 5.1 g/dl (6.4-8.2)
[2017-12-22] MEDS: ALBUTEROL SO4 0.083% IH SOL 2.5 MG/3 ML VIAL.NEB. NEB PRN (07:41)
[2017-12-22] MEDS: LEVALBUTEROL HCL 0.63 MG/3 ML VIAL.NEB. IH SCH (07:41)
[2017-12-22] MEDS: ALPRAZolam 0.25 MG TABLET PO SCH ×2 (09:39→21:05)
[2017-12-22] MEDS: APIXABAN 5 MG TABLET PO SCH ×2 (09:39→21:00)
[2017-12-22] MEDS: POTASSIUM CHLORIDE TABS 10 MEQ TABLET.ER (FP) PO SCH (09:39)
[2017-12-22] MEDS: ROFLUMILAST 500 MCG TABLET PO SCH (09:39)
[2017-12-22] MEDS: DIGOXIN 0.125 MG TABLET (FP) PO SCH (09:40)
[2017-12-22] MEDS: FUROSEMIDE 40 MG TABLET (FP) PO SCH (09:40)
[2017-12-22] MEDS: BRIMONIDINE TARTRATE 0.1% OPHTHALMIC 5 ML BOTTLE OU SCH ×2 (09:52→21:01)
[2017-12-22] MEDS: LATANOPROST 0.005% OPHTH SOLN 2.5ML BOTTLE OU SCH (09:52)
[2017-12-22] MEDS: TIOTROPIUM BROMIDE 2.5 MCG (SPIRIVA) RESPIMAT INHALER IH SCH (09:52)
--- NOTE | 2017-12-22 11:42 | PN ---
Progress Note, Physician History of Present Illness: Pt's breathing is not better than yesterday; pt looks uncomfortablt cannot talk secondary to dyspnea, want to go back on BIPAP. Pt w/o cough, CP, palpitations, abd pain, diarrhea, dysuria. - Current Medication List Current Medications: Active Medications Albuterol Sulfate (Ventolin 0.083% Nebulizer Soln -) 1 amp NEB Q6H PRN PRN Reason: SHORT OF BREATH/WHEEZING Last Admin: 12/22/17 07:41 Dose: 1 amp Alprazolam (Xanax -) 0.25 mg PO BID [facility] Last Admin: 12/22/17 09:39 Dose: 0.25 mg Apixaban (Eliquis -) 5 mg PO BID [facility] Last Admin: 12/22/17 09:39 Dose: 5 mg Atorvastatin Calcium (Lipitor -) 40 mg PO HS [facility] Last Admin: 12/21/17 21:16 Dose: 40 mg Brimonidine Tartrate (Alphagan P 0.1% -) 1 drop OU BID [facility] Last Admin: 12/22/17 09:52 Dose: 1 drop Digoxin (Lanoxin -) 0.125 mg PO DAILY [facility] Last Admin: 12/22/17 09:40 Dose: 0.125 mg Diltiazem HCl (Cardizem Cd -) 120 mg PO DAILY [facility] Last Admin: 12/22/17 09:40 Dose: 120 mg Furosemide (Lasix -) 40 mg PO DAILY [facility] Last Admin: 12/22/17 09:40 Dose: 40 mg Insulin Aspart (Novolog Vial Sliding Scale -) 1 vial SQ ACHS [facility]; Protocol Last Admin: 12/22/17 11:14 Dose: Not Given Insulin Detemir (Levemir Vial) 30 units SQ AM [facility] Last Admin: 12/22/17 06:33 Dose: Not Given Insulin Detemir (Levemir Vial) 8 units SQ HS [facility] Last Admin: 12/21/17 21:15 Dose: 8 units Latanoprost (Xalatan 0.005% Eye Drops -) 1 drop OU DAILY [facility] Last Admin: 12/22/17 09:52 Dose: 1 drop Levalbuterol HCl (Xopenex) 0.63 mg IH RBID [facility] Last Admin: 12/22/17 07:41 Dose: Not Given Levothyroxine Sodium (Synthroid -) 75 mcg PO AM [facility] Last Admin: 12/22/17 06:13 Dose: 75 mcg Methylprednisolone Sodium Succinate (Solu-Medrol -) 40 mg IVPUSH Q8H-IV [facility] Last Admin: 12/22/17 09:39 Dose: 40 mg Montelukast Sodium (Singulair -) 10 mg PO HS [facility] Last Admin: 12/21/17 21:16 Dose: 10 mg Potassium Chloride (K-Dur -) 10 meq PO DAILY [facility] Last Admin: 12/22/17 09:39 Dose: 10 meq Roflumilast (Daliresp -) 500 mcg PO DAILY [facility] Last Admin: 12/22/17 09:39 Dose: 500 mcg Sitagliptin Phosphate (Januvia -) 100 mg PO AM [facility] Last Admin: 12/22/17 06:13 Dose: 100 mg Tiotropium [place] (Spiriva Respimat) 2 puff IH DAILY [facility] Last Admin: 12/22/17 09:52 Dose: 2 puff - Objective Vital Signs: Vital Signs Temperature 97.8 F 12/22/17 10:00 Pulse Rate 81 12/22/17 10:00 Respiratory Rate 18 12/22/17 10:00 Blood Pressure 124/59 L 12/22/17 10:00 O2 Sat by Pulse Oximetry (%) 98 12/22/17 09:00 Constitutional: Yes: No Distress, Calm Cardiovascular: Yes: Regular Rate and Rhythm, S1, S2 Respiratory: Yes: Regular, Diminished (to appreciated rales) Gastrointestinal: Yes: Normal Bowel Sounds, Soft. No: Tenderness Edema: No Neurological: Yes: Alert, Oriented Labs: CBC, BMP 12/22/17 06:45 12/22/17 06:45 Problem List - Problems (1) Acute and chronic respiratory failure with hypercapnia Code(s): J96.22 - ACUTE AND CHRONIC RESPIRATORY FAILURE WITH HYPERCAPNIA (2) COPD with acute exacerbation Assessment/Plan: Pt with advanced/end stage COPD, required increasing Steroid dose without significant improvement in respiratory status, yet Code(s): J44.1 - CHRONIC OBSTRUCTIVE PULMONARY DISEASE W (ACUTE) EXACERBATION (3) Diabetes mellitus Code(s): E11.9 - TYPE 2 DIABETES MELLITUS WITHOUT COMPLICATIONS (4) Hypertension Code(s): I10 - ESSENTIAL (PRIMARY) HYPERTENSION (5) Paroxysmal atrial fibrillation Code(s): I48.0 - PAROXYSMAL ATRIAL FIBRILLATION (6) Elevated troponin I level Code(s): R74.8 - ABNORMAL LEVELS OF OTHER SERUM ENZYMES (7) Leukocytosis Assessment/Plan: Probable secondary to steroids Code(s): D72.829 - ELEVATED WHITE BLOOD CELL COUNT, UNSPECIFIED Assessment/Plan IV Solu-Medrol; case was d/w Dr. Cole. Pulmonary, Cardio consults and f/u are appreciated. Phychiatry consult is appreciated; pt was found to have full capacity to make decisions. AM labs. Prognosis: reserved
--- NOTE | 2017-12-22 11:49 | PN ---
Progress Note (short form) - Note Progress Note: In bed. Still with mild to moderate tachypnea at rest on NC O2. NIPPV overnight. No CP. Intake & Output 12/19/17 12/20/17 12/21/17 12/22/17 23:59 23:59 23:59 23:59 Intake Total 0 180 130 Output Total 2 1 Balance 0 178 129 Weight 132 lb Last Vital Signs Temp Pulse Resp BP Pulse Ox 97.8 F 81 18 124/59 L 98 12/22/17 10:00 12/22/17 10:00 12/22/17 10:00 12/22/17 10:00 12/22/17 09:00 Active Medications Albuterol Sulfate (Ventolin 0.083% Nebulizer Soln -) 1 amp NEB Q6H PRN PRN Reason: SHORT OF BREATH/WHEEZING Last Admin: 12/22/17 07:41 Dose: 1 amp Alprazolam (Xanax -) 0.25 mg PO BID [facility] Last Admin: 12/22/17 09:39 Dose: 0.25 mg Apixaban (Eliquis -) 5 mg PO BID [facility] Last Admin: 12/22/17 09:39 Dose: 5 mg Atorvastatin Calcium (Lipitor -) 40 mg PO HS [facility] Last Admin: 12/21/17 21:16 Dose: 40 mg Brimonidine Tartrate (Alphagan P 0.1% -) 1 drop OU BID [facility] Last Admin: 12/22/17 09:52 Dose: 1 drop Digoxin (Lanoxin -) 0.125 mg PO DAILY [facility] Last Admin: 12/22/17 09:40 Dose: 0.125 mg Diltiazem HCl (Cardizem Cd -) 120 mg PO DAILY [facility] Last Admin: 12/22/17 09:40 Dose: 120 mg Furosemide (Lasix -) 40 mg PO DAILY [facility] Last Admin: 12/22/17 09:40 Dose: 40 mg Insulin Aspart (Novolog Vial Sliding Scale -) 1 vial SQ [facility]; Protocol Last Admin: 12/22/17 11:14 Dose: Not Given Insulin Detemir (Levemir Vial) 30 units SQ AM [facility] Last Admin: 12/22/17 06:33 Dose: Not Given Insulin Detemir (Levemir Vial) 8 units SQ HS [facility] Last Admin: 12/21/17 21:15 Dose: 8 units Latanoprost (Xalatan 0.005% Eye Drops -) 1 drop OU DAILY [facility] Last Admin: 12/22/17 09:52 Dose: 1 drop Levothyroxine Sodium (Synthroid -) 75 mcg PO AM [facility] Last Admin: 12/22/17 06:13 Dose: 75 mcg Methylprednisolone Sodium Succinate (Solu-Medrol -) 40 mg IVPUSH Q8H-IV [facility] Last Admin: 12/22/17 09:39 Dose: 40 mg Montelukast Sodium (Singulair -) 10 mg PO HS [facility] Last Admin: 12/21/17 21:16 Dose: 10 mg Potassium Chloride (K-Dur -) 10 meq PO DAILY [facility] Last Admin: 12/22/17 09:39 Dose: 10 meq Roflumilast (Daliresp -) 500 mcg PO DAILY [facility] Last Admin: 12/22/17 09:39 Dose: 500 mcg Sitagliptin Phosphate (Januvia -) 100 mg PO AM [facility] Last Admin: 12/22/17 06:13 Dose: 100 mg Tiotropium [place] (Spiriva Respimat) 2 puff IH DAILY [facility] Last Admin: 12/22/17 09:52 Dose: 2 puff Constitutional: Yes: Mild to moderate tachypnea, NAD Eyes: Yes: WNL HENT: Yes: WNL Neck: Yes: WNL Cardiovascular: Yes: Regular Rate and Rhythm, S1, S2 Respiratory: Yes: Diminished Gastrointestinal: Yes: Normal Bowel Sounds, Soft Extremities: Yes: WNL Edema: No Labs: Laboratory Results - last 24 hr 12/21/17 12/21/17 12/22/17 16:26 20:51 06:08 WBC RBC Hgb Hct MCV MCH MCHC RDW Plt Count MPV Sodium Potassium Chloride Carbon Dioxide Anion Gap BUN Creatinine Creat Clearance w eGFR POC Glucometer 411 245 181 Random Glucose Calcium Total Bilirubin AST ALT Alkaline Phosphatase Total Protein Albumin 12/22/17 12/22/17 12/22/17 06:45 06:45 11:07 WBC 20.4 H RBC 4.06 Hgb 13.1 Hct 40.2 MCV 98.9 H MCH 32.4 MCHC 32.7 RDW 14.0 Plt Count 162 MPV 9.6 Sodium 142 Potassium 4.7 Chloride 101 Carbon Dioxide 35 H Anion Gap 6 L BUN 60 H Creatinine 0.6 Creat Clearance w eGFR > 60 POC Glucometer 178 Random Glucose 160 H Calcium 9.2 Total Bilirubin 0.4 AST 52 H ALT 158 H Alkaline Phosphatase 103 Total Protein 5.1 L Albumin 2.8 L Problem List - Problems (1) Acute on chronic respiratory failure with hypoxia and hypercapnia Code(s): J96.21 - ACUTE AND CHRONIC RESPIRATORY FAILURE WITH HYPOXIA; J96.22 - ACUTE AND CHRONIC RESPIRATORY FAILURE WITH HYPERCAPNIA (2) COPD with acute exacerbation Code(s): J44.1 - CHRONIC OBSTRUCTIVE PULMONARY DISEASE W (ACUTE) EXACERBATION (3) Diabetes mellitus Code(s): E11.9 - TYPE 2 DIABETES MELLITUS WITHOUT COMPLICATIONS (4) Paroxysmal atrial fibrillation Code(s): I48.0 - PAROXYSMAL ATRIAL FIBRILLATION (5) Pulmonary HTN Code(s): I27.20 - PULMONARY HYPERTENSION, UNSPECIFIED (6) Diastolic HF (heart failure) Code(s): I50.30 - UNSPECIFIED DIASTOLIC (CONGESTIVE) HEART FAILURE (7) Hypothyroid Code(s): E03.9 - HYPOTHYROIDISM, UNSPECIFIED Assessment/Plan IMP ACUTE ON CHRONIC HYPOXEMIC/HYPERCAPNEIC RESPIRATORY FAILURE COPD EXACERBATION IMPROVING PULMONARY HTN PAF IDDM DIASTOLIC HF HYPOTHYROIDISM PLAN STEROIDS SAME DOSE INHALED BRONCHODILATORS O2 NIPPV AT NIGHT AND PRN DALIRESP PULMONARY REHAB POST DISCHARGE BD TX DR FRYE
[2017-12-22] MEDS ORDERED: INSULIN (NOVOLOG) ASPART 100 UNITS/ML 10ML VIAL SQ ONE ×2 (16:15→20:00)
[2017-12-22] MEDS: MONTELUKAST NA 10 MG TABLET PO SCH (21:01)
[2017-12-22] MEDS: ATORVASTATIN CA 40 MG TABLET (FP) PO SCH (21:04)
[2017-12-23] MEDS: methylPREDNISolone NA SUCC 40 MG/1 ML VIAL IVPUSH SCH ×3 (01:41→18:26)
[2017-12-23] MEDS: INSULIN SLIDING SCALE (NOVOLOG) 1 VIAL SQ SCH ×4 (06:14→21:02)
[2017-12-23] MEDS: INSULIN (LEVEMIR) 100 UNITS/ML UNITS SQ SCH ×2 (06:32→21:01)
[2017-12-23] MEDS: sitaGLIPtin PHOSPHATE 100 MG TABLET (FP) PO SCH (06:33)
[2017-12-23] MEDS: LEVOTHYROXINE NA 75 MCG TABLET (FP) PO SCH (06:33)
[2017-12-23 07:13] LABS: HEMATOCRIT 43.1 % (32.4-45.2); HEMOGLOBIN 13.9 GM/dL (10.7-15.3); MCH 30.7 pg (25.7-33.7); MCHC 32.3 g/dl (32.0-36.0); MEAN CELL VOLUME 94.8 fl (80-96); MEAN PLT VOLUME 9.9 fl (7.5-11.1); PLATELET COUNT 179 K/MM3 (134-434); RBC 4.54 M/mm3 (3.60-5.2); RDW 13.8 % (11.6-15.6); WHITE BLOOD COUNT 28.4 K/mm3 (4.0-10.0)
[2017-12-23 07:48] LABS: ALBUMIN 2.9 g/dl (3.4-5.0); ALK PHOS 112 U/L (45-117); ANION GAP 6 MMOL/L (8-16); BILIRUBIN,TOTAL 0.5 mg/dL (0.2-1); BLOOD UREA NITROGEN 64 mg/dL (7-18); CALCIUM 9.4 mg/dL (8.5-10.1); CHLORIDE 100 mmol/L (98-107); CO2 34 mmol/L (21-32); CREATININE 0.7 mg/dL (0.55-1.3); GLUCOSE,RANDOM 80 mg/dL (74-106); POTASSIUM 5.2 mmol/L (3.5-5.1); SGOT/AST 58 U/L (15-37); SGPT/ALT 175 U/L (13-61); SODIUM 140 mmol/L (136-145); TOT PROT 5.4 g/dl (6.4-8.2)
[2017-12-23] MEDS ORDERED: PT OWN MED DRAWER 7, Y5N ONE ×2 (09:01→17:06)
[2017-12-23] MEDS: DIGOXIN 0.125 MG TABLET (FP) PO SCH (09:23)
[2017-12-23] MEDS: POTASSIUM CHLORIDE TABS 10 MEQ TABLET.ER (FP) PO SCH (09:24)
[2017-12-23] MEDS: FUROSEMIDE 40 MG TABLET (FP) PO SCH (09:24)
[2017-12-23] MEDS: APIXABAN 5 MG TABLET PO SCH (09:24)
[2017-12-23] MEDS: ALPRAZolam 0.25 MG TABLET PO SCH (09:24)
[2017-12-23] MEDS: ROFLUMILAST 500 MCG TABLET PO SCH (09:25)
[2017-12-23] MEDS: TIOTROPIUM BROMIDE 2.5 MCG (SPIRIVA) RESPIMAT INHALER IH SCH (09:30)
[2017-12-23] MEDS: LATANOPROST 0.005% OPHTH SOLN 2.5ML BOTTLE OU SCH (09:31)
[2017-12-23] MEDS: BRIMONIDINE TARTRATE 0.1% OPHTHALMIC 5 ML BOTTLE OU SCH ×2 (09:48→21:00)
--- NOTE | 2017-12-23 10:23 | PN ---
Progress Note, Physician Chief Complaint: labile GLU/BGM also occasional chest tightness and SOB pt met with Palliative care yesterday and signed MOLST she wants short trial of intubation and mec ventilation if needed but would not prolong it over few days - d/w pt she has advanced severe COPD and chances are she might never come out of the vent; she will d./w her sister - Current Medication List Current Medications: Active Medications Albuterol Sulfate (Ventolin 0.083% Nebulizer Soln -) 1 amp NEB Q6H PRN PRN Reason: SHORT OF BREATH/WHEEZING Last Admin: 12/22/17 07:41 Dose: 1 amp Alprazolam (Xanax -) 0.25 mg PO BID [facility] Last Admin: 12/23/17 09:24 Dose: 0.25 mg Apixaban (Eliquis -) 5 mg PO BID [facility] Last Admin: 12/23/17 09:24 Dose: 5 mg Atorvastatin Calcium (Lipitor -) 40 mg PO HS [facility] Last Admin: 12/22/17 21:04 Dose: 40 mg Brimonidine Tartrate (Alphagan P 0.1% -) 1 drop OU BID [facility] Last Admin: 12/23/17 09:48 Dose: Not Given Digoxin (Lanoxin -) 0.125 mg PO DAILY [facility] Last Admin: 12/23/17 09:23 Dose: 0.125 mg Diltiazem HCl (Cardizem Cd -) 120 mg PO DAILY [facility] Last Admin: 12/23/17 09:23 Dose: 120 mg Furosemide (Lasix -) 40 mg PO DAILY [facility] Last Admin: 12/23/17 09:24 Dose: 40 mg Insulin Aspart (Novolog Vial Sliding Scale -) 1 vial SQ [facility]; Protocol Last Admin: 12/23/17 06:14 Dose: Not Given Insulin Detemir (Levemir Vial) 30 units SQ AM [facility] Last Admin: 12/23/17 06:32 Dose: Not Given Insulin Detemir (Levemir Vial) 8 units SQ HS [facility] Last Admin: 12/22/17 21:05 Dose: 8 units Latanoprost (Xalatan 0.005% Eye Drops -) 1 drop OU DAILY [facility] Last Admin: 12/23/17 09:31 Dose: 1 drop Levothyroxine Sodium (Synthroid -) 75 mcg PO AM [facility] Last Admin: 12/23/17 06:33 Dose: 75 mcg Methylprednisolone Sodium Succinate (Solu-Medrol -) 40 mg IVPUSH Q8H-IV [facility] Last Admin: 12/23/17 09:23 Dose: 40 mg Montelukast Sodium (Singulair -) 10 mg PO HS [facility] Last Admin: 12/22/17 21:01 Dose: 10 mg Potassium Chloride (K-Dur -) 10 meq PO DAILY [facility] Last Admin: 12/23/17 09:24 Dose: 10 meq Roflumilast (Daliresp -) 500 mcg PO DAILY [facility] Last Admin: 12/23/17 09:25 Dose: 500 mcg Sitagliptin Phosphate (Januvia -) 100 mg PO AM [facility] Last Admin: 12/23/17 06:33 Dose: 100 mg Tiotropium [place] (Spiriva Respimat) 2 puff IH DAILY [facility] Last Admin: 12/23/17 09:30 Dose: 2 puff - Objective Vital Signs: Vital Signs Temperature 98 F 12/23/17 09:52 Pulse Rate 88 12/23/17 09:52 Respiratory Rate 18 12/23/17 09:52 Blood Pressure 116/54 L 12/23/17 09:52 O2 Sat by Pulse Oximetry (%) 99 12/23/17 09:00 Constitutional: Yes: No Distress, Calm Eyes: Yes: Conjunctiva Clear HENT: Yes: Atraumatic Neck: Yes: Supple Cardiovascular: Yes: Regular Rate and Rhythm Respiratory: Yes: Diminished Gastrointestinal: Yes: Soft. No: Distention Genitourinary: No: CVA Tenderness - Left, CVA Tenderness - Right, Hematuria Musculoskeletal: No: Joint Stiffness, Joint Swelling Extremities: No: Cold, Cool, Cyanosis Edema: No Integumentary: No: Rash, Venous Stasis Changes Neurological: Yes: Alert, Oriented ...Motor Strength: WNL Psychiatric: Yes: Alert, Oriented. No: Agitated, Suicidal Ideation Labs: CBC, BMP 12/23/17 06:00 12/23/17 06:00 - ....Imaging Other: Report Reviewed Assessment/Plan Ms. Jaime is a 72 yo F with a hx of COPD, pulmonary HTN, diastolic CHF, IDDM, and hypothyroidism admitted with respiratory failure COPD exac acute COPD on chronic COPD iv steroids; O2 NCX, nebs pulmonary f/u d/w dr Reid; IV steroids gastric PFX / on steroids BGM control sq insulin f/u labs advanced directives; d/w pt and palliative care and pt's PCP dr Tyler nance DVT decubs PFX d/w pt and staff
[2017-12-23 11:15] LABS: ARTERIAL BLD GAS O2 SATURATION 95.1 % (90-98.9); ARTERIAL BLOOD GAS BASE EXCESS 11.1 meq/l (-2-2); ARTERIAL BLOOD GAS PCO2 59.1 mmHg (35-45); ARTERIAL BLOOD GAS PO2 76.4 mmHg (70-100); ARTERIAL BLOOD GAS pH 7.42 (7.35-7.45)
[2017-12-23 11:18] LABS: ALLENS TEST POSITIVE
--- NOTE | 2017-12-23 14:48 | PN ---
Progress Note, Physician History of Present Illness: pulmonary drowsy,-resp distress - Current Medication List Current Medications: Active Medications Albuterol Sulfate (Ventolin 0.083% Nebulizer Soln -) 1 amp NEB Q6H PRN PRN Reason: SHORT OF BREATH/WHEEZING Last Admin: 12/22/17 07:41 Dose: 1 amp Alprazolam (Xanax -) 0.25 mg PO BID [facility] Last Admin: 12/23/17 09:24 Dose: 0.25 mg Apixaban (Eliquis -) 5 mg PO BID [facility] Last Admin: 12/23/17 09:24 Dose: 5 mg Atorvastatin Calcium (Lipitor -) 40 mg PO HS [facility] Last Admin: 12/22/17 21:04 Dose: 40 mg Brimonidine Tartrate (Alphagan P 0.1% -) 1 drop OU BID [facility] Last Admin: 12/23/17 09:48 Dose: Not Given Digoxin (Lanoxin -) 0.125 mg PO DAILY [facility] Last Admin: 12/23/17 09:23 Dose: 0.125 mg Diltiazem HCl (Cardizem Cd -) 120 mg PO DAILY [facility] Last Admin: 12/23/17 09:23 Dose: 120 mg Furosemide (Lasix -) 40 mg PO DAILY [facility] Last Admin: 12/23/17 09:24 Dose: 40 mg Insulin Aspart (Novolog Vial Sliding Scale -) 1 vial SQ [facility]; Protocol Last Admin: 12/23/17 11:54 Dose: 4 units Insulin Detemir (Levemir Vial) 30 units SQ AM [facility] Last Admin: 12/23/17 06:32 Dose: Not Given Insulin Detemir (Levemir Vial) 8 units SQ HS [facility] Last Admin: 12/22/17 21:05 Dose: 8 units Latanoprost (Xalatan 0.005% Eye Drops -) 1 drop OU DAILY [facility] Last Admin: 12/23/17 09:31 Dose: 1 drop Levothyroxine Sodium (Synthroid -) 75 mcg PO AM [facility] Last Admin: 12/23/17 06:33 Dose: 75 mcg Methylprednisolone Sodium Succinate (Solu-Medrol -) 40 mg IVPUSH Q8H-IV [facility] Last Admin: 12/23/17 09:23 Dose: 40 mg Montelukast Sodium (Singulair -) 10 mg PO HS [facility] Last Admin: 12/22/17 21:01 Dose: 10 mg Roflumilast (Daliresp -) 500 mcg PO DAILY [facility] Last Admin: 12/23/17 09:25 Dose: 500 mcg Sitagliptin Phosphate (Januvia -) 100 mg PO AM [facility] Last Admin: 12/23/17 06:33 Dose: 100 mg Tiotropium [place] (Spiriva Respimat) 2 puff IH DAILY [facility] Last Admin: 12/23/17 09:30 Dose: 2 puff - Objective Vital Signs: Vital Signs Temperature 97.6 F 12/23/17 13:49 Pulse Rate 86 12/23/17 13:49 Respiratory Rate 18 12/23/17 13:49 Blood Pressure 138/56 L 12/23/17 13:49 O2 Sat by Pulse Oximetry (%) 96 12/23/17 11:15 Constitutional: Yes: Calm, Thin Eyes: Yes: WNL HENT: Yes: WNL Neck: Yes: WNL Cardiovascular: Yes: Pulse Irregular, S1, S2 Respiratory: Yes: Diminished Gastrointestinal: Yes: Normal Bowel Sounds, Soft Extremities: Yes: WNL Edema: No Labs: CBC, BMP 12/23/17 06:00 12/23/17 06:00 Laboratory Tests 12/23/17 11:07 ABG pH 7.42 ABG pCO2 at Pt Temp 59.1 H ABG pO2 at Pt Temp 76.4 D ABG HCO3 37.6 H ABG O2 Sat (Measured) 95.1 Problem List - Problems (1) Acute on chronic respiratory failure with hypoxia and hypercapnia Code(s): J96.21 - ACUTE AND CHRONIC RESPIRATORY FAILURE WITH HYPOXIA; J96.22 - ACUTE AND CHRONIC RESPIRATORY FAILURE WITH HYPERCAPNIA (2) COPD with acute exacerbation Code(s): J44.1 - CHRONIC OBSTRUCTIVE PULMONARY DISEASE W (ACUTE) EXACERBATION (3) Diabetes mellitus Code(s): E11.9 - TYPE 2 DIABETES MELLITUS WITHOUT COMPLICATIONS (4) Paroxysmal atrial fibrillation Code(s): I48.0 - PAROXYSMAL ATRIAL FIBRILLATION (5) Pulmonary HTN Code(s): I27.20 - PULMONARY HYPERTENSION, UNSPECIFIED (6) Diastolic HF (heart failure) Code(s): I50.30 - UNSPECIFIED DIASTOLIC (CONGESTIVE) HEART FAILURE (7) Hypothyroid Code(s): E03.9 - HYPOTHYROIDISM, UNSPECIFIED Assessment/Plan IMP ACUTE ON CHRONIC HYPOXEMIC/HYPERCAPNEIC RESPIRATORY FAILURE COPD EXACERBATION IMPROVING PULMONARY HTN PAF IDDM DIASTOLIC HF HYPOTHYROIDISM PLAN STEROIDS 40 Q12 in am INHALED BRONCHODILATORS O2 BIPAP AT NIGHT AND PRN HOLD XANAX DALIRESP PULMONARY REHAB POST DISCHARGE DR SOLOMON Problem List - Problems (1) Acute on chronic respiratory failure with hypoxia and hypercapnia Code(s): J96.21 - ACUTE AND CHRONIC RESPIRATORY FAILURE WITH HYPOXIA; J96.22 - ACUTE AND CHRONIC RESPIRATORY FAILURE WITH HYPERCAPNIA (2) COPD with acute exacerbation Code(s): J44.1 - CHRONIC OBSTRUCTIVE PULMONARY DISEASE W (ACUTE) EXACERBATION (3) Diabetes mellitus Code(s): E11.9 - TYPE 2 DIABETES MELLITUS WITHOUT COMPLICATIONS (4) Paroxysmal atrial fibrillation Code(s): I48.0 - PAROXYSMAL ATRIAL FIBRILLATION (5) Pulmonary HTN Code(s): I27.20 - PULMONARY HYPERTENSION, UNSPECIFIED (6) Diastolic HF (heart failure) Code(s): I50.30 - UNSPECIFIED DIASTOLIC (CONGESTIVE) HEART FAILURE (7) Hypothyroid Code(s): E03.9 - HYPOTHYROIDISM, UNSPECIFIED
[2017-12-23] MEDS ORDERED: INSULIN (NOVOLOG) ASPART 100 UNITS/ML 10ML VIAL ONE (20:04)
[2017-12-23] MEDS: ALBUTEROL SO4 0.083% IH SOL 2.5 MG/3 ML VIAL.NEB. NEB PRN (20:45)
[2017-12-23] MEDS: ATORVASTATIN CA 40 MG TABLET (FP) PO SCH (21:02)
[2017-12-23] MEDS: MONTELUKAST NA 10 MG TABLET PO SCH (21:02)
[2017-12-24] MEDS: methylPREDNISolone NA SUCC 40 MG/1 ML VIAL IVPUSH SCH ×4 (01:03→21:41)
[2017-12-24] MEDS: INSULIN SLIDING SCALE (NOVOLOG) 1 VIAL SQ SCH ×4 (06:37→21:41)
[2017-12-24] MEDS: LEVOTHYROXINE NA 75 MCG TABLET (FP) PO SCH (06:41)
[2017-12-24] MEDS: sitaGLIPtin PHOSPHATE 100 MG TABLET (FP) PO SCH (06:42)
--- NOTE | 2017-12-24 06:50 | PN ---
Progress Note, Physician Chief Complaint: was on Bipap - breathing better met again with palliative care and her sister and she decided no aggressive intervention no intubation no chest compressions aware of outcomes; signed DNR DNI increasing WBC - Current Medication List Current Medications: Active Medications Albuterol Sulfate (Ventolin 0.083% Nebulizer Soln -) 1 amp NEB Q6H PRN PRN Reason: SHORT OF BREATH/WHEEZING Last Admin: 12/23/17 20:45 Dose: 1 amp Atorvastatin Calcium (Lipitor -) 40 mg PO HS [facility] Last Admin: 12/23/17 21:02 Dose: 40 mg Brimonidine Tartrate (Alphagan P 0.1% -) 1 drop OU BID [facility] Last Admin: 12/23/17 21:00 Dose: 1 drop Digoxin (Lanoxin -) 0.125 mg PO DAILY [facility] Last Admin: 12/23/17 09:23 Dose: 0.125 mg Diltiazem HCl (Cardizem Cd -) 120 mg PO DAILY [facility] Last Admin: 12/23/17 09:23 Dose: 120 mg Furosemide (Lasix -) 40 mg PO DAILY [facility] Last Admin: 12/23/17 09:24 Dose: 40 mg Insulin Aspart (Novolog Vial Sliding Scale -) 1 vial SQ [facility]; Protocol Last Admin: 12/24/17 06:37 Dose: Not Given Insulin Detemir (Levemir Vial) 30 units SQ AM [facility] Last Admin: 12/23/17 06:32 Dose: Not Given Insulin Detemir (Levemir Vial) 8 units SQ HS [facility] Last Admin: 12/23/17 21:01 Dose: 8 units Latanoprost (Xalatan 0.005% Eye Drops -) 1 drop OU DAILY [facility] Last Admin: 12/23/17 09:31 Dose: 1 drop Levothyroxine Sodium (Synthroid -) 75 mcg PO AM [facility] Last Admin: 12/24/17 06:41 Dose: 75 mcg Methylprednisolone Sodium Succinate (Solu-Medrol -) 40 mg IVPUSH Q8H-IV [facility] Last Admin: 12/24/17 01:03 Dose: 40 mg Montelukast Sodium (Singulair -) 10 mg PO HS [facility] Last Admin: 12/23/17 21:02 Dose: 10 mg Roflumilast (Daliresp -) 500 mcg PO DAILY [facility] Last Admin: 12/23/17 09:25 Dose: 500 mcg Sitagliptin Phosphate (Januvia -) 100 mg PO AM [facility] Last Admin: 12/24/17 06:42 Dose: 100 mg Tiotropium [place] (Spiriva Respimat) 2 puff IH DAILY [facility] Last Admin: 12/23/17 09:30 Dose: 2 puff - Objective Vital Signs: Vital Signs Temperature 97.8 F 12/23/17 20:58 Pulse Rate 88 12/23/17 20:58 Respiratory Rate 20 12/23/17 21:00 Blood Pressure 132/60 12/23/17 20:58 O2 Sat by Pulse Oximetry (%) 97 12/24/17 00:10 Constitutional: Yes: No Distress, Calm Eyes: Yes: Conjunctiva Clear HENT: Yes: Atraumatic Neck: Yes: Supple Cardiovascular: Yes: Regular Rate and Rhythm Respiratory: Yes: Diminished Gastrointestinal: Yes: Soft. No: Distention Genitourinary: No: Hematuria Musculoskeletal: No: Joint Stiffness, Joint Swelling Extremities: No: Cold, Cool, Cyanosis Edema: No Integumentary: No: Rash, Venous Stasis Changes Neurological: Yes: WNL, Alert, Oriented ...Motor Strength: WNL Psychiatric: Yes: WNL, Alert, Oriented. No: Agitated, Suicidal Ideation Labs: CBC, BMP 12/23/17 06:00 12/23/17 06:00 - ....Imaging Other: Report Reviewed Assessment/Plan Ms. Jaime is a 72 yo F with a hx of COPD, pulmonary HTN, diastolic CHF, IDDM, and hypothyroidism admitted with respiratory failure COPD exac acute COPD on chronic COPD iv steroids; O2 NCX, nebs pulmonary f/u BIPAP IV steroids increasing WBC will send UCx blood cx and CXR no fever so far mild increased LFTs - check liver US ordered and hepatitis serologies gastric PFX / on steroids BGM control sq insulin f/u labs advanced directives; DNR DNI d/w pt and palliative care and pt's PCP dr Tyler nance DVT decubs PFX d/w pt and staff
[2017-12-24 07:41] LABS: BASO % 0.1 % (0-2.0); HEMATOCRIT 43.1 % (32.4-45.2); HEMOGLOBIN 13.6 GM/dL (10.7-15.3); MCH 30.2 pg (25.7-33.7); MCHC 31.5 g/dl (32.0-36.0); MEAN CELL VOLUME 95.8 fl (80-96); MEAN PLT VOLUME 10.2 fl (7.5-11.1); MONO % 2.3 % (3.8-10.2); NEUT % 96.6 % (42.8-82.8); PLATELET COUNT 192 K/MM3 (134-434); WHITE BLOOD COUNT 28.5 K/mm3 (4.0-10.0)
[2017-12-24] MEDS: INSULIN (LEVEMIR) 100 UNITS/ML UNITS SQ SCH ×2 (07:45→21:40)
[2017-12-24 08:03] LABS: ALK PHOS 122 U/L (45-117); ANION GAP 9 MMOL/L (8-16); BILIRUBIN,TOTAL 0.7 mg/dL (0.2-1); BLOOD UREA NITROGEN 66 mg/dL (7-18); CALCIUM 9.3 mg/dL (8.5-10.1); CHLORIDE 94 mmol/L (98-107); CO2 35 mmol/L (21-32); GLUCOSE,RANDOM 210 mg/dL (74-106); POTASSIUM 5.1 mmol/L (3.5-5.1); SGOT/AST 44 U/L (15-37); SGPT/ALT 157 U/L (13-61); SODIUM 139 mmol/L (136-145); TOT PROT 5.4 g/dl (6.4-8.2)
[2017-12-24] MEDS ORDERED: PT OWN MED DRAWER 7, Y5N ONE (09:26)
[2017-12-24] MEDS: FUROSEMIDE 40 MG TABLET (FP) PO SCH (09:30)
[2017-12-24] MEDS: DIGOXIN 0.125 MG TABLET (FP) PO SCH (09:30)
[2017-12-24] MEDS: ROFLUMILAST 500 MCG TABLET PO SCH (09:31)
[2017-12-24] MEDS: TIOTROPIUM BROMIDE 2.5 MCG (SPIRIVA) RESPIMAT INHALER IH SCH (09:32)
[2017-12-24] MEDS: LATANOPROST 0.005% OPHTH SOLN 2.5ML BOTTLE OU SCH (09:32)
[2017-12-24] MEDS: BRIMONIDINE TARTRATE 0.1% OPHTHALMIC 5 ML BOTTLE OU SCH ×2 (09:33→21:41)
--- NOTE | 2017-12-24 11:41 | PN ---
Progress Note, Physician History of Present Illness: PULMONARY AWAKE ON BIPAP,NO CHANGE STILL DYSPNEIC - Current Medication List Current Medications: Active Medications Albuterol Sulfate (Ventolin 0.083% Nebulizer Soln -) 1 amp NEB Q6H PRN PRN Reason: SHORT OF BREATH/WHEEZING Last Admin: 12/23/17 20:45 Dose: 1 amp Atorvastatin Calcium (Lipitor -) 40 mg PO HS [facility] Last Admin: 12/23/17 21:02 Dose: 40 mg Brimonidine Tartrate (Alphagan P 0.1% -) 1 drop OU BID [facility] Last Admin: 12/24/17 09:33 Dose: 1 drop Digoxin (Lanoxin -) 0.125 mg PO DAILY [facility] Last Admin: 12/24/17 09:30 Dose: 0.125 mg Diltiazem HCl (Cardizem Cd -) 120 mg PO DAILY [facility] Last Admin: 12/24/17 09:31 Dose: 120 mg Furosemide (Lasix -) 40 mg PO DAILY [facility] Last Admin: 12/24/17 09:30 Dose: 40 mg Insulin Aspart (Novolog Vial Sliding Scale -) 1 vial SQ [facility]; Protocol Last Admin: 12/24/17 06:37 Dose: Not Given Insulin Detemir (Levemir Vial) 30 units SQ AM [facility] Last Admin: 12/24/17 07:45 Dose: 30 unit Insulin Detemir (Levemir Vial) 8 units SQ HS [facility] Last Admin: 12/23/17 21:01 Dose: 8 units Latanoprost (Xalatan 0.005% Eye Drops -) 1 drop OU DAILY [facility] Last Admin: 12/24/17 09:32 Dose: 1 drop Levothyroxine Sodium (Synthroid -) 75 mcg PO AM [facility] Last Admin: 12/24/17 06:41 Dose: 75 mcg Methylprednisolone Sodium Succinate (Solu-Medrol -) 40 mg IVPUSH Q8H-IV [facility] Last Admin: 12/24/17 09:32 Dose: 40 mg Montelukast Sodium (Singulair -) 10 mg PO HS [facility] Last Admin: 12/23/17 21:02 Dose: 10 mg Roflumilast (Daliresp -) 500 mcg PO DAILY [facility] Last Admin: 12/24/17 09:31 Dose: 500 mcg Sitagliptin Phosphate (Januvia -) 100 mg PO AM [facility] Last Admin: 12/24/17 06:42 Dose: 100 mg Tiotropium [place] (Spiriva Respimat) 2 puff IH DAILY [facility] Last Admin: 12/24/17 09:32 Dose: 2 puff - Objective Vital Signs: Vital Signs Temperature 97.6 F 12/24/17 09:10 Pulse Rate 72 12/24/17 09:30 Respiratory Rate 22 H 12/24/17 09:10 Blood Pressure 110/49 L 12/24/17 09:10 O2 Sat by Pulse Oximetry (%) 95 12/24/17 09:00 Constitutional: Yes: Calm, Thin Eyes: Yes: WNL HENT: Yes: WNL Neck: Yes: WNL Cardiovascular: Yes: Pulse Irregular, S1, S2 Respiratory: Yes: Diminished, On BiPap Gastrointestinal: Yes: Normal Bowel Sounds, Soft Extremities: Yes: WNL Edema: No Labs: CBC, BMP 12/24/17 06:00 12/24/17 06:00 Problem List - Problems (1) Acute on chronic respiratory failure with hypoxia and hypercapnia Code(s): J96.21 - ACUTE AND CHRONIC RESPIRATORY FAILURE WITH HYPOXIA; J96.22 - ACUTE AND CHRONIC RESPIRATORY FAILURE WITH HYPERCAPNIA (2) COPD with acute exacerbation Code(s): J44.1 - CHRONIC OBSTRUCTIVE PULMONARY DISEASE W (ACUTE) EXACERBATION (3) Diabetes mellitus Code(s): E11.9 - TYPE 2 DIABETES MELLITUS WITHOUT COMPLICATIONS (4) Paroxysmal atrial fibrillation Code(s): I48.0 - PAROXYSMAL ATRIAL FIBRILLATION (5) Pulmonary HTN Code(s): I27.20 - PULMONARY HYPERTENSION, UNSPECIFIED (6) Diastolic HF (heart failure) Code(s): I50.30 - UNSPECIFIED DIASTOLIC (CONGESTIVE) HEART FAILURE (7) Hypothyroid Code(s): E03.9 - HYPOTHYROIDISM, UNSPECIFIED Assessment/Plan IMP ACUTE ON CHRONIC HYPOXEMIC/HYPERCAPNEIC RESPIRATORY FAILURE COPD EXACERBATION IMPROVING PULMONARY HTN PAF IDDM DIASTOLIC HF HYPOTHYROIDISM PLAN STEROIDS INHALED BRONCHODILATORS O2 BIPAP AT NIGHT AND PRN HOLD XANAX DALIRESP PULMONARY REHAB POST DISCHARGE DR SOLOMON Problem List - Problems (1) Acute on chronic respiratory failure with hypoxia and hypercapnia Code(s): J96.21 - ACUTE AND CHRONIC RESPIRATORY FAILURE WITH HYPOXIA; J96.22 - ACUTE AND CHRONIC RESPIRATORY FAILURE WITH HYPERCAPNIA (2) COPD with acute exacerbation Code(s): J44.1 - CHRONIC OBSTRUCTIVE PULMONARY DISEASE W (ACUTE) EXACERBATION (3) Diabetes mellitus Code(s): E11.9 - TYPE 2 DIABETES MELLITUS WITHOUT COMPLICATIONS (4) Paroxysmal atrial fibrillation Code(s): I48.0 - PAROXYSMAL ATRIAL FIBRILLATION (5) Pulmonary HTN Code(s): I27.20 - PULMONARY HYPERTENSION, UNSPECIFIED (6) Diastolic HF (heart failure) Code(s): I50.30 - UNSPECIFIED DIASTOLIC (CONGESTIVE) HEART FAILURE (7) Hypothyroid Code(s): E03.9 - HYPOTHYROIDISM, UNSPECIFIED
[2017-12-24] MEDS ORDERED: INSULIN (NOVOLOG) ASPART 100 UNITS/ML 10ML VIAL ONE ×2 (11:55→21:02)
[2017-12-24 12:02] LABS: ANISOCYTOSIS 1+; MACROCYTOSIS 1+; PLATELET ESTIMATE NORMAL
[2017-12-24] MEDS: ALBUTEROL SO4 0.083% IH SOL 2.5 MG/3 ML VIAL.NEB. NEB PRN ×2 (14:13→19:30)
[2017-12-24] MEDS: ATORVASTATIN CA 40 MG TABLET (FP) PO SCH (21:40)
[2017-12-24] MEDS: MONTELUKAST NA 10 MG TABLET PO SCH (21:40)
[2017-12-25] MEDS: INSULIN SLIDING SCALE (NOVOLOG) 1 VIAL SQ SCH ×4 (06:05→21:05)
[2017-12-25] MEDS: INSULIN (LEVEMIR) 100 UNITS/ML UNITS SQ SCH ×3 (06:07→21:07)
[2017-12-25] MEDS: LEVOTHYROXINE NA 75 MCG TABLET (FP) PO SCH (06:08)
[2017-12-25] MEDS: sitaGLIPtin PHOSPHATE 100 MG TABLET (FP) PO SCH (06:08)
[2017-12-25] MEDS ORDERED: PT OWN MED DRAWER 7, Y5N ONE (06:21)
[2017-12-25 07:19] LABS: BASO % 0.2 % (0-2.0); HEMATOCRIT 42.8 % (32.4-45.2); HEMOGLOBIN 13.7 GM/dL (10.7-15.3); LYMPH % 0.8 % (8-40); MCH 30.4 pg (25.7-33.7); MEAN PLT VOLUME 9.4 fl (7.5-11.1); MONO % 2.6 % (3.8-10.2); NEUT % 96.4 % (42.8-82.8); PLATELET COUNT 167 K/MM3 (134-434); RBC 4.51 M/mm3 (3.60-5.2); RDW 13.8 % (11.6-15.6)
[2017-12-25 07:48] LABS: WHITE BLOOD COUNT 30.8 K/mm3 (4.0-10.0)
[2017-12-25 08:03] LABS: ALBUMIN 3.1 g/dl (3.4-5.0); ALK PHOS 117 U/L (45-117); ANION GAP 9 MMOL/L (8-16); BILIRUBIN,TOTAL 0.7 mg/dL (0.2-1); BLOOD UREA NITROGEN 77 mg/dL (7-18); CALCIUM 9.5 mg/dL (8.5-10.1); CHLORIDE 95 mmol/L (98-107); CO2 34 mmol/L (21-32); CREATININE 0.8 mg/dL (0.55-1.3); GLUCOSE,RANDOM 113 mg/dL (74-106); POTASSIUM 4.7 mmol/L (3.5-5.1); SGOT/AST 45 U/L (15-37); SGPT/ALT 137 U/L (13-61); SODIUM 138 mmol/L (136-145); TOT PROT 5.4 g/dl (6.4-8.2)
--- NOTE | 2017-12-25 08:49 | PN ---
Progress Note, Physician Chief Complaint: on Bipap said she is not SOB WBC 30K will ask ID eval liver US pending no abdominal pain - Current Medication List Current Medications: Active Medications Albuterol Sulfate (Ventolin 0.083% Nebulizer Soln -) 1 amp NEB Q6H PRN PRN Reason: SHORT OF BREATH/WHEEZING Last Admin: 12/24/17 19:30 Dose: 1 amp Atorvastatin Calcium (Lipitor -) 40 mg PO HS [facility] Last Admin: 12/24/17 21:40 Dose: 40 mg Brimonidine Tartrate (Alphagan P 0.1% -) 1 drop OU BID [facility] Last Admin: 12/24/17 21:41 Dose: 1 drop Digoxin (Lanoxin -) 0.125 mg PO DAILY [facility] Last Admin: 12/24/17 09:30 Dose: 0.125 mg Diltiazem HCl (Cardizem Cd -) 120 mg PO DAILY [facility] Last Admin: 12/24/17 09:31 Dose: 120 mg Furosemide (Lasix -) 40 mg PO DAILY [facility] Last Admin: 12/24/17 09:30 Dose: 40 mg Insulin Aspart (Novolog Vial Sliding Scale -) 1 vial SQ [facility]; Protocol Last Admin: 12/25/17 06:05 Dose: Not Given Insulin Detemir (Levemir Vial) 30 units SQ AM [facility] Last Admin: 12/24/17 07:45 Dose: 30 unit Insulin Detemir (Levemir Vial) 8 units SQ HS [facility] Last Admin: 12/24/17 21:40 Dose: 8 units Latanoprost (Xalatan 0.005% Eye Drops -) 1 drop OU DAILY [facility] Last Admin: 12/24/17 09:32 Dose: 1 drop Levothyroxine Sodium (Synthroid -) 75 mcg PO AM [facility] Last Admin: 12/25/17 06:08 Dose: 75 mcg Methylprednisolone Sodium Succinate (Solu-Medrol -) 40 mg IVPUSH BID [facility] Last Admin: 12/24/17 21:41 Dose: 40 mg Montelukast Sodium (Singulair -) 10 mg PO HS [facility] Last Admin: 12/24/17 21:40 Dose: 10 mg Roflumilast (Daliresp -) 500 mcg PO DAILY [facility] Last Admin: 12/24/17 09:31 Dose: 500 mcg Sitagliptin Phosphate (Januvia -) 100 mg PO AM [facility] Last Admin: 12/25/17 06:08 Dose: 100 mg Tiotropium [place] (Spiriva Respimat) 2 puff IH DAILY [facility] Last Admin: 12/24/17 09:32 Dose: 2 puff - Objective Vital Signs: Vital Signs Temperature 97.7 F 12/25/17 06:00 Pulse Rate 83 12/25/17 06:00 Respiratory Rate 20 12/25/17 06:00 Blood Pressure 110/51 L 12/25/17 06:00 O2 Sat by Pulse Oximetry (%) 96 12/25/17 00:05 Constitutional: Yes: No Distress, Calm Eyes: Yes: Conjunctiva Clear HENT: Yes: Atraumatic Neck: Yes: Supple Cardiovascular: Yes: Regular Rate and Rhythm Respiratory: Yes: Diminished Gastrointestinal: Yes: Soft. No: Distention Genitourinary: No: CVA Tenderness - Left, CVA Tenderness - Right Musculoskeletal: No: Joint Stiffness, Joint Swelling Extremities: No: Cold, Cool, Cyanosis Edema: No Integumentary: No: Rash, Venous Stasis Changes Neurological: Yes: WNL, Alert, Oriented ...Motor Strength: WNL Psychiatric: Yes: WNL, Alert, Oriented. No: Agitated, Suicidal Ideation Labs: CBC, BMP 12/25/17 06:15 12/25/17 06:15 - ....Imaging Other: Report Reviewed Assessment/Plan Ms. Jaime is a 72 yo F with a hx of COPD, pulmonary HTN, diastolic CHF, IDDM, and hypothyroidism admitted with respiratory failure COPD exac acute COPD on chronic COPD iv steroids; O2 NCX, nebs pulmonary f/u; BIPAP IV steroids increasing WBC will send UCx; blood cx and CXR negative; no fever so far mild increased LFTs - check liver US ordered and hepatitis serologies gastric PFX / on steroids BGM control sq insulin f/u labs advanced directives; DNR DNI falls DVT decubs PFX d/w pt and staff
[2017-12-25 11:05] LABS: MACROCYTOSIS 1+
[2017-12-25] MEDS: methylPREDNISolone NA SUCC 40 MG/1 ML VIAL IVPUSH SCH ×2 (11:13→21:08)
[2017-12-25] MEDS: DIGOXIN 0.125 MG TABLET (FP) PO SCH (11:13)
[2017-12-25] MEDS: TIOTROPIUM BROMIDE 2.5 MCG (SPIRIVA) RESPIMAT INHALER IH SCH (11:14)
[2017-12-25] MEDS: FUROSEMIDE 40 MG TABLET (FP) PO SCH (11:14)
[2017-12-25] MEDS: BRIMONIDINE TARTRATE 0.1% OPHTHALMIC 5 ML BOTTLE OU SCH ×2 (11:15→21:08)
[2017-12-25] MEDS: LATANOPROST 0.005% OPHTH SOLN 2.5ML BOTTLE OU SCH (11:15)
[2017-12-25] MEDS: ROFLUMILAST 500 MCG TABLET PO SCH (11:16)
--- NOTE | 2017-12-25 11:17 | CON.ID ---
Consult Consult Specialty:: infectious disease Referred by:: dr avle Reason for Consultation:: leukocytosis - History of Present Illness Chief Complaint: sob History of Present Illness: Hospital Day #13 72 yo female with advanced COPD admitted on 12/12 with worsening sob for the last one week noted to be in hypercapneic respiratory failure no fevers has been treated with iv solumedrol since admission she has poor appetite she has had no fevers no antibiotics since admission no diarrhea - History Source History Provided By: Patient, Medical Record Limitations to Obtaining History: Poor Historian - Past Medical History Cardio/Vascular: Yes: CHF, HTN, Pulmonary Hypertension Pulmonary: Yes: COPD (on BIPAP at home- every night and PRN), O2 Dependent Endocrine: Yes: Diabetes Mellitus (on Insulin), Hypothyroidism - Alcohol/Substance Use Hx Alcohol Use: No - Smoking History Smoking history: Former smoker Have you smoked in the past 12 months: No Aproximately how many cigarettes per day: 0 If you are a former smoker, when did you quit?: 10 to 15 years ago - Social History Usual Living Arrangement: With Spouse ADL: Family Assistance Place of : [facility] History of Recent Travel: No Home Medications - Allergies Allergies/Adverse Reactions: Allergies Allergy/AdvReac Type Severity Reaction Status Date / Time No Known Allergies Allergy Verified 12/12/17 14:32 - Home Medications Home Medications: Ambulatory Orders Arformoterol Tartrate [Brovana] 15 mcg IH BID 10/04/16 Atorvastatin Ca [Lipitor] 40 mg PO HS 10/04/16 Bimatoprost [Lumigan] 1 drop OU DAILY 10/04/16 Brimonidine Tartrate [Alphagan P 0.1% -] 1 drop OU BID 10/04/16 Brinzolamide [Azopt] 1 drop OU BID 10/04/16 Digoxin [Lanoxin -] 0.125 mg PO DAILY 10/04/16 Ergocalciferol (Vitamin D2) [Vitamin D2] 2,000 unit PO DAILY 10/04/16 Insulin (Levemir) [Levemir Flexpen -] 30 units SQ DAILY 10/04/16 Insulin Lispro [Humalog] 6 unit SQ [facility] 10/04/16 Levalbuterol HCl [Xopenex] 0.45 mg IH BID 10/04/16 Levothyroxine [Synthroid -] 75 mcg PO ASDIR 10/04/16 Montelukast Na [Singulair -] 10 mg PO HS 10/04/16 Sitagliptin Phosphate [Januvia] 100 mg PO DAILY 10/04/16 Tiotropium [place] [Spiriva] 18 mcg IH DAILY 10/04/16 Albuterol 0.083% Nebulizer [place] [Ventolin 0.083% Nebulizer Soln -] 1 amp NEB Q4H PRN #0 amp 10/11/16 Apixaban [Eliquis -] 5 mg PO BID #60 tablet 10/11/16 Diltiazem [Cardizem -] 120 mg PO ASDIR 12/12/17 Furosemide [Lasix -] 40 mg PO DAILY 12/12/17 predniSONE [Deltasone -] 10 mg PO ASDIR 12/12/17 Family Disease History - Family Disease History Family History: Denies Review of Systems - Review of Systems Constitutional: reports: Weakness. denies: Chills, Diaphoresis, Fever Eyes: reports: No Symptoms HENT: reports: No Symptoms. denies: Difficult Swallowing Neck: reports: No Symptoms Cardiovascular: reports: Edema. denies: Chest Pain Respiratory: reports: SOB, SOB on Exertion. denies: Cough Gastrointestinal: reports: No Symptoms. denies: Abdominal Pain, Diarrhea, Vomiting Genitourinary: reports: No Symptoms. denies: Discharge, Dysuria Physical Exam Vital Signs: Vital Signs Temperature 97.7 F 12/25/17 06:00 Pulse Rate 83 12/25/17 06:00 Respiratory Rate 20 12/25/17 06:00 Blood Pressure 110/51 L 12/25/17 06:00 O2 Sat by Pulse Oximetry (%) 96 12/25/17 00:05 Constitutional: Yes: No Distress, Anxious, Other (weak) Eyes: Yes: Conjunctiva Clear HENT: Yes: Atraumatic, Normocephalic. No: Thrush, Tonsillar Exudate Neck: Yes: Supple, Trachea Midline Cardiovascular: Yes: Regular Rate and Rhythm Respiratory: Yes: Regular, Diminished (bilaterally) Gastrointestinal: Yes: Normal Bowel Sounds, Soft. No: Tenderness, Epigastrium ...Rectal Exam: Yes: Deferred Renal/: No: CVA Tenderness - Left, CVA Tenderness - Right Musculoskeletal: Yes: WNL Edema: Yes Edema: LLE: 1+, RLE: 1+ Integumentary: Yes: Bruising (both arms) Psychiatric: Yes: Alert Labs: CBC, BMP 12/25/17 06:15 12/25/17 06:15 Microbiology 12/23/17 17:00 Blood - Peripheral Venous Blood Culture - Preliminary NO GROWTH OBTAINED AFTER 24 HOURS, INCUBATION TO CONTINUE FOR 4 DAYS. 12/23/17 16:15 Blood - Peripheral Venous Blood Culture - Preliminary NO GROWTH OBTAINED AFTER 24 HOURS, INCUBATION TO CONTINUE FOR 4 DAYS. Imaging - Results Chest X-ray: Report Reviewed, Image Reviewed Problem List - Problems (1) Leukocytosis Code(s): D72.829 - ELEVATED WHITE BLOOD CELL COUNT, UNSPECIFIED (2) Acute on chronic respiratory failure with hypoxia and hypercapnia Code(s): J96.21 - ACUTE AND CHRONIC RESPIRATORY FAILURE WITH HYPOXIA; J96.22 - ACUTE AND CHRONIC RESPIRATORY FAILURE WITH HYPERCAPNIA (3) Advanced chronic obstructive pulmonary disease Code(s): J44.9 - CHRONIC OBSTRUCTIVE PULMONARY DISEASE, UNSPECIFIED (4) Abnormal LFTs Code(s): R94.5 - ABNORMAL RESULTS OF LIVER FUNCTION STUDIES Assessment/Plan suspect leukocytosis secondary to iv solumedrol agree with ua and urine culture sonogram for abnl LFTS, hep serology blood cultures negative at 24hours cxray is clear overall prognosis is poor she reports no improvement in her breathing since admission chart reviewed
[2017-12-25] MEDS: ALBUTEROL SO4 0.083% IH SOL 2.5 MG/3 ML VIAL.NEB. NEB PRN (12:44)
--- NOTE | 2017-12-25 13:23 | PN ---
Progress Note, Physician History of Present Illness: pulmonary alert,feeling better,less dyspneic - Current Medication List Current Medications: Active Medications Albuterol Sulfate (Ventolin 0.083% Nebulizer Soln -) 1 amp NEB Q6H PRN PRN Reason: SHORT OF BREATH/WHEEZING Last Admin: 12/25/17 12:44 Dose: 1 amp Atorvastatin Calcium (Lipitor -) 40 mg PO HS [facility] Last Admin: 12/24/17 21:40 Dose: 40 mg Brimonidine Tartrate (Alphagan P 0.1% -) 1 drop OU BID [facility] Last Admin: 12/25/17 11:15 Dose: 1 drop Digoxin (Lanoxin -) 0.125 mg PO DAILY [facility] Last Admin: 12/25/17 11:13 Dose: 0.125 mg Diltiazem HCl (Cardizem Cd -) 120 mg PO DAILY [facility] Last Admin: 12/25/17 11:14 Dose: 120 mg Furosemide (Lasix -) 40 mg PO DAILY [facility] Last Admin: 12/25/17 11:14 Dose: 40 mg Insulin Aspart (Novolog Vial Sliding Scale -) 1 vial SQ ACHS [facility]; Protocol Last Admin: 12/25/17 12:16 Dose: Not Given Insulin Detemir (Levemir Vial) 30 units SQ AM [facility] Last Admin: 12/25/17 10:10 Dose: Not Given Insulin Detemir (Levemir Vial) 8 units SQ HS [facility] Last Admin: 12/24/17 21:40 Dose: 8 units Latanoprost (Xalatan 0.005% Eye Drops -) 1 drop OU DAILY [facility] Last Admin: 12/25/17 11:15 Dose: 1 drop Levothyroxine Sodium (Synthroid -) 75 mcg PO AM [facility] Last Admin: 12/25/17 06:08 Dose: 75 mcg Methylprednisolone Sodium Succinate (Solu-Medrol -) 40 mg IVPUSH BID [facility] Last Admin: 12/25/17 11:13 Dose: 40 mg Montelukast Sodium (Singulair -) 10 mg PO HS [facility] Last Admin: 12/24/17 21:40 Dose: 10 mg Roflumilast (Daliresp -) 500 mcg PO DAILY [facility] Last Admin: 12/25/17 11:16 Dose: 500 mcg Sitagliptin Phosphate (Januvia -) 100 mg PO AM [facility] Last Admin: 12/25/17 06:08 Dose: 100 mg Tiotropium [place] (Spiriva Respimat) 2 puff IH DAILY [facility] Last Admin: 12/25/17 11:14 Dose: 2 puff - Objective Vital Signs: Vital Signs Temperature 97.7 F 12/25/17 06:00 Pulse Rate 72 12/25/17 11:13 Respiratory Rate 20 12/25/17 06:00 Blood Pressure 110/51 L 12/25/17 06:00 O2 Sat by Pulse Oximetry (%) 95 12/25/17 09:00 Constitutional: Yes: Calm, Thin Eyes: Yes: WNL HENT: Yes: WNL Neck: Yes: WNL Cardiovascular: Yes: Regular Rate and Rhythm, S1, S2 Respiratory: Yes: Diminished Gastrointestinal: Yes: Normal Bowel Sounds, Soft Extremities: Yes: WNL Edema: No Labs: CBC, BMP 12/25/17 06:15 12/25/17 06:15 Problem List - Problems (1) Acute on chronic respiratory failure with hypoxia and hypercapnia Code(s): J96.21 - ACUTE AND CHRONIC RESPIRATORY FAILURE WITH HYPOXIA; J96.22 - ACUTE AND CHRONIC RESPIRATORY FAILURE WITH HYPERCAPNIA (2) COPD with acute exacerbation Code(s): J44.1 - CHRONIC OBSTRUCTIVE PULMONARY DISEASE W (ACUTE) EXACERBATION (3) Diabetes mellitus Code(s): E11.9 - TYPE 2 DIABETES MELLITUS WITHOUT COMPLICATIONS (4) Paroxysmal atrial fibrillation Code(s): I48.0 - PAROXYSMAL ATRIAL FIBRILLATION (5) Pulmonary HTN Code(s): I27.20 - PULMONARY HYPERTENSION, UNSPECIFIED (6) Diastolic HF (heart failure) Code(s): I50.30 - UNSPECIFIED DIASTOLIC (CONGESTIVE) HEART FAILURE (7) Hypothyroid Code(s): E03.9 - HYPOTHYROIDISM, UNSPECIFIED Assessment/Plan IMP ACUTE ON CHRONIC HYPOXEMIC/HYPERCAPNEIC RESPIRATORY FAILURE COPD EXACERBATION IMPROVING PULMONARY HTN PAF IDDM DIASTOLIC HF HYPOTHYROIDISM PLAN STEROIDS INHALED BRONCHODILATORS O2 BIPAP AT NIGHT AND PRN HOLD XANAX DALIRESP PULMONARY REHAB POST DISCHARGE DR SOLOMON Problem List - Problems (1) Acute on chronic respiratory failure with hypoxia and hypercapnia Code(s): J96.21 - ACUTE AND CHRONIC RESPIRATORY FAILURE WITH HYPOXIA; J96.22 - ACUTE AND CHRONIC RESPIRATORY FAILURE WITH HYPERCAPNIA (2) COPD with acute exacerbation Code(s): J44.1 - CHRONIC OBSTRUCTIVE PULMONARY DISEASE W (ACUTE) EXACERBATION (3) Diabetes mellitus Code(s): E11.9 - TYPE 2 DIABETES MELLITUS WITHOUT COMPLICATIONS (4) Paroxysmal atrial fibrillation Code(s): I48.0 - PAROXYSMAL ATRIAL FIBRILLATION (5) Pulmonary HTN Code(s): I27.20 - PULMONARY HYPERTENSION, UNSPECIFIED (6) Diastolic HF (heart failure) Code(s): I50.30 - UNSPECIFIED DIASTOLIC (CONGESTIVE) HEART FAILURE (7) Hypothyroid Code(s): E03.9 - HYPOTHYROIDISM, UNSPECIFIED
[2017-12-25] MEDS: APIXABAN 5 MG TABLET PO SCH (21:08)
[2017-12-25] MEDS: ATORVASTATIN CA 40 MG TABLET (FP) PO SCH (21:08)
[2017-12-25] MEDS: MONTELUKAST NA 10 MG TABLET PO SCH (21:08)
[2017-12-26] MEDS: INSULIN SLIDING SCALE (NOVOLOG) 1 VIAL SQ SCH ×4 (06:17→21:29)
[2017-12-26] MEDS: INSULIN (LEVEMIR) 100 UNITS/ML UNITS SQ SCH ×2 (06:17→21:28)
[2017-12-26] MEDS: LEVOTHYROXINE NA 75 MCG TABLET (FP) PO SCH (06:36)
[2017-12-26] MEDS: sitaGLIPtin PHOSPHATE 100 MG TABLET (FP) PO SCH (06:36)
[2017-12-26] MEDS ORDERED: INSULIN (NOVOLOG) ASPART 100 UNITS/ML 10ML VIAL ONE ×2 (06:48→21:11)
[2017-12-26 07:40] LABS: HEMATOCRIT 44.9 % (32.4-45.2); HEMOGLOBIN 14.2 GM/dL (10.7-15.3); LYMPH % 1.2 % (8-40); MCH 30.1 pg (25.7-33.7); MCHC 31.6 g/dl (32.0-36.0); MEAN CELL VOLUME 95.3 fl (80-96); MEAN PLT VOLUME 9.9 fl (7.5-11.1); MONO % 2.8 % (3.8-10.2); PLATELET COUNT 141 K/MM3 (134-434); RBC 4.71 M/mm3 (3.60-5.2); RDW 14.6 % (11.6-15.6); WHITE BLOOD COUNT 29.7 K/mm3 (4.0-10.0)
[2017-12-26 09:35] LABS: ALBUMIN 2.9 g/dl (3.4-5.0); CO2 30 mmol/L (21-32); CREATININE 0.8 mg/dL (0.55-1.3)
[2017-12-26] MEDS: DIGOXIN 0.125 MG TABLET (FP) PO SCH (10:14)
[2017-12-26] MEDS: methylPREDNISolone NA SUCC 40 MG/1 ML VIAL IVPUSH SCH ×2 (10:14→21:29)
[2017-12-26] MEDS: FUROSEMIDE 40 MG TABLET (FP) PO SCH (10:14)
[2017-12-26] MEDS: ROFLUMILAST 500 MCG TABLET PO SCH (10:15)
[2017-12-26] MEDS: APIXABAN 5 MG TABLET PO SCH ×2 (10:15→21:40)
[2017-12-26] MEDS: TIOTROPIUM BROMIDE 2.5 MCG (SPIRIVA) RESPIMAT INHALER IH SCH (10:18)
[2017-12-26] MEDS: BRIMONIDINE TARTRATE 0.1% OPHTHALMIC 5 ML BOTTLE OU SCH ×2 (10:18→21:28)
[2017-12-26] MEDS: LATANOPROST 0.005% OPHTH SOLN 2.5ML BOTTLE OU SCH (10:19)
--- NOTE | 2017-12-26 10:35 | PN ---
Progress Note (short form) - Note Progress Note: PULMONARY Still with shortness of breath, cough and chest tightness. Vital Signs Period Temp Pulse Resp BP Sys/Anthony Pulse Ox Last 24 Hr 97.8 F-98.2 F 72-100 20-20 115-139/52-65 95-100 Gen: tachypneic at rest Heart: RRR Lung: distant breath sounds Abd: soft, nontender Ext: no edema CBC, BMP 12/26/17 06:45 12/26/17 07:00 Active Medications Albuterol Sulfate (Ventolin 0.083% Nebulizer Soln -) 1 amp NEB Q6H PRN PRN Reason: SHORT OF BREATH/WHEEZING Last Admin: 12/25/17 12:44 Dose: 1 amp Apixaban (Eliquis -) 5 mg PO BID [facility] Last Admin: 12/26/17 10:15 Dose: 5 mg Atorvastatin Calcium (Lipitor -) 40 mg PO HS [facility] Last Admin: 12/25/17 21:08 Dose: 40 mg Brimonidine Tartrate (Alphagan P 0.1% -) 1 drop OU BID [facility] Last Admin: 12/26/17 10:18 Dose: 1 drop Digoxin (Lanoxin -) 0.125 mg PO DAILY [facility] Last Admin: 12/26/17 10:14 Dose: 0.125 mg Diltiazem HCl (Cardizem Cd -) 120 mg PO DAILY [facility] Last Admin: 12/26/17 10:15 Dose: 120 mg Furosemide (Lasix -) 40 mg PO DAILY [facility] Last Admin: 12/26/17 10:14 Dose: 40 mg Insulin Aspart (Novolog Vial Sliding Scale -) 1 vial SQ [facility]; Protocol Last Admin: 12/26/17 06:17 Dose: Not Given Insulin Detemir (Levemir Vial) 30 units SQ AM [facility] Last Admin: 12/26/17 06:17 Dose: Not Given Insulin Detemir (Levemir Vial) 8 units SQ HS [facility] Last Admin: 12/25/17 21:07 Dose: 8 units Latanoprost (Xalatan 0.005% Eye Drops -) 1 drop OU DAILY [facility] Last Admin: 12/26/17 10:19 Dose: 1 drop Levothyroxine Sodium (Synthroid -) 75 mcg PO AM [facility] Last Admin: 12/26/17 06:36 Dose: 75 mcg Methylprednisolone Sodium Succinate (Solu-Medrol -) 40 mg IVPUSH BID [facility] Last Admin: 12/26/17 10:14 Dose: 40 mg Montelukast Sodium (Singulair -) 10 mg PO HS [facility] Last Admin: 12/25/17 21:08 Dose: 10 mg Roflumilast (Daliresp -) 500 mcg PO DAILY [facility] Last Admin: 12/26/17 10:15 Dose: 500 mcg Sitagliptin Phosphate (Januvia -) 100 mg PO AM [facility] Last Admin: 12/26/17 06:36 Dose: 100 mg Tiotropium [place] (Spiriva Respimat) 2 puff IH DAILY [facility] Last Admin: 12/26/17 10:18 Dose: 2 puff A/P Acute on Chronic Hypoxic and Hypercapneic Respiratory Failure Acute COPD Exacerbation Pulmonary HTN LV Diastolic Dysfunction Paroxysmal Atrial Fibrillation DM Hypothyroidism - continue medrol at current dose - inhaled bronchodilators - O2 to keep Spo2 >90% - BiPAP as needed to assist in work of breathing - daliresp - rate control - continue anticoagulation - continue discussions regarding goals of care
[2017-12-26 11:11] LABS: ANISOCYTOSIS 1+; MACROCYTOSIS 1+; OVALOCYTE 1+; PLATELET ESTIMATE DECREASED; TEAR DROP CELLS 1+
[2017-12-26] MEDS: ALBUTEROL SO4 0.083% IH SOL 2.5 MG/3 ML VIAL.NEB. NEB PRN (14:51)
--- NOTE | 2017-12-26 15:26 | PN ---
Progress Note (short form) - Note Progress Note: remains SOB no cough Vital Signs Period Temp Pulse Resp BP Sys/Anthony Pulse Ox Last 24 Hr 97.6 F-98.2 F 79-100 20-20 115-139/52-72 95-100 cor-rrr lungs decreased bs at bases abd soft,nt ext ecchymoses of both arms CBC, BMP 12/26/17 06:45 12/26/17 07:00 Microbiology 12/23/17 17:00 Blood - Peripheral Venous Blood Culture - Preliminary NO GROWTH OBTAINED AFTER 48 HOURS, INCUBATION TO CONTINUE FOR 3 DAYS. 12/23/17 16:15 Blood - Peripheral Venous Blood Culture - Preliminary NO GROWTH OBTAINED AFTER 48 HOURS, INCUBATION TO CONTINUE FOR 3 DAYS. a/p suspect leukocytosis secondary to steroids should trend down if steroids are tapered advanced COPD- doing poorly Problem List - Problems (1) Leukocytosis Code(s): D72.829 - ELEVATED WHITE BLOOD CELL COUNT, UNSPECIFIED (2) Acute on chronic respiratory failure with hypoxia and hypercapnia Code(s): J96.21 - ACUTE AND CHRONIC RESPIRATORY FAILURE WITH HYPOXIA; J96.22 - ACUTE AND CHRONIC RESPIRATORY FAILURE WITH HYPERCAPNIA (3) Advanced chronic obstructive pulmonary disease Code(s): J44.9 - CHRONIC OBSTRUCTIVE PULMONARY DISEASE, UNSPECIFIED (4) Abnormal LFTs Code(s): R94.5 - ABNORMAL RESULTS OF LIVER FUNCTION STUDIES
--- NOTE | 2017-12-26 18:08 | PN ---
Progress Note, Physician History of Present Illness: Pt with episodes of SOB. Pt w/o cough, CP, palpitations, abd pain, diarrhea, dysuria. Pt's nurse made me aware that pt refised Levemir; BMG before dinner is 534. - Current Medication List Current Medications: Active Medications Albuterol Sulfate (Ventolin 0.083% Nebulizer Soln -) 1 amp NEB Q6H PRN PRN Reason: SHORT OF BREATH/WHEEZING Last Admin: 12/26/17 14:51 Dose: 1 amp Apixaban (Eliquis -) 5 mg PO BID [facility] Last Admin: 12/26/17 10:15 Dose: 5 mg Atorvastatin Calcium (Lipitor -) 40 mg PO HS [facility] Last Admin: 12/25/17 21:08 Dose: 40 mg Brimonidine Tartrate (Alphagan P 0.1% -) 1 drop OU BID [facility] Last Admin: 12/26/17 10:18 Dose: 1 drop Digoxin (Lanoxin -) 0.125 mg PO DAILY [facility] Last Admin: 12/26/17 10:14 Dose: 0.125 mg Diltiazem HCl (Cardizem Cd -) 120 mg PO DAILY [facility] Last Admin: 12/26/17 10:15 Dose: 120 mg Furosemide (Lasix -) 40 mg PO DAILY [facility] Last Admin: 12/26/17 10:14 Dose: 40 mg Insulin Aspart (Novolog Vial Sliding Scale -) 1 vial SQ ACHS [facility]; Protocol Last Admin: 12/26/17 13:56 Dose: Not Given Insulin Aspart (Novolog) 14 units SQ ONCE ONE Stop: 12/27/17 17:59 Insulin Detemir (Levemir Vial) 10 units SQ AM [facility] Insulin Detemir (Levemir Vial) 4 units SQ HS [facility] Latanoprost (Xalatan 0.005% Eye Drops -) 1 drop OU DAILY [facility] Last Admin: 12/26/17 10:19 Dose: 1 drop Levothyroxine Sodium (Synthroid -) 75 mcg PO AM [facility] Last Admin: 12/26/17 06:36 Dose: 75 mcg Methylprednisolone Sodium Succinate (Solu-Medrol -) 40 mg IVPUSH BID [facility] Last Admin: 12/26/17 10:14 Dose: 40 mg Montelukast Sodium (Singulair -) 10 mg PO HS [facility] Last Admin: 12/25/17 21:08 Dose: 10 mg Roflumilast (Daliresp -) 500 mcg PO DAILY [facility] Last Admin: 12/26/17 10:15 Dose: 500 mcg Sitagliptin Phosphate (Januvia -) 100 mg PO AM [facility] Last Admin: 12/26/17 06:36 Dose: 100 mg Tiotropium [place] (Spiriva Respimat) 2 puff IH DAILY [facility] Last Admin: 12/26/17 10:18 Dose: 2 puff - Objective Vital Signs: Vital Signs Temperature 97.6 F 12/26/17 10:00 Pulse Rate 92 H 12/26/17 14:12 Respiratory Rate 20 12/26/17 14:12 Blood Pressure 136/72 12/26/17 14:12 O2 Sat by Pulse Oximetry (%) 100 12/26/17 09:00 Constitutional: Yes: No Distress, Calm Cardiovascular: Yes: Regular Rate and Rhythm, S1, S2 Respiratory: Yes: Regular, CTA Bilaterally, Diminished Gastrointestinal: Yes: Normal Bowel Sounds, Soft. No: Tenderness Edema: No Neurological: Yes: Alert, Oriented Labs: CBC, BMP 12/26/17 06:45 12/26/17 07:00 Problem List - Problems (1) Acute and chronic respiratory failure with hypercapnia Code(s): J96.22 - ACUTE AND CHRONIC RESPIRATORY FAILURE WITH HYPERCAPNIA (2) COPD with acute exacerbation Code(s): J44.1 - CHRONIC OBSTRUCTIVE PULMONARY DISEASE W (ACUTE) EXACERBATION (3) Diabetes mellitus Code(s): E11.9 - TYPE 2 DIABETES MELLITUS WITHOUT COMPLICATIONS (4) Hypertension Code(s): I10 - ESSENTIAL (PRIMARY) HYPERTENSION (5) Paroxysmal atrial fibrillation Code(s): I48.0 - PAROXYSMAL ATRIAL FIBRILLATION (6) Elevated troponin I level Code(s): R74.8 - ABNORMAL LEVELS OF OTHER SERUM ENZYMES (7) Leukocytosis Code(s): D72.829 - ELEVATED WHITE BLOOD CELL COUNT, UNSPECIFIED Assessment/Plan IV Solu-Medrol; continue same dose for now. Pulmonary, Cardio consults and f/u are appreciated. Phychiatry consult is appreciated; pt was found to have full capacity to make decisions. AM labs. Prognosis: reserved
[2017-12-26] MEDS ORDERED: Insulin (LOG) Aspart 100 UNITS/ML VIAL SQ ONE (18:50)
[2017-12-26] MEDS ORDERED: PT OWN MED DRAWER 7, Y5N ONE (21:10)
[2017-12-26] MEDS: MONTELUKAST NA 10 MG TABLET PO SCH (21:40)
[2017-12-26] MEDS: ATORVASTATIN CA 40 MG TABLET (FP) PO SCH (21:40)
[2017-12-27 06:06] LABS: HEP.C VIRUS AB <0.1 s/co ratio (0.0-0.9)
[2017-12-27] MEDS: INSULIN SLIDING SCALE (NOVOLOG) 1 VIAL SQ SCH ×4 (06:47→22:38)
[2017-12-27] MEDS: sitaGLIPtin PHOSPHATE 100 MG TABLET (FP) PO SCH (06:54)
[2017-12-27] MEDS: LEVOTHYROXINE NA 75 MCG TABLET (FP) PO SCH (06:54)
[2017-12-27] MEDS: INSULIN (LEVEMIR) 100 UNITS/ML UNITS SQ SCH ×2 (06:54→22:32)
[2017-12-27 07:02] LABS: HEMATOCRIT 43.5 % (32.4-45.2); HEMOGLOBIN 13.7 GM/dL (10.7-15.3); MCH 29.8 pg (25.7-33.7); MCHC 31.5 g/dl (32.0-36.0); MEAN CELL VOLUME 94.7 fl (80-96); MEAN PLT VOLUME 10.1 fl (7.5-11.1); PLATELET COUNT 143 K/MM3 (134-434); RBC 4.59 M/mm3 (3.60-5.2); RDW 13.9 % (11.6-15.6)
[2017-12-27 07:20] LABS: WHITE BLOOD COUNT 37.1 K/mm3 (4.0-10.0)
[2017-12-27 07:27] LABS: ALBUMIN 2.9 g/dl (3.4-5.0); ALK PHOS 133 U/L (45-117); ANION GAP 7 MMOL/L (8-16); BILIRUBIN,TOTAL 0.6 mg/dL (0.2-1); BLOOD UREA NITROGEN 79 mg/dL (7-18); CALCIUM 9.5 mg/dL (8.5-10.1); CHLORIDE 93 mmol/L (98-107); CO2 35 mmol/L (21-32); CREATININE 0.9 mg/dL (0.55-1.3); GLUCOSE,RANDOM 138 mg/dL (74-106); SGOT/AST 63 U/L (15-37); SGPT/ALT 159 U/L (13-61); SODIUM 135 mmol/L (136-145); TOT PROT 5.3 g/dl (6.4-8.2)
[2017-12-27] MEDS ORDERED: PT OWN MED DRAWER 7, Y5N ONE ×3 (09:51→20:32)
[2017-12-27] MEDS ORDERED: FUROSEMIDE 40 MG/4 ML INJECTABLE VIAL ONE (09:51)
[2017-12-27] MEDS: methylPREDNISolone NA SUCC 40 MG/1 ML VIAL IVPUSH SCH ×2 (10:02→11:44)
[2017-12-27] MEDS: DIGOXIN 0.125 MG TABLET (FP) PO SCH (10:02)
[2017-12-27] MEDS: FUROSEMIDE 40 MG TABLET (FP) PO SCH (10:02)
[2017-12-27] MEDS: BRIMONIDINE TARTRATE 0.1% OPHTHALMIC 5 ML BOTTLE OU SCH ×2 (10:03→22:37)
[2017-12-27] MEDS: LATANOPROST 0.005% OPHTH SOLN 2.5ML BOTTLE OU SCH (10:03)
[2017-12-27] MEDS: TIOTROPIUM BROMIDE 2.5 MCG (SPIRIVA) RESPIMAT INHALER IH SCH (10:03)
--- NOTE | 2017-12-27 10:52 | PN ---
Progress Note (short form) - Note Progress Note: PULMONARY Still with shortness of breath, cough and chest tightness but appears less tachypneic today. Did not require BiPAP overnight. Vital Signs Period Temp Pulse Resp BP Sys/Anthony Pulse Ox Last 24 Hr 97.7 F-98.4 F 77-103 16-20 97-141/56-72 97 Gen: less tachypneic at rest Heart: RRR Lung: distant breath sounds Abd: soft, nontender Ext: no edema CBC, BMP 12/27/17 06:45 12/27/17 06:45 Active Medications Albuterol Sulfate (Ventolin 0.083% Nebulizer Soln -) 1 amp NEB Q6H PRN PRN Reason: SHORT OF BREATH/WHEEZING Last Admin: 12/26/17 14:51 Dose: 1 amp Apixaban (Eliquis -) 5 mg PO BID [facility] Last Admin: 12/26/17 21:40 Dose: 5 mg Atorvastatin Calcium (Lipitor -) 40 mg PO HS [facility] Last Admin: 12/26/17 21:40 Dose: Not Given Brimonidine Tartrate (Alphagan P 0.1% -) 1 drop OU BID [facility] Last Admin: 12/27/17 10:03 Dose: 1 drop Digoxin (Lanoxin -) 0.125 mg PO DAILY [facility] Last Admin: 12/27/17 10:02 Dose: 0.125 mg Diltiazem HCl (Cardizem Cd -) 120 mg PO DAILY [facility] Last Admin: 12/27/17 10:02 Dose: 120 mg Furosemide (Lasix -) 40 mg PO DAILY [facility] Last Admin: 12/27/17 10:02 Dose: 40 mg Insulin Aspart (Novolog Vial Sliding Scale -) 1 vial SQ [facility]; Protocol Last Admin: 12/27/17 06:47 Dose: Not Given Insulin Detemir (Levemir Vial) 10 units SQ AM [facility] Last Admin: 12/27/17 06:54 Dose: Not Given Insulin Detemir (Levemir Vial) 4 units SQ HS [facility] Last Admin: 12/26/17 21:28 Dose: 4 units Latanoprost (Xalatan 0.005% Eye Drops -) 1 drop OU DAILY [facility] Last Admin: 12/27/17 10:03 Dose: 1 drop Levothyroxine Sodium (Synthroid -) 75 mcg PO AM [facility] Last Admin: 12/27/17 06:54 Dose: 75 mcg Methylprednisolone Sodium Succinate (Solu-Medrol -) 40 mg IVPUSH BID [facility] Last Admin: 12/27/17 10:02 Dose: 40 mg Montelukast Sodium (Singulair -) 10 mg PO HS [facility] Last Admin: 12/26/17 21:40 Dose: Not Given Roflumilast (Daliresp -) 500 mcg PO DAILY [facility] Last Admin: 12/26/17 10:15 Dose: 500 mcg Sitagliptin Phosphate (Januvia -) 100 mg PO AM [facility] Last Admin: 12/27/17 06:54 Dose: 100 mg Tiotropium [place] (Spiriva Respimat) 2 puff IH DAILY [facility] Last Admin: 12/27/17 10:03 Dose: 2 puff A/P Acute on Chronic Hypoxic and Hypercapneic Respiratory Failure Acute COPD Exacerbation Pulmonary HTN LV Diastolic Dysfunction Paroxysmal Atrial Fibrillation DM Hypothyroidism - will change steroids to PO prednisone - monitor WBC trend - inhaled bronchodilators - O2 to keep Spo2 >90% - BiPAP as needed to assist in work of breathing - daliresp - rate control - continue anticoagulation - continue discussions regarding goals of care
[2017-12-27] MEDS: APIXABAN 5 MG TABLET PO SCH ×2 (11:16→22:25)
[2017-12-27] MEDS: ROFLUMILAST 500 MCG TABLET PO SCH (11:16)
[2017-12-27] MEDS: ALBUTEROL SO4 0.083% IH SOL 2.5 MG/3 ML VIAL.NEB. NEB PRN ×2 (11:49→21:43)
--- NOTE | 2017-12-27 15:08 | CONSULT ---
Consultation: REQUESTING PROVIDER: Dr. Mccarty CONSULT REQUEST FOR HEMATOLOGY/ONCOLOGY: We have been asked to medically evaluate this patient for Leukocytosis. HISTORY OF PRESENT ILLNESS: Patient is a 72 year old female with a PMHx of COPD (on 3L 02), Pulmonary HTN, DCHF, Paroxysmal Atrial Fibrillation (on eliquis), IDDMII, Hypothyroidism who was sent by her PCP for shortness of breath and dyspnea. When patient arrived, she was found to have respiratory failure due to COPD exacerbation and admitted for further management. Patient was placed on Solu-medrol, inhaled bronchodilators, daliresp and BiPAP. Throughout the course, patients WBC continued to increase and we were consulted for further evaluation. Patient otherwise denies recent sick contacts and denies URI symptoms. Denies the following: fever, chills, nausea, vomiting, visual changes, chest pain, abdominal pain, dysuria, hematuria, diarrhea, hematochezia, and melena. PMHx: COPD (on 3L 02), Pulmonary HTN, DCHF, Paroxysmal Atrial Fibrillation (on eliquis), IDDMII, Hypothyroidism Surgical Hx: Denies Medications: Prednisone, januvia, furosemide, digoxin, diltiazem, levothyroxine , eliquis, montelukast, atorvastatin, spirvia, brovana, azopt, lumigan, alphagan , levemir, humalog Allergies: NKDA Social Hx: History of Tobacco use Denies alcohol Denies drugs REVIEW OF SYSTEMS: CONSTITUTIONAL: Absent: fever, chills, diaphoresis, generalized weakness, malaise, loss of appetite, weight change HEENT: Absent: rhinorrhea, nasal congestion, throat pain, throat swelling, difficulty swallowing, mouth swelling, ear pain, eye pain, visual changes CARDIOVASCULAR: Absent: chest pain, syncope, palpitations, irregular heart rate, lightheadedness , peripheral edema RESPIRATORY: cough, shortness of breath, dyspnea with exertion, wheezing Absent: orthopnea, stridor, hemoptysis GASTROINTESTINAL: Absent: abdominal pain, abdominal distension, nausea, vomiting, diarrhea, constipation, melena, hematochezia GENITOURINARY: Absent: dysuria, frequency, urgency, hesitancy, hematuria, flank pain, genital pain MUSCULOSKELETAL: Absent: myalgia, arthralgia, joint swelling, back pain, neck pain SKIN: Absent: rash, itching, pallor HEMATOLOGIC/IMMUNOLOGIC: Absent: easy bleeding, easy bruising, lymphadenopathy, frequent infections ENDOCRINE: Absent: unexplained weight gain, unexplained weight loss, heat intolerance, cold intolerance NEUROLOGIC: Absent: headache, focal weakness or paresthesias, dizziness, unsteady gait, seizure, mental status changes, bladder or bowel incontinence PSYCHIATRIC: Absent: anxiety, depression, suicidal or homicidal ideation, hallucinations. PHYSICAL EXAMINATION Vital Signs - 24 hr 12/26/17 12/26/17 12/26/17 18:00 21:00 22:00 Temperature 98 F 98.4 F Pulse Rate 98 H 103 H Respiratory 20 16 Rate Blood Pressure 133/60 97/68 O2 Sat by Pulse 97 Oximetry (%) 12/27/17 12/27/17 12/27/17 06:02 10:00 10:02 Temperature 97.7 F 97.7 F Pulse Rate 77 72 78 Respiratory 16 16 Rate Blood Pressure 141/56 L 144/86 O2 Sat by Pulse Oximetry (%) GENERAL: Awake, drowsy, and fully oriented. HEAD: Normal with no signs of trauma. EYES: conjunctiva clear. EARS, NOSE, THROAT: Oropharynx clear without exudates. Moist mucous membranes. NECK: Normal range of motion, supple without lymphadenopathy, JVD, or masses. LUNGS: Tacypneic at rest with accessory muscle use. Distant breath sounds bilaterally with no crackles or wheezes HEART: RRR, normal S1 and S2 ABDOMEN: Soft, nontender, not distended, normoactive bowel sounds EXTREMITIES: 2+ pitting edema bilaterally NEUROLOGICAL: Cranial nerves II-XII intact. Normal speech. PSYCHIATRIC: Cooperative. Poor eye contact Laboratory Tests 12/27/17 06:45 12/27/17 06:45 12/27/17 06:45 AST 63 H ALT 159 H Alkaline Phosphatase 133 H Total Protein 5.3 L Albumin 2.9 L Active Medications Generic Name Dose Route Start Last Admin Trade Name Freq PRN Reason Stop Dose Admin Albuterol Sulfate 1 amp 12/12/17 19:28 12/27/17 11:49 Ventolin 0.083% Nebulizer Soln - NEB 1 amp Q6H PRN Administration SHORT OF BREATH/WHEEZING Apixaban 5 mg 12/25/17 22:00 12/27/17 11:16 Eliquis - PO 5 mg BID [facility] Administration Atorvastatin Calcium 40 mg 12/12/17 22:00 12/26/17 21:40 Lipitor - PO Not Given HS [facility] Brimonidine Tartrate 1 drop 12/12/17 22:00 12/27/17 10:03 Alphagan P 0.1% - OU 1 drop BID [facility] Administration Digoxin 0.125 mg 12/13/17 10:00 12/27/17 10:02 Lanoxin - PO 0.125 mg DAILY [facility] Administration Diltiazem HCl 120 mg 12/13/17 10:00 12/27/17 10:02 Cardizem Cd - PO 120 mg DAILY [facility] Administration Furosemide 40 mg 12/13/17 10:00 12/27/17 10:02 Lasix - PO 40 mg DAILY [facility] Administration Insulin Aspart 1 vial 12/12/17 22:00 12/27/17 12:13 Novolog Vial Sliding Scale - SQ Not Given ACHS [facility] Protocol Insulin Detemir 10 units 12/26/17 17:58 12/27/17 06:54 Levemir Vial SQ Not Given AM [facility] Insulin Detemir 4 units 12/26/17 17:58 12/26/17 21:28 Levemir Vial SQ 4 units HS [facility] Administration Latanoprost 1 drop 12/13/17 10:00 12/27/17 10:03 Xalatan 0.005% Eye Drops - OU 1 drop DAILY [facility] Administration Levothyroxine Sodium 75 mcg 12/13/17 07:00 12/27/17 06:54 Synthroid - PO 75 mcg AM [facility] Administration Montelukast Sodium 10 mg 12/12/17 22:00 12/26/17 21:40 Singulair - PO Not Given HS [facility] Prednisone 40 mg 12/28/17 10:00 Deltasone - PO DAILY [facility] Roflumilast 500 mcg 12/13/17 12:45 12/27/17 11:16 Daliresp - PO 500 mcg DAILY [facility] Administration Sitagliptin Phosphate 100 mg 12/13/17 07:00 12/27/17 06:54 Januvia - PO 100 mg AM [facility] Administration Tiotropium [place] 2 puff 12/13/17 10:00 12/27/17 10:03 Spiriva Respimat IH 2 puff DAILY [facility] Administration ASSESSMENT/PLAN: Patient is a 72 year old female who was sent by her PCP for increasing shortness of breath and was found to have acute COPD exacerbation. Patient placed on steroids and continued to have elevated WBC's. We were consulted to evaluate Leukocytosis. Problem List: Acute on Chronic Hypoxic and Hypercapneic Respiratory Failure Acute COPD Exacerbation Pulmonary HTN Diastolic Congestive Heart Failure Paroxysmal Atrial Fibrillation (On Eliquis) HTN IDDMII Hypothyroidism Leukocytosis PLAN: -Patient likely has leukocytosis from ongoing treatment with glucocorticoids since 12/12/17 as well as chronic steroid use at home with 3mg daily for several years. Patient currently has no diarrhea, fevers, or positive blood cultures. Would continue to monitor for any diarrhea, order CBC w. Diff, Coagulation panel. -Other differentials for secondary causes may include but not limited to stress (such as physical or emotional stress) or hemolysis. Would order LDH, Haptoglobin, Reticulocytis. Bilirubin is wnl -Continue COPD exacerbation management, as per primary team and mobile home technician Dispo: We will continue to follow the patient. Thank you for this consultative opportunity. Visit type - Emergency Visit Emergency Visit: Yes ED Registration Date: 12/13/17 Care time: The patient presented to the Emergency Department on the above date and was hospitalized for further evaluation of their emergent condition. - New Patient This patient is new to me today: Yes Date on this admission: 12/27/17 - Critical Care Critical Care patient: No
--- NOTE | 2017-12-27 17:28 | PN ---
Teaching Attending Note Name of Resident: Patricia Koo ATTENDING PHYSICIAN STATEMENT I saw and evaluated the patient. I reviewed the resident's note and discussed the case with the resident. I agree with the resident's findings and plan as documented. SUBJECTIVE: Patient seen and examined OBJECTIVE:72 year old with multiple medical problems being seen for evaluation of leucocytosis. PMH: Oxygen dependent COPD, Pulmonary hypertension, PAF on eliquis, diastolic CHF, IDDM , hypothyroidism. Presented with exacerbation of COPD Has been on steroids since admission and has persistent leucocytosis. Recent worsening of LFT's. Last Vital Signs Temp Pulse Resp BP Pulse Ox 97.7 F 78 16 144/86 97 12/27/17 10:00 12/27/17 10:02 12/27/17 10:00 12/27/17 10:00 12/26/17 21:00 Dyspneic at rest HEENT: KERRY, EOM Intact Oropharynx: thrush,dry mucous membranes caked Nodes: Without adenopathy Breasts: Without masses Cor: RSR, No murmurs, No gallops Lungs:bronchial breath sounds , scattered rhonchi, and diminished Abd: Soft, Normal bowel sounds, No organomegaly Ext:No significant edema Skin: No rashes, Integument intact, numerous ecchymoses CBC, BMP 12/27/17 06:45 12/27/17 06:45 Current Medications Generic Name Dose Route Start Last Admin Trade Name Freq PRN Reason Stop Dose Admin Albuterol Sulfate 1 amp 12/12/17 19:28 12/27/17 11:49 Ventolin 0.083% Nebulizer Soln - NEB 1 amp Q6H PRN Administration SHORT OF BREATH/WHEEZING Apixaban 5 mg 12/25/17 22:00 12/27/17 11:16 Eliquis - PO 5 mg BID [facility] Administration Atorvastatin Calcium 40 mg 12/12/17 22:00 12/26/17 21:40 Lipitor - PO Not Given HS [facility] Brimonidine Tartrate 1 drop 12/12/17 22:00 12/27/17 10:03 Alphagan P 0.1% - OU 1 drop BID [facility] Administration Digoxin 0.125 mg 12/13/17 10:00 12/27/17 10:02 Lanoxin - PO 0.125 mg DAILY [facility] Administration Diltiazem HCl 120 mg 12/13/17 10:00 12/27/17 10:02 Cardizem Cd - PO 120 mg DAILY [facility] Administration Furosemide 40 mg 12/13/17 10:00 12/27/17 10:02 Lasix - PO 40 mg DAILY [facility] Administration Insulin Aspart 1 vial 12/12/17 22:00 12/27/17 16:35 Novolog Vial Sliding Scale - SQ Not Given ACHS [facility] Protocol Insulin Detemir 10 units 12/26/17 17:58 12/27/17 06:54 Levemir Vial SQ Not Given AM [facility] Insulin Detemir 4 units 12/26/17 17:58 12/26/17 21:28 Levemir Vial SQ 4 units HS [facility] Administration Latanoprost 1 drop 12/13/17 10:00 12/27/17 10:03 Xalatan 0.005% Eye Drops - OU 1 drop DAILY [facility] Administration Levothyroxine Sodium 75 mcg 12/13/17 07:00 12/27/17 06:54 Synthroid - PO 75 mcg AM [facility] Administration Montelukast Sodium 10 mg 12/12/17 22:00 12/26/17 21:40 Singulair - PO Not Given HS [facility] Prednisone 40 mg 12/28/17 10:00 Deltasone - PO DAILY [facility] Roflumilast 500 mcg 12/13/17 12:45 12/27/17 11:16 Daliresp - PO 500 mcg DAILY [facility] Administration Sitagliptin Phosphate 100 mg 12/13/17 07:00 12/27/17 06:54 Januvia - PO 100 mg AM [facility] Administration Tiotropium [place] 2 puff 12/13/17 10:00 12/27/17 10:03 Spiriva Respimat IH 2 puff DAILY [facility] Administration Impression: Leucocytosis - Review of past records reveals that patient has had a persistent leucocytosis dating back to 09/23. WBC has never fallen below 14K. While one can argue that counts are obtained in hospital when patient is ill and likely on higher dose of steroids , none the less it is worthwhile to obtain DEBBIE-2 and BCR-Abl by PCR In view of rising LFT's would consider liver spleen sono if feasible. Would also begin diflucan for thrush. ASSESSMENT AND PLAN:
--- NOTE | 2017-12-27 18:01 | PN ---
Progress Note, Physician History of Present Illness: Pt with SOB, on and off. Pt w/o cough, CP, palpitations, abd pain, diarrhea, dysuria. - Current Medication List Current Medications: Active Medications Albuterol Sulfate (Ventolin 0.083% Nebulizer Soln -) 1 amp NEB Q6H PRN PRN Reason: SHORT OF BREATH/WHEEZING Last Admin: 12/27/17 11:49 Dose: 1 amp Apixaban (Eliquis -) 5 mg PO BID [facility] Last Admin: 12/27/17 11:16 Dose: 5 mg Atorvastatin Calcium (Lipitor -) 40 mg PO HS [facility] Last Admin: 12/26/17 21:40 Dose: Not Given Brimonidine Tartrate (Alphagan P 0.1% -) 1 drop OU BID [facility] Last Admin: 12/27/17 10:03 Dose: 1 drop Digoxin (Lanoxin -) 0.125 mg PO DAILY [facility] Last Admin: 12/27/17 10:02 Dose: 0.125 mg Diltiazem HCl (Cardizem Cd -) 120 mg PO DAILY [facility] Last Admin: 12/27/17 10:02 Dose: 120 mg Fluconazole (Diflucan -) 100 mg PO DAILY [facility] Furosemide (Lasix -) 40 mg PO DAILY [facility] Last Admin: 12/27/17 10:02 Dose: 40 mg Insulin Aspart (Novolog Vial Sliding Scale -) 1 vial SQ ACHS [facility]; Protocol Last Admin: 12/27/17 16:35 Dose: Not Given Insulin Detemir (Levemir Vial) 10 units SQ AM [facility] Last Admin: 12/27/17 06:54 Dose: Not Given Insulin Detemir (Levemir Vial) 4 units SQ HS [facility] Last Admin: 12/26/17 21:28 Dose: 4 units Latanoprost (Xalatan 0.005% Eye Drops -) 1 drop OU DAILY [facility] Last Admin: 12/27/17 10:03 Dose: 1 drop Levothyroxine Sodium (Synthroid -) 75 mcg PO AM [facility] Last Admin: 12/27/17 06:54 Dose: 75 mcg Montelukast Sodium (Singulair -) 10 mg PO HS [facility] Last Admin: 12/26/17 21:40 Dose: Not Given Prednisone (Deltasone -) 40 mg PO DAILY [facility] Roflumilast (Daliresp -) 500 mcg PO DAILY [facility] Last Admin: 12/27/17 11:16 Dose: 500 mcg Sitagliptin Phosphate (Januvia -) 100 mg PO AM [facility] Last Admin: 12/27/17 06:54 Dose: 100 mg Tiotropium [place] (Spiriva Respimat) 2 puff IH DAILY [facility] Last Admin: 12/27/17 10:03 Dose: 2 puff - Objective Vital Signs: Vital Signs Temperature 97.7 F 12/27/17 10:00 Pulse Rate 78 12/27/17 10:02 Respiratory Rate 16 12/27/17 10:00 Blood Pressure 144/86 12/27/17 10:00 O2 Sat by Pulse Oximetry (%) 97 12/26/17 21:00 Constitutional: Yes: No Distress, Calm Cardiovascular: Yes: Regular Rate and Rhythm, S1, S2 Respiratory: Yes: Regular, Wheezes (minimal, bilat.) Gastrointestinal: Yes: Normal Bowel Sounds, Soft. No: Tenderness Edema: No Neurological: Yes: Alert, Oriented Labs: CBC, BMP 12/27/17 06:45 12/27/17 06:45 Problem List - Problems (1) Acute and chronic respiratory failure with hypercapnia Code(s): J96.22 - ACUTE AND CHRONIC RESPIRATORY FAILURE WITH HYPERCAPNIA (2) COPD with acute exacerbation Assessment/Plan: Advanced COPD, refractory to treatment Code(s): J44.1 - CHRONIC OBSTRUCTIVE PULMONARY DISEASE W (ACUTE) EXACERBATION (3) Diabetes mellitus Code(s): E11.9 - TYPE 2 DIABETES MELLITUS WITHOUT COMPLICATIONS (4) Hypertension Code(s): I10 - ESSENTIAL (PRIMARY) HYPERTENSION (5) Paroxysmal atrial fibrillation Code(s): I48.0 - PAROXYSMAL ATRIAL FIBRILLATION (6) Elevated troponin I level Code(s): R74.8 - ABNORMAL LEVELS OF OTHER SERUM ENZYMES (7) Leukocytosis Assessment/Plan: Trending up. Case was d/w Dr. Goldman. Code(s): D72.829 - ELEVATED WHITE BLOOD CELL COUNT, UNSPECIFIED (8) Elevated LFTs Assessment/Plan: trending up; pt had Liver US, no gallstones. GI consult Code(s): R94.5 - ABNORMAL RESULTS OF LIVER FUNCTION STUDIES Assessment/Plan Solu-Medrol was changed today to PO Prednisone Pulmonary, Cardio, Phychiatry, ID, Heme consults and f/u are appreciated. Phychiatry consult is appreciated; pt was found to have full capacity to make decisions. GI consult for elevated LFT's AM labs. Per pt's request (to update about her condition) I called HCP, both, and left message. Prognosis: reserved
--- NOTE | 2017-12-27 18:09 | PN ---
Progress Note (short form) - Note Progress Note: remains SOB no cough weak refusing staraight cath for urine culture Vital Signs Period Temp Pulse Resp BP Sys/Anthony Pulse Ox Last 24 Hr 97.7 F-98.4 F 72-103 16-16 97-144/56-86 97 +thrush cor-rrr lungs clear abd soft, nt+suprapubic fullness, tender to palpation ext no edema ecchymoses both arms CBC, BMP 12/27/17 06:45 12/27/17 06:45 Microbiology 12/23/17 17:00 Blood - Peripheral Venous Blood Culture - Preliminary NO GROWTH OBTAINED AFTER 96 HOURS, INCUBATION TO CONTINUE FOR 1 DAYS. 12/23/17 16:15 Blood - Peripheral Venous Blood Culture - Preliminary NO GROWTH OBTAINED AFTER 96 HOURS, INCUBATION TO CONTINUE FOR 1 DAYS. a/p rising WBC- ?urinary retention-she is now agreeable to straight cath for ua and urine culture will repeat blood cultures cefepime while awaiting repeat cultures diflucan for thrush advanced COPD- doing poorly Problem List - Problems (1) Leukocytosis Code(s): D72.829 - ELEVATED WHITE BLOOD CELL COUNT, UNSPECIFIED (2) Acute on chronic respiratory failure with hypoxia and hypercapnia Code(s): J96.21 - ACUTE AND CHRONIC RESPIRATORY FAILURE WITH HYPOXIA; J96.22 - ACUTE AND CHRONIC RESPIRATORY FAILURE WITH HYPERCAPNIA (3) Advanced chronic obstructive pulmonary disease Code(s): J44.9 - CHRONIC OBSTRUCTIVE PULMONARY DISEASE, UNSPECIFIED (4) Abnormal LFTs Code(s): R94.5 - ABNORMAL RESULTS OF LIVER FUNCTION STUDIES
[2017-12-27] MEDS ORDERED: CEFEPIME HCL 1 GM VIAL (RESTRICTED TO ID) ONE ×2 (19:02→22:22)
[2017-12-27] MEDS ORDERED: DEXTROSE 5%-WATER 100 ML IVPB ONE ×2 (19:03→22:22)
[2017-12-27] MEDS: FLUCONAZOLE 100 MG TABLET (UD) PO SCH ×2 (19:07→22:23)
[2017-12-27] MEDS ORDERED: INSULIN (NOVOLOG) ASPART 100 UNITS/ML 10ML VIAL ONE (20:32)
--- NOTE | 2017-12-27 22:11 | CON.GI ---
Consult Consult Specialty:: Gastroenterology Referred by:: Dr Mccarty Reason for Consultation:: Abnormal LFTs - History of Present Illness Chief Complaint: Dyspnea History of Present Illness: 72F is admitted with respiratory failure and found to have elevated LFTs'. Sonogram reveals a fatty liver but no stones or ductal dilation. Candice denies any h/o liver disease. She denies IVDA, tattoos, regular alcohol usage and transfusions. An uncle had alcoholic cirrhosis. She denies abdominal pain. She denies constipation. She denies any h/o peptic ulcer or other GI disease. She has never had an EGD or a colonoscopy. She quit smoking 10 years ago. She is dyspneic and provides only brief responses with no elaboration. - History Source History Provided By: Patient Limitations to Obtaining History: Other (brief responses due to dyspnea) - Past Medical History Cardio/Vascular: Yes: CHF (diastolic dysfunction), HTN, Pulmonary Hypertension Pulmonary: Yes: COPD (on BIPAP at home- every night and PRN), O2 Dependent Hepatobiliary: Yes: Other (fatty liver) Endocrine: Yes: Diabetes Mellitus (on Insulin), Hypothyroidism - Past Surgical History Past Surgical History: Yes: None - Alcohol/Substance Use Hx Alcohol Use: No - Smoking History Smoking history: Former smoker Have you smoked in the past 12 months: No Aproximately how many cigarettes per day: 0 If you are a former smoker, when did you quit?: 10 to 15 years ago - Social History Usual Living Arrangement: With Spouse ADL: Family Assistance 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 Place of : [facility] History of Recent Travel: No Home Medications - Allergies Allergies/Adverse Reactions: Allergies Allergy/AdvReac Type Severity Reaction Status Date / Time No Known Allergies Allergy Verified 12/12/17 14:32 - Home Medications Home Medications: Ambulatory Orders Arformoterol Tartrate [Brovana] 15 mcg IH BID 10/04/16 Atorvastatin Ca [Lipitor] 40 mg PO HS 10/04/16 Bimatoprost [Lumigan] 1 drop OU DAILY 10/04/16 Brimonidine Tartrate [Alphagan P 0.1% -] 1 drop OU BID 10/04/16 Brinzolamide [Azopt] 1 drop OU BID 10/04/16 Digoxin [Lanoxin -] 0.125 mg PO DAILY 10/04/16 Ergocalciferol (Vitamin D2) [Vitamin D2] 2,000 unit PO DAILY 10/04/16 Levalbuterol HCl [Xopenex] 0.45 mg IH BID 10/04/16 Levothyroxine [Synthroid -] 75 mcg PO ASDIR 10/04/16 Montelukast Na [Singulair -] 10 mg PO HS 10/04/16 Sitagliptin Phosphate [Januvia] 100 mg PO DAILY 10/04/16 Tiotropium Clarence [Spiriva] 18 mcg IH DAILY 10/04/16 Albuterol 0.083% Nebulizer Page [Ventolin 0.083% Nebulizer Soln -] 1 amp NEB Q4H PRN #0 amp 10/11/16 Apixaban [Eliquis -] 5 mg PO BID #60 tablet 10/11/16 Diltiazem [Cardizem -] 120 mg PO ASDIR 12/12/17 Furosemide [Lasix -] 40 mg PO DAILY 12/12/17 Insulin (Levemir) [Levemir Vial] 8 units SQ HS units 12/25/17 Insulin (Levemir) [Levemir Vial] 20 units SQ AM units 12/25/17 Insulin Sliding Scale [Novolog Vial Sliding Scale -] 1 vial SQ ACHS units 12/25 Roflumilast [Daliresp -] 500 mcg PO DAILY tablet 12/25/17 predniSONE [Deltasone -] 10 mg PO ASDIR #30 tab 12/25/17 Family Disease History - Family Disease History Family History: Unable to Obtain Review of Systems Unable to obtain ROS, reason: dyspneic Physical Exam-GI Vital Signs: Vital Signs Temperature 97.7 F 12/27/17 10:00 Pulse Rate 78 12/27/17 10:02 Respiratory Rate 16 12/27/17 10:00 Blood Pressure 144/86 12/27/17 10:00 O2 Sat by Pulse Oximetry (%) 97 12/26/17 21:00 CBC,CMP WBC 37.1 K/mm3 (4.0-10.0) H* 12/27/17 06:45 RBC 4.59 M/mm3 (3.60-5.2) 12/27/17 06:45 Hgb 13.7 GM/dL (10.7-15.3) 12/27/17 06:45 Hct 43.5 % (32.4-45.2) 12/27/17 06:45 MCV 94.7 fl (80-96) 12/27/17 06:45 MCH 29.8 pg (25.7-33.7) 12/27/17 06:45 MCHC 31.5 g/dl (32.0-36.0) L 12/27/17 06:45 RDW 13.9 % (11.6-15.6) 12/27/17 06:45 Plt Count 143 K/MM3 (134-434) 12/27/17 06:45 MPV 10.1 fl (7.5-11.1) 12/27/17 06:45 Absolute Neuts (auto) 28.5 K/mm3 (1.5-8.0) H 12/26/17 06:45 Neutrophils % 96.0 % (42.8-82.8) H 12/26/17 06:45 Neutrophils % (Manual) 97.0 % (42.8-82.8) H 12/26/17 06:45 Band Neutrophils % 0.0 % 12/26/17 06:45 Lymphocytes % 1.2 % (8-40) L D 12/26/17 06:45 Lymphocytes % (Manual) 1.0 % (8-40) L D 12/26/17 06:45 Monocytes % 2.8 % (3.8-10.2) L 12/26/17 06:45 Monocytes % (Manual) 2 % (3.8-10.2) L 12/26/17 06:45 Eosinophils % 0.0 % (0-4.5) 12/26/17 06:45 Eosinophils % (Manual) 0.0 % (0-4.5) 12/26/17 06:45 Basophils % 0.0 % (0-2.0) 12/26/17 06:45 Basophils % (Manual) 0.0 % (0-2.0) 12/26/17 06:45 Myelocytes % (Man) 0 % (0-2) 12/26/17 06:45 Promyelocytes % (Man) 0 % (0-2) 12/26/17 06:45 Blast Cells % (Manual) 0 % (0-0) 12/26/17 06:45 Nucleated RBC % 0 % (0-0) 12/26/17 06:45 Metamyelocytes 0 % (0-2) 12/26/17 06:45 Hypochromia 0 12/26/17 06:45 Toxic Granulation 0 12/16/17 06:15 Dohle Bodies 0 12/16/17 06:15 Platelet Estimate Decreased 12/26/17 06:45 Polychromasia 0 12/26/17 06:45 Poikilocytosis 1+ 12/26/17 06:45 Basophilic Stippling 0 12/16/17 06:15 Anisocytosis 1+ 12/26/17 06:45 Microcytosis 0 12/26/17 06:45 Macrocytosis 1+ 12/26/17 06:45 Spherocytes 0 12/16/17 06:15 Sickle Cells 0 12/16/17 06:15 Target Cells 0 12/16/17 06:15 Tear Drop Cells 1+ 12/26/17 06:45 Ovalocytes 1+ 12/26/17 06:45 Stomatocytes 0 12/16/17 06:15 Helmet Cells 0 12/16/17 06:15 [place] Bodies 0 12/16/17 06:15 [place] Rings 0 12/16/17 06:15 Gabe Cells 0 12/16/17 06:15 Acanthocytes (Spur) 0 12/16/17 06:15 Rouleaux 0 12/16/17 06:15 Fragmented RBCs 0 12/16/17 06:15 Schistocytes 0 12/16/17 06:15 ESR 6 mm/hr (0-30) 12/25/17 06:15 Sodium 135 mmol/L (136-145) L 12/27/17 06:45 Potassium 5.0 mmol/L (3.5-5.1) 12/27/17 06:45 Chloride 93 mmol/L (98-107) L 12/27/17 06:45 Carbon Dioxide 35 mmol/L (21-32) H 12/27/17 06:45 Anion Gap 7 MMOL/L (8-16) L 12/27/17 06:45 BUN 79 mg/dL (7-18) H 12/27/17 06:45 Creatinine 0.9 mg/dL (0.55-1.3) 12/27/17 06:45 Creat Clearance w eGFR > 60 (>60) 12/27/17 06:45 POC Glucometer 218 UNITS (80-120) 12/27/17 16:30 Random Glucose 138 mg/dL (74-106) H 12/27/17 06:45 Calcium 9.5 mg/dL (8.5-10.1) 12/27/17 06:45 Phosphorus 3.2 mg/dL (2.5-4.9) 12/12/17 15:37 Magnesium 2.7 mg/dL (1.8-2.4) H 12/14/17 05:30 Total Bilirubin 0.6 mg/dL (0.2-1) 12/27/17 06:45 AST 63 U/L (15-37) H 12/27/17 06:45 ALT 159 U/L (13-61) H 12/27/17 06:45 Alkaline Phosphatase 133 U/L (45-117) H 12/27/17 06:45 Creatine Kinase 116 IU/L (26-192) 12/12/17 22:00 Troponin I 0.06 ng/ml (0.00-0.05) H 12/12/17 22:00 Total Protein 5.3 g/dl (6.4-8.2) L 12/27/17 06:45 Albumin 2.9 g/dl (3.4-5.0) L 12/27/17 06:45 Current Medications Generic Name Dose Route Start Last Admin Trade Name Freq PRN Reason Stop Dose Admin Albuterol Sulfate 1 amp 12/12/17 19:28 12/27/17 21:43 Ventolin 0.083% Nebulizer Soln - NEB 1 amp Q6H PRN Administration SHORT OF BREATH/WHEEZING Apixaban 5 mg 12/25/17 22:00 12/27/17 11:16 Eliquis - PO 5 mg BID [facility] Administration Atorvastatin Calcium 40 mg 12/12/17 22:00 12/26/17 21:40 Lipitor - PO Not Given HS [facility] Brimonidine Tartrate 1 drop 12/12/17 22:00 12/27/17 10:03 Alphagan P 0.1% - OU 1 drop BID [facility] Administration Digoxin 0.125 mg 12/13/17 10:00 12/27/17 10:02 Lanoxin - PO 0.125 mg DAILY [facility] Administration Diltiazem HCl 120 mg 12/13/17 10:00 12/27/17 10:02 Cardizem Cd - PO 120 mg DAILY [facility] Administration Fluconazole 100 mg 12/27/17 17:45 Diflucan - PO DAILY [facility] Furosemide 40 mg 12/13/17 10:00 12/27/17 10:02 Lasix - PO 40 mg DAILY [facility] Administration Cefepime HCl 1 gm/ Dextrose 100 mls @ 100 mls/hr 12/27/17 18:15 IVPB BID [facility] Protocol Insulin Aspart 1 vial 12/12/17 22:00 12/27/17 16:35 Novolog Vial Sliding Scale - SQ Not Given ACHS [facility] Protocol Insulin Detemir 10 units 12/26/17 17:58 12/27/17 06:54 Levemir Vial SQ Not Given AM [facility] Insulin Detemir 4 units 12/26/17 17:58 12/26/17 21:28 Levemir Vial SQ 4 units HS [facility] Administration Latanoprost 1 drop 12/13/17 10:00 12/27/17 10:03 Xalatan 0.005% Eye Drops - OU 1 drop DAILY [facility] Administration Levothyroxine Sodium 75 mcg 12/13/17 07:00 12/27/17 06:54 Synthroid - PO 75 mcg AM [facility] Administration Montelukast Sodium 10 mg 12/12/17 22:00 12/26/17 21:40 Singulair - PO Not Given HS [facility] Prednisone 40 mg 12/28/17 10:00 Deltasone - PO DAILY [facility] Roflumilast 500 mcg 12/13/17 12:45 12/27/17 11:16 Daliresp - PO 500 mcg DAILY [facility] Administration Sitagliptin Phosphate 100 mg 12/13/17 07:00 12/27/17 06:54 Januvia - PO 100 mg AM [facility] Administration Tiotropium Clarence 2 puff 12/13/17 10:00 12/27/17 10:03 Spiriva Respimat IH 2 puff DAILY [facility] Administration Constitutional: Yes: Other (Breathing nebulizer treatment) Eyes: Yes: Conjunctiva Clear HENT: Yes: Normocephalic Neck: Yes: Supple Cardiovascular: Yes: Tachycardia, Murmur (2/6 holosystolic) Respiratory: Yes: Accessory Muscle Use, Hyperresonant, On Venti-Mask, Rhonchi Gastrointestinal Inspection: Yes: WNL ...Auscultate: Yes: Normoactive Bowel Sounds ...Palpate: Yes: Soft, Other ...Rectal Exam: Yes: Deferred (denied) Extremities: Yes: Pallor (lower extremities with early brawny edema) Edema: No Neurological: Yes: Alert, Oriented Labs: CBC, BMP 12/27/17 06:45 12/27/17 06:45 Laboratory Tests 05/24/10 05/26/10 05/31/10 22:45 06:00 06:00 AST 46 H 31 D ALT 55 37 D 63 Alkaline Phosphatase 80 10/04/16 10/05/16 10/06/16 13:10 05:30 05:20 AST 22 ALT 33 D Alkaline Phosphatase 98 10/08/16 12/12/17 12/13/17 10:48 15:37 06:35 AST 27 47 H 24 ALT 56 Alkaline Phosphatase 92 12/16/17 12/22/17 12/23/17 06:15 06:45 06:00 AST 52 H 58 H ALT 46 158 H 175 H Alkaline Phosphatase 75 103 12/24/17 12/25/17 12/26/17 06:00 06:15 07:00 AST 45 H 52 H ALT 121 H Alkaline Phosphatase 122 H 12/27/17 06:45 AST 63 H ALT Alkaline Phosphatase 133 H Laboratory Tests 12/25/17 06:15 TRACI Screen Pending Hepatitis A IgM Ab Negative Hep Bs Antigen Negative Hep B Core IgM Ab Negative Hepatitis C Antibody <0.1 Imaging - Results Ultrasound: Report Reviewed (Lui Chambers Name: [facility] DEPARTMENT OF RADIOLOGY Phys: Traci Mccarty : 1945 Age: 72 Sex: F [facility] Acct: [id number] Loc: [address] Exam Date: 12/25/17 Status: [place] [address] Unit Number: [id number] EXAM#: TYPE/EXAM: RESULT: [id number] US/ABDOMEN US -LIMITED Right upper quadrant abdominal sonogram HISTORY : Abnormal LFTs FINDINGS: The liver is normal in size with mild heterogeneous echotexture but no focal lesions No gallstones identified. No abnormal bile duct dilatation Visualized portions of the pancreas, aorta and IVC unremarkable Right kidney measures 9.4 cm and is unremarkable IMPRESSION: Heterogeneous liver suggestive of mild fatty infiltration Reported By: Osmin Alfaro MD 12/25/170 Technologist: Latesha Wise Transcribed Date/Time: 12/25/17 1210 Aged Or Disabled Carer: Osmin Alfaro Printed Date/Time: By: Signed by: Osmin Alfaro Signed on: 2017 12:11) Problem List - Problems (1) Abnormal LFTs Assessment/Plan: I suspect that Fred's LFT abnormalities reflect congestive hepatopathy. Her echocardiogram reveals severe tricuspid regurgitation and pulmonary hypertension to support this. I will screen for the other liver etiologies that can be obtained as an inpatient. She could have MONTERO contributing as her diabetes mellitus predisposes her to this. Code(s): R94.5 - ABNORMAL RESULTS OF LIVER FUNCTION STUDIES (2) Acute on chronic respiratory failure with hypoxia and hypercapnia Code(s): J96.21 - ACUTE AND CHRONIC RESPIRATORY FAILURE WITH HYPOXIA; J96.22 - ACUTE AND CHRONIC RESPIRATORY FAILURE WITH HYPERCAPNIA (3) Diastolic HF (heart failure) Code(s): I50.30 - UNSPECIFIED DIASTOLIC (CONGESTIVE) HEART FAILURE (4) Leukocytosis Code(s): D72.829 - ELEVATED WHITE BLOOD CELL COUNT, UNSPECIFIED (5) Pulmonary HTN Code(s): I27.20 - PULMONARY HYPERTENSION, UNSPECIFIED (6) Diabetes mellitus Code(s): E11.9 - TYPE 2 DIABETES MELLITUS WITHOUT COMPLICATIONS (7) Paroxysmal atrial fibrillation Code(s): I48.0 - PAROXYSMAL ATRIAL FIBRILLATION
[2017-12-27] MEDS: CEFEPIME 1 GM in DEXTROSE 5%-WATER 100 ML IVPB SCH (22:23)
[2017-12-27] MEDS: ATORVASTATIN CA 40 MG TABLET (FP) PO SCH (22:38)
[2017-12-27] MEDS: MONTELUKAST NA 10 MG TABLET PO SCH (22:38)
[2017-12-27 22:48] LABS: URINE APPEARANCE CLEAR; URINE BILIRUBIN NEGATIVE (<2.0 mg/dL); URINE COLOR LTYELLOW; URINE GLUCOSE (UA) 2+ (NEGATIVE); URINE KETONE NEGATIVE (NEGATIVE); URINE LEUK ESTERASE NEGATIVE (NEGATIVE); URINE NITRITE NEGATIVE (NEGATIVE); URINE PROTEIN NEGATIVE (NEGATIVE); URINE UROBILINOGEN NEGATIVE mg/dL (0.2-1.0)
[2017-12-27 23:30] LABS: URINE HYALINE CAST 15 /lpf; URINE MUCUS RARE
[2017-12-28] MEDS: LEVOTHYROXINE NA 75 MCG TABLET (FP) PO SCH (06:52)
[2017-12-28] MEDS: INSULIN SLIDING SCALE (NOVOLOG) 1 VIAL SQ SCH ×4 (06:52→21:27)
[2017-12-28] MEDS: sitaGLIPtin PHOSPHATE 100 MG TABLET (FP) PO SCH (06:52)
[2017-12-28] MEDS: INSULIN (LEVEMIR) 100 UNITS/ML UNITS SQ SCH ×2 (06:53→21:28)
[2017-12-28] MEDS ORDERED: INSULIN (NOVOLOG) ASPART 100 UNITS/ML 10ML VIAL ONE ×2 (07:12→20:35)
[2017-12-28] MEDS ORDERED: PT OWN MED DRAWER 7, Y5N ONE ×2 (09:50→20:36)
[2017-12-28] MEDS ORDERED: DEXTROSE 5%-WATER 100 ML IVPB ONE ×2 (09:51→20:36)
[2017-12-28] MEDS ORDERED: CEFEPIME HCL 1 GM VIAL (RESTRICTED TO ID) ONE ×2 (09:51→20:36)
[2017-12-28] MEDS: FLUCONAZOLE 100 MG TABLET (UD) PO SCH (09:59)
[2017-12-28] MEDS: predniSONE 20 MG TABLET (UD) PO SCH (09:59)
[2017-12-28] MEDS: CEFEPIME 1 GM in DEXTROSE 5%-WATER 100 ML IVPB SCH ×2 (09:59→23:16)
[2017-12-28] MEDS: FUROSEMIDE 40 MG TABLET (FP) PO SCH (09:59)
[2017-12-28] MEDS: DIGOXIN 0.125 MG TABLET (FP) PO SCH (09:59)
[2017-12-28] MEDS: ROFLUMILAST 500 MCG TABLET PO SCH (10:00)
[2017-12-28] MEDS: TIOTROPIUM BROMIDE 2.5 MCG (SPIRIVA) RESPIMAT INHALER IH SCH (10:01)
[2017-12-28] MEDS: APIXABAN 5 MG TABLET PO SCH ×2 (10:01→21:21)
[2017-12-28] MEDS: LATANOPROST 0.005% OPHTH SOLN 2.5ML BOTTLE OU SCH (10:02)
[2017-12-28] MEDS: BRIMONIDINE TARTRATE 0.1% OPHTHALMIC 5 ML BOTTLE OU SCH ×2 (10:02→21:23)
[2017-12-28 10:34] LABS: HEMOGLOBIN 13.5 GM/dL (10.7-15.3); MCH 30.3 pg (25.7-33.7); MCHC 32.2 g/dl (32.0-36.0); MEAN CELL VOLUME 94.3 fl (80-96); MEAN PLT VOLUME 10.4 fl (7.5-11.1); PLATELET COUNT 106 K/MM3 (134-434); RBC 4.45 M/mm3 (3.60-5.2); RDW 14.2 % (11.6-15.6); WHITE BLOOD COUNT 25.9 K/mm3 (4.0-10.0)
--- NOTE | 2017-12-28 11:22 | PN ---
Progress Note, Physician History of Present Illness: Pt's breathing is " so and so". Pt w/o cough, CP, palpitations, abd pain, diarrhea, dysuria. Pt is on BIPAP now - Current Medication List Current Medications: Active Medications Albuterol Sulfate (Ventolin 0.083% Nebulizer Soln -) 1 amp NEB Q6H PRN PRN Reason: SHORT OF BREATH/WHEEZING Last Admin: 12/27/17 21:43 Dose: 1 amp Apixaban (Eliquis -) 5 mg PO BID [facility] Last Admin: 12/28/17 10:01 Dose: 5 mg Atorvastatin Calcium (Lipitor -) 40 mg PO HS [facility] Last Admin: 12/27/17 22:38 Dose: 40 mg Brimonidine Tartrate (Alphagan P 0.1% -) 1 drop OU BID [facility] Last Admin: 12/28/17 10:02 Dose: 1 drop Digoxin (Lanoxin -) 0.125 mg PO DAILY [facility] Last Admin: 12/28/17 09:59 Dose: 0.125 mg Diltiazem HCl (Cardizem Cd -) 120 mg PO DAILY [facility] Last Admin: 12/28/17 10:00 Dose: 120 mg Fluconazole (Diflucan -) 100 mg PO DAILY [facility] Last Admin: 12/28/17 09:59 Dose: 100 mg Furosemide (Lasix -) 40 mg PO DAILY [facility] Last Admin: 12/28/17 09:59 Dose: 40 mg Cefepime HCl 1 gm/ Dextrose 100 mls @ 100 mls/hr IVPB BID [facility]; Protocol Last Admin: 12/28/17 09:59 Dose: 100 mls/hr Insulin Aspart (Novolog Vial Sliding Scale -) 1 vial SQ ACHS [facility]; Protocol Last Admin: 12/28/17 06:52 Dose: 8 units Insulin Detemir (Levemir Vial) 10 units SQ AM [facility] Last Admin: 12/28/17 06:53 Dose: 10 units Insulin Detemir (Levemir Vial) 4 units SQ HS [facility] Last Admin: 12/27/17 22:32 Dose: 4 units Latanoprost (Xalatan 0.005% Eye Drops -) 1 drop OU DAILY [facility] Last Admin: 12/28/17 10:02 Dose: 1 drop Levothyroxine Sodium (Synthroid -) 75 mcg PO AM [facility] Last Admin: 12/28/17 06:52 Dose: 75 mcg Montelukast Sodium (Singulair -) 10 mg PO HS [facility] Last Admin: 12/27/17 22:38 Dose: 10 mg Prednisone (Deltasone -) 40 mg PO DAILY [facility] Last Admin: 12/28/17 09:59 Dose: 40 mg Roflumilast (Daliresp -) 500 mcg PO DAILY [facility] Last Admin: 12/28/17 10:00 Dose: 500 mcg Sitagliptin Phosphate (Januvia -) 100 mg PO AM [facility] Last Admin: 12/28/17 06:52 Dose: 100 mg Tiotropium [place]y (Spiriva Respimat) 2 puff IH DAILY [facility] Last Admin: 12/28/17 10:01 Dose: 2 puff - Objective Vital Signs: Vital Signs Temperature 97.2 F L 12/28/17 10:00 Pulse Rate 91 H 12/28/17 10:00 Respiratory Rate 22 H 12/28/17 10:00 Blood Pressure 130/57 L 12/28/17 10:00 O2 Sat by Pulse Oximetry (%) 97 12/27/17 21:00 Constitutional: Yes: No Distress, Calm Cardiovascular: Yes: Regular Rate and Rhythm, S1, S2 Respiratory: Yes: Regular, Other (coarse BS, bilat.) Gastrointestinal: Yes: Normal Bowel Sounds, Soft. No: Tenderness Edema: No Integumentary: Yes: Other (echimosis, on both arms, old) Neurological: Yes: Alert, Oriented Labs: CBC, BMP 12/28/17 09:45 Problem List - Problems (1) Acute and chronic respiratory failure with hypercapnia Code(s): J96.22 - ACUTE AND CHRONIC RESPIRATORY FAILURE WITH HYPERCAPNIA (2) COPD with acute exacerbation Code(s): J44.1 - CHRONIC OBSTRUCTIVE PULMONARY DISEASE W (ACUTE) EXACERBATION (3) Advanced chronic obstructive pulmonary disease Code(s): J44.9 - CHRONIC OBSTRUCTIVE PULMONARY DISEASE, UNSPECIFIED (4) Diabetes mellitus Code(s): E11.9 - TYPE 2 DIABETES MELLITUS WITHOUT COMPLICATIONS (5) Hypertension Code(s): I10 - ESSENTIAL (PRIMARY) HYPERTENSION (6) Paroxysmal atrial fibrillation Code(s): I48.0 - PAROXYSMAL ATRIAL FIBRILLATION (7) Elevated troponin I level Code(s): R74.8 - ABNORMAL LEVELS OF OTHER SERUM ENZYMES (8) Leukocytosis Code(s): D72.829 - ELEVATED WHITE BLOOD CELL COUNT, UNSPECIFIED (9) Elevated LFTs Code(s): R94.5 - ABNORMAL RESULTS OF LIVER FUNCTION STUDIES Assessment/Plan Solu-Medrol was changed to PO Prednisone Pulmonary, Cardio, Phychiatry, ID, Heme, GI consults and f/u are appreciated. Phychiatry consult is appreciated; pt was found to have full capacity to make decisions. WBC is better today. CMP is pending. Continue current Rx AM labs. Prognosis: reserved
[2017-12-28] MEDS: ALPRAZolam 0.25 MG TABLET PO PRN (12:15)
[2017-12-28 12:25] LABS: ALBUMIN 2.6 g/dl (3.4-5.0); ALK PHOS 128 U/L (45-117); ANION GAP 9 MMOL/L (8-16); BILIRUBIN,TOTAL 0.7 mg/dL (0.2-1); BLOOD UREA NITROGEN 68 mg/dL (7-18); CALCIUM 9.6 mg/dL (8.5-10.1); CHLORIDE 92 mmol/L (98-107); CO2 32 mmol/L (21-32); CREATININE 0.8 mg/dL (0.55-1.3); GLUCOSE,RANDOM 262 mg/dL (74-106); POTASSIUM 4.3 mmol/L (3.5-5.1); SGOT/AST 46 U/L (15-37); SODIUM 133 mmol/L (136-145); TOT PROT 4.8 g/dl (6.4-8.2)
--- NOTE | 2017-12-28 12:44 | PN ---
GI Progress Note Subjective: GI NOte: Remains pain free. AST slightly decreased - Objective Vital Signs: Vital Signs Temperature 97.2 F L 12/28/17 10:00 Pulse Rate 91 H 12/28/17 10:00 Respiratory Rate 22 H 12/28/17 10:00 Blood Pressure 130/57 L 12/28/17 10:00 O2 Sat by Pulse Oximetry (%) 99 12/28/17 09:00 Laboratory Tests 12/27/17 12/28/17 06:45 09:45 Total Bilirubin 0.7 AST 63 H 46 H ALT Pending Alkaline Phosphatase 133 H 128 H Constitutional: Other Respiratory: Yes: On BiPap ...Auscultate: Yes: Normoactive Bowel Sounds ...Palpate: Yes: Soft, Other (nontender) Labs: CBC, BMP 12/28/17 09:45 12/28/17 09:45 Assessment/Plan Suspect congestive hepatopathy Follow LFTs Await pending studies Problem List - Problems (1) Abnormal LFTs Code(s): R94.5 - ABNORMAL RESULTS OF LIVER FUNCTION STUDIES (2) Acute on chronic respiratory failure with hypoxia and hypercapnia Code(s): J96.21 - ACUTE AND CHRONIC RESPIRATORY FAILURE WITH HYPOXIA; J96.22 - ACUTE AND CHRONIC RESPIRATORY FAILURE WITH HYPERCAPNIA (3) Diastolic HF (heart failure) Code(s): I50.30 - UNSPECIFIED DIASTOLIC (CONGESTIVE) HEART FAILURE (4) Leukocytosis Code(s): D72.829 - ELEVATED WHITE BLOOD CELL COUNT, UNSPECIFIED (5) Pulmonary HTN Code(s): I27.20 - PULMONARY HYPERTENSION, UNSPECIFIED (6) Diabetes mellitus Code(s): E11.9 - TYPE 2 DIABETES MELLITUS WITHOUT COMPLICATIONS (7) Paroxysmal atrial fibrillation Code(s): I48.0 - PAROXYSMAL ATRIAL FIBRILLATION
[2017-12-28 12:57] LABS: SGPT/ALT 122 U/L (13-61)
--- NOTE | 2017-12-28 14:08 | PN ---
Progress Note (short form) - Note Progress Note: Chief Complaint: shortness of breath s: no cp palps dizzy;sob better Current Medications Generic Name Dose Route Start Last Admin Trade Name Erik PRN Reason Stop Dose Admin Albuterol Sulfate 1 amp 12/12/17 19:28 12/27/17 21:43 Ventolin 0.083% Nebulizer Soln - NEB 1 amp Q6H PRN Administration SHORT OF BREATH/WHEEZING Alprazolam 0.25 mg 12/28/17 11:42 12/28/17 12:15 Xanax - PO 0.25 mg Q8H PRN Administration ANXIETY Apixaban 5 mg 12/25/17 22:00 12/28/17 10:01 Eliquis - PO 5 mg BID [facility] Administration Atorvastatin Calcium 40 mg 12/12/17 22:00 12/27/17 22:38 Lipitor - PO 40 mg HS [facility] Administration Brimonidine Tartrate 1 drop 12/12/17 22:00 12/28/17 10:02 Alphagan P 0.1% - OU 1 drop BID [facility] Administration Digoxin 0.125 mg 12/13/17 10:00 12/28/17 09:59 Lanoxin - PO 0.125 mg DAILY [facility] Administration Diltiazem HCl 120 mg 12/13/17 10:00 12/28/17 10:00 Cardizem Cd - PO 120 mg DAILY [facility] Administration Fluconazole 100 mg 12/27/17 17:45 12/28/17 09:59 Diflucan - PO 100 mg DAILY [facility] Administration Furosemide 40 mg 12/13/17 10:00 12/28/17 09:59 Lasix - PO 40 mg DAILY [facility] Administration Cefepime HCl 1 gm/ Dextrose 100 mls @ 100 mls/hr 12/27/17 18:15 12/28/17 09: 59 IVPB 100 mls/hr BID [facility] Administration Protocol Insulin Aspart 1 vial 12/12/17 22:00 12/28/17 12:16 Novolog Vial Sliding Scale - SQ 8 units ACHS [facility] Administration Protocol Insulin Detemir 10 units 12/26/17 17:58 12/28/17 06:53 Levemir Vial SQ 10 units AM [facility] Administration Insulin Detemir 4 units 12/26/17 17:58 12/27/17 22:32 Levemir Vial SQ 4 units HS [facility] Administration Latanoprost 1 drop 12/13/17 10:00 12/28/17 10:02 Xalatan 0.005% Eye Drops - OU 1 drop DAILY [facility] Administration Levothyroxine Sodium 75 mcg 12/13/17 07:00 12/28/17 06:52 Synthroid - PO 75 mcg AM [facility] Administration Montelukast Sodium 10 mg 12/12/17 22:00 12/27/17 22:38 Singulair - PO 10 mg HS [facility] Administration Prednisone 40 mg 12/28/17 10:00 12/28/17 09:59 Deltasone - PO 40 mg DAILY [facility] Administration Roflumilast 500 mcg 12/13/17 12:45 12/28/17 10:00 Daliresp - PO 500 mcg DAILY [facility] Administration Sitagliptin Phosphate 100 mg 12/13/17 07:00 12/28/17 06:52 Januvia - PO 100 mg AM [facility] Administration Tiotropium [place] 2 puff 12/13/17 10:00 12/28/17 10:01 Spiriva Respimat IH 2 puff DAILY [facility] Administration Vital Signs Period Temp Pulse Resp BP Sys/Anthony Pulse Ox Last 24 Hr 97.2 F-98 F 88-97 22-22 105-130/57-78 97-99 Constitutional: Yes: No Distress, Calm Eyes: Yes: Conjunctiva Clear Respiratory: Yes: Regular, no wheeze, dec bs, nl eff, On Nasal O2 Gastrointestinal: Yes: Normal Bowel Sounds, Soft Cardiovascular: Yes: Regular Rate and Rhythm JVD: No Heart Sounds: Yes: S1, S2 Edema: trace le edema bl Peripheral Pulses: 2+ Left Doralis Pedis, 2+ Right Dorsalis Pedis Integumentary: Yes: no jaunidce diaphoresis Neurological: Yes: Alert, Oriented Echo 10/2015: Nl lv/rv. suboptimal views, but at least mild AR. Mod MAC. 1+ MR. No MS. trivial effusion. RVSP not measured. echo 09/2016: tds; nl lv/rv, mv calcified, mac, mild-mod mr, sev tr, small peric eff-->MV calcification is chronic finding for her and not indicative of vegetation CXR: hyperaerated lung, no effusion EKG: sinus, nonspecific ST segment changes Assessment/Plan Elevated trop - 0.07->0.06 - mild elevation with flat trend, EKG stable, not consistent with ACS - management of COPD exacerbation as below Shortness of breath, COPD - O2 dependent, on BiPap, chronic prednisone - now on prednisone - manage per pulm Chronic diastolic CHF - continue lasix PO - stable volume status pAFib - in sinus now - continue eliquis, digoxin, diltiazem HLD - continue statin possible uti: -abx per ID
--- NOTE | 2017-12-28 16:08 | PN ---
Progress Note, Physician History of Present Illness: pulmonary alert,feeling better,less dyspneic,-cp - Current Medication List Current Medications: Active Medications Albuterol Sulfate (Ventolin 0.083% Nebulizer Soln -) 1 amp NEB Q6H PRN PRN Reason: SHORT OF BREATH/WHEEZING Last Admin: 12/27/17 21:43 Dose: 1 amp Alprazolam (Xanax -) 0.25 mg PO Q8H PRN PRN Reason: ANXIETY Last Admin: 12/28/17 12:15 Dose: 0.25 mg Apixaban (Eliquis -) 5 mg PO BID [facility] Last Admin: 12/28/17 10:01 Dose: 5 mg Atorvastatin Calcium (Lipitor -) 40 mg PO HS [facility] Last Admin: 12/27/17 22:38 Dose: 40 mg Brimonidine Tartrate (Alphagan P 0.1% -) 1 drop OU BID [facility] Last Admin: 12/28/17 10:02 Dose: 1 drop Digoxin (Lanoxin -) 0.125 mg PO DAILY [facility] Last Admin: 12/28/17 09:59 Dose: 0.125 mg Diltiazem HCl (Cardizem Cd -) 120 mg PO DAILY [facility] Last Admin: 12/28/17 10:00 Dose: 120 mg Fluconazole (Diflucan -) 100 mg PO DAILY [facility] Last Admin: 12/28/17 09:59 Dose: 100 mg Furosemide (Lasix -) 40 mg PO DAILY [facility] Last Admin: 12/28/17 09:59 Dose: 40 mg Cefepime HCl 1 gm/ Dextrose 100 mls @ 100 mls/hr IVPB BID [facility]; Protocol Last Admin: 12/28/17 09:59 Dose: 100 mls/hr Insulin Aspart (Novolog Vial Sliding Scale -) 1 vial SQ ACHS [facility]; Protocol Last Admin: 12/28/17 12:16 Dose: 8 units Insulin Detemir (Levemir Vial) 10 units SQ AM [facility] Last Admin: 12/28/17 06:53 Dose: 10 units Insulin Detemir (Levemir Vial) 4 units SQ HS [facility] Last Admin: 12/27/17 22:32 Dose: 4 units Latanoprost (Xalatan 0.005% Eye Drops -) 1 drop OU DAILY [facility] Last Admin: 12/28/17 10:02 Dose: 1 drop Levothyroxine Sodium (Synthroid -) 75 mcg PO AM [facility] Last Admin: 12/28/17 06:52 Dose: 75 mcg Montelukast Sodium (Singulair -) 10 mg PO HS [facility] Last Admin: 12/27/17 22:38 Dose: 10 mg Prednisone (Deltasone -) 40 mg PO DAILY [facility] Last Admin: 12/28/17 09:59 Dose: 40 mg Roflumilast (Daliresp -) 500 mcg PO DAILY [facility] Last Admin: 12/28/17 10:00 Dose: 500 mcg Sitagliptin Phosphate (Januvia -) 100 mg PO AM [facility] Last Admin: 12/28/17 06:52 Dose: 100 mg Tiotropium [place] (Spiriva Respimat) 2 puff IH DAILY [facility] Last Admin: 12/28/17 10:01 Dose: 2 puff - Objective Vital Signs: Vital Signs Temperature 97.2 F L 12/28/17 10:00 Pulse Rate 91 H 12/28/17 10:00 Respiratory Rate 22 H 12/28/17 10:00 Blood Pressure 130/57 L 12/28/17 10:00 O2 Sat by Pulse Oximetry (%) 98 12/28/17 11:50 Constitutional: Yes: Calm, Thin Eyes: Yes: WNL HENT: Yes: WNL Neck: Yes: WNL Cardiovascular: Yes: Regular Rate and Rhythm, S1, S2 Respiratory: Yes: Diminished Gastrointestinal: Yes: Normal Bowel Sounds, Soft Extremities: Yes: WNL Edema: No Labs: CBC, BMP 12/28/17 09:45 12/28/17 09:45 Problem List - Problems (1) Acute on chronic respiratory failure with hypoxia and hypercapnia Code(s): J96.21 - ACUTE AND CHRONIC RESPIRATORY FAILURE WITH HYPOXIA; J96.22 - ACUTE AND CHRONIC RESPIRATORY FAILURE WITH HYPERCAPNIA (2) COPD with acute exacerbation Code(s): J44.1 - CHRONIC OBSTRUCTIVE PULMONARY DISEASE W (ACUTE) EXACERBATION (3) Diabetes mellitus Code(s): E11.9 - TYPE 2 DIABETES MELLITUS WITHOUT COMPLICATIONS (4) Paroxysmal atrial fibrillation Code(s): I48.0 - PAROXYSMAL ATRIAL FIBRILLATION (5) Pulmonary HTN Code(s): I27.20 - PULMONARY HYPERTENSION, UNSPECIFIED (6) Diastolic HF (heart failure) Code(s): I50.30 - UNSPECIFIED DIASTOLIC (CONGESTIVE) HEART FAILURE (7) Hypothyroid Code(s): E03.9 - HYPOTHYROIDISM, UNSPECIFIED Assessment/Plan IMP ACUTE ON CHRONIC HYPOXEMIC/HYPERCAPNEIC RESPIRATORY FAILURE COPD EXACERBATION IMPROVING PULMONARY HTN PAF IDDM DIASTOLIC HF HYPOTHYROIDISM PLAN STEROIDS INHALED BRONCHODILATORS O2 BIPAP AT NIGHT AND PRN DALIRESP SHORT TERM PULMONARY REHAB IN [place] DR SOLOMON Problem List - Problems (1) Acute on chronic respiratory failure with hypoxia and hypercapnia Code(s): J96.21 - ACUTE AND CHRONIC RESPIRATORY FAILURE WITH HYPOXIA; J96.22 - ACUTE AND CHRONIC RESPIRATORY FAILURE WITH HYPERCAPNIA (2) COPD with acute exacerbation Code(s): J44.1 - CHRONIC OBSTRUCTIVE PULMONARY DISEASE W (ACUTE) EXACERBATION (3) Diabetes mellitus Code(s): E11.9 - TYPE 2 DIABETES MELLITUS WITHOUT COMPLICATIONS (4) Paroxysmal atrial fibrillation Code(s): I48.0 - PAROXYSMAL ATRIAL FIBRILLATION (5) Pulmonary HTN Code(s): I27.20 - PULMONARY HYPERTENSION, UNSPECIFIED (6) Diastolic HF (heart failure) Code(s): I50.30 - UNSPECIFIED DIASTOLIC (CONGESTIVE) HEART FAILURE (7) Hypothyroid Code(s): E03.9 - HYPOTHYROIDISM, UNSPECIFIED
--- NOTE | 2017-12-28 16:46 | PN ---
Progress Note (short form) - Note Progress Note: straight cath about 500 cc urine per nursing staff weak Vital Signs Period Temp Pulse Resp BP Sys/Anthony Pulse Ox Last 24 Hr 97.2 F-98 F 88-97 22-22 105-130/57-78 97-99 cor-rrrr lungs decreased bs at bases abd soft, ?palpable bladder ext no edema CBC, BMP 12/28/17 09:45 12/28/17 09:45 Microbiology 12/23/17 17:00 Blood - Peripheral Venous Blood Culture - Preliminary NO GROWTH OBTAINED AFTER 96 HOURS, INCUBATION TO CONTINUE FOR 1 DAYS. 12/23/17 16:15 Blood - Peripheral Venous Blood Culture - Preliminary NO GROWTH OBTAINED AFTER 96 HOURS, INCUBATION TO CONTINUE FOR 1 DAYS. urine culture pending a/p leukocytosis-improved day #1 cefepime, awaiting cultures ?urinary retention- to repeat bladder scan diflucan for thrush advanced COPD- doing poorly ?hospice care Problem List - Problems (1) Leukocytosis Code(s): D72.829 - ELEVATED WHITE BLOOD CELL COUNT, UNSPECIFIED (2) Acute on chronic respiratory failure with hypoxia and hypercapnia Code(s): J96.21 - ACUTE AND CHRONIC RESPIRATORY FAILURE WITH HYPOXIA; J96.22 - ACUTE AND CHRONIC RESPIRATORY FAILURE WITH HYPERCAPNIA (3) Advanced chronic obstructive pulmonary disease Code(s): J44.9 - CHRONIC OBSTRUCTIVE PULMONARY DISEASE, UNSPECIFIED (4) Abnormal LFTs Code(s): R94.5 - ABNORMAL RESULTS OF LIVER FUNCTION STUDIES
[2017-12-28] MEDS: PANTOPRAZOLE 40 MG TABLET (FP) PO SCH (21:21)
[2017-12-28] MEDS: MONTELUKAST NA 10 MG TABLET PO SCH (21:22)
[2017-12-28] MEDS: ATORVASTATIN CA 40 MG TABLET (FP) PO SCH (21:22)
[2017-12-29] MEDS: INSULIN SLIDING SCALE (NOVOLOG) 1 VIAL SQ SCH ×4 (06:16→21:29)
[2017-12-29] MEDS: INSULIN (LEVEMIR) 100 UNITS/ML UNITS SQ SCH ×2 (06:16→21:32)
[2017-12-29] MEDS: LEVOTHYROXINE NA 75 MCG TABLET (FP) PO SCH (06:17)
[2017-12-29] MEDS: sitaGLIPtin PHOSPHATE 100 MG TABLET (FP) PO SCH (06:17)
[2017-12-29 06:42] LABS: HEMATOCRIT 42.2 % (32.4-45.2); HEMOGLOBIN 13.6 GM/dL (10.7-15.3); MCH 30.7 pg (25.7-33.7); MCHC 32.3 g/dl (32.0-36.0); MEAN PLT VOLUME 10.5 fl (7.5-11.1); PLATELET COUNT 109 K/MM3 (134-434); RBC 4.44 M/mm3 (3.60-5.2); RDW 13.7 % (11.6-15.6); WHITE BLOOD COUNT 23.6 K/mm3 (4.0-10.0)
[2017-12-29 07:15] LABS: ALBUMIN 2.8 g/dl (3.4-5.0); ALK PHOS 121 U/L (45-117); ANION GAP 7 MMOL/L (8-16); BILIRUBIN,DIRECT 0.2 mg/dL (0.0-0.2); BILIRUBIN,TOTAL 0.8 mg/dL (0.2-1); BLOOD UREA NITROGEN 60 mg/dL (7-18); CALCIUM 8.8 mg/dL (8.5-10.1); CHLORIDE 92 mmol/L (98-107); CO2 37 mmol/L (21-32); CREATININE 0.9 mg/dL (0.55-1.3); GAMMA GLUTAMYL TRANSPEPTIDASE 147 U/L (5-85); GLUCOSE,RANDOM 102 mg/dL (74-106); POTASSIUM 4.4 mmol/L (3.5-5.1); SGOT/AST 42 U/L (15-37); SGPT/ALT 104 U/L (13-61); SODIUM 136 mmol/L (136-145); TOT PROT 5.1 g/dl (6.4-8.2)
--- NOTE | 2017-12-29 10:06 | PN ---
Progress Note, Physician History of Present Illness: Pt's breathing is better today. Pt w/o cough, CP, palpitations, abd pain, N, V, heartburns. Pt on NC. - Current Medication List Current Medications: Active Medications Albuterol Sulfate (Ventolin 0.083% Nebulizer Soln -) 1 amp NEB Q6H PRN PRN Reason: SHORT OF BREATH/WHEEZING Last Admin: 12/27/17 21:43 Dose: 1 amp Alprazolam (Xanax -) 0.25 mg PO Q8H PRN PRN Reason: ANXIETY Last Admin: 12/28/17 12:15 Dose: 0.25 mg Apixaban (Eliquis -) 5 mg PO BID [facility] Last Admin: 12/28/17 21:21 Dose: 5 mg Atorvastatin Calcium (Lipitor -) 40 mg PO HS [facility] Last Admin: 12/28/17 21:22 Dose: 40 mg Brimonidine Tartrate (Alphagan P 0.1% -) 1 drop OU BID [facility] Last Admin: 12/28/17 21:23 Dose: 1 drop Digoxin (Lanoxin -) 0.125 mg PO DAILY [facility] Last Admin: 12/28/17 09:59 Dose: 0.125 mg Diltiazem HCl (Cardizem Cd -) 120 mg PO DAILY [facility] Last Admin: 12/28/17 10:00 Dose: 120 mg Fluconazole (Diflucan -) 100 mg PO DAILY [facility] Last Admin: 12/28/17 09:59 Dose: 100 mg Furosemide (Lasix -) 40 mg PO DAILY [facility] Last Admin: 12/28/17 09:59 Dose: 40 mg Cefepime HCl 1 gm/ Dextrose 100 mls @ 100 mls/hr IVPB BID [facility]; Protocol Last Admin: 12/28/17 23:16 Dose: 100 mls/hr Insulin Aspart (Novolog Vial Sliding Scale -) 1 vial SQ ACHS [facility]; Protocol Last Admin: 12/29/17 06:16 Dose: Not Given Insulin Detemir (Levemir Vial) 10 units SQ AM [facility] Last Admin: 12/29/17 06:16 Dose: Not Given Insulin Detemir (Levemir Vial) 4 units SQ HS [facility] Last Admin: 12/28/17 21:28 Dose: 4 units Latanoprost (Xalatan 0.005% Eye Drops -) 1 drop OU DAILY [facility] Last Admin: 12/28/17 10:02 Dose: 1 drop Levothyroxine Sodium (Synthroid -) 75 mcg PO AM [facility] Last Admin: 12/29/17 06:17 Dose: 75 mcg Montelukast Sodium (Singulair -) 10 mg PO HS [facility] Last Admin: 12/28/17 21:22 Dose: 10 mg Pantoprazole Sodium (Protonix -) 40 mg PO DAILY [facility] Last Admin: 12/28/17 21:21 Dose: 40 mg Prednisone (Deltasone -) 40 mg PO DAILY [facility] Last Admin: 12/28/17 09:59 Dose: 40 mg Roflumilast (Daliresp -) 500 mcg PO DAILY [facility] Last Admin: 12/28/17 10:00 Dose: 500 mcg Sitagliptin Phosphate (Januvia -) 100 mg PO AM [facility] Last Admin: 12/29/17 06:17 Dose: 100 mg Tiotropium [place] (Spiriva Respimat) 2 puff IH DAILY [facility] Last Admin: 12/28/17 10:01 Dose: 2 puff - Objective Vital Signs: Vital Signs Temperature 97.6 F 12/29/17 05:52 Pulse Rate 82 12/29/17 05:52 Respiratory Rate 20 12/29/17 05:52 Blood Pressure 107/53 L 12/29/17 05:52 O2 Sat by Pulse Oximetry (%) 98 12/28/17 21:00 Constitutional: Yes: No Distress, Calm Cardiovascular: Yes: Regular Rate and Rhythm, S1, S2 Respiratory: Yes: Regular, CTA Bilaterally, Diminished Gastrointestinal: Yes: Normal Bowel Sounds, Soft. No: Palpable Mass, Tenderness , Tenderness, Epigastrium Edema: No Neurological: Yes: Alert, Oriented Labs: CBC, BMP 12/29/17 05:20 12/29/17 05:20 Problem List - Problems (1) Acute and chronic respiratory failure with hypercapnia Code(s): J96.22 - ACUTE AND CHRONIC RESPIRATORY FAILURE WITH HYPERCAPNIA (2) COPD with acute exacerbation Code(s): J44.1 - CHRONIC OBSTRUCTIVE PULMONARY DISEASE W (ACUTE) EXACERBATION (3) Advanced chronic obstructive pulmonary disease Code(s): J44.9 - CHRONIC OBSTRUCTIVE PULMONARY DISEASE, UNSPECIFIED (4) Diabetes mellitus Code(s): E11.9 - TYPE 2 DIABETES MELLITUS WITHOUT COMPLICATIONS (5) Hypertension Code(s): I10 - ESSENTIAL (PRIMARY) HYPERTENSION (6) Paroxysmal atrial fibrillation Code(s): I48.0 - PAROXYSMAL ATRIAL FIBRILLATION (7) Elevated troponin I level Code(s): R74.8 - ABNORMAL LEVELS OF OTHER SERUM ENZYMES (8) Leukocytosis Code(s): D72.829 - ELEVATED WHITE BLOOD CELL COUNT, UNSPECIFIED (9) Elevated LFTs Code(s): R94.5 - ABNORMAL RESULTS OF LIVER FUNCTION STUDIES (10) GIB (gastrointestinal bleeding) Assessment/Plan: Probable gastritis, stable H/H Code(s): K92.2 - GASTROINTESTINAL HEMORRHAGE, UNSPECIFIED Assessment/Plan Solu-Medrol was changed to PO Prednisone Pulmonary, Cardio, Phychiatry, ID, Heme, GI consults and f/u are appreciated. Psychiatry consult is appreciated; pt was found to have full capacity to make decisions. WBC is better today. Stable H/H. Continue current Rx AM labs. Prognosis: reserved
[2017-12-29] MEDS ORDERED: DEXTROSE 5%-WATER 100 ML IVPB ONE ×2 (10:24→21:01)
[2017-12-29] MEDS ORDERED: CEFEPIME HCL 1 GM VIAL (RESTRICTED TO ID) ONE ×2 (10:24→21:00)
--- NOTE | 2017-12-29 11:21 | PN ---
Progress Note (short form) - Note Progress Note: PULMONARY APPEARS WEAK/PALE VSS Constitutional: Yes: Thin Eyes: Yes: WNL HENT: Yes: WNL Neck: Yes: WNL Cardiovascular: Yes: Regular Rate and Rhythm, S1, S2 Respiratory: Yes: Diminished Gastrointestinal: Yes: Normal Bowel Sounds, Soft Extremities: Yes: WNL Edema none IMAGES/MICRO/LABS/MEDS/NOTES REVIEWED IMP ACUTE ON CHRONIC HYPOXEMIC/HYPERCAPNEIC RESPIRATORY FAILURE COPD EXACERBATION PULMONARY HTN PAF IDDM DIASTOLIC HF HYPOTHYROIDISM PLAN STEROIDS INHALED BRONCHODILATORS O2 BIPAP AT NIGHT AND PRN DALIRESP SHORT TERM PULMONARY REHAB IN [place] PROGNOSIS GUARDED Eduarda BOWMAN MD
[2017-12-29] MEDS: predniSONE 20 MG TABLET (UD) PO SCH (11:29)
[2017-12-29] MEDS: CEFEPIME 1 GM in DEXTROSE 5%-WATER 100 ML IVPB SCH ×2 (11:29→21:31)
[2017-12-29] MEDS: DIGOXIN 0.125 MG TABLET (FP) PO SCH (11:29)
[2017-12-29] MEDS: PANTOPRAZOLE 40 MG TABLET (FP) PO SCH ×3 (11:30→21:32)
[2017-12-29] MEDS: FLUCONAZOLE 100 MG TABLET (UD) PO SCH (11:30)
[2017-12-29] MEDS: ALBUTEROL SO4 0.083% IH SOL 2.5 MG/3 ML VIAL.NEB. NEB PRN ×2 (11:30→20:27)
[2017-12-29] MEDS: FUROSEMIDE 40 MG TABLET (FP) PO SCH (11:30)
[2017-12-29] MEDS: APIXABAN 5 MG TABLET PO SCH ×2 (11:30→21:31)
--- NOTE | 2017-12-29 11:30 | PN ---
GI Progress Note Subjective: GI NOte: Breathing easier. NO abdominal pain. LFTs improving. - Objective Vital Signs: Vital Signs Temperature 98.0 F 12/29/17 11:20 Pulse Rate 78 12/29/17 11:20 Respiratory Rate 20 12/29/17 11:20 Blood Pressure 123/61 12/29/17 11:20 O2 Sat by Pulse Oximetry (%) 98 12/28/17 21:00 Laboratory Tests 12/25/17 12/27/17 12/28/17 06:15 06:45 09:45 Total Bilirubin Direct Bilirubin GGT AST 63 H 46 H ALT 159 H 122 H Alkaline Phosphatase [place] Screen Negative Hepatitis A IgM Ab Negative Hep Bs Antigen Negative Hep B Core IgM Ab Negative Hepatitis C Antibody <0.1 12/29/17 05:20 Total Bilirubin 0.8 Direct Bilirubin 0.2 GGT 147 H AST 42 H ALT 104 H Alkaline Phosphatase 121 H [place] Screen Hepatitis A IgM Ab Hep Bs Antigen Hep B Core IgM Ab Hepatitis C Antibody Constitutional: Calm ...Auscultate: Yes: Normoactive Bowel Sounds ...Palpate: Yes: Soft, Other (nontender) Labs: CBC, BMP 12/29/17 05:20 12/29/17 05:20 Assessment/Plan Congestive hepatopathy improving Follow LFTs Await pending studies Problem List - Problems (1) Abnormal LFTs Code(s): R94.5 - ABNORMAL RESULTS OF LIVER FUNCTION STUDIES (2) Acute on chronic respiratory failure with hypoxia and hypercapnia Code(s): J96.21 - ACUTE AND CHRONIC RESPIRATORY FAILURE WITH HYPOXIA; J96.22 - ACUTE AND CHRONIC RESPIRATORY FAILURE WITH HYPERCAPNIA (3) Diastolic HF (heart failure) Code(s): I50.30 - UNSPECIFIED DIASTOLIC (CONGESTIVE) HEART FAILURE (4) Leukocytosis Code(s): D72.829 - ELEVATED WHITE BLOOD CELL COUNT, UNSPECIFIED (5) Pulmonary HTN Code(s): I27.20 - PULMONARY HYPERTENSION, UNSPECIFIED (6) Diabetes mellitus Code(s): E11.9 - TYPE 2 DIABETES MELLITUS WITHOUT COMPLICATIONS (7) Paroxysmal atrial fibrillation Code(s): I48.0 - PAROXYSMAL ATRIAL FIBRILLATION
[2017-12-29] MEDS: BRIMONIDINE TARTRATE 0.1% OPHTHALMIC 5 ML BOTTLE OU SCH ×2 (11:31→21:34)
[2017-12-29] MEDS: TIOTROPIUM BROMIDE 2.5 MCG (SPIRIVA) RESPIMAT INHALER IH SCH (11:31)
[2017-12-29] MEDS: ROFLUMILAST 500 MCG TABLET PO SCH (11:31)
[2017-12-29] MEDS: LATANOPROST 0.005% OPHTH SOLN 2.5ML BOTTLE OU SCH (11:32)
--- NOTE | 2017-12-29 12:05 | PN ---
Progress Note (short form) - Note Progress Note: Patient seen and examined by me at bedside Reports her breathing is better Denies any chest pain, palpitations, abdominal pain Vital Signs Temperature 98.0 F 12/29/17 11:20 Pulse Rate 78 12/29/17 11:29 Respiratory Rate 20 12/29/17 11:20 Blood Pressure 123/61 12/29/17 11:20 O2 Sat by Pulse Oximetry (%) 98 12/28/17 21:00 PHYSICAL EXAM GENERAL: Awake and more alert today EYES: conjunctiva clear. EARS, NOSE, THROAT: Oral thrush LUNGS: On Nasal cannula with less labored breathing. Distant breath sounds bilaterally with no crackles or wheezes HEART: RRR, normal S1 and S2 ABDOMEN: Soft, nontender, not distended, normoactive bowel sounds EXTREMITIES: 2+ pitting edema bilaterally Laboratory Tests 12/29/17 05:20 12/29/17 05:20 12/29/17 12/29/17 05:20 05:20 GGT 147 H AST 42 H ALT 104 H Alkaline Phosphatase 121 H Total Protein 5.1 L Albumin 2.8 L Tumor Marker AFP Pending ASSESSMENT/PLAN: Patient is a 72 year old female who was sent by her PCP for increasing shortness of breath and was found to have acute COPD exacerbation. Patient placed on steroids and continued to have elevated WBC's. We were consulted to evaluate Leukocytosis. Problem List: Acute on Chronic Hypoxic and Hypercapneic Respiratory Failure Acute COPD Exacerbation Pulmonary HTN Diastolic Congestive Heart Failure Paroxysmal Atrial Fibrillation (On Eliquis) HTN IDDMII Hypothyroidism Leukocytosis PLAN: -Patients leukocytosis improving and is currently on Prednisone 40mg daily. Will order DEBBIE 2 and BCR-Abl by PCR tomorrow -LFT's continue to be elevated. Sonogram revealed Mild fatty infiltrate. Seen by GI and believe patient has congestive hepatopathy with AFP pending -Continue Diflucan for oral thrush -Palliative care consideration
--- NOTE | 2017-12-29 12:22 | PN ---
Teaching Attending Note Name of Resident: Patricia Koo ATTENDING PHYSICIAN STATEMENT I saw and evaluated the patient. I reviewed the resident's note and discussed the case with the resident. I agree with the resident's findings and plan as documented. SUBJECTIVE: Patient seen and examined Although somewhat improved Remains anorectic, tachypneic at bed rest . Consider palliative care . OBJECTIVE: ASSESSMENT AND PLAN:
[2017-12-29] MEDS ORDERED: PT OWN MED DRAWER 7, Y5N ONE (21:00)
[2017-12-29] MEDS: ATORVASTATIN CA 40 MG TABLET (FP) PO SCH (21:32)
[2017-12-29] MEDS: ALPRAZolam 0.25 MG TABLET PO PRN (21:33)
[2017-12-29] MEDS: MONTELUKAST NA 10 MG TABLET PO SCH (21:33)
[2017-12-30] MEDS: INSULIN (LEVEMIR) 100 UNITS/ML UNITS SQ SCH ×2 (06:18→22:00)
[2017-12-30] MEDS: INSULIN SLIDING SCALE (NOVOLOG) 1 VIAL SQ SCH ×4 (06:18→21:58)
[2017-12-30] MEDS: LEVOTHYROXINE NA 75 MCG TABLET (FP) PO SCH (06:19)
[2017-12-30] MEDS ORDERED: INSULIN (NOVOLOG) ASPART 100 UNITS/ML 10ML VIAL ONE (06:40)
[2017-12-30] MEDS: sitaGLIPtin PHOSPHATE 100 MG TABLET (FP) PO SCH (06:56)
[2017-12-30 07:53] LABS: HEMOGLOBIN 12.9 GM/dL (10.7-15.3); MCH 32.3 pg (25.7-33.7); MCHC 33.1 g/dl (32.0-36.0); MEAN CELL VOLUME 97.6 fl (80-96); MEAN PLT VOLUME 10.7 fl (7.5-11.1); PLATELET COUNT 91 K/MM3 (134-434); RBC 3.99 M/mm3 (3.60-5.2); RDW 14.2 % (11.6-15.6); WHITE BLOOD COUNT 29.1 K/mm3 (4.0-10.0)
[2017-12-30] MEDS: ALBUTEROL SO4 0.083% IH SOL 2.5 MG/3 ML VIAL.NEB. NEB PRN ×3 (08:32→21:35)
[2017-12-30 08:33] LABS: ALBUMIN 2.3 g/dl (3.4-5.0); ALK PHOS 103 U/L (45-117); ANION GAP 8 MMOL/L (8-16); BILIRUBIN,TOTAL 0.4 mg/dL (0.2-1); BLOOD UREA NITROGEN 54 mg/dL (7-18); CALCIUM 8.4 mg/dL (8.5-10.1); CHLORIDE 93 mmol/L (98-107); CO2 35 mmol/L (21-32); CREATININE 0.8 mg/dL (0.55-1.3); GLUCOSE,RANDOM 95 mg/dL (74-106); POTASSIUM 4.2 mmol/L (3.5-5.1); SGOT/AST 48 U/L (15-37); SGPT/ALT 85 U/L (13-61); SODIUM 135 mmol/L (136-145); TOT PROT 4.7 g/dl (6.4-8.2)
--- NOTE | 2017-12-30 09:54 | PN ---
GI Progress Note Subjective: GI NOte: Breathing more comfortably. NO abdominal pain. LFTs continue to trend down indicative of resolving congestive hepatopathy. - Objective Vital Signs: Vital Signs Temperature 97.7 F 12/30/17 06:00 Pulse Rate 81 12/30/17 06:00 Respiratory Rate 20 12/30/17 06:00 Blood Pressure 90/74 12/30/17 06:00 O2 Sat by Pulse Oximetry (%) 94 L 12/30/17 08:32 Laboratory Tests 12/27/17 12/28/17 12/29/17 06:45 09:45 05:20 Total Bilirubin AST 63 H 46 H 42 H ALT 159 H 122 H 104 H Alkaline Phosphatase 12/30/17 07:15 Total Bilirubin 0.4 AST 48 H ALT 85 H Alkaline Phosphatase 103 Constitutional: No Distress ...Auscultate: Yes: Normoactive Bowel Sounds ...Palpate: Yes: Soft, Other (nontender) Labs: CBC, BMP 12/30/17 07:15 12/30/17 07:15 Assessment/Plan Congestive hepatopathy improving Follow LFTs Await pending studies Problem List - Problems (1) Abnormal LFTs Code(s): R94.5 - ABNORMAL RESULTS OF LIVER FUNCTION STUDIES (2) Acute on chronic respiratory failure with hypoxia and hypercapnia Code(s): J96.21 - ACUTE AND CHRONIC RESPIRATORY FAILURE WITH HYPOXIA; J96.22 - ACUTE AND CHRONIC RESPIRATORY FAILURE WITH HYPERCAPNIA (3) Diastolic HF (heart failure) Code(s): I50.30 - UNSPECIFIED DIASTOLIC (CONGESTIVE) HEART FAILURE (4) Leukocytosis Code(s): D72.829 - ELEVATED WHITE BLOOD CELL COUNT, UNSPECIFIED (5) Pulmonary HTN Code(s): I27.20 - PULMONARY HYPERTENSION, UNSPECIFIED (6) Diabetes mellitus Code(s): E11.9 - TYPE 2 DIABETES MELLITUS WITHOUT COMPLICATIONS (7) Paroxysmal atrial fibrillation Code(s): I48.0 - PAROXYSMAL ATRIAL FIBRILLATION
--- NOTE | 2017-12-30 09:58 | PN ---
Progress Note (short form) - Note Progress Note: Patient seen and examined Little change clinically Essentially bedridden with only small quantities of p.o.liquids and little if any solids . and little if any solids Last Vital Signs Temp Pulse Resp BP Pulse Ox 97.7 F 81 20 90/74 94 L 12/30/17 06:00 12/30/17 06:00 12/30/17 06:00 12/30/17 06:00 12/30/17 08:32 HEENT: KERRY, EOM Intact Oropharynx: thrush, No mucositis Cor: RSR, No murmurs, No gallops Lungs: poor inspiratory effort Abd: Soft, Normal bowel sounds, No organomegaly Ext:No significant edema Skin: No rashes, Integument intact CBC, BMP 12/30/17 07:15 12/30/17 07:15 Current Medications Generic Name Dose Route Start Last Admin Trade Name Freq PRN Reason Stop Dose Admin Albuterol Sulfate 1 amp 12/12/17 19:28 12/30/17 08:32 Ventolin 0.083% Nebulizer Soln - NEB 1 amp Q6H PRN Administration SHORT OF BREATH/WHEEZING Alprazolam 0.25 mg 12/28/17 11:42 12/29/17 21:33 Xanax - PO 0.25 mg Q8H PRN Administration ANXIETY Apixaban 5 mg 12/25/17 22:00 12/29/17 21:31 Eliquis - PO 5 mg BID [facility] Administration Atorvastatin Calcium 40 mg 12/12/17 22:00 12/29/17 21:32 Lipitor - PO 40 mg HS [facility] Administration Brimonidine Tartrate 1 drop 12/12/17 22:00 12/29/17 21:34 Alphagan P 0.1% - OU 1 drop BID [facility] Administration Digoxin 0.125 mg 12/13/17 10:00 12/29/17 11:29 Lanoxin - PO 0.125 mg DAILY [facility] Administration Diltiazem HCl 120 mg 12/13/17 10:00 12/29/17 11:29 Cardizem Cd - PO 120 mg DAILY [facility] Administration Fluconazole 100 mg 12/27/17 17:45 12/29/17 11:30 Diflucan - PO 100 mg DAILY [facility] Administration Furosemide 40 mg 12/13/17 10:00 12/29/17 11:30 Lasix - PO 40 mg DAILY [facility] Administration Cefepime HCl 1 gm/ Dextrose 100 mls @ 100 mls/hr 12/27/17 18:15 12/29/17 21: 31 IVPB 100 mls/hr BID [facility] Administration Protocol Insulin Aspart 1 vial 12/12/17 22:00 12/30/17 06:18 Novolog Vial Sliding Scale - SQ Not Given [facility]S [facility] Protocol Insulin Detemir 10 units 12/26/17 17:58 12/30/17 06:18 Levemir Vial SQ Not Given AM [facility] Insulin Detemir 4 units 12/26/17 17:58 12/29/17 21:32 Levemir Vial SQ 4 units HS [facility] Administration Latanoprost 1 drop 12/13/17 10:00 12/29/17 11:32 Xalatan 0.005% Eye Drops - OU 1 drop DAILY [facility] Administration Levothyroxine Sodium 75 mcg 12/13/17 07:00 12/30/17 06:19 Synthroid - PO 75 mcg AM [facility] Administration Montelukast Sodium 10 mg 12/12/17 22:00 12/29/17 21:33 Singulair - PO 10 mg HS [facility] Administration Pantoprazole Sodium 40 mg 12/29/17 10:15 12/29/17 21:32 Protonix - PO 40 mg BID [facility] Administration Prednisone 40 mg 12/28/17 10:00 12/29/17 11:29 Deltasone - PO 40 mg DAILY [facility] Administration Roflumilast 500 mcg 12/13/17 12:45 12/29/17 11:31 Daliresp - PO 500 mcg DAILY [facility] Administration Sitagliptin Phosphate 100 mg 12/13/17 07:00 12/30/17 06:56 Januvia - PO Not Given AM [facility] Tiotropium [place] 2 puff 12/13/17 10:00 12/29/17 11:31 Spiriva Respimat IH 2 puff DAILY [facility] Administration Impression: COPD Leucocytosis Thrombocytopenia Anticoagulation Sepsis Plan: Check DEBBIE-2 and BCR-ABL by PCR. Monitor CBC/PLT
[2017-12-30] MEDS ORDERED: PT OWN MED DRAWER 7, Y5N ONE ×3 (10:11→20:39)
[2017-12-30] MEDS ORDERED: CEFEPIME HCL 1 GM VIAL (RESTRICTED TO ID) ONE (10:11)
[2017-12-30] MEDS ORDERED: DEXTROSE 5%-WATER 100 ML IVPB ONE (10:11)
--- NOTE | 2017-12-30 10:11 | PN ---
Progress Note, Physician History of Present Illness: Pt's breathing is unchanged from yesterday. Pt w/o cough, CP, palpitations, abd pain, N, V, heartburns. Pt on O2 supplementation via NC. - Current Medication List Current Medications: Active Medications Albuterol Sulfate (Ventolin 0.083% Nebulizer Soln -) 1 amp NEB Q6H PRN PRN Reason: SHORT OF BREATH/WHEEZING Last Admin: 12/30/17 08:32 Dose: 1 amp Alprazolam (Xanax -) 0.25 mg PO Q8H PRN PRN Reason: ANXIETY Last Admin: 12/29/17 21:33 Dose: 0.25 mg Apixaban (Eliquis -) 5 mg PO BID [facility] Last Admin: 12/29/17 21:31 Dose: 5 mg Atorvastatin Calcium (Lipitor -) 40 mg PO HS [facility] Last Admin: 12/29/17 21:32 Dose: 40 mg Brimonidine Tartrate (Alphagan P 0.1% -) 1 drop OU BID [facility] Last Admin: 12/29/17 21:34 Dose: 1 drop Digoxin (Lanoxin -) 0.125 mg PO DAILY [facility] Last Admin: 12/29/17 11:29 Dose: 0.125 mg Diltiazem HCl (Cardizem Cd -) 120 mg PO DAILY [facility] Last Admin: 12/29/17 11:29 Dose: 120 mg Fluconazole (Diflucan -) 100 mg PO DAILY [facility] Last Admin: 12/29/17 11:30 Dose: 100 mg Furosemide (Lasix -) 40 mg PO DAILY [facility] Last Admin: 12/29/17 11:30 Dose: 40 mg Cefepime HCl 1 gm/ Dextrose 100 mls @ 100 mls/hr IVPB BID [facility]; Protocol Last Admin: 12/29/17 21:31 Dose: 100 mls/hr Insulin Aspart (Novolog Vial Sliding Scale -) 1 vial SQ ACHS [facility]; Protocol Last Admin: 12/30/17 06:18 Dose: Not Given Insulin Detemir (Levemir Vial) 10 units SQ AM [facility] Last Admin: 12/30/17 06:18 Dose: Not Given Insulin Detemir (Levemir Vial) 4 units SQ HS [facility] Last Admin: 12/29/17 21:32 Dose: 4 units Latanoprost (Xalatan 0.005% Eye Drops -) 1 drop OU DAILY [facility] Last Admin: 12/29/17 11:32 Dose: 1 drop Levothyroxine Sodium (Synthroid -) 75 mcg PO AM [facility] Last Admin: 12/30/17 06:19 Dose: 75 mcg Montelukast Sodium (Singulair -) 10 mg PO HS [facility] Last Admin: 12/29/17 21:33 Dose: 10 mg Pantoprazole Sodium (Protonix -) 40 mg PO BID [facility] Last Admin: 12/29/17 21:32 Dose: 40 mg Prednisone (Deltasone -) 40 mg PO DAILY [facility] Last Admin: 12/29/17 11:29 Dose: 40 mg Roflumilast (Daliresp -) 500 mcg PO DAILY [facility] Last Admin: 12/29/17 11:31 Dose: 500 mcg Sitagliptin Phosphate (Januvia -) 100 mg PO AM [facility] Last Admin: 12/30/17 06:56 Dose: Not Given Tiotropium [place] (Spiriva Respimat) 2 puff IH DAILY [facility] Last Admin: 12/29/17 11:31 Dose: 2 puff - Objective Vital Signs: Vital Signs Temperature 97.7 F 12/30/17 06:00 Pulse Rate 81 12/30/17 06:00 Respiratory Rate 20 12/30/17 06:00 Blood Pressure 90/74 12/30/17 06:00 O2 Sat by Pulse Oximetry (%) 94 L 12/30/17 08:32 Constitutional: Yes: No Distress, Calm Cardiovascular: Yes: Regular Rate and Rhythm, S1, S2 Respiratory: Yes: Regular, Other (coarse BS bilat.) Gastrointestinal: Yes: Normal Bowel Sounds, Soft. No: Tenderness Edema: No Neurological: Yes: Alert, Oriented Labs: CBC, BMP 12/30/17 07:15 12/30/17 07:15 Problem List - Problems (1) Acute and chronic respiratory failure with hypercapnia Code(s): J96.22 - ACUTE AND CHRONIC RESPIRATORY FAILURE WITH HYPERCAPNIA (2) COPD with acute exacerbation Code(s): J44.1 - CHRONIC OBSTRUCTIVE PULMONARY DISEASE W (ACUTE) EXACERBATION (3) Advanced chronic obstructive pulmonary disease Code(s): J44.9 - CHRONIC OBSTRUCTIVE PULMONARY DISEASE, UNSPECIFIED (4) Diabetes mellitus Code(s): E11.9 - TYPE 2 DIABETES MELLITUS WITHOUT COMPLICATIONS (5) Hypertension Code(s): I10 - ESSENTIAL (PRIMARY) HYPERTENSION (6) Paroxysmal atrial fibrillation Code(s): I48.0 - PAROXYSMAL ATRIAL FIBRILLATION (7) Elevated troponin I level Code(s): R74.8 - ABNORMAL LEVELS OF OTHER SERUM ENZYMES (8) Leukocytosis Code(s): D72.829 - ELEVATED WHITE BLOOD CELL COUNT, UNSPECIFIED (9) Elevated LFTs Code(s): R94.5 - ABNORMAL RESULTS OF LIVER FUNCTION STUDIES (10) GIB (gastrointestinal bleeding) Code(s): K92.2 - GASTROINTESTINAL HEMORRHAGE, UNSPECIFIED Assessment/Plan Pt now on PO Prednisone Pulmonary, Cardio, Phychiatry, ID, Heme, GI consults and f/u are appreciated. Psychiatry consult is appreciated; pt was found to have full capacity to make decisions. WBC is trending up again. Continue current Rx. Case was d/w Dr. Goldman; leukocytosis work up is in progress. Case was d/w Dr. Payan; to continue Pantoprazole BID as long as pt is on steroids AM labs. Prognosis: reserved
--- NOTE | 2017-12-30 10:41 | PN ---
Progress Note (short form) - Note Progress Note: Chief Complaint: shortness of breath s: no cp palps dizzy;sob at baseline Current Medications Generic Name Dose Route Start Last Admin Trade Name Erik PRN Reason Stop Dose Admin Albuterol Sulfate 1 amp 12/12/17 19:28 12/30/17 08:32 Ventolin 0.083% Nebulizer Soln - NEB 1 amp Q6H PRN Administration SHORT OF BREATH/WHEEZING Alprazolam 0.25 mg 12/28/17 11:42 12/29/17 21:33 Xanax - PO 0.25 mg Q8H PRN Administration ANXIETY Apixaban 5 mg 12/25/17 22:00 12/29/17 21:31 Eliquis - PO 5 mg BID [facility] Administration Atorvastatin Calcium 40 mg 12/12/17 22:00 12/29/17 21:32 Lipitor - PO 40 mg HS [facility] Administration Brimonidine Tartrate 1 drop 12/12/17 22:00 12/29/17 21:34 Alphagan P 0.1% - OU 1 drop BID [facility] Administration Digoxin 0.125 mg 12/13/17 10:00 12/29/17 11:29 Lanoxin - PO 0.125 mg DAILY [facility] Administration Diltiazem HCl 120 mg 12/13/17 10:00 12/29/17 11:29 Cardizem Cd - PO 120 mg DAILY [facility] Administration Fluconazole 100 mg 12/27/17 17:45 12/29/17 11:30 Diflucan - PO 100 mg DAILY [facility] Administration Furosemide 40 mg 12/13/17 10:00 12/29/17 11:30 Lasix - PO 40 mg DAILY [facility] Administration Cefepime HCl 1 gm/ Dextrose 100 mls @ 100 mls/hr 12/27/17 18:15 12/29/17 21: 31 IVPB 100 mls/hr BID [facility] Administration Protocol Insulin Aspart 1 vial 12/12/17 22:00 12/30/17 06:18 Novolog Vial Sliding Scale - SQ Not Given ACHS [facility] Protocol Insulin Detemir 10 units 12/26/17 17:58 12/30/17 06:18 Levemir Vial SQ Not Given AM [facility] Insulin Detemir 4 units 12/26/17 17:58 12/29/17 21:32 Levemir Vial SQ 4 units HS [facility] Administration Latanoprost 1 drop 12/13/17 10:00 12/29/17 11:32 Xalatan 0.005% Eye Drops - OU 1 drop DAILY [facility] Administration Levothyroxine Sodium 75 mcg 12/13/17 07:00 12/30/17 06:19 Synthroid - PO 75 mcg AM [facility] Administration Montelukast Sodium 10 mg 12/12/17 22:00 12/29/17 21:33 Singulair - PO 10 mg HS [facility] Administration Pantoprazole Sodium 40 mg 12/29/17 10:15 12/29/17 21:32 Protonix - PO 40 mg BID [facility] Administration Prednisone 40 mg 12/28/17 10:00 12/29/17 11:29 Deltasone - PO 40 mg DAILY [facility] Administration Roflumilast 500 mcg 12/13/17 12:45 12/29/17 11:31 Daliresp - PO 500 mcg DAILY [facility] Administration Sitagliptin Phosphate 100 mg 12/13/17 07:00 12/30/17 06:56 Januvia - PO Not Given AM [facility] Tiotropium [place] 2 puff 12/13/17 10:00 12/29/17 11:31 Spiriva Respimat IH 2 puff DAILY [facility] Administration Vital Signs Period Temp Pulse Resp BP Sys/Anthony Pulse Ox Last 24 Hr 97.3 F-98.0 F 78-93 20-20 90-138/55-89 94-96 Constitutional: Yes: No Distress, Calm Eyes: Yes: Conjunctiva Clear Respiratory: Yes: Regular, no wheeze, dec bs, nl eff, On Nasal O2 Gastrointestinal: Yes: Normal Bowel Sounds, Soft Cardiovascular: Yes: Regular Rate and Rhythm JVD: No Heart Sounds: Yes: S1, S2 Edema: trace le edema bl Integumentary: Yes: no jaundice diaphoresis Neurological: Yes: awake CBC, BMP 12/30/17 07:15 12/30/17 07:15 Echo 10/2015: Nl lv/rv. suboptimal views, but at least mild AR. Mod MAC. 1+ MR. No MS. trivial effusion. RVSP not measured. echo 09/2016: tds; nl lv/rv, mv calcified, mac, mild-mod mr, sev tr, small peric eff-->MV calcification is chronic finding for her and not indicative of vegetation CXR: hyperaerated lung, no effusion EKG: sinus, nonspecific ST segment changes Assessment/Plan Elevated trop - 0.07->0.06 - mild elevation with flat trend, EKG stable, not consistent with ACS - management of COPD exacerbation as below Shortness of breath, COPD - O2 dependent, on BiPap, chronic prednisone - sxs improved after iv steroids, now on po - manage per pulm Chronic diastolic CHF - continue lasix PO - stable volume status pAFib - in sinus now - continue eliquis, digoxin, diltiazem HLD - continue statin possible uti: -abx per ID
--- NOTE | 2017-12-30 11:17 | PN ---
Progress Note (short form) - Note Progress Note: PULMONARY REMAINS IN BED /APPEARS WEAK/PALE VSS Constitutional: Yes: Thin Eyes: Yes: WNL HENT: Yes: WNL Neck: Yes: WNL Cardiovascular: Yes: Regular Rate and Rhythm, S1, S2 Respiratory: Yes: Diminished Gastrointestinal: Yes: Normal Bowel Sounds, Soft Extremities: Yes: WNL Edema none IMAGES/MICRO/LABS/MEDS/NOTES REVIEWED IMP ACUTE ON CHRONIC HYPOXEMIC/HYPERCAPNEIC RESPIRATORY FAILURE COPD EXACERBATION PULMONARY HTN PAF IDDM DIASTOLIC HF HYPOTHYROIDISM PLAN ORAL STEROIDS INHALED BRONCHODILATORS O2 BIPAP AT NIGHT AND PRN DALIRESP SHORT TERM PULMONARY REHAB IN ME PROGNOSIS GUARDED Eduarda BOWMAN MD
[2017-12-30] MEDS: BRIMONIDINE TARTRATE 0.1% OPHTHALMIC 5 ML BOTTLE OU SCH ×2 (11:36→21:59)
[2017-12-30] MEDS: CEFEPIME 1 GM in DEXTROSE 5%-WATER 100 ML IVPB SCH (11:37)
[2017-12-30] MEDS: APIXABAN 5 MG TABLET PO SCH ×2 (11:37→22:00)
[2017-12-30] MEDS: PANTOPRAZOLE 40 MG TABLET (FP) PO SCH ×2 (11:38→22:01)
[2017-12-30] MEDS: predniSONE 20 MG TABLET (UD) PO SCH (11:38)
[2017-12-30] MEDS: ROFLUMILAST 500 MCG TABLET PO SCH (11:38)
[2017-12-30] MEDS: FUROSEMIDE 40 MG TABLET (FP) PO SCH (11:39)
[2017-12-30] MEDS: DIGOXIN 0.125 MG TABLET (FP) PO SCH (11:39)
[2017-12-30] MEDS: FLUCONAZOLE 100 MG TABLET (UD) PO SCH (11:39)
[2017-12-30] MEDS: LATANOPROST 0.005% OPHTH SOLN 2.5ML BOTTLE OU SCH (11:41)
[2017-12-30] MEDS: TIOTROPIUM BROMIDE 2.5 MCG (SPIRIVA) RESPIMAT INHALER IH SCH (11:41)
--- NOTE | 2017-12-30 13:50 | PN ---
Progress Note (short form) - Note Progress Note: weak no complaints Vital Signs Period Temp Pulse Resp BP Sys/Anthony Pulse Ox Last 24 Hr 97.3 F-98 F 81-96 20-20 90-138/50-89 94-100 cor-rrr lungs decreased bs at bases abd soft,nt ext no edema CBC, BMP 12/30/17 07:15 12/30/17 07:15 Microbiology 12/27/17 18:00 Blood - Peripheral Venous Blood Culture - Preliminary NO GROWTH OBTAINED AFTER 48 HOURS, INCUBATION TO CONTINUE FOR 3 DAYS. 12/27/17 18:00 Blood - Peripheral Venous Blood Culture - Preliminary NO GROWTH OBTAINED AFTER 48 HOURS, INCUBATION TO CONTINUE FOR 3 DAYS. 12/27/17 19:45 Urine - Urine - Catheterized Urine Culture - Final NO GROWTH OBTAINED 12/23/17 17:00 Blood - Peripheral Venous Blood Culture - Final NO GROWTH AFTER 5 DAYS INCUBATION 12/23/17 16:15 Blood - Peripheral Venous Blood Culture - Final NO GROWTH AFTER 5 DAYS INCUBATION Current Medications Albuterol Sulfate (Ventolin 0.083% Nebulizer Soln -) 1 amp NEB Q6H PRN PRN Reason: SHORT OF BREATH/WHEEZING Last Admin: 12/30/17 08:32 Dose: 1 amp Alprazolam (Xanax -) 0.25 mg PO Q8H PRN PRN Reason: ANXIETY Last Admin: 12/29/17 21:33 Dose: 0.25 mg Apixaban (Eliquis -) 5 mg PO BID [facility] Last Admin: 12/30/17 11:37 Dose: 5 mg Atorvastatin Calcium (Lipitor -) 40 mg PO HS [facility] Last Admin: 12/29/17 21:32 Dose: 40 mg Brimonidine Tartrate (Alphagan P 0.1% -) 1 drop OU BID [facility] Last Admin: 12/30/17 11:36 Dose: Not Given Digoxin (Lanoxin -) 0.125 mg PO DAILY [facility] Last Admin: 12/30/17 11:39 Dose: 0.125 mg Diltiazem HCl (Cardizem Cd -) 120 mg PO DAILY [facility] Last Admin: 12/30/17 11:38 Dose: 120 mg Fluconazole (Diflucan -) 100 mg PO DAILY [facility] Last Admin: 12/30/17 11:39 Dose: 100 mg Furosemide (Lasix -) 40 mg PO DAILY [facility] Last Admin: 12/30/17 11:39 Dose: 40 mg Cefepime HCl 1 gm/ Dextrose 100 mls @ 100 mls/hr IVPB BID [facility]; Protocol Last Admin: 12/30/17 11:37 Dose: 100 mls/hr Insulin Aspart (Novolog Vial Sliding Scale -) 1 vial SQ ACHS [facility]; Protocol Last Admin: 12/30/17 12:53 Dose: 4 units Insulin Detemir (Levemir Vial) 10 units SQ AM [facility] Last Admin: 12/30/17 06:18 Dose: Not Given Insulin Detemir (Levemir Vial) 4 units SQ HS [facility] Last Admin: 12/29/17 21:32 Dose: 4 units Latanoprost (Xalatan 0.005% Eye Drops -) 1 drop OU DAILY [facility] Last Admin: 12/30/17 11:41 Dose: 1 drop Levothyroxine Sodium (Synthroid -) 75 mcg PO AM [facility] Last Admin: 12/30/17 06:19 Dose: 75 mcg Montelukast Sodium (Singulair -) 10 mg PO HS [facility] Last Admin: 12/29/17 21:33 Dose: 10 mg Pantoprazole Sodium (Protonix -) 40 mg PO BID [facility] Last Admin: 12/30/17 11:38 Dose: 40 mg Prednisone (Deltasone -) 40 mg PO DAILY [facility] Last Admin: 12/30/17 11:38 Dose: 40 mg Roflumilast (Daliresp -) 500 mcg PO DAILY [facility] Last Admin: 12/30/17 11:38 Dose: 500 mcg Sitagliptin Phosphate (Januvia -) 100 mg PO AM [facility] Last Admin: 12/30/17 06:56 Dose: Not Given Tiotropium [place] (Spiriva Respimat) 2 puff IH DAILY [facility] Last Admin: 12/30/17 11:41 Dose: 2 puff a/p [id number] prednisone 40 mg dailys day #3 cefepime, cultures are negative- willl d/c antibiotics diflucan for thrush advanced COPD- doing poorly consider palliative care evaluation Problem List - Problems (1) Leukocytosis Code(s): D72.829 - ELEVATED WHITE BLOOD CELL COUNT, UNSPECIFIED (2) Acute on chronic respiratory failure with hypoxia and hypercapnia Code(s): J96.21 - ACUTE AND CHRONIC RESPIRATORY FAILURE WITH HYPOXIA; J96.22 - ACUTE AND CHRONIC RESPIRATORY FAILURE WITH HYPERCAPNIA (3) Advanced chronic obstructive pulmonary disease Code(s): J44.9 - CHRONIC OBSTRUCTIVE PULMONARY DISEASE, UNSPECIFIED (4) Abnormal LFTs Code(s): R94.5 - ABNORMAL RESULTS OF LIVER FUNCTION STUDIES
[2017-12-30 14:10] LABS: TRANSGLUTAMINASE IGA < 2 U/mL (0-3); TRANSGLUTAMINASE IGG < 2 U/mL (0-5)
[2017-12-30] MEDS: ALPRAZolam 0.25 MG TABLET PO PRN (21:59)
[2017-12-30] MEDS: ATORVASTATIN CA 40 MG TABLET (FP) PO SCH (22:00)
[2017-12-30] MEDS: MONTELUKAST NA 10 MG TABLET PO SCH (22:02)
[2017-12-31] MEDS: sitaGLIPtin PHOSPHATE 100 MG TABLET (FP) PO SCH (06:13)
[2017-12-31] MEDS: LEVOTHYROXINE NA 75 MCG TABLET (FP) PO SCH (06:13)
[2017-12-31] MEDS: INSULIN SLIDING SCALE (NOVOLOG) 1 VIAL SQ SCH ×4 (06:14→21:16)
[2017-12-31] MEDS: INSULIN (LEVEMIR) 100 UNITS/ML UNITS SQ SCH ×2 (06:14→21:17)
[2017-12-31] MEDS: ALBUTEROL SO4 0.083% IH SOL 2.5 MG/3 ML VIAL.NEB. NEB PRN (07:56)
[2017-12-31 08:32] LABS: HEMATOCRIT 37.5 % (32.4-45.2); HEMOGLOBIN 13.1 GM/dL (10.7-15.3); MCH 34.5 pg (25.7-33.7); MEAN CELL VOLUME 98.5 fl (80-96); PLATELET COUNT 104 K/MM3 (134-434); RBC 3.81 M/mm3 (3.60-5.2); RDW 14.1 % (11.6-15.6); WHITE BLOOD COUNT 25.5 K/mm3 (4.0-10.0)
[2017-12-31 08:51] LABS: ALBUMIN 2.4 g/dl (3.4-5.0); ALK PHOS 110 U/L (45-117); ANION GAP 9 MMOL/L (8-16); BILIRUBIN,TOTAL 0.7 mg/dL (0.2-1); BLOOD UREA NITROGEN 48 mg/dL (7-18); CALCIUM 8.6 mg/dL (8.5-10.1); CHLORIDE 92 mmol/L (98-107); CO2 32 mmol/L (21-32); CREATININE 0.6 mg/dL (0.55-1.3); GLUCOSE,RANDOM 153 mg/dL (74-106); POTASSIUM 4.7 mmol/L (3.5-5.1); SGOT/AST 61 U/L (15-37); SGPT/ALT 81 U/L (13-61); SODIUM 132 mmol/L (136-145); TOT PROT 4.8 g/dl (6.4-8.2)
[2017-12-31] MEDS: predniSONE 20 MG TABLET (UD) PO SCH (10:12)
[2017-12-31] MEDS: FUROSEMIDE 40 MG TABLET (FP) PO SCH (10:13)
[2017-12-31] MEDS: FLUCONAZOLE 100 MG TABLET (UD) PO SCH (10:13)
[2017-12-31] MEDS: APIXABAN 5 MG TABLET PO SCH ×2 (10:13→21:14)
[2017-12-31] MEDS: PANTOPRAZOLE 40 MG TABLET (FP) PO SCH ×2 (10:13→21:14)
[2017-12-31] MEDS: ROFLUMILAST 500 MCG TABLET PO SCH (10:14)
[2017-12-31] MEDS: DIGOXIN 0.125 MG TABLET (FP) PO SCH (10:14)
[2017-12-31] MEDS: BRIMONIDINE TARTRATE 0.1% OPHTHALMIC 5 ML BOTTLE OU SCH ×2 (10:15→21:13)
[2017-12-31] MEDS: LATANOPROST 0.005% OPHTH SOLN 2.5ML BOTTLE OU SCH (10:19)
[2017-12-31] MEDS: TIOTROPIUM BROMIDE 2.5 MCG (SPIRIVA) RESPIMAT INHALER IH SCH (10:19)
--- NOTE | 2017-12-31 11:52 | PN ---
Progress Note, Physician History of Present Illness: Pt's breathing is unchanged from yesterday. Pt w/o cough, CP, palpitations, abd pain, N, V, heartburns. Pt on O2 supplementation via NC. - Current Medication List Current Medications: Active Medications Albuterol Sulfate (Ventolin 0.083% Nebulizer Soln -) 1 amp NEB Q6H PRN PRN Reason: SHORT OF BREATH/WHEEZING Last Admin: 12/31/17 07:56 Dose: 1 amp Apixaban (Eliquis -) 5 mg PO BID [facility] Last Admin: 12/31/17 10:13 Dose: 5 mg Atorvastatin Calcium (Lipitor -) 40 mg PO HS [facility] Last Admin: 12/30/17 22:00 Dose: 40 mg Brimonidine Tartrate (Alphagan P 0.1% -) 1 drop OU BID [facility] Last Admin: 12/31/17 10:15 Dose: 1 drop Digoxin (Lanoxin -) 0.125 mg PO DAILY [facility] Last Admin: 12/31/17 10:14 Dose: 0.125 mg Diltiazem HCl (Cardizem Cd -) 120 mg PO DAILY [facility] Last Admin: 12/31/17 10:13 Dose: 120 mg Fluconazole (Diflucan -) 100 mg PO DAILY [facility] Last Admin: 12/31/17 10:13 Dose: 100 mg Furosemide (Lasix -) 40 mg PO DAILY [facility] Last Admin: 12/31/17 10:13 Dose: 40 mg Insulin Aspart (Novolog Vial Sliding Scale -) 1 vial SQ [facility]; Protocol Last Admin: 12/31/17 11:40 Dose: 6 units Insulin Detemir (Levemir Vial) 10 units SQ AM [facility] Last Admin: 12/31/17 06:14 Dose: Not Given Insulin Detemir (Levemir Vial) 4 units SQ HS [facility] Last Admin: 12/30/17 22:00 Dose: 4 units Latanoprost (Xalatan 0.005% Eye Drops -) 1 drop OU DAILY [facility] Last Admin: 12/31/17 10:19 Dose: 1 drop Levothyroxine Sodium (Synthroid -) 75 mcg PO AM [facility] Last Admin: 12/31/17 06:13 Dose: 75 mcg Montelukast Sodium (Singulair -) 10 mg PO HS [facility] Last Admin: 12/30/17 22:02 Dose: 10 mg Pantoprazole Sodium (Protonix -) 40 mg PO BID [facility] Last Admin: 12/31/17 10:13 Dose: 40 mg Prednisone (Deltasone -) 40 mg PO DAILY [facility] Last Admin: 12/31/17 10:12 Dose: 40 mg Roflumilast (Daliresp -) 500 mcg PO DAILY [facility] Last Admin: 12/31/17 10:14 Dose: 500 mcg Sitagliptin Phosphate (Januvia -) 100 mg PO AM [facility] Last Admin: 12/31/17 06:13 Dose: 100 mg Tiotropium [place] (Spiriva Respimat) 2 puff IH DAILY [facility] Last Admin: 12/31/17 10:19 Dose: 2 puff - Objective Vital Signs: Vital Signs Temperature 97.5 F L 12/31/17 05:20 Pulse Rate 89 12/31/17 10:14 Respiratory Rate 20 12/31/17 05:20 Blood Pressure 108/50 L 12/31/17 05:20 O2 Sat by Pulse Oximetry (%) 96 12/30/17 21:00 Constitutional: Yes: No Distress, Calm Cardiovascular: Yes: Regular Rate and Rhythm, S1, S2 Respiratory: Yes: Regular, CTA Bilaterally, Diminished Gastrointestinal: Yes: Normal Bowel Sounds, Soft. No: Tenderness Edema: No Neurological: Yes: Alert, Oriented Psychiatric: Yes: Alert, Oriented Labs: CBC, BMP 12/31/17 06:45 12/31/17 06:45 Problem List - Problems (1) Acute and chronic respiratory failure with hypercapnia Code(s): J96.22 - ACUTE AND CHRONIC RESPIRATORY FAILURE WITH HYPERCAPNIA (2) COPD with acute exacerbation Code(s): J44.1 - CHRONIC OBSTRUCTIVE PULMONARY DISEASE W (ACUTE) EXACERBATION (3) Advanced chronic obstructive pulmonary disease Code(s): J44.9 - CHRONIC OBSTRUCTIVE PULMONARY DISEASE, UNSPECIFIED (4) Diabetes mellitus Code(s): E11.9 - TYPE 2 DIABETES MELLITUS WITHOUT COMPLICATIONS (5) Hypertension Code(s): I10 - ESSENTIAL (PRIMARY) HYPERTENSION (6) Paroxysmal atrial fibrillation Code(s): I48.0 - PAROXYSMAL ATRIAL FIBRILLATION (7) Elevated troponin I level Code(s): R74.8 - ABNORMAL LEVELS OF OTHER SERUM ENZYMES (8) Leukocytosis Code(s): D72.829 - ELEVATED WHITE BLOOD CELL COUNT, UNSPECIFIED (9) Elevated LFTs Code(s): R94.5 - ABNORMAL RESULTS OF LIVER FUNCTION STUDIES (10) GIB (gastrointestinal bleeding) Code(s): K92.2 - GASTROINTESTINAL HEMORRHAGE, UNSPECIFIED (11) Hyponatremia Assessment/Plan: Fluid restriction Renal consult Code(s): E87.1 - HYPO-OSMOLALITY AND HYPONATREMIA (12) Urinary retention Assessment/Plan: s/p [place]ole[place] placement consult Code(s): R33.9 - RETENTION OF URINE, UNSPECIFIED Assessment/Plan Pt now on PO Prednisone Pulmonary, Cardio, Phychiatry, ID, Heme, GI consults and f/u are appreciated. Psychiatry consult is appreciated; pt was found to have full capacity to make decisions. Continue current Rx. Renal consult AM labs. Prognosis: reserved
--- NOTE | 2017-12-31 12:23 | PN ---
Progress Note (short form) - Note Progress Note: PULMONARY Still with shortness of breath, cough and chest tightness. Used BiPAP overnight. Vital Signs Period Temp Pulse Resp BP Sys/Anthony Pulse Ox Last 24 Hr 97.5 F-97.9 F 69-96 20-20 95-118/50-60 96-100 Gen: mildly tachypneic at rest Heart: RRR Lung: distant breath sounds Abd: soft, nontender Ext: no edema CBC, BMP 12/31/17 06:45 12/31/17 06:45 Active Medications Albuterol Sulfate (Ventolin 0.083% Nebulizer Soln -) 1 amp NEB Q6H PRN PRN Reason: SHORT OF BREATH/WHEEZING Last Admin: 12/31/17 07:56 Dose: 1 amp Apixaban (Eliquis -) 5 mg PO BID [facility] Last Admin: 12/31/17 10:13 Dose: 5 mg Atorvastatin Calcium (Lipitor -) 40 mg PO HS [facility] Last Admin: 12/30/17 22:00 Dose: 40 mg Brimonidine Tartrate (Alphagan P 0.1% -) 1 drop OU BID [facility] Last Admin: 12/31/17 10:15 Dose: 1 drop Digoxin (Lanoxin -) 0.125 mg PO DAILY [facility] Last Admin: 12/31/17 10:14 Dose: 0.125 mg Diltiazem HCl (Cardizem Cd -) 120 mg PO DAILY [facility] Last Admin: 12/31/17 10:13 Dose: 120 mg Fluconazole (Diflucan -) 100 mg PO DAILY [facility] Last Admin: 12/31/17 10:13 Dose: 100 mg Furosemide (Lasix -) 40 mg PO DAILY [facility] Last Admin: 12/31/17 10:13 Dose: 40 mg Insulin Aspart (Novolog Vial Sliding Scale -) 1 vial SQ ACHS [facility]; Protocol Last Admin: 12/31/17 11:40 Dose: 6 units Insulin Detemir (Levemir Vial) 10 units SQ AM [facility] Last Admin: 12/31/17 06:14 Dose: Not Given Insulin Detemir (Levemir Vial) 4 units SQ HS [facility] Last Admin: 12/30/17 22:00 Dose: 4 units Latanoprost (Xalatan 0.005% Eye Drops -) 1 drop OU DAILY [facility] Last Admin: 11/24/18 10:19 Dose: 1 drop Levothyroxine Sodium (Synthroid -) 75 mcg PO AM [facility] Last Admin: 12/31/17 06:13 Dose: 75 mcg Montelukast Sodium (Singulair -) 10 mg PO HS [facility] Last Admin: 12/30/17 22:02 Dose: 10 mg Pantoprazole Sodium (Protonix -) 40 mg PO BID [facility] Last Admin: 12/31/17 10:13 Dose: 40 mg Prednisone (Deltasone -) 40 mg PO DAILY [facility] Last Admin: 12/31/17 10:12 Dose: 40 mg Roflumilast (Daliresp -) 500 mcg PO DAILY [facility] Last Admin: 12/31/17 10:14 Dose: 500 mcg Sitagliptin Phosphate (Januvia -) 100 mg PO AM [facility] Last Admin: 12/31/17 06:13 Dose: 100 mg Tiotropium [place] (Spiriva Respimat) 2 puff IH DAILY [facility] Last Admin: 12/31/17 10:19 Dose: 2 puff A/P Acute on Chronic Hypoxic and Hypercapneic Respiratory Failure Acute COPD Exacerbation Pulmonary HTN LV Diastolic Dysfunction Paroxysmal Atrial Fibrillation DM Hypothyroidism - slow prednisone taper - monitor WBC trend - inhaled bronchodilators - O2 to keep Spo2 >90% - BiPAP as needed to assist in work of breathing - daliresp - rate control - continue anticoagulation - continue discussions regarding goals of care
[2017-12-31 13:29] LABS: OSMOLALITY,SERUM 298 mosm/kg (278-305)
[2017-12-31] MEDS ORDERED: PT OWN MED DRAWER 7, Y5N ONE ×2 (18:19→20:42)
[2017-12-31] MEDS ORDERED: INSULIN (NOVOLOG) ASPART 100 UNITS/ML 10ML VIAL ONE (20:41)
[2017-12-31] MEDS: MONTELUKAST NA 10 MG TABLET PO SCH (21:14)
[2017-12-31] MEDS: ATORVASTATIN CA 40 MG TABLET (FP) PO SCH (21:14)
[2018-01-01] MEDS: INSULIN SLIDING SCALE (NOVOLOG) 1 VIAL SQ SCH ×4 (06:03→21:01)
[2018-01-01] MEDS: sitaGLIPtin PHOSPHATE 100 MG TABLET (FP) PO SCH ×2 (06:06→06:25)
[2018-01-01] MEDS: LEVOTHYROXINE NA 75 MCG TABLET (FP) PO SCH ×2 (06:06→06:25)
[2018-01-01] MEDS: INSULIN (LEVEMIR) 100 UNITS/ML UNITS SQ SCH ×2 (06:23→21:01)
[2018-01-01 07:48] LABS: HEMOGLOBIN 13.2 GM/dL (10.7-15.3); MCHC 34.8 g/dl (32.0-36.0); MEAN CELL VOLUME 94.6 fl (80-96); MEAN PLT VOLUME 10.2 fl (7.5-11.1); PLATELET COUNT 139 K/MM3 (134-434); RBC 4.02 M/mm3 (3.60-5.2); RDW 14.3 % (11.6-15.6); WHITE BLOOD COUNT 28.3 K/mm3 (4.0-10.0)
[2018-01-01 08:32] LABS: ALBUMIN 2.5 g/dl (3.4-5.0); ALK PHOS 119 U/L (45-117); ANION GAP 7 MMOL/L (8-16); BILIRUBIN,TOTAL 0.6 mg/dL (0.2-1); BLOOD UREA NITROGEN 51 mg/dL (7-18); CALCIUM 8.6 mg/dL (8.5-10.1); CHLORIDE 91 mmol/L (98-107); CO2 34 mmol/L (21-32); CREATININE 0.9 mg/dL (0.55-1.3); GLUCOSE,RANDOM 155 mg/dL (74-106); POTASSIUM 4.9 mmol/L (3.5-5.1); SGOT/AST 61 U/L (15-37); SGPT/ALT 81 U/L (13-61); SODIUM 132 mmol/L (136-145); TOT PROT 4.9 g/dl (6.4-8.2)
--- NOTE | 2018-01-01 08:48 | CONSULT ---
Consult - text type - Consultation Consultation Note: Renal Consult for Hyponatremia This is a 72 year old woman with hx of COPD on home O2, Pulmonary hypertension, Hypertension, CHF (diastolic dysfunction), Afib on A/c, DM, Hypothyroidism who presented with SOB and JAMESON and admitted for COPD exacerbation and noted to develop hyponatremia during the hospital course. Pt has been in the hospital since 12/12. Has been on IV steroids and supplemental O2. Pt reports that her respiratory status feels about the same. No pain, cp, Abd discomfort, N/V/D. On lasix 40mg PO daily. Denies excessive water intake. No thiazide diuretics noted. PMHx: as above Allergies: NKDA Family Hx: [place] Social Hx: Former smoker ROS: as per HPI Home Medications Medication Instructions Recorded Arformoterol Tartrate [Brovana] 15 mcg IH BID 10/04/16 Atorvastatin Ca [Lipitor] 40 mg PO HS 10/04/16 Bimatoprost [Lumigan] 1 drop OU DAILY 10/04/16 Brimonidine Tartrate [Alphagan P 1 drop OU BID 10/04/16 0.1% -] Brinzolamide [Azopt] 1 drop OU BID 10/04/16 Digoxin [Lanoxin -] 0.125 mg PO DAILY 10/04/16 Ergocalciferol (Vitamin D2) 2,000 unit PO DAILY 10/04/16 [Vitamin D2] Levalbuterol HCl [Xopenex] 0.45 mg IH BID 10/04/16 Levothyroxine [Synthroid -] 75 mcg PO ASDIR 10/04/16 Montelukast Na [Singulair -] 10 mg PO HS 10/04/16 Sitagliptin Phosphate [Januvia] 100 mg PO DAILY 10/04/16 Tiotropium [place] [Spiriva] 18 mcg IH DAILY 10/04/16 Albuterol 0.083% Nebulizer Page 1 amp NEB Q4H PRN #0 amp 10/11/16 [Ventolin 0.083% Nebulizer Soln -] Apixaban [Eliquis -] 5 mg PO BID #60 tablet 10/11/16 Diltiazem [Cardizem -] 120 mg PO ASDIR 12/12/17 Furosemide [Lasix -] 40 mg PO DAILY 12/12/17 Insulin (Levemir) [Levemir Vial] 8 units SQ HS units 12/25/17 Insulin (Levemir) [Levemir Vial] 20 units SQ AM units 12/25/17 Insulin Sliding Scale [Novolog 1 vial SQ ACHS units 12/25/17 Vial Sliding Scale -] Roflumilast [Daliresp -] 500 mcg PO DAILY tablet 12/25/17 predniSONE [Deltasone -] 10 mg PO ASDIR #30 tab 12/25/17 Vital Signs Temperature 97.4 F L 01/01/18 05:53 Pulse Rate 70 01/01/18 05:53 Respiratory Rate 20 01/01/18 05:53 Blood Pressure 120/49 L 01/01/18 05:53 O2 Sat by Pulse Oximetry (%) 97 01/01/18 04:00 Intake & Output 12/29/17 12/30/17 12/31/17 01/01/18 23:59 23:59 23:59 23:59 Intake Total 200 1050 587 50 Output Total 850 100 Balance 200 1050 -263 -50 NAD awake and alert on BIPAP dry MMM no JVD irregular, no M/R CTA, no rales soft NT/ND trace edema in ankles no cyanosis or clubbing no bladder distension CBC, BMP 01/01/18 06:30 01/01/18 06:30 Laboratory Tests 12/29/17 12/30/17 12/31/17 05:20 07:15 06:45 Sodium 136 135 L 132 L 01/01/18 06:30 Sodium 132 L Laboratory Tests 12/31/17 12/31/17 12/31/17 06:45 14:30 14:30 Serum Osmolality 298 Urine Osmolality 605 Ur Random Sodium < 18 L Current Medications Apixaban (Eliquis -) 5 mg PO BID [facility] Last Admin: 12/31/17 21:14 Dose: 5 mg Atorvastatin Calcium (Lipitor -) 40 mg PO HS [facility] Last Admin: 12/31/17 21:14 Dose: 40 mg Brimonidine Tartrate (Alphagan P 0.1% -) 1 drop OU BID [facility] Last Admin: 12/31/17 21:13 Dose: 1 drop Digoxin (Lanoxin -) 0.125 mg PO DAILY [facility] Last Admin: 12/31/17 10:14 Dose: 0.125 mg Diltiazem HCl (Cardizem Cd -) 120 mg PO DAILY [facility] Last Admin: 12/31/17 10:13 Dose: 120 mg Fluconazole (Diflucan -) 100 mg PO DAILY [facility] Last Admin: 12/31/17 10:13 Dose: 100 mg Furosemide (Lasix -) 40 mg PO DAILY [facility] Last Admin: 12/31/17 10:13 Dose: 40 mg Insulin Aspart (Novolog Vial Sliding Scale -) 1 vial SQ ACHS [facility]; Protocol Last Admin: 01/01/18 06:03 Dose: Not Given Insulin Detemir (Levemir Vial) 10 units SQ AM [facility] Last Admin: 01/01/18 06:23 Dose: 10 units Insulin Detemir (Levemir Vial) 4 units SQ HS [facility] Last Admin: 12/31/17 21:17 Dose: 4 units Latanoprost (Xalatan 0.005% Eye Drops -) 1 drop OU DAILY [facility] Last Admin: 12/31/17 10:19 Dose: 1 drop Levothyroxine Sodium (Synthroid -) 75 mcg PO AM [facility] Last Admin: 01/01/18 06:25 Dose: Not Given Montelukast Sodium (Singulair -) 10 mg PO HS [facility] Last Admin: 12/31/17 21:14 Dose: 10 mg Pantoprazole Sodium (Protonix -) 40 mg PO BID [facility] Last Admin: 12/31/17 21:14 Dose: 40 mg Prednisone (Deltasone -) 40 mg PO DAILY [facility] Last Admin: 12/31/17 10:12 Dose: 40 mg Roflumilast (Daliresp -) 500 mcg PO DAILY [facility] Last Admin: 12/31/17 10:14 Dose: 500 mcg Sitagliptin Phosphate (Januvia -) 100 mg PO AM [facility] Last Admin: 01/01/18 06:25 Dose: Not Given Tiotropium [place] (Spiriva Respimat) 2 puff IH DAILY [facility] Last Admin: 12/31/17 10:19 Dose: 2 puff 72 year old woman with hx of COPD on home O2, Pulmonary hypertension, Hypertension, CHF (diastolic dysfunction), Afib on A/c, DM, Hypothyroidism who presented with SOB and JAMESON and admitted for COPD exacerbation and noted to develop hyponatremia during the hospital course. #Hypovolemic hyponatremia in setting of diuretics (low urine Na, Serum OSM WNL) #COPD exacerbation #Diastolic HF #Hypothyroidism #Azotemia Urine studies consistent with hypovolemic hyponatremia no indication for 3% saline will hold Lasix for now will check CXR to ensure there is no lung pathology (effusions, congestion) can consider mild IVF hydration if CXR w/o evidence of effusions or congestion Trend serum na daily continue free water restriction, encourage oral solute intake taper steroids as per pulmonary TSH high?, significance, adjust levothyroxine as per primary Shayan Delaney DO
[2018-01-01] MEDS ORDERED: PT OWN MED DRAWER 7, Y5N ONE ×3 (09:22→19:54)
[2018-01-01] MEDS: BRIMONIDINE TARTRATE 0.1% OPHTHALMIC 5 ML BOTTLE OU SCH ×2 (11:13→21:01)
[2018-01-01] MEDS: DIGOXIN 0.125 MG TABLET (FP) PO SCH (11:14)
[2018-01-01] MEDS: ROFLUMILAST 500 MCG TABLET PO SCH (11:14)
[2018-01-01] MEDS: PANTOPRAZOLE 40 MG TABLET (FP) PO SCH ×2 (11:14→21:02)
[2018-01-01] MEDS: predniSONE 20 MG TABLET (UD) PO SCH (11:14)
[2018-01-01] MEDS: APIXABAN 5 MG TABLET PO SCH ×2 (11:14→21:01)
[2018-01-01] MEDS: FLUCONAZOLE 100 MG TABLET (UD) PO SCH (11:14)
[2018-01-01] MEDS: LATANOPROST 0.005% OPHTH SOLN 2.5ML BOTTLE OU SCH (11:15)
[2018-01-01] MEDS: TIOTROPIUM BROMIDE 2.5 MCG (SPIRIVA) RESPIMAT INHALER IH SCH (11:15)
--- NOTE | 2018-01-01 13:02 | PN ---
Progress Note (short form) - Note Progress Note: PULMONARY Still with shortness of breath, cough and chest tightness. Currently on BiPAP. Vital Signs Period Temp Pulse Resp BP Sys/Anthony Pulse Ox Last 24 Hr 97.4 F-98.6 F 66-84 20-20 97-120/49-63 96-98 Gen: mildly tachypneic on BiPAP Heart: RRR Lung: distant breath sounds Abd: soft, nontender Ext: no edema CBC, BMP 01/01/18 06:30 01/01/18 06:30 Active Medications Apixaban (Eliquis -) 5 mg PO BID [facility] Last Admin: 01/01/18 11:14 Dose: Not Given Atorvastatin Calcium (Lipitor -) 40 mg PO HS [facility] Last Admin: 12/31/17 21:14 Dose: 40 mg Brimonidine Tartrate (Alphagan P 0.1% -) 1 drop OU BID [facility] Last Admin: 01/01/18 11:13 Dose: Not Given Digoxin (Lanoxin -) 0.125 mg PO DAILY [facility] Last Admin: 01/01/18 11:14 Dose: Not Given Diltiazem HCl (Cardizem Cd -) 120 mg PO DAILY [facility] Last Admin: 01/01/18 11:14 Dose: Not Given Fluconazole (Diflucan -) 100 mg PO DAILY [facility] Last Admin: 01/01/18 11:14 Dose: Not Given Insulin Aspart (Novolog Vial Sliding Scale -) 1 vial SQ [facility]; Protocol Last Admin: 01/01/18 11:50 Dose: Not Given Insulin Detemir (Levemir Vial) 10 units SQ AM [facility] Last Admin: 01/01/18 06:23 Dose: 10 units Insulin Detemir (Levemir Vial) 4 units SQ HS [facility] Last Admin: 12/31/17 21:17 Dose: 4 units Latanoprost (Xalatan 0.005% Eye Drops -) 1 drop OU DAILY [facility] Last Admin: 01/01/18 11:15 Dose: Not Given Levothyroxine Sodium (Synthroid -) 75 mcg PO AM [facility] Last Admin: 01/01/18 06:25 Dose: Not Given Montelukast Sodium (Singulair -) 10 mg PO HS [facility] Last Admin: 12/31/17 21:14 Dose: 10 mg Pantoprazole Sodium (Protonix -) 40 mg PO BID [facility] Last Admin: 01/01/18 11:14 Dose: Not Given Prednisone (Deltasone -) 40 mg PO DAILY [facility] Last Admin: 01/01/18 11:14 Dose: Not Given Roflumilast (Daliresp -) 500 mcg PO DAILY [facility] Last Admin: 01/01/18 11:14 Dose: Not Given Sitagliptin Phosphate (Januvia -) 100 mg PO AM [facility] Last Admin: 01/01/18 06:25 Dose: Not Given Tiotropium [place] (Spiriva Respimat) 2 puff IH DAILY [facility] Last Admin: 01/01/18 11:15 Dose: Not Given A/P Acute on Chronic Hypoxic and Hypercapneic Respiratory Failure Acute COPD Exacerbation Pulmonary HTN LV Diastolic Dysfunction Paroxysmal Atrial Fibrillation DM Hypothyroidism - slow prednisone taper - monitor WBC trend - inhaled bronchodilators - O2 to keep Spo2 >90% - BiPAP as needed to assist in work of breathing - daliresp - rate control - continue anticoagulation - continue discussions regarding goals of care
--- NOTE | 2018-01-01 13:04 | PN ---
Progress Note, Physician Chief Complaint: sob History of Present Illness: on bipap, very tired. opens eyes to voice. not verbalizing. shakes head no to any present sob or cp - Current Medication List Current Medications: Active Medications Apixaban (Eliquis -) 5 mg PO BID [facility] Last Admin: 01/01/18 11:14 Dose: Not Given Atorvastatin Calcium (Lipitor -) 40 mg PO HS [facility] Last Admin: 12/31/17 21:14 Dose: 40 mg Brimonidine Tartrate (Alphagan P 0.1% -) 1 drop OU BID [facility] Last Admin: 01/01/18 11:13 Dose: Not Given Digoxin (Lanoxin -) 0.125 mg PO DAILY [facility] Last Admin: 01/01/18 11:14 Dose: Not Given Diltiazem HCl (Cardizem Cd -) 120 mg PO DAILY [facility] Last Admin: 01/01/18 11:14 Dose: Not Given Fluconazole (Diflucan -) 100 mg PO DAILY [facility] Last Admin: 01/01/18 11:14 Dose: Not Given Insulin Aspart (Novolog Vial Sliding Scale -) 1 vial SQ [facility]; Protocol Last Admin: 01/01/18 11:50 Dose: Not Given Insulin Detemir (Levemir Vial) 10 units SQ AM [facility] Last Admin: 01/01/18 06:23 Dose: 10 units Insulin Detemir (Levemir Vial) 4 units SQ HS [facility] Last Admin: 12/31/17 21:17 Dose: 4 units Latanoprost (Xalatan 0.005% Eye Drops -) 1 drop OU DAILY [facility] Last Admin: 01/01/18 11:15 Dose: Not Given Levothyroxine Sodium (Synthroid -) 75 mcg PO AM [facility] Last Admin: 01/01/18 06:25 Dose: Not Given Montelukast Sodium (Singulair -) 10 mg PO HS [facility] Last Admin: 12/31/17 21:14 Dose: 10 mg Pantoprazole Sodium (Protonix -) 40 mg PO BID [facility] Last Admin: 01/01/18 11:14 Dose: Not Given Prednisone (Deltasone -) 40 mg PO DAILY [facility] Last Admin: 01/01/18 11:14 Dose: Not Given Roflumilast (Daliresp -) 500 mcg PO DAILY [facility] Last Admin: 01/01/18 11:14 Dose: Not Given Sitagliptin Phosphate (Januvia -) 100 mg PO AM [facility] Last Admin: 01/01/18 06:25 Dose: Not Given Tiotropium [place] (Spiriva Respimat) 2 puff IH DAILY [facility] Last Admin: 01/01/18 11:15 Dose: Not Given - Objective Vital Signs: Vital Signs Temperature 97.7 F 01/01/18 10:00 Pulse Rate 80 01/01/18 10:00 Respiratory Rate 20 01/01/18 10:00 Blood Pressure 110/63 01/01/18 10:00 O2 Sat by Pulse Oximetry (%) 98 01/01/18 09:00 Constitutional: Yes: Well Nourished, No Distress, Calm Cardiovascular: Yes: Regular Rate and Rhythm, S1, S2. No: Gallop Respiratory: Yes: Regular, CTA Bilaterally. No: Accessory Muscle Use, Rales, Wheezes Extremities: No: Cold Edema: No Neurological: Yes: Lethargy. No: Seizure Psychiatric: No: Agitated Labs: CBC, BMP 01/01/18 06:30 01/01/18 06:30 Assessment/Plan Echo 10/2015: Nl lv/rv. suboptimal views, but at least mild AR. Mod MAC. 1+ MR. No MS. trivial effusion. RVSP not measured. echo 09/2016: tds; nl lv/rv, mv calcified, mac, mild-mod mr, sev tr, small peric eff-->MV calcification is chronic finding for her and not indicative of vegetation CXR: hyperaerated lung, no effusion EKG: sinus, nonspecific ST segment changes Assessment/Plan Elevated trop - 0.07->0.06 - mild elevation with flat trend, EKG stable, not consistent with ACS - management of COPD exacerbation as below Shortness of breath, COPD - O2 dependent, on BiPap, chronic prednisone - sxs improved after iv steroids, now on po - manage per pulm Chronic diastolic CHF - continue lasix PO - stable volume status pAFib - in sinus now - continue eliquis, digoxin, diltiazem HLD - continue statin possible uti: -abx per ID
--- NOTE | 2018-01-01 13:37 | PN ---
Progress Note, Physician History of Present Illness: Pt's breathing is not as good as yesterday, feels tired after yesterday (had many visitors) ; now on BIPAP. Pt w/o cough, CP, palpitations, abd pain, N, V, heartburns. - Current Medication List Current Medications: Active Medications Apixaban (Eliquis -) 5 mg PO BID [facility] Last Admin: 01/01/18 11:14 Dose: Not Given Atorvastatin Calcium (Lipitor -) 40 mg PO HS [facility] Last Admin: 12/31/17 21:14 Dose: 40 mg Brimonidine Tartrate (Alphagan P 0.1% -) 1 drop OU BID [facility] Last Admin: 01/01/18 11:13 Dose: Not Given Digoxin (Lanoxin -) 0.125 mg PO DAILY [facility] Last Admin: 01/01/18 11:14 Dose: Not Given Diltiazem HCl (Cardizem Cd -) 120 mg PO DAILY [facility] Last Admin: 01/01/18 11:14 Dose: Not Given Fluconazole (Diflucan -) 100 mg PO DAILY [facility] Last Admin: 01/01/18 11:14 Dose: Not Given Insulin Aspart (Novolog Vial Sliding Scale -) 1 vial SQ [facility]; Protocol Last Admin: 01/01/18 11:50 Dose: Not Given Insulin Detemir (Levemir Vial) 10 units SQ AM [facility] Last Admin: 01/01/18 06:23 Dose: 10 units Insulin Detemir (Levemir Vial) 4 units SQ HS [facility] Last Admin: 12/31/17 21:17 Dose: 4 units Latanoprost (Xalatan 0.005% Eye Drops -) 1 drop OU DAILY [facility] Last Admin: 01/01/18 11:15 Dose: Not Given Levothyroxine Sodium (Synthroid -) 75 mcg PO AM [facility] Last Admin: 01/01/18 06:25 Dose: Not Given Montelukast Sodium (Singulair -) 10 mg PO HS [facility] Last Admin: 12/31/17 21:14 Dose: 10 mg Pantoprazole Sodium (Protonix -) 40 mg PO BID [facility] Last Admin: 01/01/18 11:14 Dose: Not Given Prednisone (Deltasone -) 40 mg PO DAILY [facility] Last Admin: 01/01/18 11:14 Dose: Not Given Roflumilast (Daliresp -) 500 mcg PO DAILY [facility] Last Admin: 01/01/18 11:14 Dose: Not Given Sitagliptin Phosphate (Januvia -) 100 mg PO AM [facility] Last Admin: 01/01/18 06:25 Dose: Not Given Tiotropium [place] (Spiriva Respimat) 2 puff IH DAILY [facility] Last Admin: 01/01/18 11:15 Dose: Not Given - Objective Vital Signs: Vital Signs Temperature 96.8 F L 01/01/18 13:32 Pulse Rate 92 H 01/01/18 13:32 Respiratory Rate 20 01/01/18 13:32 Blood Pressure 125/52 L 01/01/18 13:32 O2 Sat by Pulse Oximetry (%) 98 01/01/18 09:00 Constitutional: Yes: No Distress, Calm Cardiovascular: Yes: Regular Rate and Rhythm, S1, S2 Respiratory: Yes: Regular, Diminished, Other (coarse BS bilat). No: Rales Gastrointestinal: Yes: Normal Bowel Sounds, Soft. No: Tenderness, Tenderness, Epigastrium Edema: LLE: Trace, RLE: Trace Neurological: Yes: Alert, Oriented Labs: CBC, BMP 01/01/18 06:30 01/01/18 06:30 Problem List - Problems (1) Acute and chronic respiratory failure with hypercapnia Code(s): J96.22 - ACUTE AND CHRONIC RESPIRATORY FAILURE WITH HYPERCAPNIA (2) COPD with acute exacerbation Code(s): J44.1 - CHRONIC OBSTRUCTIVE PULMONARY DISEASE W (ACUTE) EXACERBATION (3) Advanced chronic obstructive pulmonary disease Code(s): J44.9 - CHRONIC OBSTRUCTIVE PULMONARY DISEASE, UNSPECIFIED (4) Diabetes mellitus Code(s): E11.9 - TYPE 2 DIABETES MELLITUS WITHOUT COMPLICATIONS (5) Hypertension Code(s): I10 - ESSENTIAL (PRIMARY) HYPERTENSION (6) Paroxysmal atrial fibrillation Code(s): I48.0 - PAROXYSMAL ATRIAL FIBRILLATION (7) Elevated troponin I level Code(s): R74.8 - ABNORMAL LEVELS OF OTHER SERUM ENZYMES (8) Leukocytosis Code(s): D72.829 - ELEVATED WHITE BLOOD CELL COUNT, UNSPECIFIED (9) Elevated LFTs Code(s): R94.5 - ABNORMAL RESULTS OF LIVER FUNCTION STUDIES (10) GIB (gastrointestinal bleeding) Code(s): K92.2 - GASTROINTESTINAL HEMORRHAGE, UNSPECIFIED (11) Hyponatremia Code(s): E87.1 - HYPO-OSMOLALITY AND HYPONATREMIA (12) Urinary retention Code(s): R33.9 - RETENTION OF URINE, UNSPECIFIED Assessment/Plan Pt now on PO Prednisone Pulmonary, Cardio, Phychiatry, ID, Heme, GI, Renal consults and f/u are appreciated. Psychiatry consult is appreciated; pt was found to have full capacity to make decisions. Continue current Rx. AM labs. Prognosis: reserved
--- NOTE | 2018-01-01 17:32 | CON.GU ---
Consult Consult Specialty:: Urology Referred by:: Dr. Mccarty Reason for Consultation:: Urinary retention - History of Present Illness Chief Complaint: Urinary retention - Past Medical History Cardio/Vascular: Yes: CHF (diastolic dysfunction), HTN, Pulmonary Hypertension Pulmonary: Yes: COPD (on BIPAP at home- every night and PRN), O2 Dependent Hepatobiliary: Yes: Other (fatty liver) Endocrine: Yes: Diabetes Mellitus (on Insulin), Hypothyroidism - Past Surgical History Past Surgical History: Yes: None - Alcohol/Substance Use Hx Alcohol Use: No - Smoking History Smoking history: Former smoker Have you smoked in the past 12 months: No Aproximately how many cigarettes per day: 0 If you are a former smoker, when did you quit?: 10 to 15 years ago - Social History Usual Living Arrangement: With Spouse ADL: Family Assistance 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 History of Recent Travel: No Home Medications - Allergies Allergies/Adverse Reactions: Allergies Allergy/AdvReac Type Severity Reaction Status Date / Time No Known Allergies Allergy Verified 12/12/17 14:32 - Home Medications Home Medications: Ambulatory Orders Arformoterol Tartrate [Brovana] 15 mcg IH BID 10/04/16 Atorvastatin Ca [Lipitor] 40 mg PO HS 10/04/16 Bimatoprost [Lumigan] 1 drop OU DAILY 10/04/16 Brimonidine Tartrate [Alphagan P 0.1% -] 1 drop OU BID 10/04/16 Brinzolamide [Azopt] 1 drop OU BID 10/04/16 Digoxin [Lanoxin -] 0.125 mg PO DAILY 10/04/16 Ergocalciferol (Vitamin D2) [Vitamin D2] 2,000 unit PO DAILY 10/04/16 Levalbuterol HCl [Xopenex] 0.45 mg IH BID 10/04/16 Levothyroxine [Synthroid -] 75 mcg PO ASDIR 10/04/16 Montelukast Na [Singulair -] 10 mg PO HS 10/04/16 Sitagliptin Phosphate [Januvia] 100 mg PO DAILY 10/04/16 Tiotropium [place] [Spiriva] 18 mcg IH DAILY 10/04/16 Albuterol 0.083% Nebulizer [place] [Ventolin 0.083% Nebulizer Soln -] 1 amp NEB Q4H PRN #0 amp 10/11/16 Apixaban [Eliquis -] 5 mg PO BID #60 tablet 10/11/16 Diltiazem [Cardizem -] 120 mg PO ASDIR 12/12/17 Furosemide [Lasix -] 40 mg PO DAILY 12/12/17 Insulin (Levemir) [Levemir Vial] 8 units SQ HS units 12/25/17 Insulin (Levemir) [Levemir Vial] 20 units SQ AM units 12/25/17 Insulin Sliding Scale [Novolog Vial Sliding Scale -] 1 vial SQ ACHS units 12/25 Roflumilast [Daliresp -] 500 mcg PO DAILY tablet 12/25/17 predniSONE [Deltasone -] 10 mg PO ASDIR #30 tab 12/25/17 Physical Exam- Vital Signs: Vital Signs Temperature 96.8 F L 01/01/18 13:32 Pulse Rate 92 H 01/01/18 13:32 Respiratory Rate 20 01/01/18 13:32 Blood Pressure 125/52 L 01/01/18 13:32 O2 Sat by Pulse Oximetry (%) 99 01/01/18 16:56 Labs: CBC, BMP 01/01/18 06:30 01/01/18 06:30 Problem List - Problems (1) Urinary retention Assessment/Plan: 72 yo female w mult medical problems admitted for COPD wbc 28 currentl was in AUR [place] draining well urine clear. Would give voiding trial when medically stable. Code(s): R33.9 - RETENTION OF URINE, UNSPECIFIED
[2018-01-01] MEDS ORDERED: INSULIN (NOVOLOG) ASPART 100 UNITS/ML 10ML VIAL ONE (19:49)
[2018-01-01] MEDS: ATORVASTATIN CA 40 MG TABLET (FP) PO SCH (21:01)
[2018-01-01] MEDS: MONTELUKAST NA 10 MG TABLET PO SCH (21:02)
[2018-01-02] MEDS: sitaGLIPtin PHOSPHATE 100 MG TABLET (FP) PO SCH (06:01)
[2018-01-02] MEDS: INSULIN (LEVEMIR) 100 UNITS/ML UNITS SQ SCH ×2 (06:02→21:51)
[2018-01-02] MEDS: LEVOTHYROXINE NA 75 MCG TABLET (FP) PO SCH (06:02)
[2018-01-02] MEDS: INSULIN SLIDING SCALE (NOVOLOG) 1 VIAL SQ SCH ×4 (06:02→23:11)
[2018-01-02 07:53] LABS: HEMATOCRIT 37.2 % (32.4-45.2); MCH 30.5 pg (25.7-33.7); MCHC 32.1 g/dl (32.0-36.0); MEAN CELL VOLUME 94.8 fl (80-96); MEAN PLT VOLUME 9.5 fl (7.5-11.1); PLATELET COUNT 107 K/MM3 (134-434); RBC 3.93 M/mm3 (3.60-5.2); RDW 14.6 % (11.6-15.6)
[2018-01-02 08:39] LABS: ANION GAP 9 MMOL/L (8-16); BLOOD UREA NITROGEN 52 mg/dL (7-18); CALCIUM 8.7 mg/dL (8.5-10.1); CHLORIDE 90 mmol/L (98-107); CO2 34 mmol/L (21-32); CREATININE 0.6 mg/dL (0.55-1.3); GLUCOSE,RANDOM 149 mg/dL (74-106); MAGNESIUM 2.4 mg/dL (1.8-2.4); PHOSPHOROUS 2.9 mg/dL (2.5-4.9); POTASSIUM 4.3 mmol/L (3.5-5.1); SODIUM 133 mmol/L (136-145)
[2018-01-02] MEDS ORDERED: PT OWN MED DRAWER 7, Y5N ONE (09:04)
[2018-01-02] MEDS: predniSONE 20 MG TABLET (UD) PO SCH (09:34)
[2018-01-02] MEDS: FLUCONAZOLE 100 MG TABLET (UD) PO SCH (09:35)
[2018-01-02] MEDS: ROFLUMILAST 500 MCG TABLET PO SCH (09:35)
[2018-01-02] MEDS: DIGOXIN 0.125 MG TABLET (FP) PO SCH (09:35)
[2018-01-02] MEDS: APIXABAN 5 MG TABLET PO SCH ×2 (09:35→21:51)
[2018-01-02] MEDS: PANTOPRAZOLE 40 MG TABLET (FP) PO SCH ×2 (09:35→21:52)
[2018-01-02] MEDS: TIOTROPIUM BROMIDE 2.5 MCG (SPIRIVA) RESPIMAT INHALER IH SCH (09:36)
[2018-01-02] MEDS: LATANOPROST 0.005% OPHTH SOLN 2.5ML BOTTLE OU SCH (09:36)
[2018-01-02] MEDS: BRIMONIDINE TARTRATE 0.1% OPHTHALMIC 5 ML BOTTLE OU SCH ×2 (09:37→21:51)
--- NOTE | 2018-01-02 10:01 | PN ---
Progress Note, Physician History of Present Illness: Pt's breathing is the same for the last few weeks. Pt w/o CP, palpitations, abd pain, N, V, heartburns. I asked pt about her appetite and she states that "is not great". I asked pt if is considering a PEG (I explained to pt what is a PEG and purpose it serves) as her appetite is decreased; I explained to pt that it was requested by her HCP, Aisha Mahajan. Pt is refusing the PEG and states that she makes decisions about her health. Pt's nurse, Cici, was present during my whole AM visit. - Current Medication List Current Medications: Active Medications Apixaban (Eliquis -) 5 mg PO BID [facility] Last Admin: 01/02/18 09:35 Dose: 5 mg Atorvastatin Calcium (Lipitor -) 40 mg PO [facility] Last Admin: 01/01/18 21:01 Dose: Not Given Brimonidine Tartrate (Alphagan P 0.1% -) 1 drop OU BID [facility] Last Admin: 01/02/18 09:37 Dose: 1 drop Digoxin (Lanoxin -) 0.125 mg PO DAILY [facility] Last Admin: 01/02/18 09:35 Dose: 0.125 mg Diltiazem HCl (Cardizem Cd -) 120 mg PO DAILY [facility] Last Admin: 01/02/18 09:35 Dose: 120 mg Fluconazole (Diflucan -) 100 mg PO DAILY [facility] Last Admin: 01/02/18 09:35 Dose: 100 mg Insulin Aspart (Novolog Vial Sliding Scale -) 1 vial SQ [facility]; Protocol Last Admin: 01/02/18 06:02 Dose: Not Given Insulin Detemir (Levemir Vial) 10 units SQ AM [facility] Last Admin: 01/02/18 06:02 Dose: Not Given Insulin Detemir (Levemir Vial) 4 units SQ HS [facility] Last Admin: 01/01/18 21:01 Dose: Not Given Latanoprost (Xalatan 0.005% Eye Drops -) 1 drop OU DAILY [facility] Last Admin: 01/02/18 09:36 Dose: 1 drop Levothyroxine Sodium (Synthroid -) 75 mcg PO AM [facility] Last Admin: 01/02/18 06:02 Dose: Not Given Montelukast Sodium (Singulair -) 10 mg PO [facility] Last Admin: 01/01/18 21:02 Dose: Not Given Pantoprazole Sodium (Protonix -) 40 mg PO BID [facility] Last Admin: 01/02/18 09:35 Dose: 40 mg Prednisone (Deltasone -) 40 mg PO DAILY [facility] Last Admin: 01/02/18 09:34 Dose: 40 mg Roflumilast (Daliresp -) 500 mcg PO DAILY [facility] Last Admin: 01/02/18 09:35 Dose: 500 mcg Sitagliptin Phosphate (Januvia -) 100 mg PO AM [facility] Last Admin: 01/02/18 06:01 Dose: Not Given Tiotropium [place] (Spiriva Respimat) 2 puff IH DAILY [facility] Last Admin: 01/02/18 09:36 Dose: 2 puff - Objective Vital Signs: Vital Signs Temperature 97.4 F L 01/02/18 06:00 Pulse Rate 76 01/02/18 09:35 Respiratory Rate 20 01/02/18 06:00 Blood Pressure 129/77 01/02/18 06:00 O2 Sat by Pulse Oximetry (%) 99 01/01/18 21:00 Constitutional: Yes: No Distress, Calm Cardiovascular: Yes: Regular Rate and Rhythm, S1, S2 Respiratory: Yes: Regular, Other (coarse BS). No: Wheezes Gastrointestinal: Yes: Normal Bowel Sounds, Soft. No: Tenderness Edema: Yes Edema: LLE: Trace, RLE: Trace Neurological: Yes: Alert, Oriented Labs: CBC, BMP 01/02/18 07:15 01/02/18 07:15 Problem List - Problems (1) Acute and chronic respiratory failure with hypercapnia Code(s): J96.22 - ACUTE AND CHRONIC RESPIRATORY FAILURE WITH HYPERCAPNIA (2) COPD with acute exacerbation Code(s): J44.1 - CHRONIC OBSTRUCTIVE PULMONARY DISEASE W (ACUTE) EXACERBATION (3) Advanced chronic obstructive pulmonary disease Assessment/Plan: Pt's COPD is severe, probably end-stage. This would explained why it is difficult to respond to treatment. Pt was explained this again and she understands it. Pt was offered possibility to ask questions. Pt's nurse was at the bedside during the whole conversation and examination. Code(s): J44.9 - CHRONIC OBSTRUCTIVE PULMONARY DISEASE, UNSPECIFIED (4) Diabetes mellitus Code(s): E11.9 - TYPE 2 DIABETES MELLITUS WITHOUT COMPLICATIONS (5) Hypertension Code(s): I10 - ESSENTIAL (PRIMARY) HYPERTENSION (6) Paroxysmal atrial fibrillation Code(s): I48.0 - PAROXYSMAL ATRIAL FIBRILLATION (7) Elevated troponin I level Code(s): R74.8 - ABNORMAL LEVELS OF OTHER SERUM ENZYMES (8) Leukocytosis Code(s): D72.829 - ELEVATED WHITE BLOOD CELL COUNT, UNSPECIFIED (9) Elevated LFTs Code(s): R94.5 - ABNORMAL RESULTS OF LIVER FUNCTION STUDIES (10) GIB (gastrointestinal bleeding) Code(s): K92.2 - GASTROINTESTINAL HEMORRHAGE, UNSPECIFIED (11) Hyponatremia Code(s): E87.1 - HYPO-OSMOLALITY AND HYPONATREMIA (12) Urinary retention Code(s): R33.9 - RETENTION OF URINE, UNSPECIFIED Assessment/Plan Pt now on PO Prednisone Pulmonary, Cardio, Phychiatry, ID, Heme, GI, Renal, consults and f/u are appreciated. Psychiatry consult is appreciated; pt was found to have full capacity to make decisions. I asked pt if I should talk with her HCPs, Aisha and Cami; pt suggested her sister only. Continue current Rx. Pt's condition was reviewed with Dr. Cole. Pt's case was reviewed with JOSE FRANCISCO PORTILLO. AM labs. Prognosis: reserved Time spent for managing pt's care: over 45 minutes.
--- NOTE | 2018-01-02 10:10 | PN ---
Progress Note, Physician Chief Complaint: sob History of Present Illness: still sob--a little better very tired denies cp, palpit - Current Medication List Current Medications: Active Medications Apixaban (Eliquis -) 5 mg PO BID [facility] Last Admin: 01/02/18 09:35 Dose: 5 mg Atorvastatin Calcium (Lipitor -) 40 mg PO HS [facility] Last Admin: 01/01/18 21:01 Dose: Not Given Brimonidine Tartrate (Alphagan P 0.1% -) 1 drop OU BID [facility] Last Admin: 01/02/18 09:37 Dose: 1 drop Digoxin (Lanoxin -) 0.125 mg PO DAILY [facility] Last Admin: 01/02/18 09:35 Dose: 0.125 mg Diltiazem HCl (Cardizem Cd -) 120 mg PO DAILY [facility] Last Admin: 01/02/18 09:35 Dose: 120 mg Fluconazole (Diflucan -) 100 mg PO DAILY [facility] Last Admin: 01/02/18 09:35 Dose: 100 mg Insulin Aspart (Novolog Vial Sliding Scale -) [address] [facility]; Protocol Last Admin: 01/02/18 06:02 Dose: Not Given Insulin Detemir (Levemir Vial) 10 units SQ AM [facility] Last Admin: 01/02/18 06:02 Dose: Not Given Insulin Detemir (Levemir Vial) 4 units SQ [facility] Last Admin: 01/01/18 21:01 Dose: Not Given Latanoprost (Xalatan 0.005% Eye Drops -) 1 drop OU DAILY [facility] Last Admin: 01/02/18 09:36 Dose: 1 drop Levothyroxine Sodium (Synthroid -) 75 mcg PO AM [facility] Last Admin: 01/02/18 06:02 Dose: Not Given Montelukast Sodium (Singulair -) 10 mg PO HS [facility] Last Admin: 01/01/18 21:02 Dose: Not Given Pantoprazole Sodium (Protonix -) 40 mg PO BID [facility] Last Admin: 01/02/18 09:35 Dose: 40 mg Prednisone (Deltasone -) 40 mg PO DAILY [facility] Last Admin: 01/02/18 09:34 Dose: 40 mg Roflumilast (Daliresp -) 500 mcg PO DAILY [facility] Last Admin: 01/02/18 09:35 Dose: 500 mcg Sitagliptin Phosphate (Januvia -) 100 mg PO AM [facility] Last Admin: 01/02/18 06:01 Dose: Not Given Tiotropium [place] (Spiriva Respimat) 2 puff IH DAILY [facility] Last Admin: 01/02/18 09:36 Dose: 2 puff - Objective Vital Signs: Vital Signs Temperature 97.4 F L 01/02/18 06:00 Pulse Rate 76 01/02/18 09:35 Respiratory Rate 20 01/02/18 06:00 Blood Pressure 129/77 01/02/18 06:00 O2 Sat by Pulse Oximetry (%) 99 01/01/18 21:00 Constitutional: Yes: Well Nourished, No Distress, Calm Cardiovascular: Yes: Regular Rate and Rhythm (decr intensity sounds), Murmur, S1 , S2. No: JVD, Gallop Respiratory: Yes: Regular, CTA Bilaterally (decr intensity sounds). No: Accessory Muscle Use, Rales, Wheezes Extremities: No: Cold Edema: Yes (1+ ankles) Neurological: Yes: Lethargy. No: Seizure Psychiatric: No: Agitated Labs: CBC, BMP 01/02/18 07:15 01/02/18 07:15 Assessment/Plan Echo 10/2015: Nl lv/rv. suboptimal views, but at least mild AR. Mod MAC. 1+ MR. No MS. trivial effusion. RVSP not measured. echo 09/2016: tds; nl lv/rv, mv calcified, mac, mild-mod mr, sev tr, small peric eff-->MV calcification is chronic finding for her and not indicative of vegetation CXR: hyperaerated lung, no effusion EKG: sinus, nonspecific ST segment changes Assessment/Plan Elevated trop - 0.07->0.06 - mild elevation with flat trend, EKG stable, not consistent with ACS - management of COPD exacerbation as below Shortness of breath, COPD - O2 dependent, on BiPap, chronic prednisone - sxs improved after iv steroids, now on po - manage per pulm Chronic diastolic CHF - pedal edema present, likely steroids effect - bun improving as steroid dose weaned. bicarb improving as respiratory acidosis improves. - not currently on lasix--start 20 po daily. pAFib - in sinus now - continue eliquis, digoxin, diltiazem HLD - continue statin possible uti: -abx per ID
--- NOTE | 2018-01-02 10:37 | PN ---
Progress Note (short form) - Note Progress Note: Feels breathing has plateaued. No change in cough. Still with JAMESON even with minimal exertion. Reports that she used NIPPV overnight but not sure of how long. Intake & Output 12/30/17 12/31/17 01/01/18 01/02/18 23:59 23:59 23:59 23:59 Intake Total 1050 587 250 Output Total 850 400 200 Balance 1050 -263 -150 -200 Last Vital Signs Temp Pulse Resp BP Pulse Ox 97.4 F L 76 20 129/77 99 01/02/18 06:00 01/02/18 09:35 01/02/18 06:00 01/02/18 06:00 01/01/18 21:00 Active Medications Apixaban (Eliquis -) 5 mg PO BID [facility] Last Admin: 01/02/18 09:35 Dose: 5 mg Atorvastatin Calcium (Lipitor -) 40 mg PO HS [facility] Last Admin: 01/01/18 21:01 Dose: Not Given Brimonidine Tartrate (Alphagan P 0.1% -) 1 drop OU BID [facility] Last Admin: 01/02/18 09:37 Dose: 1 drop Digoxin (Lanoxin -) 0.125 mg PO DAILY [facility] Last Admin: 01/02/18 09:35 Dose: 0.125 mg Diltiazem HCl (Cardizem Cd -) 120 mg PO DAILY [facility] Last Admin: 01/02/18 09:35 Dose: 120 mg Fluconazole (Diflucan -) 100 mg PO DAILY [facility] Last Admin: 01/02/18 09:35 Dose: 100 mg Furosemide (Lasix -) 20 mg PO DAILY [facility] Insulin Aspart (Novolog Vial Sliding Scale -) 1 vial SQ [facility]; Protocol Last Admin: 01/02/18 06:02 Dose: Not Given Insulin Detemir (Levemir Vial) 10 units SQ AM [facility] Last Admin: 01/02/18 06:02 Dose: Not Given Insulin Detemir (Levemir Vial) 4 units SQ HS [facility] Last Admin: 01/01/18 21:01 Dose: Not Given Latanoprost (Xalatan 0.005% Eye Drops -) 1 drop OU DAILY [facility] Last Admin: 01/02/18 09:36 Dose: 1 drop Levothyroxine Sodium (Synthroid -) 75 mcg PO AM [facility] Last Admin: 01/02/18 06:02 Dose: Not Given Montelukast Sodium (Singulair -) 10 mg PO HS [facility] Last Admin: 01/01/18 21:02 Dose: Not Given Pantoprazole Sodium (Protonix -) 40 mg PO BID [facility] Last Admin: 01/02/18 09:35 Dose: 40 mg Prednisone (Deltasone -) 40 mg PO DAILY [facility] Last Admin: 01/02/18 09:34 Dose: 40 mg Roflumilast (Daliresp -) 500 mcg PO DAILY [facility] Last Admin: 01/02/18 09:35 Dose: 500 mcg Sitagliptin Phosphate (Januvia -) 100 mg PO AM [facility] Last Admin: 01/02/18 06:01 Dose: Not Given Tiotropium [place] (Spiriva Respimat) 2 puff IH DAILY [facility] Last Admin: 01/02/18 09:36 Dose: 2 puff Gen: mildly tachypneic on NC O2 Heart: RRR Lung: distant breath sounds Abd: soft, nontender Ext: no edema Laboratory Results - last 24 hr 01/01/18 01/01/18 01/01/18 06:30 11:49 16:33 WBC RBC Hgb Hct MCV MCH MCHC RDW Plt Count MPV Sodium 132 L Potassium 4.9 Chloride 91 L Carbon Dioxide 34 H Anion Gap 7 L BUN 51 H Creatinine 0.9 Creat Clearance w eGFR > 60 POC Glucometer 163 214 Random Glucose 155 H Calcium 8.6 Phosphorus Magnesium Total Bilirubin 0.6 AST 61 H ALT 81 H Alkaline Phosphatase 119 H Total Protein 4.9 L Albumin 2.5 L TSH 3.86 H Free T4 0.78 01/01/18 01/02/18 01/02/18 20:28 05:19 07:15 WBC RBC Hgb Hct MCV MCH MCHC RDW Plt Count MPV Sodium 133 L Potassium 4.3 Chloride 90 L Carbon Dioxide 34 H Anion Gap 9 BUN 52 H Creatinine 0.6 Creat Clearance w eGFR > 60 POC Glucometer 155 78 Random Glucose 149 H Calcium 8.7 Phosphorus 2.9 Magnesium 2.4 Total Bilirubin AST ALT Alkaline Phosphatase Total Protein Albumin TSH Free T4 01/02/18 01/02/18 07:15 07:15 WBC 22.0 H RBC 3.93 Hgb 12.0 Hct 37.2 MCV 94.8 MCH 30.5 MCHC 32.1 RDW 14.6 Plt Count 107 L D MPV 9.5 Sodium Potassium Chloride Carbon Dioxide Anion Gap BUN Creatinine Creat Clearance w eGFR POC Glucometer Random Glucose Calcium Phosphorus Magnesium Total Bilirubin AST ALT Alkaline Phosphatase Total Protein Albumin TSH Free T4 0.55 L A/P Acute on Chronic Hypoxic and Hypercapneic Respiratory Failure Acute COPD Exacerbation Pulmonary HTN LV Diastolic Dysfunction Paroxysmal Atrial Fibrillation DM Hypothyroidism End Stage COPD - Prednisone 40mg OD - inhaled bronchodilators - O2 to keep Spo2 >90% - Encourage patient to use NIPPV QHS and as needed to assist in work of breathing - Daliresp - rate control - continue anticoagulation - DNI/DNR - Due to End Stage COPD and chronic respiratory failure, consider LTAC or hospice placement Dr Cole
[2018-01-02] MEDS: FUROSEMIDE 20 MG TABLET (FP) PO SCH (11:24)
--- NOTE | 2018-01-02 13:44 | PN ---
Progress Note, Physician Chief Complaint: The patient seen and examined in her bed. Seems coomfortable. Chawla catheter draining good amounts of dark urine. Lasix on hold. History of Present Illness: This is a 72 year old woman with hx of COPD on home O2, Pulmonary hypertension, Hypertension, CHF (diastolic dysfunction), Afib on A/c, DM, Hypothyroidism who presented with SOB and JAMESON and admitted for COPD exacerbation and noted to develop hyponatremia during the hospital course. - Current Medication List Current Medications: Active Medications Apixaban (Eliquis -) 5 mg PO BID [facility] Last Admin: 01/02/18 09:35 Dose: 5 mg Atorvastatin Calcium (Lipitor -) 40 mg PO HS [facility] Last Admin: 01/01/18 21:01 Dose: Not Given Brimonidine Tartrate (Alphagan P 0.1% -) 1 drop OU BID [facility] Last Admin: 01/02/18 09:37 Dose: 1 drop Digoxin (Lanoxin -) 0.125 mg PO DAILY [facility] Last Admin: 01/02/18 09:35 Dose: 0.125 mg Diltiazem HCl (Cardizem Cd -) 120 mg PO DAILY [facility] Last Admin: 01/02/18 09:35 Dose: 120 mg Fluconazole (Diflucan -) 100 mg PO DAILY [facility] Last Admin: 01/02/18 09:35 Dose: 100 mg Furosemide (Lasix -) 20 mg PO DAILY [facility] Last Admin: 01/02/18 11:24 Dose: Not Given Insulin Aspart (Novolog Vial Sliding Scale -) 1 vial SQ [facility]; Protocol Last Admin: 01/02/18 12:10 Dose: Not Given Insulin Detemir (Levemir Vial) 10 units SQ AM [facility] Last Admin: 01/02/18 06:02 Dose: Not Given Insulin Detemir (Levemir Vial) 4 units SQ HS [facility] Last Admin: 01/01/18 21:01 Dose: Not Given Latanoprost (Xalatan 0.005% Eye Drops -) 1 drop OU DAILY [facility] Last Admin: 01/02/18 09:36 Dose: 1 drop Levothyroxine Sodium (Synthroid -) 75 mcg PO AM [facility] Last Admin: 01/02/18 06:02 Dose: Not Given Montelukast Sodium (Singulair -) 10 mg PO HS [facility] Last Admin: 01/01/18 21:02 Dose: Not Given Pantoprazole Sodium (Protonix -) 40 mg PO BID [facility] Last Admin: 01/02/18 09:35 Dose: 40 mg Prednisone (Deltasone -) 40 mg PO DAILY [facility] Last Admin: 01/02/18 09:34 Dose: 40 mg Roflumilast (Daliresp -) 500 mcg PO DAILY [facility] Last Admin: 01/02/18 09:35 Dose: 500 mcg Sitagliptin Phosphate (Januvia -) 100 mg PO AM [facility] Last Admin: 01/02/18 06:01 Dose: Not Given Tiotropium [place] (Spiriva Respimat) 2 puff IH DAILY [facility] Last Admin: 01/02/18 09:36 Dose: 2 puff - Objective Vital Signs: Vital Signs Temperature 97.5 F L 01/02/18 10:00 Pulse Rate 76 01/02/18 10:00 Respiratory Rate 20 01/02/18 10:00 Blood Pressure 121/78 01/02/18 10:00 O2 Sat by Pulse Oximetry (%) 99 01/02/18 09:00 Constitutional: Yes: Calm, Pallor Eyes: Yes: Conjunctiva Clear HENT: Yes: Normocephalic Cardiovascular: Yes: Regular Rate and Rhythm, Tachycardia, S1, S2 Respiratory: Yes: CTA Bilaterally, Diminished, On Nasal O2, Poor Air Entry Gastrointestinal: Yes: Normal Bowel Sounds Genitourinary: Yes: Chawla Present. No: Bladder Distention, CVA Tenderness - Left, CVA Tenderness - Right Edema: No Neurological: Yes: Alert, Oriented Psychiatric: Yes: Alert Labs: CBC, BMP 01/02/18 07:15 01/02/18 07:15 Assessment/Plan This is a 72 year old woman with hx of COPD on home O2, Pulmonary hypertension, Hypertension, CHF (diastolic dysfunction), Afib on A/c, DM, Hypothyroidism who presented with SOB and JAMESON and admitted for COPD exacerbation and noted to develop hyponatremia during the hospital course. Hypovolemic hyponatremia in setting of diuretics (low urine Na, Serum OSM WNL). The Serum sodium stable. No specific intervention suggested at this time. COPD exacerbation Diastolic HF Hypothyroidism Some degree of Prerenal azotemia is also noted. Will trend the Renal/ electrolyte profile. Gretchen Willson MD
--- NOTE | 2018-01-02 16:07 | PN ---
Progress Note (short form) - Note Progress Note: PROGRESS NOTE FOR HEMATOLOGY/ONCOLOGY Patient seen and examined by me at bedside Breathing is less labored. Is having intermittent coughing. Denies any chest pain, palpitations, abdominal pain Vital Signs Temperature 97.9 F 01/02/18 15:14 Pulse Rate 89 01/02/18 15:14 Respiratory Rate 20 01/02/18 15:14 Blood Pressure 136/51 L 01/02/18 15:14 O2 Sat by Pulse Oximetry (%) 99 01/02/18 09:00 PHYSICAL EXAM GENERAL: Awake and more alert today EYES: conjunctiva clear. EARS, NOSE, THROAT: Oral thrush LUNGS: On Nasal cannula with less labored breathing. Distant breath sounds bilaterally with no crackles or wheezes HEART: RRR, normal S1 and S2 ABDOMEN: Soft, nontender, not distended, normoactive bowel sounds EXTREMITIES: 1+ pitting edema bilaterally Laboratory Tests 01/02/18 07:15 01/02/18 07:15 ASSESSMENT/PLAN: Patient is a 72 year old female who was sent by her PCP for increasing shortness of breath and was found to have acute COPD exacerbation. Patient placed on steroids and continued to have elevated WBC's. We were consulted to evaluate Leukocytosis. Problem List: Acute on Chronic Hypoxic and Hypercapneic Respiratory Failure Acute COPD Exacerbation Pulmonary HTN Diastolic Congestive Heart Failure Paroxysmal Atrial Fibrillation (On Eliquis) HTN IDDMII Hypothyroidism Leukocytosis PLAN: -Patients leukocytosis improving and is currently on Prednisone 40mg daily. -DEBBIE 2 and BCR-Abl by PCR -Continue Diflucan for oral thrush -Palliative care consideration
[2018-01-02] MEDS: ATORVASTATIN CA 40 MG TABLET (FP) PO SCH (21:52)
[2018-01-02] MEDS: MONTELUKAST NA 10 MG TABLET PO SCH (21:52)
[2018-01-03] MEDS: sitaGLIPtin PHOSPHATE 100 MG TABLET (FP) PO SCH (06:15)
[2018-01-03] MEDS: LEVOTHYROXINE NA 75 MCG TABLET (FP) PO SCH (06:15)
[2018-01-03] MEDS: INSULIN (LEVEMIR) 100 UNITS/ML UNITS SQ SCH ×2 (06:15→22:15)
[2018-01-03] MEDS: INSULIN SLIDING SCALE (NOVOLOG) 1 VIAL SQ SCH ×4 (06:22→22:20)
[2018-01-03] MEDS ORDERED: PT OWN MED DRAWER 7, Y5N ONE ×2 (08:57→20:53)
--- NOTE | 2018-01-03 09:36 | PN ---
Progress Note, Physician History of Present Illness: Pt w/o CP, palpitations, abd pain, N, V, heartburns. Pt's breathing is unchanged. Pt's day nurse told me that pt is refusing so far AM meds -inn the last she took them later - Current Medication List Current Medications: Active Medications Apixaban (Eliquis -) 5 mg PO BID [facility] Last Admin: 01/02/18 21:51 Dose: Not Given Atorvastatin Calcium (Lipitor -) 40 mg PO HS [facility] Last Admin: 01/02/18 21:52 Dose: Not Given Brimonidine Tartrate (Alphagan P 0.1% -) 1 drop OU BID [facility] Last Admin: 01/02/18 21:51 Dose: Not Given Digoxin (Lanoxin -) 0.125 mg PO DAILY [facility] Last Admin: 01/02/18 09:35 Dose: 0.125 mg Diltiazem HCl (Cardizem Cd -) 120 mg PO DAILY [facility] Last Admin: 01/02/18 09:35 Dose: 120 mg Fluconazole (Diflucan -) 100 mg PO DAILY [facility] Last Admin: 01/02/18 09:35 Dose: 100 mg Furosemide (Lasix -) 20 mg PO DAILY [facility] Last Admin: 01/02/18 11:24 Dose: Not Given Insulin Aspart (Novolog Vial Sliding Scale -) 1 vial SQ [facility]; Protocol Last Admin: 01/03/18 06:22 Dose: Not Given Insulin Detemir (Levemir Vial) 10 units SQ AM [facility] Last Admin: 01/03/18 06:15 Dose: Not Given Insulin Detemir (Levemir Vial) 4 units SQ HS [facility] Last Admin: 01/02/18 21:51 Dose: Not Given Latanoprost (Xalatan 0.005% Eye Drops -) 1 drop OU DAILY [facility] Last Admin: 01/02/18 09:36 Dose: 1 drop Levothyroxine Sodium (Synthroid -) 75 mcg PO AM [facility] Last Admin: 01/03/18 06:15 Dose: Not Given Montelukast Sodium (Singulair -) 10 mg PO HS [facility] Last Admin: 01/02/18 21:52 Dose: Not Given Pantoprazole Sodium (Protonix -) 40 mg PO BID [facility] Last Admin: 01/02/18 21:52 Dose: Not Given Prednisone (Deltasone -) 40 mg PO DAILY [facility] Last Admin: 01/02/18 09:34 Dose: 40 mg Roflumilast (Daliresp -) 500 mcg PO DAILY [facility] Last Admin: 01/02/18 09:35 Dose: 500 mcg Sitagliptin Phosphate (Januvia -) 100 mg PO AM [facility] Last Admin: 01/03/18 06:15 Dose: Not Given Tiotropium [place] (Spiriva Respimat) 2 puff IH DAILY [facility] Last Admin: 01/02/18 09:36 Dose: 2 puff - Objective Vital Signs: Vital Signs Temperature 97.4 F L 01/03/18 06:00 Pulse Rate 80 01/03/18 06:00 Respiratory Rate 20 01/03/18 06:00 Blood Pressure 111/51 L 01/03/18 06:00 O2 Sat by Pulse Oximetry (%) 98 01/02/18 21:00 Constitutional: Yes: No Distress, Calm Cardiovascular: Yes: Regular Rate and Rhythm, S1, S2 Respiratory: Yes: Regular, Other (coarse BS bilat) Gastrointestinal: Yes: Normal Bowel Sounds, Soft. No: Hepatomegaly, Splenomegaly, Tenderness Edema: No Integumentary: Yes: Bruising Neurological: Yes: Alert, Oriented Labs: CBC, BMP 01/02/18 07:15 01/02/18 07:15 Problem List - Problems (1) Acute and chronic respiratory failure with hypercapnia Code(s): J96.22 - ACUTE AND CHRONIC RESPIRATORY FAILURE WITH HYPERCAPNIA (2) COPD with acute exacerbation Code(s): J44.1 - CHRONIC OBSTRUCTIVE PULMONARY DISEASE W (ACUTE) EXACERBATION (3) Advanced chronic obstructive pulmonary disease Assessment/Plan: Pt's COPD is severe, end-stage. Code(s): J44.9 - CHRONIC OBSTRUCTIVE PULMONARY DISEASE, UNSPECIFIED (4) Diabetes mellitus Code(s): E11.9 - TYPE 2 DIABETES MELLITUS WITHOUT COMPLICATIONS (5) Hypertension Code(s): I10 - ESSENTIAL (PRIMARY) HYPERTENSION (6) Paroxysmal atrial fibrillation Code(s): I48.0 - PAROXYSMAL ATRIAL FIBRILLATION (7) Elevated troponin I level Code(s): R74.8 - ABNORMAL LEVELS OF OTHER SERUM ENZYMES (8) Leukocytosis Code(s): D72.829 - ELEVATED WHITE BLOOD CELL COUNT, UNSPECIFIED (9) Elevated LFTs Code(s): R94.5 - ABNORMAL RESULTS OF LIVER FUNCTION STUDIES (10) GIB (gastrointestinal bleeding) Code(s): K92.2 - GASTROINTESTINAL HEMORRHAGE, UNSPECIFIED (11) Hyponatremia Code(s): E87.1 - HYPO-OSMOLALITY AND HYPONATREMIA (12) Urinary retention Code(s): R33.9 - RETENTION OF URINE, UNSPECIFIED Assessment/Plan Pt now on PO Prednisone -to be tappered per Pulmonary Pulmonary, Cardio, Phychiatry, ID, Heme, GI, Renal, consults and f/u are appreciated. Psychiatry consult is appreciated; pt was found to have full capacity to make decisions. Continue current Rx. DC planing (LTAC if bed available) AM labs. Prognosis: reserved
[2018-01-03] MEDS: FUROSEMIDE 20 MG TABLET (FP) PO SCH (09:46)
[2018-01-03] MEDS: DIGOXIN 0.125 MG TABLET (FP) PO SCH (09:46)
[2018-01-03] MEDS: predniSONE 20 MG TABLET (UD) PO SCH (09:46)
[2018-01-03] MEDS: PANTOPRAZOLE 40 MG TABLET (FP) PO SCH ×2 (09:46→22:12)
[2018-01-03] MEDS: FLUCONAZOLE 100 MG TABLET (UD) PO SCH (09:46)
[2018-01-03] MEDS: TIOTROPIUM BROMIDE 2.5 MCG (SPIRIVA) RESPIMAT INHALER IH SCH (09:52)
[2018-01-03] MEDS: BRIMONIDINE TARTRATE 0.1% OPHTHALMIC 5 ML BOTTLE OU SCH ×2 (09:52→22:12)
[2018-01-03] MEDS: LATANOPROST 0.005% OPHTH SOLN 2.5ML BOTTLE OU SCH (09:52)
[2018-01-03] MEDS: ROFLUMILAST 500 MCG TABLET PO SCH (09:52)
[2018-01-03] MEDS: APIXABAN 5 MG TABLET PO SCH ×2 (09:52→22:11)
[2018-01-03 10:14] LABS: ALPHA 2 MACROGLOBULINS,QN 143 mg/dL (110-276); ALT(SGPT)P5P 126 IU/L (0-40); CHOLESTEROL TOTAL 227 mg/dL (100-199); GGT= 117 IU/L (0-60); GLUCOSE SERUM 270 mg/dL (65-99); HEIGHT 65 in (.); WEIGHT- 132 LBS (.)
--- NOTE | 2018-01-03 11:27 | PN ---
Progress Note (short form) - Note Progress Note: Chief Complaint: sob History of Present Illness: sob stable, c/w cough. feels sleepy. no chest pain, palps, dizziness Current Medications Apixaban (Eliquis -) 5 mg PO BID [facility] Last Admin: 01/03/18 09:52 Dose: 5 mg Atorvastatin Calcium (Lipitor -) 40 mg PO HS [facility] Last Admin: 01/02/18 21:52 Dose: Not Given Brimonidine Tartrate (Alphagan P 0.1% -) 1 drop OU BID [facility] Last Admin: 01/03/18 09:52 Dose: 1 drop Digoxin (Lanoxin -) 0.125 mg PO DAILY [facility] Last Admin: 01/03/18 09:46 Dose: 0.125 mg Diltiazem HCl (Cardizem Cd -) 120 mg PO DAILY [facility] Last Admin: 01/03/18 09:46 Dose: 120 mg Fluconazole (Diflucan -) 100 mg PO DAILY [facility] Last Admin: 01/03/18 09:46 Dose: 100 mg Furosemide (Lasix -) 20 mg PO DAILY [facility] Last Admin: 01/03/18 09:46 Dose: 20 mg Insulin Aspart (Novolog Vial Sliding Scale -) 1 vial SQ [facility]; Protocol Last Admin: 01/03/18 11:06 Dose: 2 units Insulin Detemir (Levemir Vial) 10 units SQ AM [facility] Last Admin: 01/03/18 06:15 Dose: Not Given Insulin Detemir (Levemir Vial) 4 units SQ HS [facility] Last Admin: 01/02/18 21:51 Dose: Not Given Latanoprost (Xalatan 0.005% Eye Drops -) 1 drop OU DAILY [facility] Last Admin: 01/03/18 09:52 Dose: 1 drop Levothyroxine Sodium (Synthroid -) 75 mcg PO AM [facility] Last Admin: 01/03/18 06:15 Dose: Not Given Montelukast Sodium (Singulair -) 10 mg PO HS [facility] Last Admin: 01/02/18 21:52 Dose: Not Given Pantoprazole Sodium (Protonix -) 40 mg PO BID [facility] Last Admin: 01/03/18 09:46 Dose: 40 mg Prednisone (Deltasone -) 40 mg PO DAILY [facility] Last Admin: 01/03/18 09:46 Dose: 40 mg Roflumilast (Daliresp -) 500 mcg PO DAILY [facility] Last Admin: 01/03/18 09:52 Dose: 500 mcg Sitagliptin Phosphate (Januvia -) 100 mg PO AM [facility] Last Admin: 01/03/18 06:15 Dose: Not Given Tiotropium [place] (Spiriva Respimat) 2 puff IH DAILY [facility] Last Admin: 01/03/18 09:52 Dose: 2 puff - Objective Vital Signs Period Temp Pulse Resp BP Sys/Anthony Pulse Ox Last 24 Hr 97.4 F-97.9 F 78-89 18-20 111-137/51-59 98-100 Constitutional: Yes: Well Nourished, No Distress, Calm Cardiovascular: Yes: Regular Rate and Rhythm (decr intensity sounds), Murmur, S1 , S2. No: JVD, Gallop Respiratory: Yes: Regular, CTA Bilaterally (decr intensity sounds, poor effort) . No: Accessory Muscle Use, Rales, Wheezes Extremities: No: Cold Edema: Yes (1+ ankles) Neurological: Yes: Lethargy. No: Seizure Psychiatric: No: Agitated Assessment/Plan Echo 10/2015: Nl lv/rv. suboptimal views, but at least mild AR. Mod MAC. 1+ MR. No MS. trivial effusion. RVSP not measured. echo 09/2016: tds; nl lv/rv, mv calcified, mac, mild-mod mr, sev tr, small peric eff-->MV calcification is chronic finding for her and not indicative of vegetation CXR: hyperaerated lung, no effusion EKG: sinus, nonspecific ST segment changes Assessment/Plan Elevated trop - 0.07->0.06 - mild elevation with flat trend, EKG stable, not consistent with ACS - management of COPD exacerbation as below Shortness of breath, COPD - O2 dependent, on BiPap, chronic prednisone - sxs improved after iv steroids, now on po - manage per pulm Chronic diastolic CHF - pedal edema present, likely steroids effect - bun stable, bicarb improving as respiratory acidosis improves. - continue lasix 20 po daily pAFib - in sinus now, rate stable - continue eliquis, digoxin, diltiazem HLD - continue statin possible uti: -abx per ID
--- NOTE | 2018-01-03 13:02 | PN ---
Progress Note (short form) - Note Progress Note: No change in dyspnea. Clinically has plateaued. No change in cough. Does not appear that she used NIPPV yesterday/overnight. Intake & Output 12/31/17 01/01/18 01/02/18 01/03/18 23:59 23:59 23:59 23:59 Intake Total 587 250 350 50 Output Total 850 400 700 200 Balance -263 -150 -350 -150 Last Vital Signs Temp Pulse Resp BP Pulse Ox 97.6 F 85 20 131/58 L 98 01/03/18 10:00 01/03/18 10:00 01/03/18 10:00 01/03/18 10:00 01/03/18 09:05 Active Medications Apixaban (Eliquis -) 5 mg PO BID [facility] Last Admin: 01/03/18 09:52 Dose: 5 mg Atorvastatin Calcium (Lipitor -) 40 mg PO HS [facility] Last Admin: 01/02/18 21:52 Dose: Not Given Brimonidine Tartrate (Alphagan P 0.1% -) 1 drop OU BID [facility] Last Admin: 01/03/18 09:52 Dose: 1 drop Digoxin (Lanoxin -) 0.125 mg PO DAILY [facility] Last Admin: 01/03/18 09:46 Dose: 0.125 mg Diltiazem HCl (Cardizem Cd -) 120 mg PO DAILY [facility] Last Admin: 01/03/18 09:46 Dose: 120 mg Fluconazole (Diflucan -) 100 mg PO DAILY [facility] Last Admin: 01/03/18 09:46 Dose: 100 mg Furosemide (Lasix -) 20 mg PO DAILY [facility] Last Admin: 01/03/18 09:46 Dose: 20 mg Insulin Aspart (Novolog Vial Sliding Scale -) 1 vial SQ [facility]; Protocol Last Admin: 01/03/18 11:06 Dose: 2 units Insulin Detemir (Levemir Vial) 10 units SQ AM [facility] Last Admin: 01/03/18 06:15 Dose: Not Given Insulin Detemir (Levemir Vial) 4 units SQ HS [facility] Last Admin: 01/02/18 21:51 Dose: Not Given Latanoprost (Xalatan 0.005% Eye Drops -) 1 drop OU DAILY [facility] Last Admin: 01/03/18 09:52 Dose: 1 drop Levothyroxine Sodium (Synthroid -) 75 mcg PO AM [facility] Last Admin: 01/03/18 06:15 Dose: Not Given Montelukast Sodium (Singulair -) 10 mg PO HS [facility] Last Admin: 01/02/18 21:52 Dose: Not Given Pantoprazole Sodium (Protonix -) 40 mg PO BID [facility] Last Admin: 01/03/18 09:46 Dose: 40 mg Prednisone (Deltasone -) 40 mg PO DAILY [facility] Last Admin: 01/03/18 09:46 Dose: 40 mg Roflumilast (Daliresp -) 500 mcg PO DAILY [facility] Last Admin: 01/03/18 09:52 Dose: 500 mcg Sitagliptin Phosphate (Januvia -) 100 mg PO AM [facility] Last Admin: 01/03/18 06:15 Dose: Not Given Tiotropium [place] (Spiriva Respimat) 2 puff IH DAILY [facility] Last Admin: 01/03/18 09:52 Dose: 2 puff Gen: mildly tachypneic on NC O2 Heart: RRR Lung: distant breath sounds Abd: soft, nontender Ext: no edema Laboratory Results - last 24 hr 12/28/17 01/01/18 01/02/18 09:45 06:30 16:27 Haptoglobin 187 Glucose 270 H POC Glucometer 254 Total Bilirubin 0.6 GGT 117 H AST 50 H ALT 126 H Liver Fibrosis Score TNP Liver Fibrosis Stage Liver Steatosis Score TNP Liver Steatosis Grade TNP [id number] 143 Triglycerides 173 H Cholesterol 227 H Apolipoprotein A-1 148 Cortisol AM Sample 4.7 Patient Height (cm) 65 Patient Weight (kg) 132 CSF IgG Interpretation TNP 01/03/18 01/03/18 06:22 11:02 Haptoglobin Glucose POC Glucometer 205 203 Total Bilirubin GGT AST ALT Liver Fibrosis Score Liver Fibrosis Stage Liver Steatosis Score Liver Steatosis Grade [id number] Triglycerides Cholesterol Apolipoprotein A-1 Cortisol AM Sample Patient Height (cm) Patient Weight (kg) CSF IgG Interpretation A/P Acute on Chronic Hypoxic and Hypercapneic Respiratory Failure Acute COPD Exacerbation Pulmonary HTN LV Diastolic Dysfunction Paroxysmal Atrial Fibrillation DM Hypothyroidism End Stage COPD - Prednisone 40mg OD - inhaled bronchodilators - O2 to keep Spo2 >90% - Encourage patient to use NIPPV QHS and as needed to assist in work of breathing - Daliresp - rate control - continue anticoagulation - DNI/DNR - Due to End Stage COPD and chronic respiratory failure, consider LTAC or hospice placement Dr Cole
[2018-01-03 13:40] LABS: ANION GAP 7 MMOL/L (8-16); BLOOD UREA NITROGEN 47 mg/dL (7-18); CALCIUM 8.5 mg/dL (8.5-10.1); CHLORIDE 89 mmol/L (98-107); CO2 35 mmol/L (21-32); CREATININE 0.6 mg/dL (0.55-1.3); GLUCOSE,RANDOM 221 mg/dL (74-106); POTASSIUM 4.8 mmol/L (3.5-5.1); SODIUM 131 mmol/L (136-145)
--- NOTE | 2018-01-03 15:24 | PN ---
Progress Note (short form) - Note Progress Note: Renal follow up for Hyponatremia Pt seen and examined at the bedside awake and alert no acute complaints feels thirsty no cp, abd pain, N/V/D Vital Signs Temperature 97.2 F L 01/03/18 14:29 Pulse Rate 84 01/03/18 14:29 Respiratory Rate 20 01/03/18 14:29 Blood Pressure 125/52 L 01/03/18 14:29 O2 Sat by Pulse Oximetry (%) 98 01/03/18 09:05 Intake & Output 12/31/17 01/01/18 01/02/18 01/03/18 23:59 23:59 23:59 23:59 Intake Total 587 250 350 50 Output Total 850 400 700 400 Balance -263 -150 -350 -350 NAD Dec BS Trace edema in ankles CBC, BMP 01/02/18 07:15 01/03/18 12:22 Current Medications Apixaban (Eliquis -) 5 mg PO BID [facility] Last Admin: 01/03/18 09:52 Dose: 5 mg Atorvastatin Calcium (Lipitor -) 40 mg PO HS [facility] Last Admin: 01/02/18 21:52 Dose: Not Given Brimonidine Tartrate (Alphagan P 0.1% -) 1 drop OU BID [facility] Last Admin: 01/03/18 09:52 Dose: 1 drop Digoxin (Lanoxin -) 0.125 mg PO DAILY [facility] Last Admin: 01/03/18 09:46 Dose: 0.125 mg Diltiazem HCl (Cardizem Cd -) 120 mg PO DAILY [facility] Last Admin: 01/03/18 09:46 Dose: 120 mg Fluconazole (Diflucan -) 100 mg PO DAILY [facility] Last Admin: 01/03/18 09:46 Dose: 100 mg Furosemide (Lasix -) 20 mg PO DAILY [facility] Last Admin: 01/03/18 09:46 Dose: 20 mg Insulin Aspart (Novolog Vial Sliding Scale -) 1 vial SQ [facility]; Protocol Last Admin: 01/03/18 11:06 Dose: 2 units Insulin Detemir (Levemir Vial) 10 units SQ AM [facility] Last Admin: 01/03/18 06:15 Dose: Not Given Insulin Detemir (Levemir Vial) 4 units SQ HS [facility] Last Admin: 01/02/18 21:51 Dose: Not Given Latanoprost (Xalatan 0.005% Eye Drops -) 1 drop OU DAILY [facility] Last Admin: 01/03/18 09:52 Dose: 1 drop Levothyroxine Sodium (Synthroid -) 75 mcg PO AM [facility] Last Admin: 01/03/18 06:15 Dose: Not Given Montelukast Sodium (Singulair -) 10 mg PO HS [facility] Last Admin: 01/02/18 21:52 Dose: Not Given Pantoprazole Sodium (Protonix -) 40 mg PO BID [facility] Last Admin: 01/03/18 09:46 Dose: 40 mg Prednisone (Deltasone -) 40 mg PO DAILY [facility] Last Admin: 01/03/18 09:46 Dose: 40 mg Roflumilast (Daliresp -) 500 mcg PO DAILY [facility] Last Admin: 01/03/18 09:52 Dose: 500 mcg Sitagliptin Phosphate (Januvia -) 100 mg PO AM [facility] Last Admin: 01/03/18 06:15 Dose: Not Given Tiotropium [place] (Spiriva Respimat) 2 puff IH DAILY [facility] Last Admin: 01/03/18 09:52 Dose: 2 puff 72 year old woman with hx of COPD on home O2, Pulmonary hypertension, Hypertension, CHF (diastolic dysfunction), Afib on A/c, DM, Hypothyroidism who presented with SOB and JAMESON and admitted for COPD exacerbation and noted to develop hyponatremia during the hospital course. #Hypovolemic hyponatremia in setting of diuretics (low urine Na, Serum OSM WNL) #COPD exacerbation #Diastolic HF #Hypothyroidism #Azotemia Serum Na stable, no neurological symptoms that would warrent hypertonic saline would hold diuretics for 24-48 hours and monitor Na levels limit oral water intake as pt has poor solute intake Trend Na daily Shayan Delaney DO
[2018-01-03] MEDS: MONTELUKAST NA 10 MG TABLET PO SCH (22:11)
[2018-01-03] MEDS: ATORVASTATIN CA 40 MG TABLET (FP) PO SCH (22:12)
[2018-01-04] MEDS: INSULIN (LEVEMIR) 100 UNITS/ML UNITS SQ SCH ×2 (06:01→23:42)
[2018-01-04] MEDS: sitaGLIPtin PHOSPHATE 100 MG TABLET (FP) PO SCH (06:01)
[2018-01-04] MEDS: INSULIN SLIDING SCALE (NOVOLOG) 1 VIAL SQ SCH ×4 (06:01→23:43)
[2018-01-04] MEDS: LEVOTHYROXINE NA 75 MCG TABLET (FP) PO SCH (06:04)
[2018-01-04 07:53] LABS: ANION GAP 7 MMOL/L (8-16); BLOOD UREA NITROGEN 53 mg/dL (7-18); CALCIUM 8.5 mg/dL (8.5-10.1); CHLORIDE 89 mmol/L (98-107); CO2 36 mmol/L (21-32); CREATININE 0.6 mg/dL (0.55-1.3); GLUCOSE,RANDOM 150 mg/dL (74-106); POTASSIUM 4.7 mmol/L (3.5-5.1); SODIUM 132 mmol/L (136-145)
[2018-01-04] MEDS: FLUCONAZOLE 100 MG TABLET (UD) PO SCH (09:09)
[2018-01-04] MEDS: PANTOPRAZOLE 40 MG TABLET (FP) PO SCH ×2 (09:09→23:43)
[2018-01-04] MEDS: BRIMONIDINE TARTRATE 0.1% OPHTHALMIC 5 ML BOTTLE OU SCH ×2 (09:09→22:00)
[2018-01-04] MEDS: predniSONE 20 MG TABLET (UD) PO SCH (09:09)
[2018-01-04] MEDS: DIGOXIN 0.125 MG TABLET (FP) PO SCH (09:09)
[2018-01-04] MEDS: TIOTROPIUM BROMIDE 2.5 MCG (SPIRIVA) RESPIMAT INHALER IH SCH (09:10)
[2018-01-04] MEDS: APIXABAN 5 MG TABLET PO SCH ×2 (09:10→23:41)
[2018-01-04] MEDS: LATANOPROST 0.005% OPHTH SOLN 2.5ML BOTTLE OU SCH (09:10)
[2018-01-04] MEDS: ROFLUMILAST 500 MCG TABLET PO SCH (09:10)
--- NOTE | 2018-01-04 11:04 | PN ---
Progress Note, Physician History of Present Illness: Pt w/o CP, palpitations, abd pain, N, V, heartburns. Pt's breathing is unchanged, now on NC. - Current Medication List Current Medications: Active Medications Apixaban (Eliquis -) 5 mg PO BID [facility] Last Admin: 01/04/18 09:10 Dose: 5 mg Atorvastatin Calcium (Lipitor -) 40 mg PO HS [facility] Last Admin: 01/03/18 22:12 Dose: 40 mg Brimonidine Tartrate (Alphagan P 0.1% -) 1 drop OU BID [facility] Last Admin: 01/04/18 09:09 Dose: 1 drop Digoxin (Lanoxin -) 0.125 mg PO DAILY [facility] Last Admin: 01/04/18 09:09 Dose: 0.125 mg Diltiazem HCl (Cardizem Cd -) 120 mg PO DAILY [facility] Last Admin: 01/04/18 09:09 Dose: 120 mg Fluconazole (Diflucan -) 100 mg PO DAILY [facility] Last Admin: 01/04/18 09:09 Dose: 100 mg Insulin Aspart (Novolog Vial Sliding Scale -) 1 vial SQ [facility]; Protocol Last Admin: 01/04/18 06:01 Dose: Not Given Insulin Detemir (Levemir Vial) 10 units SQ AM [facility] Last Admin: 01/04/18 06:01 Dose: Not Given Insulin Detemir (Levemir Vial) 4 units SQ HS [facility] Last Admin: 01/03/18 22:15 Dose: Not Given Latanoprost (Xalatan 0.005% Eye Drops -) 1 drop OU DAILY [facility] Last Admin: 01/04/18 09:10 Dose: 1 drop Levothyroxine Sodium (Synthroid -) 75 mcg PO AM [facility] Last Admin: 01/04/18 06:04 Dose: Not Given Montelukast Sodium (Singulair -) 10 mg PO HS [facility] Last Admin: 01/03/18 22:11 Dose: 10 mg Pantoprazole Sodium (Protonix -) 40 mg PO BID [facility] Last Admin: 01/04/18 09:09 Dose: 40 mg Prednisone (Deltasone -) 40 mg PO DAILY [facility] Last Admin: 01/04/18 09:09 Dose: 40 mg Roflumilast (Daliresp -) 500 mcg PO DAILY [facility] Last Admin: 01/04/18 09:10 Dose: 500 mcg Sitagliptin Phosphate (Januvia -) 100 mg PO AM [facility] Last Admin: 01/04/18 06:01 Dose: Not Given Tiotropium [place] (Spiriva Respimat) 2 puff IH DAILY [facility] Last Admin: 01/04/18 09:10 Dose: 2 puff - Objective Vital Signs: Vital Signs Temperature 97.5 F L 01/04/18 10:00 Pulse Rate 78 01/04/18 10:00 Respiratory Rate 20 01/04/18 10:00 Blood Pressure 140/58 L 01/04/18 10:00 O2 Sat by Pulse Oximetry (%) 99 01/03/18 21:00 Constitutional: Yes: No Distress, Calm Cardiovascular: Yes: Regular Rate and Rhythm, S1, S2 Respiratory: Yes: Regular, CTA Bilaterally, Diminished, Rhonchi (minimal, scatterred) Gastrointestinal: Yes: Normal Bowel Sounds, Soft. No: Tenderness, Tenderness, Epigastrium Edema: No Neurological: Yes: Alert, Oriented Labs: CBC, BMP 01/02/18 07:15 01/04/18 06:10 Problem List - Problems (1) Acute and chronic respiratory failure with hypercapnia Code(s): J96.22 - ACUTE AND CHRONIC RESPIRATORY FAILURE WITH HYPERCAPNIA (2) COPD with acute exacerbation Code(s): J44.1 - CHRONIC OBSTRUCTIVE PULMONARY DISEASE W (ACUTE) EXACERBATION (3) Advanced chronic obstructive pulmonary disease Code(s): J44.9 - CHRONIC OBSTRUCTIVE PULMONARY DISEASE, UNSPECIFIED (4) Diabetes mellitus Code(s): E11.9 - TYPE 2 DIABETES MELLITUS WITHOUT COMPLICATIONS (5) Hypertension Code(s): I10 - ESSENTIAL (PRIMARY) HYPERTENSION (6) Paroxysmal atrial fibrillation Code(s): I48.0 - PAROXYSMAL ATRIAL FIBRILLATION (7) Elevated troponin I level Code(s): R74.8 - ABNORMAL LEVELS OF OTHER SERUM ENZYMES (8) Leukocytosis Code(s): D72.829 - ELEVATED WHITE BLOOD CELL COUNT, UNSPECIFIED (9) Elevated LFTs Code(s): R94.5 - ABNORMAL RESULTS OF LIVER FUNCTION STUDIES (10) GIB (gastrointestinal bleeding) Code(s): K92.2 - GASTROINTESTINAL HEMORRHAGE, UNSPECIFIED (11) Hyponatremia Code(s): E87.1 - HYPO-OSMOLALITY AND HYPONATREMIA (12) Urinary retention Code(s): R33.9 - RETENTION OF URINE, UNSPECIFIED Assessment/Plan Pt now on PO Prednisone -to be tappered per Pulmonary Pulmonary, Cardio, Phychiatry, ID, Heme, GI, Renal, consults and f/u are appreciated. Psychiatry consult is appreciated; pt was found to have full capacity to make decisions. Continue current Rx. Today a family meeting took place with Aisha -pt's HCP- (pt's sister was not available for the meeting, in person or over the phone), Jess -care team coordinator scheduler-, Anna -occupational health nursing director-, Viv Haynes -JOSE FRANCISCO-, Seema pt's nurse; pt's conditions was reviewed and Aisha's questions were answered; pt's nutritional status was reviewed and the impact on discharge was reviewed; alternative artificial fedding options were reviewed. Pt doesn't want artificial nutrition, even as atrial, although is aware that would impact her discharge: pulmonary rehab or LTAC vs hospice; pt wants to talk with her HCP and her before making a definitive decision. AM labs. Prognosis: reserved. Time spent for coordinating patient care: over 45 minutes
--- NOTE | 2018-01-04 11:34 | PN ---
Progress Note (short form) - Note Progress Note: Renal follow up for Hyponatremia Vital Signs Temperature 97.5 F L 01/04/18 10:00 Pulse Rate 78 01/04/18 10:00 Respiratory Rate 20 01/04/18 10:00 Blood Pressure 140/58 L 01/04/18 10:00 O2 Sat by Pulse Oximetry (%) 99 01/03/18 21:00 Intake & Output 01/01/18 01/02/18 01/03/18 01/04/18 23:59 23:59 23:59 23:59 Intake Total 250 350 100 100 Output Total 400 700 600 Balance -150 -350 -500 100 CBC, BMP 01/02/18 07:15 01/04/18 06:10 Current Medications Apixaban (Eliquis -) 5 mg PO BID [facility] Last Admin: 01/04/18 09:10 Dose: 5 mg Atorvastatin Calcium (Lipitor -) 40 mg PO HS [facility] Last Admin: 01/03/18 22:12 Dose: 40 mg Brimonidine Tartrate (Alphagan P 0.1% -) 1 drop OU BID [facility] Last Admin: 01/04/18 09:09 Dose: 1 drop Digoxin (Lanoxin -) 0.125 mg PO DAILY [facility] Last Admin: 01/04/18 09:09 Dose: 0.125 mg Diltiazem HCl (Cardizem Cd -) 120 mg PO DAILY [facility] Last Admin: 01/04/18 09:09 Dose: 120 mg Fluconazole (Diflucan -) 100 mg PO DAILY [facility] Last Admin: 01/04/18 09:09 Dose: 100 mg Insulin Aspart (Novolog Vial Sliding Scale -) 1 vial SQ [facility]; Protocol Last Admin: 01/04/18 11:29 Dose: Not Given Insulin Detemir (Levemir Vial) 10 units SQ AM [facility] Last Admin: 01/04/18 06:01 Dose: Not Given Insulin Detemir (Levemir Vial) 4 units SQ HS [facility] Last Admin: 01/03/18 22:15 Dose: Not Given Latanoprost (Xalatan 0.005% Eye Drops -) 1 drop OU DAILY [facility] Last Admin: 01/04/18 09:10 Dose: 1 drop Levothyroxine Sodium (Synthroid -) 75 mcg PO AM [facility] Last Admin: 01/04/18 06:04 Dose: Not Given Montelukast Sodium (Singulair -) 10 mg PO HS [facility] Last Admin: 01/03/18 22:11 Dose: 10 mg Pantoprazole Sodium (Protonix -) 40 mg PO BID [facility] Last Admin: 01/04/18 09:09 Dose: 40 mg Prednisone (Deltasone -) 40 mg PO DAILY [facility] Last Admin: 01/04/18 09:09 Dose: 40 mg Roflumilast (Daliresp -) 500 mcg PO DAILY [facility] Last Admin: 01/04/18 09:10 Dose: 500 mcg Sitagliptin Phosphate (Januvia -) 100 mg PO AM [facility] Last Admin: 01/04/18 06:01 Dose: Not Given Tiotropium [place] (Spiriva Respimat) 2 puff IH DAILY [facility] Last Admin: 01/04/18 09:10 Dose: 2 puff 72 year old woman with hx of COPD on home O2, Pulmonary hypertension, Hypertension, CHF (diastolic dysfunction), Afib on A/c, DM, Hypothyroidism who presented with SOB and JAMESON and admitted for COPD exacerbation and noted to develop hyponatremia during the hospital course. #Hypovolemic hyponatremia in setting of diuretics (low urine Na, Serum OSM WNL) #COPD exacerbation #Diastolic HF #Hypothyroidism #Azotemia Shayan Delaney DO
--- NOTE | 2018-01-04 11:38 | PN ---
Progress Note (short form) - Note Progress Note: Chief Complaint: sob History of Present Illness: lethargic, wearing bipap. not answering questions appropriately Current Medications Apixaban (Eliquis -) 5 mg PO BID [facility] Last Admin: 01/04/18 09:10 Dose: 5 mg Atorvastatin Calcium (Lipitor -) 40 mg PO HS [facility] Last Admin: 01/03/18 22:12 Dose: 40 mg Brimonidine Tartrate (Alphagan P 0.1% -) 1 drop OU BID [facility] Last Admin: 01/04/18 09:09 Dose: 1 drop Digoxin (Lanoxin -) 0.125 mg PO DAILY [facility] Last Admin: 01/04/18 09:09 Dose: 0.125 mg Diltiazem HCl (Cardizem Cd -) 120 mg PO DAILY [facility] Last Admin: 01/04/18 09:09 Dose: 120 mg Fluconazole (Diflucan -) 100 mg PO DAILY [facility] Last Admin: 01/04/18 09:09 Dose: 100 mg Insulin Aspart (Novolog Vial Sliding Scale -) 1 vial SQ [facility]; Protocol Last Admin: 01/04/18 11:29 Dose: Not Given Insulin Detemir (Levemir Vial) 10 units SQ AM [facility] Last Admin: 01/04/18 06:01 Dose: Not Given Insulin Detemir (Levemir Vial) 4 units SQ [facility] Last Admin: 01/03/18 22:15 Dose: Not Given Latanoprost (Xalatan 0.005% Eye Drops -) 1 drop OU DAILY [facility] Last Admin: 01/04/18 09:10 Dose: 1 drop Levothyroxine Sodium (Synthroid -) 75 mcg PO AM [facility] Last Admin: 01/04/18 06:04 Dose: Not Given Montelukast Sodium (Singulair -) 10 mg PO HS [facility] Last Admin: 01/03/18 22:11 Dose: 10 mg Pantoprazole Sodium (Protonix -) 40 mg PO BID [facility] Last Admin: 01/04/18 09:09 Dose: 40 mg Prednisone (Deltasone -) 40 mg PO DAILY [facility] Last Admin: 01/04/18 09:09 Dose: 40 mg Roflumilast (Daliresp -) 500 mcg PO DAILY [facility] Last Admin: 01/04/18 09:10 Dose: 500 mcg Sitagliptin Phosphate (Januvia -) 100 mg PO AM [facility] Last Admin: 11/28/18 06:01 Dose: Not Given Tiotropium [place] (Spiriva Respimat) 2 puff IH DAILY [facility] Last Admin: 01/04/18 09:10 Dose: 2 puff - Objective Vital Signs Period Temp Pulse Resp BP Sys/Anthony Pulse Ox Last 24 Hr 97.2 F-97.8 F 76-84 18-20 100-140/52-59 99 Constitutional: Yes: Well Nourished, No Distress, Calm Cardiovascular: Yes: Regular Rate and Rhythm (decr intensity sounds), Murmur, S1 , S2. No: JVD, Gallop Respiratory: Yes: Regular, CTA Bilaterally (decr intensity sounds, poor effort), on bipap No: Accessory Muscle Use, Rales, Wheezes Extremities: No: Cold Edema: Yes (1+ ankles) Neurological: Yes: Lethargy. No: Seizure Psychiatric: No: Agitated Assessment/Plan Echo 10/2015: Nl lv/rv. suboptimal views, but at least mild AR. Mod MAC. 1+ MR. No MS. trivial effusion. RVSP not measured. echo 09/2016: tds; nl lv/rv, mv calcified, mac, mild-mod mr, sev tr, small peric eff-->MV calcification is chronic finding for her and not indicative of vegetation CXR: hyperaerated lung, no effusion EKG: sinus, nonspecific ST segment changes Assessment/Plan Elevated trop - 0.07->0.06 - mild elevation with flat trend, EKG stable, not consistent with ACS - management of COPD exacerbation as below Shortness of breath, COPD - O2 dependent, on BiPap, chronic prednisone - sxs improved after iv steroids, now on po - manage per pulm Chronic diastolic CHF - pedal edema present, likely steroids effect - bun stable, bicarb improving as respiratory acidosis improves. - holding lasix for hyponatremia, nephrology following pAFib - in sinus now, rate stable - continue eliquis, digoxin, diltiazem HLD - continue statin
[2018-01-04] MEDS: ALPRAZolam 0.25 MG TABLET PO PRN (15:09)
--- NOTE | 2018-01-04 16:45 | PN ---
Progress Note, Physician History of Present Illness: pulmonary drowsy,remains dyspneic - Current Medication List Current Medications: Active Medications Alprazolam (Xanax -) 0.25 mg PO Q8H PRN PRN Reason: ANXIETY Last Admin: 01/04/18 15:09 Dose: 0.25 mg Apixaban (Eliquis -) 5 mg PO BID [facility] Last Admin: 01/04/18 09:10 Dose: 5 mg Atorvastatin Calcium (Lipitor -) 40 mg PO HS [facility] Last Admin: 01/03/18 22:12 Dose: 40 mg Brimonidine Tartrate (Alphagan P 0.1% -) 1 drop OU BID [facility] Last Admin: 01/04/18 09:09 Dose: 1 drop Digoxin (Lanoxin -) 0.125 mg PO DAILY [facility] Last Admin: 01/04/18 09:09 Dose: 0.125 mg Diltiazem HCl (Cardizem Cd -) 120 mg PO DAILY [facility] Last Admin: 01/04/18 09:09 Dose: 120 mg Fluconazole (Diflucan -) 100 mg PO DAILY [facility] Last Admin: 01/04/18 09:09 Dose: 100 mg Insulin Aspart (Novolog Vial Sliding Scale -) 1 vial SQ [facility]; Protocol Last Admin: 01/04/18 16:22 Dose: 8 units Insulin Detemir (Levemir Vial) 10 units SQ AM [facility] Last Admin: 01/04/18 06:01 Dose: Not Given Insulin Detemir (Levemir Vial) 4 units SQ HS [facility] Last Admin: 01/03/18 22:15 Dose: Not Given Latanoprost (Xalatan 0.005% Eye Drops -) 1 drop OU DAILY [facility] Last Admin: 01/04/18 09:10 Dose: 1 drop Levothyroxine Sodium (Synthroid -) 75 mcg PO AM [facility] Last Admin: 01/04/18 06:04 Dose: Not Given Montelukast Sodium (Singulair -) 10 mg PO HS [facility] Last Admin: 01/03/18 22:11 Dose: 10 mg Pantoprazole Sodium (Protonix -) 40 mg PO BID [facility] Last Admin: 01/04/18 09:09 Dose: 40 mg Prednisone (Deltasone -) 40 mg PO DAILY [facility] Last Admin: 01/04/18 09:09 Dose: 40 mg Roflumilast (Daliresp -) 500 mcg PO DAILY [facility] Last Admin: 01/04/18 09:10 Dose: 500 mcg Sitagliptin Phosphate (Januvia -) 100 mg PO AM [facility] Last Admin: 01/04/18 06:01 Dose: Not Given Tiotropium [place] (Spiriva Respimat) 2 puff IH DAILY [facility] Last Admin: 01/04/18 09:10 Dose: 2 puff - Objective Vital Signs: Vital Signs Temperature 97.4 F L 01/04/18 14:30 Pulse Rate 90 01/04/18 14:30 Respiratory Rate 20 01/04/18 14:30 Blood Pressure 119/52 L 01/04/18 14:30 O2 Sat by Pulse Oximetry (%) 99 01/03/18 21:00 Constitutional: Yes: Thin, Other (drowsy) Eyes: Yes: WNL HENT: Yes: WNL Neck: Yes: WNL Cardiovascular: Yes: Regular Rate and Rhythm, S1, S2 Respiratory: Yes: Diminished Gastrointestinal: Yes: Normal Bowel Sounds, Soft Extremities: Yes: WNL Edema: No Labs: CBC, BMP 01/04/18 06:10 Problem List - Problems (1) Acute on chronic respiratory failure with hypoxia and hypercapnia Code(s): J96.21 - ACUTE AND CHRONIC RESPIRATORY FAILURE WITH HYPOXIA; J96.22 - ACUTE AND CHRONIC RESPIRATORY FAILURE WITH HYPERCAPNIA (2) COPD with acute exacerbation Code(s): J44.1 - CHRONIC OBSTRUCTIVE PULMONARY DISEASE W (ACUTE) EXACERBATION (3) Diabetes mellitus Code(s): E11.9 - TYPE 2 DIABETES MELLITUS WITHOUT COMPLICATIONS (4) Paroxysmal atrial fibrillation Code(s): I48.0 - PAROXYSMAL ATRIAL FIBRILLATION (5) Pulmonary HTN Code(s): I27.20 - PULMONARY HYPERTENSION, UNSPECIFIED (6) Diastolic HF (heart failure) Code(s): I50.30 - UNSPECIFIED DIASTOLIC (CONGESTIVE) HEART FAILURE (7) Hypothyroid Code(s): E03.9 - HYPOTHYROIDISM, UNSPECIFIED Assessment/Plan IMP ACUTE ON CHRONIC HYPOXEMIC/HYPERCAPNEIC RESPIRATORY FAILURE COPD EXACERBATION IMPROVING PULMONARY HTN PAF IDDM DIASTOLIC HF HYPOTHYROIDISM PLAN PREDNISONE INHALED BRONCHODILATORS O2 BIPAP AT NIGHT AND PRN DALIRESP COMFORT CARE DR SOLOMON Problem List - Problems (1) Acute on chronic respiratory failure with hypoxia and hypercapnia Code(s): J96.21 - ACUTE AND CHRONIC RESPIRATORY FAILURE WITH HYPOXIA; J96.22 - ACUTE AND CHRONIC RESPIRATORY FAILURE WITH HYPERCAPNIA (2) COPD with acute exacerbation Code(s): J44.1 - CHRONIC OBSTRUCTIVE PULMONARY DISEASE W (ACUTE) EXACERBATION (3) Diabetes mellitus Code(s): E11.9 - TYPE 2 DIABETES MELLITUS WITHOUT COMPLICATIONS (4) Paroxysmal atrial fibrillation Code(s): I48.0 - PAROXYSMAL ATRIAL FIBRILLATION (5) Pulmonary HTN Code(s): I27.20 - PULMONARY HYPERTENSION, UNSPECIFIED (6) Diastolic HF (heart failure) Code(s): I50.30 - UNSPECIFIED DIASTOLIC (CONGESTIVE) HEART FAILURE (7) Hypothyroid Code(s): E03.9 - HYPOTHYROIDISM, UNSPECIFIED
[2018-01-04] MEDS: ATORVASTATIN CA 40 MG TABLET (FP) PO SCH (23:43)
[2018-01-04] MEDS: MONTELUKAST NA 10 MG TABLET PO SCH (23:43)
[2018-01-05] MEDS ORDERED: PT OWN MED DRAWER 7, Y5N ONE ×2 (06:38→09:30)
[2018-01-05] MEDS: LEVOTHYROXINE NA 75 MCG TABLET (FP) PO SCH (07:00)
[2018-01-05] MEDS: sitaGLIPtin PHOSPHATE 100 MG TABLET (FP) PO SCH (07:00)
[2018-01-05] MEDS: INSULIN SLIDING SCALE (NOVOLOG) 1 VIAL SQ SCH ×3 (07:01→18:25)
[2018-01-05] MEDS: INSULIN (LEVEMIR) 100 UNITS/ML UNITS SQ SCH ×2 (07:08→23:08)
[2018-01-05] MEDS ORDERED: INSULIN (NOVOLOG) ASPART 100 UNITS/ML 10ML VIAL ONE ×2 (07:12→11:49)
[2018-01-05 07:16] LABS: HEMATOCRIT 44.2 % (32.4-45.2); HEMOGLOBIN 14.4 GM/dL (10.7-15.3); MCHC 32.6 g/dl (32.0-36.0); MEAN PLT VOLUME 9.2 fl (7.5-11.1); PLATELET COUNT 89 K/MM3 (134-434); RBC 4.66 M/mm3 (3.60-5.2); WHITE BLOOD COUNT 18.4 K/mm3 (4.0-10.0)
[2018-01-05 07:43] LABS: ANION GAP 9 MMOL/L (8-16); BLOOD UREA NITROGEN 69 mg/dL (7-18); CALCIUM 8.9 mg/dL (8.5-10.1); CHLORIDE 85 mmol/L (98-107); CO2 33 mmol/L (21-32); CREATININE 1.2 mg/dL (0.55-1.3); GLUCOSE,RANDOM 202 mg/dL (74-106); POTASSIUM 5.3 mmol/L (3.5-5.1); SODIUM 128 mmol/L (136-145)
--- NOTE | 2018-01-05 09:47 | PN ---
Progress Note, Physician History of Present Illness: Pt w/o CP, palpitations, abd pain, N, V, heartburns. Pt's breathing is unchanged, now on NC. Pt's appetite is decreased. - Current Medication List Current Medications: Active Medications Alprazolam (Xanax -) 0.25 mg PO Q8H PRN PRN Reason: ANXIETY Last Admin: 01/04/18 15:09 Dose: 0.25 mg Apixaban (Eliquis -) 5 mg PO BID [facility] Last Admin: 01/04/18 23:41 Dose: 5 mg Atorvastatin Calcium (Lipitor -) 40 mg PO HS [facility] Last Admin: 01/04/18 23:43 Dose: 40 mg Brimonidine Tartrate (Alphagan P 0.1% -) 1 drop OU BID [facility] Last Admin: 01/04/18 22:00 Dose: 1 drop Digoxin (Lanoxin -) 0.125 mg PO DAILY [facility] Last Admin: 01/04/18 09:09 Dose: 0.125 mg Diltiazem HCl (Cardizem Cd -) 120 mg PO DAILY [facility] Last Admin: 01/04/18 09:09 Dose: 120 mg Fluconazole (Diflucan -) 100 mg PO DAILY [facility] Last Admin: 01/04/18 09:09 Dose: 100 mg Insulin Aspart (Novolog Vial Sliding Scale -) 1 vial SQ [facility]; Protocol Last Admin: 01/05/18 07:01 Dose: Not Given Insulin Detemir (Levemir Vial) 10 units SQ AM [facility] Last Admin: 01/05/18 07:08 Dose: Not Given Insulin Detemir (Levemir Vial) 4 units SQ HS [facility] Last Admin: 01/04/18 23:42 Dose: 4 units Latanoprost (Xalatan 0.005% Eye Drops -) 1 drop OU DAILY [facility] Last Admin: 01/04/18 09:10 Dose: 1 drop Levothyroxine Sodium (Synthroid -) 75 mcg PO AM [facility] Last Admin: 01/05/18 07:00 Dose: 75 mcg Montelukast Sodium (Singulair -) 10 mg PO HS [facility] Last Admin: 01/04/18 23:43 Dose: 10 mg Pantoprazole Sodium (Protonix -) 40 mg PO BID [facility] Last Admin: 01/04/18 23:43 Dose: 40 mg Prednisone (Deltasone -) 40 mg PO DAILY [facility] Last Admin: 01/04/18 09:09 Dose: 40 mg Roflumilast (Daliresp -) 500 mcg PO DAILY [facility] Last Admin: 01/04/18 09:10 Dose: 500 mcg Sitagliptin Phosphate (Januvia -) 100 mg PO AM [facility] Last Admin: 01/05/18 07:00 Dose: 100 mg Tiotropium [place] (Spiriva Respimat) 2 puff IH DAILY [facility] Last Admin: 01/04/18 09:10 Dose: 2 puff - Objective Vital Signs: Vital Signs Temperature 97.4 F L 01/05/18 06:00 Pulse Rate 73 01/05/18 06:00 Respiratory Rate 20 01/05/18 06:00 Blood Pressure 85/50 L 01/05/18 06:00 O2 Sat by Pulse Oximetry (%) 97 01/04/18 21:00 Constitutional: Yes: No Distress, Calm Cardiovascular: Yes: Regular Rate and Rhythm, S1, S2 Respiratory: Yes: Regular, Other (coarse) Gastrointestinal: Yes: Normal Bowel Sounds, Soft. No: Tenderness Edema: No Neurological: Yes: Alert, Oriented Labs: CBC, BMP 01/05/18 06:45 01/05/18 06:45 Problem List - Problems (1) Acute and chronic respiratory failure with hypercapnia Code(s): J96.22 - ACUTE AND CHRONIC RESPIRATORY FAILURE WITH HYPERCAPNIA (2) COPD with acute exacerbation Code(s): J44.1 - CHRONIC OBSTRUCTIVE PULMONARY DISEASE W (ACUTE) EXACERBATION (3) Advanced chronic obstructive pulmonary disease Code(s): J44.9 - CHRONIC OBSTRUCTIVE PULMONARY DISEASE, UNSPECIFIED (4) Diabetes mellitus Code(s): E11.9 - TYPE 2 DIABETES MELLITUS WITHOUT COMPLICATIONS (5) Hypertension Code(s): I10 - ESSENTIAL (PRIMARY) HYPERTENSION (6) Paroxysmal atrial fibrillation Code(s): I48.0 - PAROXYSMAL ATRIAL FIBRILLATION (7) Elevated troponin I level Code(s): R74.8 - ABNORMAL LEVELS OF OTHER SERUM ENZYMES (8) Leukocytosis Code(s): D72.829 - ELEVATED WHITE BLOOD CELL COUNT, UNSPECIFIED (9) Elevated LFTs Code(s): R94.5 - ABNORMAL RESULTS OF LIVER FUNCTION STUDIES (10) GIB (gastrointestinal bleeding) Code(s): K92.2 - GASTROINTESTINAL HEMORRHAGE, UNSPECIFIED (11) Hyponatremia Code(s): E87.1 - HYPO-OSMOLALITY AND HYPONATREMIA (12) Urinary retention Code(s): R33.9 - RETENTION OF URINE, UNSPECIFIED (13) Hyperkalemia Code(s): E87.5 - HYPERKALEMIA Assessment/Plan Pt now on PO Prednisone -to be tappered per Pulmonary Pulmonary, Cardio, Phychiatry, ID, Heme, GI, Renal, consults and f/u are appreciated. Psychiatry consult is appreciated; pt was found to have full capacity to make decisions. Continue current Rx. Calorie count in progress. Kayelaxate one; to f/u AM labs. Prognosis: reserved.
--- NOTE | 2018-01-05 10:01 | PN ---
Progress Note (short form) - Note Progress Note: No change in dyspnea. Clinically looks weaker. No change in cough. Intake & Output 01/02/18 01/03/18 01/04/18 01/05/18 23:59 23:59 23:59 23:59 Intake Total 350 100 130 Output Total 700 600 400 Balance -350 -500 -270 Last Vital Signs Temp Pulse Resp BP Pulse Ox 97.4 F L 73 20 85/50 L 97 01/05/18 06:00 01/05/18 06:00 01/05/18 06:00 01/05/18 06:00 01/04/18 21:00 Active Medications Alprazolam (Xanax -) 0.25 mg PO Q8H PRN PRN Reason: ANXIETY Last Admin: 01/04/18 15:09 Dose: 0.25 mg Apixaban (Eliquis -) 5 mg PO BID [facility] Last Admin: 01/04/18 23:41 Dose: 5 mg Atorvastatin Calcium (Lipitor -) 40 mg PO HS [facility] Last Admin: 01/04/18 23:43 Dose: 40 mg Brimonidine Tartrate (Alphagan P 0.1% -) 1 drop OU BID [facility] Last Admin: 01/04/18 22:00 Dose: 1 drop Digoxin (Lanoxin -) 0.125 mg PO DAILY [facility] Last Admin: 01/04/18 09:09 Dose: 0.125 mg Diltiazem HCl (Cardizem Cd -) 120 mg PO DAILY [facility] Last Admin: 01/04/18 09:09 Dose: 120 mg Fluconazole (Diflucan -) 100 mg PO DAILY [facility] Last Admin: 01/04/18 09:09 Dose: 100 mg Insulin Aspart (Novolog Vial Sliding Scale -) 1 vial SQ [facility]; Protocol Last Admin: 01/05/18 07:01 Dose: Not Given Insulin Detemir (Levemir Vial) 10 units SQ AM [facility] Last Admin: 01/05/18 07:08 Dose: Not Given Insulin Detemir (Levemir Vial) 4 units SQ HS [facility] Last Admin: 01/04/18 23:42 Dose: 4 units Latanoprost (Xalatan 0.005% Eye Drops -) 1 drop OU DAILY [facility] Last Admin: 01/04/18 09:10 Dose: 1 drop Levothyroxine Sodium (Synthroid -) 75 mcg PO AM [facility] Last Admin: 01/05/18 07:00 Dose: 75 mcg Montelukast Sodium (Singulair -) 10 mg PO HS [facility] Last Admin: 01/04/18 23:43 Dose: 10 mg Pantoprazole Sodium (Protonix -) 40 mg PO BID [facility] Last Admin: 01/04/18 23:43 Dose: 40 mg Prednisone (Deltasone -) 40 mg PO DAILY [facility] Last Admin: 01/04/18 09:09 Dose: 40 mg Roflumilast (Daliresp -) 500 mcg PO DAILY [facility] Last Admin: 01/04/18 09:10 Dose: 500 mcg Sitagliptin Phosphate (Januvia -) 100 mg PO AM [facility] Last Admin: 01/05/18 07:00 Dose: 100 mg Sodium Polystyrene Sulfonate (Kayexalate -) 15 gm PO ONCE ONE Stop: 01/05/18 10:16 Tiotropium [place] (Spiriva Respimat) 2 puff IH DAILY [facility] Last Admin: 01/04/18 09:10 Dose: 2 puff Gen: mildly tachypneic on NC O2 Heart: RRR Lung: distant breath sounds Abd: soft, nontender Ext: no edema Laboratory Results - last 24 hr 01/04/18 01/04/18 01/04/18 11:25 16:18 21:14 WBC RBC Hgb Hct MCV MCH MCHC RDW Plt Count MPV Sodium Potassium Chloride Carbon Dioxide Anion Gap BUN Creatinine Creat Clearance w eGFR POC Glucometer 182 383 283 Random Glucose Calcium 01/05/18 01/05/18 01/05/18 06:45 06:45 06:58 WBC 18.4 H RBC 4.66 Hgb 14.4 Hct 44.2 D MCV 95.0 MCH 31.0 MCHC 32.6 RDW 15.0 Plt Count 89 L MPV 9.2 Sodium 128 L Potassium 5.3 H Chloride 85 L Carbon Dioxide 33 H Anion Gap 9 BUN 69 H Creatinine 1.2 Creat Clearance w eGFR 44.29 POC Glucometer 186 Random Glucose 202 H Calcium 8.9 A/P Acute on Chronic Hypoxic and Hypercapneic Respiratory Failure Acute COPD Exacerbation Pulmonary HTN LV Diastolic Dysfunction Paroxysmal Atrial Fibrillation DM Hypothyroidism End Stage COPD - Prednisone 40mg OD - inhaled bronchodilators - O2 to keep Spo2 >90% - Encourage patient to use NIPPV QHS and as needed to assist in work of breathing - Daliresp - rate control - continue anticoagulation - DNI/DNR - Due to End Stage COPD and chronic respiratory failure, consider hospice placement if PO intake is no adequate Dr Cole
[2018-01-05] MEDS ORDERED: SODIUM POLYSTYRENE SULFONATE 15 GM/60 ML BOTTLE PO ONE (10:15)
[2018-01-05] MEDS: FLUCONAZOLE 100 MG TABLET (UD) PO SCH (10:56)
[2018-01-05] MEDS: predniSONE 20 MG TABLET (UD) PO SCH (10:57)
[2018-01-05] MEDS: PANTOPRAZOLE 40 MG TABLET (FP) PO SCH ×2 (10:57→23:08)
[2018-01-05] MEDS: DIGOXIN 0.125 MG TABLET (FP) PO SCH (10:57)
[2018-01-05] MEDS: ROFLUMILAST 500 MCG TABLET PO SCH (10:57)
[2018-01-05] MEDS: APIXABAN 5 MG TABLET PO SCH ×2 (10:57→23:08)
[2018-01-05] MEDS: LATANOPROST 0.005% OPHTH SOLN 2.5ML BOTTLE OU SCH (10:58)
[2018-01-05] MEDS: TIOTROPIUM BROMIDE 2.5 MCG (SPIRIVA) RESPIMAT INHALER IH SCH (10:58)
[2018-01-05] MEDS: BRIMONIDINE TARTRATE 0.1% OPHTHALMIC 5 ML BOTTLE OU SCH ×2 (10:58→23:09)
--- NOTE | 2018-01-05 11:12 | PN ---
Progress Note (short form) - Note Progress Note: Renal follow up for Hyponatremia Pt seen and examined at the bedside no overnight events bp marginal feels weak poor oral solute intake Vital Signs Temperature 97.4 F L 01/05/18 06:00 Pulse Rate 76 01/05/18 10:57 Respiratory Rate 20 01/05/18 06:00 Blood Pressure 85/50 L 01/05/18 06:00 O2 Sat by Pulse Oximetry (%) 97 01/04/18 21:00 Intake & Output 01/02/18 01/03/18 01/04/18 01/05/18 23:59 23:59 23:59 23:59 Intake Total 350 100 130 Output Total 700 600 400 Balance -350 -500 -270 NAD Frail appearing RRR some mild rales in lung bases + edema in ankles and dependent areas CBC, BMP 01/05/18 06:45 01/05/18 06:45 Current Medications Alprazolam (Xanax -) 0.25 mg PO Q8H PRN PRN Reason: ANXIETY Last Admin: 01/04/18 15:09 Dose: 0.25 mg Apixaban (Eliquis -) 5 mg PO BID [facility] Last Admin: 01/05/18 10:57 Dose: 5 mg Atorvastatin Calcium (Lipitor -) 40 mg PO HS [facility] Last Admin: 01/04/18 23:43 Dose: 40 mg Brimonidine Tartrate (Alphagan P 0.1% -) 1 drop OU BID [facility] Last Admin: 01/05/18 10:58 Dose: 1 drop Digoxin (Lanoxin -) 0.125 mg PO DAILY [facility] Last Admin: 01/05/18 10:57 Dose: 0.125 mg Diltiazem HCl (Cardizem Cd -) 120 mg PO DAILY [facility] Last Admin: 01/05/18 10:57 Dose: 120 mg Fluconazole (Diflucan -) 100 mg PO DAILY [facility] Last Admin: 01/05/18 10:56 Dose: 100 mg Insulin Aspart (Novolog Vial Sliding Scale -) 1 vial SQ [facility]; Protocol Last Admin: 01/05/18 07:01 Dose: Not Given Insulin Detemir (Levemir Vial) 10 units SQ AM [facility] Last Admin: 01/05/18 07:08 Dose: Not Given Insulin Detemir (Levemir Vial) 4 units SQ HS [facility] Last Admin: 01/04/18 23:42 Dose: 4 units Latanoprost (Xalatan 0.005% Eye Drops -) 1 drop OU DAILY [facility] Last Admin: 01/05/18 10:58 Dose: 1 drop Levothyroxine Sodium (Synthroid -) 75 mcg PO AM [facility] Last Admin: 01/05/18 07:00 Dose: 75 mcg Montelukast Sodium (Singulair -) 10 mg PO HS [facility] Last Admin: 01/04/18 23:43 Dose: 10 mg Pantoprazole Sodium (Protonix -) 40 mg PO BID [facility] Last Admin: 01/05/18 10:57 Dose: 40 mg Prednisone (Deltasone -) 40 mg PO DAILY [facility] Last Admin: 01/05/18 10:57 Dose: 40 mg Roflumilast (Daliresp -) 500 mcg PO DAILY [facility] Last Admin: 01/05/18 10:57 Dose: 500 mcg Sitagliptin Phosphate (Januvia -) 100 mg PO AM [facility] Last Admin: 01/05/18 07:00 Dose: 100 mg Tiotropium [place] (Spiriva Respimat) 2 puff IH DAILY [facility] Last Admin: 01/05/18 10:58 Dose: 2 puff 72 year old woman with hx of COPD on home O2, Pulmonary hypertension, Hypertension, CHF (diastolic dysfunction), Afib on A/c, DM, Hypothyroidism who presented with SOB and JAMESON and admitted for COPD exacerbation and noted to develop hyponatremia during the hospital course. #Hypovolemic hyponatremia in setting of diuretics (low urine Na, Serum OSM WNL) #MINDY (Cr 0.6 to 1.2) #COPD exacerbation #Diastolic HF #Hypothyroidism #Azotemia Suspect that pt is intravascular depleted given rise in serum Cr, mild hypotension and lower serum Na CXR showed no evidence of effusions or overload will start trial of isotonic saline Repeat BMP this evening after at least 6 hours of IVF continue steroids as per pulmonary Trend renal function and electrolytes Shayan Delaney DO
--- NOTE | 2018-01-05 11:34 | PN ---
Progress Note (short form) - Note Progress Note: Chief Complaint: shortness of breath s: lethargic. denies cp, dizzy. still sob. Current Medications Generic Name Dose Route Start Last Admin Trade Name Frechiara PRN Reason Stop Dose Admin Alprazolam 0.25 mg 01/04/18 13:08 01/04/18 15:09 Xanax - PO 0.25 mg Q8H PRN Administration ANXIETY Apixaban 5 mg 12/25/17 22:00 01/05/18 10:57 Eliquis - PO 5 mg BID [facility] Administration Atorvastatin Calcium 40 mg 12/12/17 22:00 01/04/18 23:43 Lipitor - PO 40 mg HS [facility] Administration Brimonidine Tartrate 1 drop 12/12/17 22:00 01/05/18 10:58 Alphagan P 0.1% - OU 1 drop BID [facility] Administration Digoxin 0.125 mg 12/13/17 10:00 01/05/18 10:57 Lanoxin - PO 0.125 mg DAILY [facility] Administration Diltiazem HCl 120 mg 12/13/17 10:00 01/05/18 10:57 Cardizem Cd - PO 120 mg DAILY [facility] Administration Fluconazole 100 mg 12/27/17 17:45 01/05/18 10:56 Diflucan - PO 100 mg DAILY [facility] Administration Insulin Aspart 1 vial 12/12/17 22:00 01/05/18 07:01 Novolog Vial Sliding Scale - SQ Not Given [facility] Protocol Insulin Detemir 10 units 12/26/17 17:58 01/05/18 07:08 Levemir Vial SQ Not Given AM [facility] Insulin Detemir 4 units 12/26/17 17:58 01/04/18 23:42 Levemir Vial SQ 4 units HS [facility] Administration Latanoprost 1 drop 12/13/17 10:00 01/05/18 10:58 Xalatan 0.005% Eye Drops - OU 1 drop DAILY [facility] Administration Levothyroxine Sodium 75 mcg 12/13/17 07:00 01/05/18 07:00 Synthroid - PO 75 mcg AM [facility] Administration Montelukast Sodium 10 mg 12/12/17 22:00 01/04/18 23:43 Singulair - PO 10 mg HS [facility] Administration Pantoprazole Sodium 40 mg 12/29/17 10:15 01/05/18 10:57 Protonix - PO 40 mg BID [facility] Administration Prednisone 40 mg 12/28/17 10:00 01/05/18 10:57 Deltasone - PO 40 mg DAILY [facility] Administration Roflumilast 500 mcg 12/13/17 12:45 01/05/18 10:57 Daliresp - PO 500 mcg DAILY [facility] Administration Sitagliptin Phosphate 100 mg 12/13/17 07:00 01/05/18 07:00 Januvia - PO 100 mg AM [facility] Administration Tiotropium [place] 2 puff 12/13/17 10:00 01/05/18 10:58 Spiriva Respimat IH 2 puff DAILY [facility] Administration Vital Signs Period Temp Pulse Resp BP Sys/Anthony Pulse Ox Last 24 Hr 97.4 F-98.6 F 73-90 20-20 85-126/50-61 97 Constitutional: Yes: No Distress, Calm Eyes: Yes: Conjunctiva Clear Respiratory: Yes: Regular, no wheeze, dec bs, nl eff, On Nasal O2 Gastrointestinal: Yes: Normal Bowel Sounds, Soft Cardiovascular: Yes: Regular Rate and Rhythm JVD: No Heart Sounds: Yes: S1, S2 Edema: trace le edema bl Integumentary: Yes: no jaundice diaphoresis Neurological: lethargic CBC, BMP 01/05/18 06:45 01/05/18 06:45 Echo 10/2015: Nl lv/rv. suboptimal views, but at least mild AR. Mod MAC. 1+ MR. No MS. trivial effusion. RVSP not measured. echo 09/2016: tds; nl lv/rv, mv calcified, mac, mild-mod mr, sev tr, small peric eff-->MV calcification is chronic finding for her and not indicative of vegetation CXR: hyperaerated lung, no effusion EKG: sinus, nonspecific ST segment changes Assessment/Plan Elevated trop - 0.07->0.06 - mild elevation with flat trend, EKG stable, not consistent with ACS - management of COPD exacerbation as below Shortness of breath, COPD - O2 dependent, on BiPap, chronic prednisone - manage per pulm Chronic diastolic CHF - pedal edema present, likely steroids effect - holding lasix for hyponatremia, nephrology following pAFib - in sinus now, rate stable - continue eliquis, digoxin, diltiazem HLD - continue statin
[2018-01-05] MEDS: ALPRAZolam 0.25 MG TABLET PO PRN (11:51)
[2018-01-05] MEDS ORDERED: SODIUM CHLORIDE 1,000 ML IV SCH (15:45)
[2018-01-05 23:00] LABS: ANION GAP 11 MMOL/L (8-16); BLOOD UREA NITROGEN 76 mg/dL (7-18); CHLORIDE 88 mmol/L (98-107); CO2 31 mmol/L (21-32); GLUCOSE,RANDOM 205 mg/dL (74-106); POTASSIUM 5.1 mmol/L (3.5-5.1); SODIUM 130 mmol/L (136-145)
[2018-01-05] MEDS: MONTELUKAST NA 10 MG TABLET PO SCH (23:09)
[2018-01-05] MEDS: ATORVASTATIN CA 40 MG TABLET (FP) PO SCH (23:09)
[2018-01-06] MEDS: INSULIN SLIDING SCALE (NOVOLOG) 1 VIAL SQ SCH ×5 (00:20→22:15)
[2018-01-06] MEDS: INSULIN (LEVEMIR) 100 UNITS/ML UNITS SQ SCH ×2 (06:42→22:15)
[2018-01-06] MEDS: sitaGLIPtin PHOSPHATE 100 MG TABLET (FP) PO SCH (06:46)
[2018-01-06] MEDS: LEVOTHYROXINE NA 75 MCG TABLET (FP) PO SCH (06:46)
[2018-01-06 07:32] LABS: BASO % 0.3 % (0-2.0); EOS % 0.1 % (0-4.5); HEMATOCRIT 42.1 % (32.4-45.2); HEMOGLOBIN 13.6 GM/dL (10.7-15.3); MCH 30.8 pg (25.7-33.7); MCHC 32.4 g/dl (32.0-36.0); MEAN PLT VOLUME 8.6 fl (7.5-11.1); MONO % 3.1 % (3.8-10.2); NEUT % 94.5 % (42.8-82.8); PLATELET COUNT 67 K/MM3 (134-434); RBC 4.43 M/mm3 (3.60-5.2); RDW 15.1 % (11.6-15.6); WHITE BLOOD COUNT 13.4 K/mm3 (4.0-10.0)
[2018-01-06] MEDS ORDERED: DRONABINOL 2.5 MG CAPSULE PO SCH (08:00)
[2018-01-06 08:26] LABS: ALBUMIN 2.5 g/dl (3.4-5.0); ALK PHOS 125 U/L (45-117); ANION GAP 11 MMOL/L (8-16); BILIRUBIN,TOTAL 0.5 mg/dL (0.2-1); BLOOD UREA NITROGEN 69 mg/dL (7-18); CALCIUM 7.9 mg/dL (8.5-10.1); CHLORIDE 91 mmol/L (98-107); CO2 30 mmol/L (21-32); CREATININE 0.9 mg/dL (0.55-1.3); GLUCOSE,RANDOM 193 mg/dL (74-106); PHOSPHOROUS 3.4 mg/dL (2.5-4.9); POTASSIUM 4.4 mmol/L (3.5-5.1); SGOT/AST 42 U/L (15-37); SGPT/ALT 54 U/L (13-61); SODIUM 132 mmol/L (136-145); TOT PROT 4.7 g/dl (6.4-8.2)
[2018-01-06] MEDS: ROFLUMILAST 500 MCG TABLET PO SCH (09:44)
[2018-01-06] MEDS: PANTOPRAZOLE 40 MG TABLET (FP) PO SCH ×2 (09:44→22:14)
[2018-01-06] MEDS: BRIMONIDINE TARTRATE 0.1% OPHTHALMIC 5 ML BOTTLE OU SCH ×2 (09:45→22:16)
[2018-01-06] MEDS: predniSONE 20 MG TABLET (UD) PO SCH (09:45)
[2018-01-06] MEDS: DIGOXIN 0.125 MG TABLET (FP) PO SCH (09:45)
[2018-01-06] MEDS: APIXABAN 5 MG TABLET PO SCH ×2 (09:45→22:14)
[2018-01-06] MEDS: FLUCONAZOLE 100 MG TABLET (UD) PO SCH (09:45)
[2018-01-06] MEDS: LATANOPROST 0.005% OPHTH SOLN 2.5ML BOTTLE OU SCH (09:46)
[2018-01-06] MEDS: TIOTROPIUM BROMIDE 2.5 MCG (SPIRIVA) RESPIMAT INHALER IH SCH (09:46)
--- NOTE | 2018-01-06 10:43 | PN ---
Progress Note, Physician History of Present Illness: Pt w/o CP, palpitations, abd pain, N, V, heartburns. Pt's appetite and breathing is unchanged ( pt is now on NC). - Current Medication List Current Medications: Active Medications Alprazolam (Xanax -) 0.25 mg PO Q8H PRN PRN Reason: ANXIETY Last Admin: 01/05/18 11:51 Dose: 0.25 mg Apixaban (Eliquis -) 5 mg PO BID [facility] Last Admin: 01/06/18 09:45 Dose: 5 mg Atorvastatin Calcium (Lipitor -) 40 mg PO HS [facility] Last Admin: 01/05/18 23:09 Dose: 40 mg Brimonidine Tartrate (Alphagan P 0.1% -) 1 drop OU BID [facility] Last Admin: 01/06/18 09:45 Dose: 1 drop Digoxin (Lanoxin -) 0.125 mg PO DAILY [facility] Last Admin: 01/06/18 09:45 Dose: 0.125 mg Diltiazem HCl (Cardizem Cd -) 120 mg PO DAILY [facility] Last Admin: 01/06/18 09:44 Dose: 120 mg Dronabinol (Marinol -) 2.5 mg PO DAILY@0800 [facility] Last Admin: 01/06/18 09:45 Dose: 2.5 mg Fluconazole (Diflucan -) 100 mg PO DAILY [facility] Last Admin: 01/06/18 09:45 Dose: 100 mg Sodium Chloride (Normal Saline -) 1,000 mls @ 83 mls/hr IV ASDIR [facility] Last Admin: 01/05/18 17:00 Dose: 83 mls/hr Insulin Aspart (Novolog Vial Sliding Scale -) 1 vial SQ ACHS [facility]; Protocol Last Admin: 01/06/18 06:45 Dose: 2 units Insulin Detemir (Levemir Vial) 10 units SQ AM [facility] Last Admin: 01/06/18 06:42 Dose: Not Given Insulin Detemir (Levemir Vial) 4 units SQ HS [facility] Last Admin: 01/05/18 23:08 Dose: Not Given Latanoprost (Xalatan 0.005% Eye Drops -) 1 drop OU DAILY [facility] Last Admin: 01/06/18 09:46 Dose: 1 drop Levothyroxine Sodium (Synthroid -) 75 mcg PO AM [facility] Last Admin: 01/06/18 06:46 Dose: 75 mcg Montelukast Sodium (Singulair -) 10 mg PO HS [facility] Last Admin: 01/05/18 23:09 Dose: 10 mg Pantoprazole Sodium (Protonix -) 40 mg PO BID [facility] Last Admin: 01/06/18 09:44 Dose: 40 mg Prednisone (Deltasone -) 40 mg PO DAILY [facility] Last Admin: 01/06/18 09:45 Dose: 40 mg Roflumilast (Daliresp -) 500 mcg PO DAILY [facility] Last Admin: 01/06/18 09:44 Dose: 500 mcg Sitagliptin Phosphate (Januvia -) 100 mg PO AM [facility] Last Admin: 01/06/18 06:46 Dose: Not Given Tiotropium [place] (Spiriva Respimat) 2 puff IH DAILY [facility] Last Admin: 01/06/18 09:46 Dose: 2 puff - Objective Vital Signs: Vital Signs Temperature 97.5 F L 01/06/18 06:00 Pulse Rate 83 01/06/18 09:45 Respiratory Rate 20 01/06/18 06:00 Blood Pressure 116/57 L 01/06/18 06:00 O2 Sat by Pulse Oximetry (%) 98 01/06/18 09:47 Constitutional: Yes: No Distress, Calm Cardiovascular: Yes: Regular Rate and Rhythm, S1, S2 Respiratory: Yes: Regular, Rhonchi (minimal, scattered) Gastrointestinal: Yes: Normal Bowel Sounds, Soft. No: Tenderness Edema: Yes Edema: LLE: Trace, RLE: Trace Neurological: Yes: Alert, Oriented Labs: CBC, BMP 01/06/18 07:00 01/06/18 07:00 Problem List - Problems (1) Acute and chronic respiratory failure with hypercapnia Code(s): J96.22 - ACUTE AND CHRONIC RESPIRATORY FAILURE WITH HYPERCAPNIA (2) COPD with acute exacerbation Code(s): J44.1 - CHRONIC OBSTRUCTIVE PULMONARY DISEASE W (ACUTE) EXACERBATION (3) Advanced chronic obstructive pulmonary disease Code(s): J44.9 - CHRONIC OBSTRUCTIVE PULMONARY DISEASE, UNSPECIFIED (4) Diabetes mellitus Code(s): E11.9 - TYPE 2 DIABETES MELLITUS WITHOUT COMPLICATIONS (5) Hypertension Code(s): I10 - ESSENTIAL (PRIMARY) HYPERTENSION (6) Paroxysmal atrial fibrillation Code(s): I48.0 - PAROXYSMAL ATRIAL FIBRILLATION (7) Elevated troponin I level Code(s): R74.8 - ABNORMAL LEVELS OF OTHER SERUM ENZYMES (8) Leukocytosis Code(s): D72.829 - ELEVATED WHITE BLOOD CELL COUNT, UNSPECIFIED (9) Elevated LFTs Code(s): R94.5 - ABNORMAL RESULTS OF LIVER FUNCTION STUDIES (10) GIB (gastrointestinal bleeding) Code(s): K92.2 - GASTROINTESTINAL HEMORRHAGE, UNSPECIFIED (11) Hyponatremia Code(s): E87.1 - HYPO-OSMOLALITY AND HYPONATREMIA (12) Urinary retention Code(s): R33.9 - RETENTION OF URINE, UNSPECIFIED (13) Hyperkalemia Code(s): E87.5 - HYPERKALEMIA Assessment/Plan Pt now on PO Prednisone -to be tappered per Pulmonary Pulmonary, Cardio, Phychiatry, ID, Heme, GI, Renal, consults and f/u are appreciated. Psychiatry consult is appreciated; pt was found to have full capacity to make decisions. Continue current Rx. Calorie count in progress. Leukocytosis is improving. Prognosis: reserved.
--- NOTE | 2018-01-06 10:45 | PN ---
Progress Note (short form) - Note Progress Note: PULMONARY REMAINS IN BED /APPEARS WEAK/PALE/END STAGE VSS Constitutional: Yes: Thin Eyes: Yes: WNL HENT: Yes: WNL Neck: Yes: WNL Cardiovascular: Yes: Regular Rate and Rhythm, S1, S2 Respiratory: Yes: Diminished Gastrointestinal: Yes: Normal Bowel Sounds, Soft Extremities: Yes: WNL Edema none IMAGES/MICRO/LABS/MEDS/NOTES REVIEWED IMP ACUTE ON CHRONIC HYPOXEMIC/HYPERCAPNEIC RESPIRATORY FAILURE END STAGE COPD PULMONARY HTN PAF IDDM DIASTOLIC HF HYPOTHYROIDISM PLAN ORAL STEROIDS INHALED BRONCHODILATORS O2 BIPAP AT NIGHT AND PRN DALIRESP GOALS OF CARE Eduarda BOWMAN MD
--- NOTE | 2018-01-06 11:27 | PN ---
Progress Note (short form) - Note Progress Note: Chief Complaint: shortness of breath s: lethargic. denies cp, dizzy. still sob. Current Medications Generic Name Dose Route Start Last Admin Trade Name Freq PRN Reason Stop Dose Admin Alprazolam 0.25 mg 01/04/18 13:08 01/05/18 11:51 Xanax - PO 0.25 mg Q8H PRN Administration ANXIETY Apixaban 5 mg 12/25/17 22:00 01/06/18 09:45 Eliquis - PO 5 mg BID [facility] Administration Atorvastatin Calcium 40 mg 12/12/17 22:00 01/05/18 23:09 Lipitor - PO 40 mg HS [facility] Administration Brimonidine Tartrate 1 drop 12/12/17 22:00 01/06/18 09:45 Alphagan P 0.1% - OU 1 drop BID [facility] Administration Digoxin 0.125 mg 12/13/17 10:00 01/06/18 09:45 Lanoxin - PO 0.125 mg DAILY [facility] Administration Diltiazem HCl 120 mg 12/13/17 10:00 01/06/18 09:44 Cardizem Cd - PO 120 mg DAILY [facility] Administration Dronabinol 2.5 mg 01/06/18 08:00 01/06/18 09:45 Marinol - PO 2.5 mg DAILY@0800 [facility] Administration Fluconazole 100 mg 12/27/17 17:45 01/06/18 09:45 Diflucan - PO 100 mg DAILY [facility] Administration Sodium Chloride 1,000 mls @ 83 mls/hr 01/05/18 15:45 01/05/18 17:00 Normal Saline - IV 83 mls/hr ASDIR [facility] Administration Insulin Aspart 1 vial 12/12/17 22:00 01/06/18 06:45 Novolog Vial Sliding Scale - SQ 2 units ACHS [facility] Administration Protocol Insulin Detemir 10 units 12/26/17 17:58 01/06/18 06:42 Levemir Vial SQ Not Given AM [facility] Insulin Detemir 4 units 12/26/17 17:58 01/05/18 23:08 Levemir Vial SQ Not Given HS [facility] Latanoprost 1 drop 12/13/17 10:00 01/06/18 09:46 Xalatan 0.005% Eye Drops - OU 1 drop DAILY [facility] Administration Levothyroxine Sodium 75 mcg 12/13/17 07:00 01/06/18 06:46 Synthroid - PO 75 mcg AM [facility] Administration Montelukast Sodium 10 mg 12/12/17 22:00 01/05/18 23:09 Singulair - PO 10 mg HS [facility] Administration Pantoprazole Sodium 40 mg 12/29/17 10:15 01/06/18 09:44 Protonix - PO 40 mg BID [facility] Administration Prednisone 40 mg 12/28/17 10:00 01/06/18 09:45 Deltasone - PO 40 mg DAILY [facility] Administration Roflumilast 500 mcg 12/13/17 12:45 01/06/18 09:44 Daliresp - PO 500 mcg DAILY [facility] Administration Sitagliptin Phosphate 100 mg 12/13/17 07:00 01/06/18 06:46 Januvia - PO Not Given AM [facility] Tiotropium [place] 2 puff 12/13/17 10:00 01/06/18 09:46 Spiriva Respimat IH 2 puff DAILY [facility] Administration Vital Signs Period Temp Pulse Resp BP Sys/Anthony Pulse Ox Last 24 Hr 97.4 F-97.6 F 71-86 20-20 98-116/47-59 95-98 Constitutional: Yes: No Distress, Calm Eyes: Yes: Conjunctiva Clear Respiratory: Yes: Regular, no wheeze, dec bs, nl eff, On Nasal O2 Gastrointestinal: Yes: Normal Bowel Sounds, Soft Cardiovascular: Yes: Regular Rate and Rhythm JVD: No Heart Sounds: Yes: S1, S2 Edema: trace le edema bl Integumentary: Yes: no jaundice diaphoresis Neurological: lethargic CBC, BMP 01/06/18 07:00 01/06/18 07:00 Echo 10/2015: Nl lv/rv. suboptimal views, but at least mild AR. Mod MAC. 1+ MR. No MS. trivial effusion. RVSP not measured. echo 09/2016: tds; nl lv/rv, mv calcified, mac, mild-mod mr, sev tr, small peric eff-->MV calcification is chronic finding for her and not indicative of vegetation CXR: hyperaerated lung, no effusion EKG: sinus, nonspecific ST segment changes Assessment/Plan Elevated trop - 0.07->0.06 - mild elevation with flat trend, EKG stable, not consistent with ACS - management of COPD exacerbation Shortness of breath, COPD - O2 dependent, on BiPap, chronic prednisone - manage per pulm Chronic diastolic CHF - pedal edema present, likely steroids effect - cxr clear, no signs pulm edema - holding lasix for hyponatremia, nephrology following pAFib - in sinus now, rate stable - continue eliquis, digoxin, diltiazem HLD - continue statin
[2018-01-06 11:57] LABS: ANISOCYTOSIS 0; MACROCYTOSIS 0; PLATELET ESTIMATE DECREASED
[2018-01-06] MEDS: ALPRAZolam 0.25 MG TABLET PO PRN (14:22)
[2018-01-06] MEDS ORDERED: SODIUM CHLORIDE 1,000 ML IV SCH (14:28)
--- NOTE | 2018-01-06 14:30 | PN ---
Progress Note (short form) - Note Progress Note: Renal follow up for Hyponatremia Vital Signs Temperature 97.1 F L 01/06/18 10:00 Pulse Rate 83 01/06/18 10:00 Respiratory Rate 20 01/06/18 10:00 Blood Pressure 118/70 01/06/18 10:00 O2 Sat by Pulse Oximetry (%) 98 01/06/18 09:47 Intake & Output 01/03/18 01/04/18 01/05/18 01/06/18 23:59 23:59 23:59 23:59 Intake Total 100 130 498 581 Output Total 600 400 100 50 Balance -500 -270 398 531 CBC, BMP 01/06/18 07:00 01/06/18 07:00 Current Medications Alprazolam (Xanax -) 0.25 mg PO Q8H PRN PRN Reason: ANXIETY Last Admin: 01/06/18 14:22 Dose: 0.25 mg Apixaban (Eliquis -) 5 mg PO BID [facility] Last Admin: 01/06/18 09:45 Dose: 5 mg Atorvastatin Calcium (Lipitor -) 40 mg PO HS [facility] Last Admin: 01/05/18 23:09 Dose: 40 mg Brimonidine Tartrate (Alphagan P 0.1% -) 1 drop OU BID [facility] Last Admin: 01/06/18 09:45 Dose: 1 drop Digoxin (Lanoxin -) 0.125 mg PO DAILY [facility] Last Admin: 01/06/18 09:45 Dose: 0.125 mg Diltiazem HCl (Cardizem Cd -) 120 mg PO DAILY [facility] Last Admin: 01/06/18 09:44 Dose: 120 mg Dronabinol (Marinol -) 2.5 mg PO DAILY@0800 [facility] Last Admin: 01/06/18 09:45 Dose: 2.5 mg Fluconazole (Diflucan -) 100 mg PO DAILY [facility] Last Admin: 01/06/18 09:45 Dose: 100 mg Sodium Chloride (Normal Saline -) 1,000 mls @ 60 mls/hr IV ASDIR [facility] Insulin Aspart (Novolog Vial Sliding Scale -) 1 vial SQ ACHS [facility]; Protocol Last Admin: 01/06/18 11:29 Dose: 4 units Insulin Detemir (Levemir Vial) 10 units SQ AM [facility] Last Admin: 01/06/18 06:42 Dose: Not Given Insulin Detemir (Levemir Vial) 4 units SQ HS [facility] Last Admin: 01/05/18 23:08 Dose: Not Given Latanoprost (Xalatan 0.005% Eye Drops -) 1 drop OU DAILY [facility] Last Admin: 01/06/18 09:46 Dose: 1 drop Levothyroxine Sodium (Synthroid -) 75 mcg PO AM [facility] Last Admin: 01/06/18 06:46 Dose: 75 mcg Montelukast Sodium (Singulair -) 10 mg PO HS [facility] Last Admin: 01/05/18 23:09 Dose: 10 mg Pantoprazole Sodium (Protonix -) 40 mg PO BID [facility] Last Admin: 01/06/18 09:44 Dose: 40 mg Prednisone (Deltasone -) 40 mg PO DAILY [facility] Last Admin: 01/06/18 09:45 Dose: 40 mg Roflumilast (Daliresp -) 500 mcg PO DAILY [facility] Last Admin: 01/06/18 09:44 Dose: 500 mcg Sitagliptin Phosphate (Januvia -) 100 mg PO AM [facility] Last Admin: 01/06/18 06:46 Dose: Not Given Tiotropium [place] (Spiriva Respimat) 2 puff IH DAILY [facility] Last Admin: 01/06/18 09:46 Dose: 2 puff 72 year old woman with hx of COPD on home O2, Pulmonary hypertension, Hypertension, CHF (diastolic dysfunction), Afib on A/c, DM, Hypothyroidism who presented with SOB and JAMESON and admitted for COPD exacerbation and noted to develop hyponatremia during the hospital course. #Hypovolemic hyponatremia in setting of diuretics (low urine Na, Serum OSM WNL) #MINDY (Cr 0.6 to 1.2) #COPD exacerbation #Diastolic HF #Hypothyroidism #Azotemia Serum na improved s/p IVF Renal function also improved will continue gentle IVF hydration Monitor respiratory status Pulmonary follow up supportive care Shayan Delaney DO
[2018-01-06] MEDS ORDERED: PT OWN MED DRAWER 7, Y5N ONE (17:41)
[2018-01-06] MEDS: MONTELUKAST NA 10 MG TABLET PO SCH (22:14)
[2018-01-06] MEDS: ATORVASTATIN CA 40 MG TABLET (FP) PO SCH (22:15)
[2018-01-07 01:15] VITALS: BP 119/61; PULSE 80; TEMP 97.4
--- NOTE | 2018-01-07 21:42 | DS ---
Physical Examination Vital Signs: Vital Signs Temperature 97.4 F L 01/06/18 22:00 Pulse Rate 80 01/06/18 22:00 Respiratory Rate 22 H 01/06/18 22:00 Blood Pressure 119/61 01/06/18 22:00 O2 Sat by Pulse Oximetry (%) 98 01/06/18 21:00 Findings/Remarks: Pt this AM Labs: CBC, BMP 01/06/18 07:00 01/06/18 07:00 Discharge Summary Reason For Visit: ACUTE ON CHRONIC RESPIRATORY FAILURE Hospital Course: Pt with severe COPD (per Aisha, her step daughter and HCP, pt was offered lung transplant 10 years ago and refused it), on oxygen supplementation at home and chronic Prednisone, developed progressive dyspneea over several days that got worse the day before ER visit. In ER pt was found to be in respiratory failure, have elevated CE (not consistent with ACS); pt was started on IV steroids and was admitted to monitor bed. Pulmonary Consult (/ Magno/ Christian) and Cardiology consult (Dr. Roman/ Omid/ Willis) saw patient. Patient response to steroids was in general slow and poor. Early attempts for transferring patient to pulmonary rehab were unsuccessful. During her hospitalization patient was seen by Psychiatry (Dr. Romo, per HCP request, to evaluate patient's ability to make medical decisions; patient was found to have full capacity to make decisions), GI (Dr. Payan, for elevated LFT -considered to be secondary to hepatic congestion, and stool occult blood -patient was started on PPI), ID (Dr. Yanes, for leukocytosis -considered to be secondary to steroids), Heme/Onco (Dr. Goldman, for persistent Leukocytosis), (Dr. Tapia for urinary retention), Renal (Dr. Cherry/ Demetris) for hyponatremia. Patient with poor appetite since admission, trial of artificial nutrition was presented to patient on different occasions but she refused it (including in the presence of her step daughter), although patient was aware that nutrition was an important factor in recovery and her disposition. Patient in early hours of 01/16/2018 (she was DNR and DNI). Condition: - Instructions Referrals: Candelaria Scott MD [Primary Care Provider] - Disposition: - Home Medications Comprehensive Discharge Medication List: Ambulatory Orders Arformoterol Tartrate [Brovana] 15 mcg IH BID 10/04/16 Atorvastatin Ca [Lipitor] 40 mg PO HS 10/04/16 Bimatoprost [Lumigan] 1 drop OU DAILY 10/04/16 Brimonidine Tartrate [Alphagan P 0.1% -] 1 drop OU BID 10/04/16 Brinzolamide [Azopt] 1 drop OU BID 10/04/16 Digoxin [Lanoxin -] 0.125 mg PO DAILY 10/04/16 Ergocalciferol (Vitamin D2) [Vitamin D2] 2,000 unit PO DAILY 10/04/16 Levalbuterol HCl [Xopenex] 0.45 mg IH BID 10/04/16 Levothyroxine [Synthroid -] 75 mcg PO ASDIR 10/04/16 Montelukast Na [Singulair -] 10 mg PO HS 10/04/16 Sitagliptin Phosphate [Januvia] 100 mg PO DAILY 10/04/16 Tiotropium [place] [Spiriva] 18 mcg IH DAILY 10/04/16 Albuterol 0.083% Nebulizer Page [Ventolin 0.083% Nebulizer Soln -] 1 amp NEB Q4H PRN #0 amp 10/11/16 Apixaban [Eliquis -] 5 mg PO BID #60 tablet 10/11/16 Diltiazem [Cardizem -] 120 mg PO ASDIR 12/12/17 Furosemide [Lasix -] 40 mg PO DAILY 12/12/17 Insulin (Levemir) [Levemir Vial] 8 units SQ HS units 12/25/17 Insulin (Levemir) [Levemir Vial] 20 units SQ AM units 12/25/17 Insulin Sliding Scale [Novolog Vial Sliding Scale -] 1 vial SQ ACHS units 12/25 Roflumilast [Daliresp -] 500 mcg PO DAILY tablet 12/25/17 predniSONE [Deltasone -] 10 mg PO ASDIR #30 tab 12/25/17
[2018-01-10 14:08] LABS: ALK PHOS 116 U/L (45-117); ANION GAP 11 MMOL/L (8-16); BILIRUBIN,TOTAL 0.7 mg/dL (0.2-1); BLOOD UREA NITROGEN 79 mg/dL (7-18); CALCIUM 9.4 mg/dL (8.5-10.1); CHLORIDE 95 mmol/L (98-107); GLUCOSE,RANDOM 131 mg/dL (74-106); SGOT/AST 52 U/L (15-37); SGPT/ALT 121 U/L (13-61); SODIUM 136 mmol/L (136-145); TOT PROT 5.4 g/dl (6.4-8.2)
== END 2018-01-07 02:35 | disposition expired | DRG 189 ==
LOC: JER 14:10 → JERBED 12-13 01:27 → J4W 12-13 01:33 → J7W 12-19 13:55
PROVIDERS: ADMIT Internal Medicine; ATTEND Internal Medicine
PROC: 5A09457 Assistance with Respiratory Ventilation, 24-96 Consecutive Hours, Continuous Positive Airway Pressure (ICD-10-PCS; principal; 2017-12-13)
DX: J96.22 Acute and chronic respiratory failure with hypercapnia (principal); J44.1 Chronic obstructive pulmonary disease with (acute) exacerbation; E87.1 Hypo-osmolality and hyponatremia; I50.32 Chronic diastolic (congestive) heart failure; K92.2 Gastrointestinal hemorrhage, unspecified; N39.0 Urinary tract infection, site not specified; N17.9 Acute kidney failure, unspecified; J44.9 Chronic obstructive pulmonary disease, unspecified; J96.21 Acute and chronic respiratory failure with hypoxia; I27.20 Pulmonary hypertension, unspecified; E11.9 Type 2 diabetes mellitus without complications; E03.9 Hypothyroidism, unspecified; R74.8 Abnormal levels of other serum enzymes; I48.0 Paroxysmal atrial fibrillation; E87.5 Hyperkalemia; R94.5 Abnormal results of liver function studies; D72.829 Elevated white blood cell count, unspecified; E78.5 Hyperlipidemia, unspecified; I11.0 Hypertensive heart disease with heart failure; B37.9 Candidiasis, unspecified; K76.0 Fatty (change of) liver, not elsewhere classified; R33.9 Retention of urine, unspecified; L89.152 Pressure ulcer of sacral region, stage 2; Z87.891 Personal history of nicotine dependence; Z79.4 Long term (current) use of insulin; Z66 Do not resuscitate; Z99.81 Dependence on supplemental oxygen
CPT/HCPCS: 36415; 36600; 71045-TC-FY; 71046-TC-FY; 76705-TC; 80048; 80053; 80074; 80076; 80162; 81003; 81015; 82105; 82172; 82247; 82272; 82465; 82533; 82550; 82803; 82947; 82962; 82977; 83010; 83516; 83735; 83883; 83930; 83935; 84100; 84300; 84439; 84443; 84450; 84460; 84478; 84484; 85025; 85027; 85651; 86038; 87040; 87086; 93005; 93010; 94640; 94660; 97116-GP; 97161-GP; 99283-25; J7030